=== PATIENT | male | born 1935 | race Caucasian/White ===

== ENCOUNTER 2016-12-03 09:03 | Inpatient (IN) | payer MEDICARE, BC ==
[2016-12-03] MEDS ORDERED: SODIUM CHLORIDE 0.9% 1,000 ML IV ONE (09:29)
[2016-12-03] MEDS ORDERED: ACETAMINOPHEN TAB 500 MG TAB PO STA (09:29)
--- NOTE | 2016-12-03 09:36 | ED ---
Fever HPI - General Source: patient, RN notes reviewed Mode of arrival: ambulatory Limitations: no limitations <Preston Morejon - Last Filed: 12/03/16 12:16> <Jl Sage - Last Filed: 12/03/16 12:41> - General Chief Complaint: Fever Stated Complaint: post op problem, male gu, vomiting Time Seen by Provider: 12/03/16 09:13 - History of Present Illness Initial Comments: 81-year-old male patient presents to emergency department today for complaints of fever and vomiting. Patient underwent urologic surgery on Tuesday, states a large stone was removed from his bladder, and part of his prostate was removed. Surgeon is Dr. Myers. Patient states he woke this morning and just felt chilled and shaky. They called Dr. Myers's office this morning who instructed them to bring a urine sample to his office. states when she arrived home patient was vomiting and seemed even more shaky. Patient denies any headache, dizziness, weakness, chest pain, back pain, shortness breath, abdominal pain, constipation, or diarrhea. Patient does have some hematuria, but was told that was to be expected with the surgery. Patient reports minimal urine output this morning. He denies any cough, congestion, nasal drainage, or sore throat. (Preston Morejon) - Related Data Home Medications Medication Instructions Recorded Confirmed Atenolol [Tenormin] 25 mg PO DAILY 12/03/16 12/03/16 Digoxin [Lanoxin] 125 mcg PO DAILY 12/03/16 12/03/16 Simvastatin [Zocor] 40 mg PO DAILY 12/03/16 12/03/16 metFORMIN HCL [Glucophage] 850 mg PO DAILY 12/03/16 12/03/16 Allergies Allergy/AdvReac Type Severity Reaction Status Date / Time No Known Allergies Allergy Verified 12/03/16 09:40 Review of Systems ROS Other: All systems not noted in ROS Statement are negative. <Preston Morejon - Last Filed: 12/03/16 12:16> ROS Other: All systems not noted in ROS Statement are negative. <Jl Sage - Last Filed: 12/03/16 12:41> ROS Statement: Those systems with pertinent positive or pertinent negative responses have been documented in the HPI. Past Medical History Past Medical History: Chest Pain / Angina, Diabetes Mellitus, Hyperlipidemia, Hypertension History of Any Multi-Drug Resistant Organisms: None Reported Past Surgical History: Hernia Repair, Prostate Surgery, Tonsillectomy Past Psychological History: No Psychological Hx Reported Smoking Status: Never smoker Past Alcohol Use History: None Reported Past Drug Use History: None Reported <Preston Morejon - Last Filed: 12/03/16 12:16> General Exam Limitations: no limitations General appearance: alert, in no apparent distress Head exam: Present: atraumatic, normocephalic, normal inspection Eye exam: Present: normal appearance, PERRL, EOMI. Absent: scleral icterus, conjunctival injection, periorbital swelling ENT exam: Present: normal exam, normal oropharynx, mucous membranes dry Neck exam: Present: normal inspection. Absent: tenderness, meningismus, lymphadenopathy Respiratory exam: Present: normal lung sounds bilaterally. Absent: respiratory distress, wheezes, rales, rhonchi, stridor Cardiovascular Exam: Present: normal rhythm, tachycardia, normal heart sounds. Absent: systolic murmur, diastolic murmur, rubs, gallop, clicks GI/Abdominal exam: Present: soft, normal bowel sounds. Absent: distended, tenderness, guarding, rebound, rigid Extremities exam: Present: normal inspection, full ROM, normal capillary refill. Absent: tenderness, pedal edema, joint swelling, calf tenderness Back exam: Present: normal inspection Neurological exam: Present: alert, oriented X3, CN II-XII intact Psychiatric exam: Present: normal affect, normal mood Skin exam: Present: warm, dry, intact, normal color. Absent: rash <Preston Morejon - Last Filed: 12/03/16 12:16> General appearance: alert, in no apparent distress Head exam: Present: atraumatic, normocephalic, normal inspection Eye exam: Present: normal appearance, PERRL, EOMI. Absent: scleral icterus, conjunctival injection, periorbital swelling ENT exam: Present: normal exam, mucous membranes moist Neck exam: Present: normal inspection. Absent: tenderness, meningismus, lymphadenopathy Respiratory exam: Present: normal lung sounds bilaterally. Absent: respiratory distress, wheezes, rales, rhonchi, stridor Cardiovascular Exam: Present: normal rhythm, tachycardia, normal heart sounds. Absent: systolic murmur, diastolic murmur, rubs, gallop, clicks GI/Abdominal exam: Present: soft, normal bowel sounds. Absent: distended, tenderness, guarding, rebound, rigid Extremities exam: Present: normal inspection, full ROM, normal capillary refill. Absent: tenderness, pedal edema, joint swelling, calf tenderness Back exam: Present: normal inspection Neurological exam: Present: alert, oriented X3, CN II-XII intact Psychiatric exam: Present: normal affect, normal mood Skin exam: Present: warm, dry, intact, normal color. Absent: rash <Jl Sage - Last Filed: 12/03/16 12:41> Course <Preston Morejon - Last Filed: 12/03/16 12:16> <Jl Sage - Last Filed: 12/03/16 12:41> Vital Signs 12/03/16 12/03/16 12/03/16 09:04 10:15 10:30 Temperature 102.8 F H Pulse Rate 117 H 98 92 Respiratory 18 20 18 Rate Blood Pressure 130/61 113/62 117/65 O2 Sat by Pulse 95 94 L 95 Oximetry 12/03/16 12/03/16 10:45 11:00 Temperature Pulse Rate 92 92 Respiratory 18 18 Rate Blood Pressure 116/66 114/67 O2 Sat by Pulse 92 L 98 Oximetry - Reevaluation(s) Reevaluation #1: 12/03/16 12:39 patient seen and evaluated by Dr. Huston here in the emergency room. We'll start IV antibiotics (Jl Sage) Medical Decision Making - Lab Data Result diagrams: 12/03/16 10:06 12/03/16 10:06 <Preston Morejon - Last Filed: 12/03/16 12:16> - Lab Data Result diagrams: 12/03/16 10:06 12/03/16 10:06 - Radiology Data Radiology results: report reviewed (Chest x-ray is negative for acute disease), image reviewed <Jl Sage - Last Filed: 12/03/16 12:41> - Medical Decision Making 81-year-old male patient presents to emergency department today for evaluation of fever. Patient is status post TURP with stone removal from bladder on Tuesday. Labs revealed a lactic acid of 3.1. Patient was started on broad spectrum antibiotics and given 1500 mL of normal saline. Dr. Myers was in to see patient. Patient be admitted for urinary tract infection and fever. (Preston Morejon) 81 male to the the ER for evaluation of fever, postop urinary tract infection, patient will be admitted for IV antibiotics, continue IV resuscitation fever symptom control. (Jl Sage) - Lab Data Lab Results 12/03/16 12/03/16 12/03/16 Range/Units 09:15 10:06 10:06 WBC 9.3 (3.8-10.6) k/uL RBC 4.57 (4.30-5.90) m/uL Hgb 13.8 (13.0-17.5) gm/dL Hct 41.3 (39.0-53.0) % MCV 90.3 (80.0-100.0) fL MCH 30.2 (25.0-35.0) pg MCHC 33.4 (31.0-37.0) g/dL RDW 13.3 (11.5-15.5) % Plt Count 226 (150-450) k/uL Neutrophils % 94 % Lymphocytes % 3 % Monocytes % 1 % Eosinophils % 1 % Basophils % 0 % Neutrophils # 8.7 H (1.3-7.7) k/uL Lymphocytes # 0.3 L (1.0-4.8) k/uL Monocytes # 0.1 (0-1.0) k/uL Eosinophils # 0.1 (0-0.7) k/uL Basophils # 0.0 (0-0.2) k/uL PT (9.0-12.0) sec INR (<1.1) APTT (22.0-30.0) sec Sodium 138 (137-145) mmol/L Potassium 4.4 (3.5-5.1) mmol/L Chloride 104 (98-107) mmol/L Carbon Dioxide 20 L (22-30) mmol/L Anion Gap 14 mmol/L BUN 13 (9-20) mg/dL Creatinine 0.90 (0.66-1.25) mg/dL Est GFR (MDRD) Af Amer >60 (>60 ml/min/1.73 sqM) Est GFR (MDRD) Non-Af >60 (>60 ml/min/1.73 sqM) Glucose 214 H (74-99) mg/dL Plasma Lactic Acid Selvin (0.7-2.0) mmol/L Calcium 9.9 (8.4-10.2) mg/dL Total Bilirubin 0.9 (0.2-1.3) mg/dL AST 37 (17-59) U/L ALT 54 (21-72) U/L Alkaline Phosphatase 68 (38-126) U/L Total Protein 6.8 (6.3-8.2) g/dL Albumin 4.1 (3.5-5.0) g/dL Urine Color Yellow Urine Appearance Cloudy (Clear) Urine pH 6.5 (5.0-8.0) Ur Specific [place] 1.011 (1.001-1.035) Urine Protein 1+ H (Negative) Urine Glucose (UA) 2+ H (Negative) Urine Ketones Negative (Negative) Urine Blood Large H (Negative) Urine Nitrite Negative (Negative) Urine Bilirubin Negative (Negative) Urine Urobilinogen <2.0 (<2.0) mg/dL Ur Leukocyte Esterase Moderate H (Negative) Urine RBC >182 H (0-5) /hpf Urine WBC 110 H (0-5) /hpf Urine Bacteria Few H (None) /hpf Urine Mucus Rare H (None) /hpf Influenza Type A RNA (Not Detectd) Influenza Type B (PCR) (Not Detectd) 12/03/16 12/03/16 12/03/16 Range/Units 10:06 10:06 10:06 WBC (3.8-10.6) k/uL RBC (4.30-5.90) m/uL Hgb (13.0-17.5) gm/dL Hct (39.0-53.0) % MCV (80.0-100.0) fL MCH (25.0-35.0) pg MCHC (31.0-37.0) g/dL RDW (11.5-15.5) % Plt Count (150-450) k/uL Neutrophils % % Lymphocytes % % Monocytes % % Eosinophils % % Basophils % % Neutrophils # (1.3-7.7) k/uL Lymphocytes # (1.0-4.8) k/uL Monocytes # (0-1.0) k/uL Eosinophils # (0-0.7) k/uL Basophils # (0-0.2) k/uL PT 11.0 (9.0-12.0) sec INR 1.1 (<1.1) APTT 21.2 L (22.0-30.0) sec Sodium (137-145) mmol/L Potassium (3.5-5.1) mmol/L Chloride (98-107) mmol/L Carbon Dioxide (22-30) mmol/L Anion Gap mmol/L BUN (9-20) mg/dL Creatinine (0.66-1.25) mg/dL Est GFR (MDRD) Af Amer (>60 ml/min/1.73 sqM) Est GFR (MDRD) Non-Af (>60 ml/min/1.73 sqM) Glucose (74-99) mg/dL Plasma Lactic Acid Selvin 3.1 H* (0.7-2.0) mmol/L Calcium (8.4-10.2) mg/dL Total Bilirubin (0.2-1.3) mg/dL AST (17-59) U/L ALT (21-72) U/L Alkaline Phosphatase (38-126) U/L Total Protein (6.3-8.2) g/dL Albumin (3.5-5.0) g/dL Urine Color Urine Appearance (Clear) Urine pH (5.0-8.0) Ur Specific [place] (1.001-1.035) Urine Protein (Negative) Urine Glucose (UA) (Negative) Urine Ketones (Negative) Urine Blood (Negative) Urine Nitrite (Negative) Urine Bilirubin (Negative) Urine Urobilinogen (<2.0) mg/dL Ur Leukocyte Esterase (Negative) Urine RBC (0-5) /hpf Urine WBC (0-5) /hpf Urine Bacteria (None) /hpf Urine Mucus (None) /hpf Influenza Type A RNA Not Detected (Not Detectd) Influenza Type B (PCR) Not Detected (Not Detectd) Disposition Decision to Admit Reason: Admit from EC Decision Date: 12/03/16 Decision Time: 12:12 <Preston Morejon - Last Filed: 12/03/16 12:16> <Jl Sage - Last Filed: 12/03/16 12:41> Clinical Impression: Urinary tract infection, Post-procedural fever Disposition: ADMITTED IP TO THIS HOSP Condition: Fair Referrals: Chucho Trejo MD [Primary Care Provider] - 1-2 days
[2016-12-03 10:10] LABS: Appearance,Urine Cloudy (Clear); Bacteria,Urine Few /hpf; Bilirubin,Urine Negative (Negative); Glucose,Urine (UA) 2+ (Negative); Ketones,Urine Negative (Negative); Leukocyte Esterase,Urine Moderate (Negative); Mucus,Urine Rare /hpf; Nitrite,Urine Negative (Negative); PH, Urine 6.5 (5.0-8.0); Particle Count 14830; Protein,Urine 1+ (Negative); RBC,Urine >182 /hpf (0-5); Specific Gravity,Urine 1.011 (1.001-1.035); UA Billing (MACRO vs. MICRO) MICRO; Urobilinogen,Urine <2.0 mg/dL (<2.0); WBC,Urine 110 /hpf (0-5)
[2016-12-03 10:33] LABS: Basophils % (A) 0 %; CH 30.6; Eosinophils # (A) 0.1 k/uL (0-0.7); Eosinophils % (A) 1 %; HCT 41.3 % (39.0-53.0); HDW 2.61; HGB 13.8 gm/dL (13.0-17.5); Luc # (Auto) 0.03; Luc % (Auto) 0; Lymphocytes # (A) 0.3 k/uL (1.0-4.8); Lymphocytes % (A) 3 %; MCH 30.2 pg (25.0-35.0); MCHC 33.4 g/dL (31.0-37.0); MCV 90.3 fL (80.0-100.0); Mean Platelet Volume 7.9; Monocytes # (A) 0.1 k/uL (0-1.0); Monocytes % (A) 1 %; Neutrophils # (A) 8.7 k/uL (1.3-7.7); Neutrophils % (A) 94 %; RBC 4.57 m/uL (4.30-5.90); RDW 13.3 % (11.5-15.5); WBC 9.3 k/uL (3.8-10.6); WBC (Perox) 9.47
[2016-12-03 10:57] LABS: ALT 54 U/L (21-72); AST 37 U/L (17-59); Alkaline Phosphatase 68 U/L (38-126); Anion Gap 14 mmol/L; Blood Urea Nitrogen 13 mg/dL (9-20); Calcium 9.9 mg/dL (8.4-10.2); Carbon Dioxide 20 mmol/L (22-30); Chloride 104 mmol/L (98-107); Glucose 214 mg/dL (74-99); Non-African American GFR(MDRD) >60 (>60 ml/min/1.73 sqM); Potassium 4.4 mmol/L (3.5-5.1); Sodium 138 mmol/L (137-145); Total Bilirubin 0.9 mg/dL (0.2-1.3); Total Protein 6.8 g/dL (6.3-8.2)
[2016-12-03 11:02] LABS: INR 1.1 (<1.1)
[2016-12-03 11:20] LABS: Partial Thromboplastin Time 21.2 sec (22.0-30.0)
[2016-12-03] MEDS ORDERED: SODIUM CHLORIDE 0.9% 500 ML IV ONE (11:44)
--- NOTE | 2016-12-03 11:59 | XR ---
EXAMINATION TYPE: XR chest 2V DATE OF EXAM: 12/03/2016 11:32 AM HISTORY: fever. REFERENCE: Previous study dated 12/02/2009. FINDINGS: The lungs are overinflated. There are chronic increased markings the lung bases. There is n o pneumonia or edema. Pleural spaces are clear. Heart size is normal. IMPRESSION: COPD.
--- NOTE | 2016-12-03 12:02 | P.GSHP ---
History of Present Illness H&P Date: 12/03/16 The patient is an 81-year-old gentleman who on 11/29/2016 underwent a transurethral resection of his prostate which was large as well as cystoscopy lithotripsy to a large bladder stone. Catheter remained in until yesterday and was removed. He developed fever and chills this morning came in the emergency room. He is having some difficulty with urination. He is having some blood. He is having some nausea. He'll be admitted for IV fluids IV hydration and antibiotics. His urine looks infected. I suspect he has a and infection. He was on perioperative antibiotics. - Review of Systems Comment: Noncontributory he has no chest pain or shortness of breath Past Medical History Past Medical History: Chest Pain / Angina, Diabetes Mellitus, Hyperlipidemia, Hypertension History of Any Multi-Drug Resistant Organisms: None Reported Past Surgical History: Hernia Repair, Prostate Surgery, Tonsillectomy Past Psychological History: No Psychological Hx Reported Smoking Status: Never smoker Past Alcohol Use History: None Reported Past Drug Use History: None Reported Medications and Allergies Home Medications Medication Instructions Recorded Confirmed Type Atenolol [Tenormin] 25 mg PO DAILY 12/03/16 12/03/16 History Digoxin [Lanoxin] 125 mcg PO DAILY 12/03/16 12/03/16 History Simvastatin [Zocor] 40 mg PO DAILY 12/03/16 12/03/16 History Tamsulosin [Flomax] 0.4 mg PO DIRECTED 12/03/16 12/03/16 History metFORMIN HCL [Glucophage] 850 mg PO DAILY 12/03/16 12/03/16 History Allergies Allergy/AdvReac Type Severity Reaction Status Date / Time No Known Allergies Allergy Verified 12/03/16 09:40 Surgical - Exam Vital Signs Temp Pulse Resp BP Pulse Ox 102.8 F H 117 H 18 130/61 95 12/03/16 09:04 12/03/16 09:04 12/03/16 09:04 12/03/16 09:04 12/03/16 09:04 - General well developed, well nourished - Eyes PERRL - ENT no hearing loss - Respiratory normal expansion, normal respiratory effort - Cardiovascular Rhythm: regular - Abdomen Abdomen: soft, non tender - Genitourinary normal penis with no external lesions, testicles present - Neurologic normal coordination, normal sensation - Psychiatric oriented to time, oriented to person, oriented to place, speech is normal, memory intact Results - Labs 12/03/16 10:06 12/03/16 10:06 Abnormal Lab Results - Last 24 Hours (Table) 12/03/16 12/03/16 12/03/16 Range/Units 09:15 10:06 10:06 Neutrophils # 8.7 H (1.3-7.7) k/uL Lymphocytes # 0.3 L (1.0-4.8) k/uL APTT (22.0-30.0) sec Carbon Dioxide 20 L (22-30) mmol/L Glucose 214 H (74-99) mg/dL Plasma Lactic Acid Eslvin (0.7-2.0) mmol/L Urine Protein 1+ H (Negative) Urine Glucose (UA) 2+ H (Negative) Urine Blood Large H (Negative) Ur Leukocyte Esterase Moderate H (Negative) Urine RBC >182 H (0-5) /hpf Urine WBC 110 H (0-5) /hpf Urine Bacteria Few H (None) /hpf Urine Mucus Rare H (None) /hpf 12/03/16 12/03/16 Range/Units 10:06 10:06 Neutrophils # (1.3-7.7) k/uL Lymphocytes # (1.0-4.8) k/uL APTT 21.2 L (22.0-30.0) sec Carbon Dioxide (22-30) mmol/L Glucose (74-99) mg/dL Plasma Lactic Acid Selvin 3.1 H* (0.7-2.0) mmol/L Urine Protein (Negative) Urine Glucose (UA) (Negative) Urine Blood (Negative) Ur Leukocyte Esterase (Negative) Urine RBC (0-5) /hpf Urine WBC (0-5) /hpf Urine Bacteria (None) /hpf Urine Mucus (None) /hpf Diabetes panel 12/03/16 Range/Units 10:06 Sodium 138 (137-145) mmol/L Potassium 4.4 (3.5-5.1) mmol/L Chloride 104 (98-107) mmol/L Carbon Dioxide 20 L (22-30) mmol/L BUN 13 (9-20) mg/dL Creatinine 0.90 (0.66-1.25) mg/dL Glucose 214 H (74-99) mg/dL Calcium 9.9 (8.4-10.2) mg/dL AST 37 (17-59) U/L ALT 54 (21-72) U/L Alkaline Phosphatase 68 (38-126) U/L Total Protein 6.8 (6.3-8.2) g/dL Albumin 4.1 (3.5-5.0) g/dL Calcium panel 12/03/16 Range/Units 10:06 Calcium 9.9 (8.4-10.2) mg/dL Albumin 4.1 (3.5-5.0) g/dL Pituitary panel 12/03/16 Range/Units 10:06 Sodium 138 (137-145) mmol/L Potassium 4.4 (3.5-5.1) mmol/L Chloride 104 (98-107) mmol/L Carbon Dioxide 20 L (22-30) mmol/L BUN 13 (9-20) mg/dL Creatinine 0.90 (0.66-1.25) mg/dL Glucose 214 H (74-99) mg/dL Calcium 9.9 (8.4-10.2) mg/dL Adrenal panel 12/03/16 Range/Units 10:06 Sodium 138 (137-145) mmol/L Potassium 4.4 (3.5-5.1) mmol/L Chloride 104 (98-107) mmol/L Carbon Dioxide 20 L (22-30) mmol/L BUN 13 (9-20) mg/dL Creatinine 0.90 (0.66-1.25) mg/dL Glucose 214 H (74-99) mg/dL Calcium 9.9 (8.4-10.2) mg/dL Total Bilirubin 0.9 (0.2-1.3) mg/dL AST 37 (17-59) U/L ALT 54 (21-72) U/L Alkaline Phosphatase 68 (38-126) U/L Total Protein 6.8 (6.3-8.2) g/dL Albumin 4.1 (3.5-5.0) g/dL Assessment and Plan Plan: Impression: Postoperative urinary tract infection from a TURP and a cystolithotripsy Recommendations the patient be admitted for IV hydration and IV antibiotics urine culture also assess how well he is emptying his bladder.
[2016-12-03] MEDS ORDERED: NALOXONE 0.4 MG/ML 1 ML VIAL IV PRN (12:08)
[2016-12-03] MEDS ORDERED: TAMSULOSIN 0.4 MG CAP.ER.24H PO SCH (12:15)
[2016-12-03] MEDS: SODIUM CHLORIDE 0.45% 1,000 ML IV SCH (16:05)
[2016-12-03 17:02] LABS: Glucose,Whole Blood 214 mg/dL (75-99)
[2016-12-03] MEDS: INSULIN LISPRO (humaLOG) 300 UNIT/3 ML VIAL SQ SCH ×2 (17:32→21:24)
[2016-12-03 19:23] LABS: Hemoglobin A1C 7.2 % (4.2-6.1)
[2016-12-03] MEDS: ACETAMINOPHEN TAB 325 MG TAB PO PRN (20:40)
[2016-12-03 21:22] LABS: Glucose,Whole Blood 189 mg/dL (75-99)
[2016-12-04] MEDS: ACETAMINOPHEN TAB 325 MG TAB PO PRN ×2 (03:34→13:34)
[2016-12-04 06:34] LABS: Glucose,Whole Blood 181 mg/dL (75-99)
[2016-12-04] MEDS: metFORMIN 850 MG TAB PO SCH (06:48)
[2016-12-04] MEDS: INSULIN LISPRO (humaLOG) 300 UNIT/3 ML VIAL SQ SCH ×4 (06:49→21:16)
--- NOTE | 2016-12-04 09:17 | P.PN ---
Progress Note - Text The patient was generally afebrile yesterday but had a temp of 102.5 last night. BP is stable. He denies a cough or SOB and says he has no specific pain. His urine is grossly clear. Preliminary blood cultures are growing a GNR. He is currently on ceftriaxone. Imp: Sepsis from UTI. Plan: Gentamicin will be added to ceftriaxone pending final blood and urine cultures.
[2016-12-04] MEDS: DIGOXIN 125 MCG TAB PO SCH (09:22)
[2016-12-04] MEDS: ATENOLOL 25 MG TAB PO SCH (09:23)
[2016-12-04] MEDS: ATORVASTATIN 20 MG TAB PO SCH (09:23)
[2016-12-04] MEDS: GENTAMICIN 120 MG in SODIUM CHLORIDE 0.9% 100 ML IV SCH ×2 (10:20→21:16)
[2016-12-04 11:12] LABS: Non-African American GFR(MDRD) >60 (>60 ml/min/1.73 sqM)
[2016-12-04 11:50] LABS: Glucose,Whole Blood 145 mg/dL (75-99)
[2016-12-04] MEDS: SODIUM CHLORIDE 0.45% 1,000 ML IV SCH (12:01)
[2016-12-04 17:17] LABS: Glucose,Whole Blood 154 mg/dL (75-99)
[2016-12-04 21:32] LABS: Glucose,Whole Blood 191 mg/dL (75-99)
[2016-12-05 07:30] LABS: Glucose,Whole Blood 136 mg/dL (75-99)
[2016-12-05] MEDS: DIGOXIN 125 MCG TAB PO SCH (08:18)
[2016-12-05] MEDS: metFORMIN 850 MG TAB PO SCH (08:18)
[2016-12-05] MEDS: ATENOLOL 25 MG TAB PO SCH (08:18)
[2016-12-05] MEDS: ATORVASTATIN 20 MG TAB PO SCH (08:18)
[2016-12-05] MEDS: INSULIN LISPRO (humaLOG) 300 UNIT/3 ML VIAL SQ SCH ×4 (08:19→21:16)
[2016-12-05] MEDS: SODIUM CHLORIDE 0.45% 1,000 ML IV SCH (08:19)
[2016-12-05 08:52] LABS: CH 30.1; CHCM 33.4; HCT 36.1 % (39.0-53.0); HDW 2.64; HGB 12.2 gm/dL (13.0-17.5); MCH 30.5 pg (25.0-35.0); MCHC 33.8 g/dL (31.0-37.0); MCV 90.5 fL (80.0-100.0); RBC 3.99 m/uL (4.30-5.90); RDW 13.3 % (11.5-15.5); WBC 5.2 k/uL (3.8-10.6)
--- NOTE | 2016-12-05 09:49 | P.PN ---
Progress Note - Text The patient is afebrile and normotensive. He says that he feels better than he did yesterday. He is tolerating a regular diet and is fully ambulatory. His urine is grossly clear. White blood count this morning is 5200. Blood and urine cultures are not yet final. Impression: Sepsis secondary to urinary tract infection Plan: The patient will remain on ceftriaxone and gentamicin until his blood and urine cultures have been finalized. If it is possible to be switched to an oral antibiotic this will be done and the patient may be able to be discharged later today. The patient will be discharged with a catheter in place as he had approximately 800 mL in his bladder when the catheter was inserted on 12/03.
[2016-12-05] MEDS: GENTAMICIN 120 MG in SODIUM CHLORIDE 0.9% 100 ML IV SCH ×2 (11:03→20:00)
[2016-12-05 12:05] LABS: Glucose,Whole Blood 125 mg/dL (75-99)
[2016-12-05 16:52] LABS: Glucose,Whole Blood 120 mg/dL (75-99)
[2016-12-05 21:14] LABS: Glucose,Whole Blood 129 mg/dL (75-99)
[2016-12-06] MEDS: SODIUM CHLORIDE 0.45% 1,000 ML IV SCH (04:28)
--- NOTE | 2016-12-06 07:36 | P.DS ---
Providers Date of admission: 12/03/16 12:09 Attending physician: Bart Myers Primary care physician: Chucho Trejo Hospital Course: Patient is an 81-year-old gentleman who underwent a transurethral resection of the prostate 11/29/2016. His catheter is removed on 12/02/2016. He went into retention and developed a urinary tract infection with sepsis and ended up in the emergency room on 12/03/2016. He was admitted for IV antibiotics and a Juárez catheter. He had been on preoperative and perioperative antibiotics but he grew a different bacteria, Pseudomonas and Klebsiella. He has defervesced nicely. He'll be discharged home today on oral Cipro which is appropriate for both bacteria. He will go home with the Juárez. He'll be seen in the office on and the catheter will be removed. Post hospital instructions have been given. Diet is regular and he will resume his home medications. Patient Condition at Discharge: Good Plan - Discharge Summary New Discharge Prescriptions: Ciprofloxacin HCl [Cipro] 500 mg PO Q12HR #20 tablet Discharge Medication List Atenolol [Tenormin] 25 mg PO DAILY 12/03/16 [History] Digoxin [Lanoxin] 125 mcg PO DAILY 12/03/16 [History] Simvastatin [Zocor] 40 mg PO DAILY 12/03/16 [History] metFORMIN HCL [Glucophage] 850 mg PO DAILY 12/03/16 [History] Ciprofloxacin HCl [Cipro] 500 mg PO Q12HR #20 tablet 12/06/16 [Rx] Follow up Appointment(s)/Referral(s): Chucho Trejo MD [Primary Care Provider] - 1-2 days Bart Myers MD [STAFF PHYSICIAN] - 12/09/16 Discharge Disposition: HOME SELF-CARE
[2016-12-06 07:38] LABS: Glucose,Whole Blood 173 mg/dL (75-99)
[2016-12-06 07:53] VITALS: BP 118/65; PULSE 61; RESP 16; TEMP 97.8
[2016-12-06] MEDS ORDERED: GENTAMICIN TROUGH DUE 1 EACH MISC MISCELLANE ONE (08:00)
[2016-12-06] MEDS: ATORVASTATIN 20 MG TAB PO SCH (08:42)
[2016-12-06] MEDS: ATENOLOL 25 MG TAB PO SCH (08:42)
[2016-12-06] MEDS: metFORMIN 850 MG TAB PO SCH (08:42)
[2016-12-06] MEDS: DIGOXIN 125 MCG TAB PO SCH (08:42)
[2016-12-06] MEDS: INSULIN LISPRO (humaLOG) 300 UNIT/3 ML VIAL SQ SCH (08:42)
[2016-12-06] MEDS: GENTAMICIN 120 MG in SODIUM CHLORIDE 0.9% 100 ML IV SCH (08:45)
[2016-12-06] MEDS ORDERED: GENTAMICIN PEAK DUE 1 EACH MISC MISCELLANE ONE (10:30)
== END 2016-12-06 10:40 | disposition home or self-care (01) | DRG 872 ==
LOC: EC 09:03 → 6SEL 12:09 → 4MS4W 12-04 12:33
PROVIDERS: ADMIT Urology; ATTEND Urology
DX: A41.9 Sepsis, unspecified organism (principal); N39.0 Urinary tract infection, site not specified; E11.9 Type 2 diabetes mellitus without complications; R31.9 Hematuria, unspecified; I10 Essential (primary) hypertension; E78.5 Hyperlipidemia, unspecified; B96.5 Pseudomonas (aeruginosa) (mallei) (pseudomallei) as the cause of diseases classified elsewhere; B96.1 Klebsiella pneumoniae [K. pneumoniae] as the cause of diseases classified elsewhere; Z79.84 Long term (current) use of oral hypoglycemic drugs; Z79.899 Other long term (current) drug therapy
CPT/HCPCS: 36415; 51798; 71020; 80053; 80170; 81001; 82565; 83036; 83605; 85025; 85027; 85610; 85730; 87040; 87077; 87086; 87186; 87502; 96361; 96365; 96366; 99285

== ENCOUNTER 2019-11-23 10:27 | Inpatient (IN) | payer MEDICARE, BC ==
--- NOTE | 2019-11-23 11:28 | ED ---
General Adult HPI - General Chief complaint: Neuro Symptoms/Deficit Stated complaint: left side numbness/high BP Time Seen by Provider: 11/23/19 10:38 Source: patient, RN notes reviewed, old records reviewed Mode of arrival: ambulatory Limitations: no limitations - History of Present Illness Initial comments: 84-year-old male presenting for evaluation of left-sided numbness. Patient's symptoms began at 2300 yesterday which was 12 hours prior to arrival. No associated weakness. No headache. Patient states he has sensation but has a numbness and tingling feeling on the entire left side of his body, left arm and leg, left face. No speech abnormalities. No chest pain or dyspnea. No abdominal pain. No nausea vomiting or diarrhea. - Related Data Home Medications Medication Instructions Recorded Confirmed Atenolol [Tenormin] 25 mg PO DAILY 12/03/16 06/14/18 Digoxin [Lanoxin] 125 mcg PO DAILY 12/03/16 06/14/18 Simvastatin [Zocor] 40 mg PO DAILY 12/03/16 06/14/18 metFORMIN HCL [Glucophage] 850 mg PO DAILY 12/03/16 06/14/18 Previous Rx's Medication Instructions Recorded Ciprofloxacin HCl [Cipro] 500 mg PO Q12HR #20 tablet 12/06/16 Allergies Allergy/AdvReac Type Severity Reaction Status Date / Time No Known Allergies Allergy Verified 11/23/19 10:36 Review of Systems ROS Statement: Those systems with pertinent positive or pertinent negative responses have been documented in the HPI. ROS Other: All systems not noted in ROS Statement are negative. Past Medical History Past Medical History: Chest Pain / Angina, Diabetes Mellitus, Hyperlipidemia, Hypertension, Prostate Disorder, Sleep Apnea/CPAP/BIPAP Additional Past Medical History / Comment(s): "IRREG HEARTBEAT", "CHEMICAL STRESS TEST PRIOR TO TURP", "HEARTBURN" OTC MEDS NEEDED. DOES'NT USE A CPAP MACHINE. History of Any Multi-Drug Resistant Organisms: None Reported Past Surgical History: Hernia Repair, Prostate Surgery, Tonsillectomy Additional Past Surgical History / Comment(s): 11-29-16 TURP,CYSTOCOPY,LITHOTRIPSY FOR BLADDER STONE. FLO INGUINAL HERNIA REPAIR, FLO CATARACTS. Past Psychological History: No Psychological Hx Reported Smoking Status: Never smoker Past Alcohol Use History: None Reported Past Drug Use History: None Reported - Past Family History Father Family Medical History: Cancer, Dementia, Prostate Disorder Additional Family Medical History / Comment(s): AGE 94 Mother Family Medical History: Dementia Additional Family Medical History / Comment(s): AGE 95 General Exam Limitations: no limitations General appearance: alert, in no apparent distress Head exam: Present: atraumatic, normocephalic Eye exam: Present: normal appearance, PERRL ENT exam: Present: normal exam Neck exam: Present: normal inspection. Absent: tenderness, meningismus Respiratory exam: Present: normal lung sounds bilaterally. Absent: respiratory distress, wheezes Cardiovascular Exam: Present: regular rate, normal rhythm GI/Abdominal exam: Present: soft. Absent: distended, tenderness, guarding Extremities exam: Present: normal inspection, normal capillary refill. Absent: pedal edema Neurological exam: Present: alert, oriented X3, CN II-XII intact, normal gait. Absent: motor sensory deficit (NIH 0) Psychiatric exam: Present: normal affect, normal mood Skin exam: Present: warm, dry, intact. Absent: cyanosis, diaphoretic Course Vital Signs 11/23/19 11/23/19 11/23/19 10:32 10:36 11:36 Temperature 98.3 F Pulse Rate 52 L 56 L Respiratory 18 18 18 Rate Blood Pressure 178/90 144/85 O2 Sat by Pulse 97 96 Oximetry - Reevaluation(s) Reevaluation #1: 11/23/19 13:08 Patient reevaluated, symptoms resolved, findings consistent with TIA. EKG Findings - EKG Comments: EKG Findings:: EKG: Sinus bradycardia, right bundle branch block, rate of 59, AL interval 192, QRS duration 154, QTC 437, no ST segment elevation. Medical Decision Making - Medical Decision Making 84-year-old male with left-sided numbness and tingling. No focal weakness. Symptoms concerning for TIA. Patient receives CT in the emergency department which is negative for intracranial hemorrhage or mass effect. His symptoms to resolve while in the emergency department. He is given a full dose aspirin currently on 81 mg aspirin daily. He has a normal CBC, normal CMP, EKG showing sinus rhythm. Case is discussed with Dr. Kim who will admit for further CVA and TIA workup. - Lab Data Result diagrams: 11/23/19 11:05 11/23/19 11:05 Lab Results 11/23/19 11/23/19 11/23/19 Range/Units 11:05 11:05 11:05 WBC 8.7 (3.8-10.6) k/uL RBC 5.02 (4.30-5.90) m/uL Hgb 15.1 (13.0-17.5) gm/dL Hct 45.8 (39.0-53.0) % MCV 91.2 (80.0-100.0) fL MCH 30.0 (25.0-35.0) pg MCHC 32.9 (31.0-37.0) g/dL RDW 13.0 (11.5-15.5) % Plt Count 219 (150-450) k/uL Neutrophils % 53 % Lymphocytes % 37 % Monocytes % 6 % Eosinophils % 2 % Basophils % 1 % Neutrophils # 4.6 (1.3-7.7) k/uL Lymphocytes # 3.2 (1.0-4.8) k/uL Monocytes # 0.5 (0-1.0) k/uL Eosinophils # 0.1 (0-0.7) k/uL Basophils # 0.1 (0-0.2) k/uL PT 10.3 (9.0-12.0) sec INR 1.0 (<1.2) APTT 23.3 (22.0-30.0) sec Sodium 138 (137-145) mmol/L Potassium 4.8 (3.5-5.1) mmol/L Chloride 105 (98-107) mmol/L Carbon Dioxide 18 L (22-30) mmol/L Anion Gap 15 mmol/L BUN 15 (9-20) mg/dL Creatinine 0.85 (0.66-1.25) mg/dL Est GFR (CKD-EPI)AfAm >90 (>60 ml/min/1.73 sqM) Est GFR (CKD-EPI)NonAf 81 (>60 ml/min/1.73 sqM) Glucose 134 H (74-99) mg/dL Calcium 9.7 (8.4-10.2) mg/dL Total Bilirubin 0.4 (0.2-1.3) mg/dL AST 43 (17-59) U/L ALT 55 H (4-49) U/L Alkaline Phosphatase 54 (38-126) U/L Troponin I (0.000-0.034) ng/mL Total Protein 7.8 (6.3-8.2) g/dL Albumin 4.8 (3.5-5.0) g/dL 11/23/19 Range/Units 11:05 WBC (3.8-10.6) k/uL RBC (4.30-5.90) m/uL Hgb (13.0-17.5) gm/dL Hct (39.0-53.0) % MCV (80.0-100.0) fL MCH (25.0-35.0) pg MCHC (31.0-37.0) g/dL RDW (11.5-15.5) % Plt Count (150-450) k/uL Neutrophils % % Lymphocytes % % Monocytes % % Eosinophils % % Basophils % % Neutrophils # (1.3-7.7) k/uL Lymphocytes # (1.0-4.8) k/uL Monocytes # (0-1.0) k/uL Eosinophils # (0-0.7) k/uL Basophils # (0-0.2) k/uL PT (9.0-12.0) sec INR (<1.2) APTT (22.0-30.0) sec Sodium (137-145) mmol/L Potassium (3.5-5.1) mmol/L Chloride (98-107) mmol/L Carbon Dioxide (22-30) mmol/L Anion Gap mmol/L BUN (9-20) mg/dL Creatinine (0.66-1.25) mg/dL Est GFR (CKD-EPI)AfAm (>60 ml/min/1.73 sqM) Est GFR (CKD-EPI)NonAf (>60 ml/min/1.73 sqM) Glucose (74-99) mg/dL Calcium (8.4-10.2) mg/dL Total Bilirubin (0.2-1.3) mg/dL AST (17-59) U/L ALT (4-49) U/L Alkaline Phosphatase (38-126) U/L Troponin I <0.012 (0.000-0.034) ng/mL Total Protein (6.3-8.2) g/dL Albumin (3.5-5.0) g/dL Disposition Clinical Impression: Transient cerebral ischemia Disposition: ADMITTED IP TO THIS HOSP Condition: Stable Referrals: Chucho Trejo MD [Primary Care Provider] - 1-2 days Decision to Admit Reason: Admit from EC Decision Date: 11/23/19 Decision Time: 13:09
[2019-11-23 12:01] LABS: Basophils # (A) 0.1 k/uL (0-0.2); Basophils % (A) 1 %; Eosinophils # (A) 0.1 k/uL (0-0.7); Eosinophils % (A) 2 %; HCT 45.8 % (39.0-53.0); HGB 15.1 gm/dL (13.0-17.5); Lymphocytes # (A) 3.2 k/uL (1.0-4.8); Lymphocytes % (A) 37 %; MCHC 32.9 g/dL (31.0-37.0); MCV 91.2 fL (80.0-100.0); Mean Platelet Volume 7.9; Monocytes # (A) 0.5 k/uL (0-1.0); Monocytes % (A) 6 %; Neutrophils # (A) 4.6 k/uL (1.3-7.7); Neutrophils % (A) 53 %; Platelet Count 219 k/uL (150-450); RBC 5.02 m/uL (4.30-5.90); WBC 8.7 k/uL (3.8-10.6)
--- NOTE | 2019-11-23 12:04 | CT ---
EXAMINATION TYPE: CT brain wo con DATE OF EXAM: 11/23/2019 HISTORY: Lt side numbness, elevated BP CT DLP: 1119.4 mGycm. Automated Exposure Control for Dose Reduction was Utilized. TECHNIQUE: CT scan of the head is performed without contrast. COMPARISON: None. FINDINGS: There is no acute intracranial hemorrhage or midline shift identified. There is diffuse v entricular and sulcal prominence consistent with diffuse age-related cerebral atrophy. There is low- attenuation in the periventricular white matter consistent with chronic small vessel ischemic change. Nasal septum deviated to right of midline. The globes are intact and the visualized sinuses are chery r. IMPRESSION: No acute intracranial hemorrhage or midline shift. There is mild diffuse age-related ce rebral atrophy and chronic small vessel ischemic change noted.
[2019-11-23] MEDS ORDERED: ASPIRIN 325 MG TAB PO STA (12:10)
[2019-11-23 12:13] LABS: ALT 55 U/L (4-49); AST 43 U/L (17-59); African American GFR (CKD) >90 (>60 ml/min/1.73 sqM); Albumin 4.8 g/dL (3.5-5.0); Alkaline Phosphatase 54 U/L (38-126); Anion Gap 15 mmol/L; Blood Urea Nitrogen 15 mg/dL (9-20); Calcium 9.7 mg/dL (8.4-10.2); Carbon Dioxide 18 mmol/L (22-30); Chloride 105 mmol/L (98-107); Glucose 134 mg/dL (74-99); Non-African American GFR(CKD) 81 (>60 ml/min/1.73 sqM); Potassium 4.8 mmol/L (3.5-5.1); Sodium 138 mmol/L (137-145); Total Bilirubin 0.4 mg/dL (0.2-1.3); Total Protein 7.8 g/dL (6.3-8.2)
[2019-11-23 12:15] LABS: Partial Thromboplastin Time 23.3 sec (22.0-30.0); Prothrombin Time 10.3 sec (9.0-12.0)
[2019-11-23] MEDS ORDERED: SODIUM CHLORIDE 0.9% 1,000 ML IV SCH (13:15)
--- NOTE | 2019-11-23 14:00 | US ---
EXAMINATION TYPE: US carotid duplex BILAT DATE OF EXAM: 11/23/2019 COMPARISON: NONE CLINICAL HISTORY: Stenosis. Left side numbness EXAM MEASUREMENTS: RIGHT: Peak Systolic Velocity (PSV) cm/sec ----- Right CCA: 83.3 ----- Right ICA: 72.4 ----- Right ECA: 106.9 ICA/CCA ratio: 0.9 RIGHT: End Diastole cm/sec ----- Right CCA: 15.5 ----- Right ICA: 24.1 ----- Right ECA: 11.1 LEFT: Peak Systolic Velocity (PSV) cm/sec ----- Left CCA: 86.4 ----- Left ICA: 67.1 ----- Left ECA: 137.8 ICA/CCA ratio: 0.8 LEFT: End Diastole cm/sec ----- Left CCA: 16.0 ----- Left ICA: 15.6 ----- Left ECA: 9.7 VERTEBRALS (direction of flow): Right Vertebral: Antegrade Left Vertebral: Antegrade Rhythm: Normal Rodriguez scale images show moderate to severe eccentric plaque at the carotid bulb level right greater th an left. Velocity measurements and ratios in both internal carotid arteries remain within normal limi ts. IMPRESSION: Moderate to severe atherosclerotic changes bilaterally without hemodynamically significa nt stenosis seen in either internal carotid artery. Criteria for Assigning % of Stenosis / Diameter reduction (Estimation based on the indirect measurements of the internal carotid artery velocities (ICA PSV). 1. Normal (no stenosis)=ICA PSV < 125 cm/s: ratio < 2.0: ICA EDV<40 cm/s. 2. Less than 50% stenosis=ICA PSV < 125 cm/s: ratio < 2.0: ICA EDV<40 cm/s. 3. 50 to 69% stenosis=ICA PSV of 125 to 230 cm/s: ration 2.0 ? 4.0: ICA EDV 40-100 cm/s. 4. Greater than 70% stenosis to near occlusion= ICA PSV > 230 cm/s: ratio > 4.0: ICA EDV > 100 cm/s. 5. Near occlusion= ICA PSV velocities may be low or undetectable: variable ratio and ICA EDV. 6. Total occlusion=unable to detect flow.
[2019-11-23] MEDS ORDERED: ACETAMINOPHEN TAB 325 MG TAB PO PRN (15:16)
[2019-11-23] MEDS ORDERED: NALOXONE 0.4 MG/ML 1 ML VIAL IV PRN (15:16)
--- NOTE | 2019-11-23 16:03 | P.CNNES ---
History of Present Illness Consult date: 11/23/19 Requesting physician: Pavel Diaz Reason for Consult: TIA History of Present Illness: Patient is a 84-year-old male admitted for new onset numbness and tingling of left side of the body. Patient's symptoms started yesterday at 11 PM, 12 hours prior to arrival to the ER. No associated weakness. No headache. He complained of numbness and tingling involving the entire left side of the body, face arm and leg. No associated speech abnormalities, visual disturbance, no focal weakness or balance issues. While walking he was feeling numbness of the left side but no weakness or gait imbalance. No chest pain or dyspnea. No abdominal pain, no nausea vomiting diarrhea. patient arrived to the hospital at 10:27 AM today. Patient states that prior to arrival to the ER, he did take 2 full adult aspirins. Patient states that he does take aspirin 81 mg every day for the last 4-5 years. Patient underwent a carotid Doppler, which revealed moderate to severe atherosclerotic changes bilaterally without hemodynamically significant stenosis in either internal carotid arteries. Antegrade flow in both vertebral arteries. EKG showed sinus bradycardia with right bundle branch block. Computed tomography scan of head showed no acute intracranial hemorrhage or midline shift. There is mild diffuse age-related cerebral atrophy and chronic small vessel ischemic changes noted. Patient's last hemoglobin A1c was 7.1 on 10/22/2019. AST is normal, ALT 55/49. Total cholesterol 154, LDL 64, HDL 37 and triglycerides 264 on 10/22/2019. When patient arrived to the ER, his blood pressure was 178/90. At home he check blood pressure was 193/87. Patient was given a full aspirin in the ER. patient states that at present his symptoms have mostly resolved, around 95%. Patient takes Zocor 40 mg, digoxin, metformin, glimepiride and atenolol. patient denies any previous history of strokes or TIA. Patient has history of hypertension, diabetes for the last 5 years. He has smoked 1 pack per day for 35 years, quit 25 years ago. Denies any alcohol use. Review of Systems As per HPI. All other review of systems completely unremarkable. Past Medical History Past Medical History: Chest Pain / Angina, Diabetes Mellitus, Hyperlipidemia, Hypertension, Prostate Disorder, Sleep Apnea/CPAP/BIPAP Additional Past Medical History / Comment(s): "IRREG HEARTBEAT", "CHEMICAL STRESS TEST PRIOR TO TURP", "HEARTBURN" OTC MEDS NEEDED. DOES'NT USE A CPAP MACHINE. History of Any Multi-Drug Resistant Organisms: None Reported Past Surgical History: Hernia Repair, Prostate Surgery, Tonsillectomy Additional Past Surgical History / Comment(s): 11-29-16 TURP,CYSTOCOPY,LITHOTRIPSY FOR BLADDER STONE. FLO INGUINAL HERNIA REPAIR, FLO CATARACTS. Past Psychological History: No Psychological Hx Reported Smoking Status: Never smoker Past Alcohol Use History: None Reported Past Drug Use History: None Reported - Past Family History Father Family Medical History: Cancer, Dementia, Prostate Disorder Additional Family Medical History / Comment(s): AGE 94 Mother Family Medical History: Dementia Additional Family Medical History / Comment(s): AGE 95 Medications and Allergies Home Medications Medication Instructions Recorded Confirmed Type Digoxin [Lanoxin] 125 mcg PO DAILY 12/03/16 11/23/19 History Simvastatin [Zocor] 40 mg PO DAILY 12/03/16 11/23/19 History Atenolol [Tenormin] 25 mg PO DAILY 11/23/19 11/23/19 History Glimepiride [Amaryl] 1 mg PO AC-BRKFST 11/23/19 11/23/19 History metFORMIN HCL [Glucophage] 850 mg PO BID 11/23/19 11/23/19 History Allergies Allergy/AdvReac Type Severity Reaction Status Date / Time No Known Allergies Allergy Verified 11/23/19 13:36 Physical Examination - Vital Signs Vital Signs: Vital Signs Temp Pulse Resp BP Pulse Ox 11/23/19 13:40 16 11/23/19 13:30 59 L 149/87 11/23/19 13:00 65 161/97 94 L 11/23/19 12:30 59 L 139/92 94 L 11/23/19 12:00 57 L 144/85 95 11/23/19 11:52 60 95 11/23/19 11:36 56 L 18 144/85 96 11/23/19 10:36 18 11/23/19 10:32 98.3 F 52 L 18 178/90 97 Intake and Output 11/23/19 11/23/19 11/23/19 06:59 14:59 22:59 Other: Weight 95.7 kg On examination patient is an elderly male, in no distress. Patient is alert and awake, oriented to time place and person. Speech and language functions recent and remote memory normal. On cranial nerve examination pupils are round and reacting to light, visual nagy are full on confrontation, extraocular muscles are intact with no nystagmus. Patient has very slight left facial asymmetry. Tongue protrudes the midline. Palatal elevation and sensation normal. Muscle strength testing there is no pronator drift and the strength is normal in arms and legs distally and proximally. Deep tendon reflexes are symmetric and plantars downgoing. Sensory touch is equal. No ataxia for [id number] testing. Tone and bulk of muscles normal. Rapid finger tapping normal. No carotid bruit or murmur, peripheral pulses present. Abdomen soft nontender. Results - Laboratory Findings CBC and BMP: 11/23/19 11:05 11/23/19 11:05 Abnormal Lab Findings: Abnormal Labs 11/23/19 11:05 Carbon Dioxide 18 L Glucose 134 H ALT 55 H Assessment and Plan Assessment: * 84-year-old male admitted with possible TIA versus CVA, with numbness of left side of the body. Symptoms are suggestive of possible right thalamic lacunar stroke. Symptoms have mostly resolved however. * Diabetes, with hemoglobin A1c 7.1. * Hyperlipidemia, well controlled * Hypertension * X tobacco use. Plan: * Patient had a possible TIA versus CVA. Symptoms are probably in the distribution of deep perforators in the right thalamus, probably due to small vessel disease. * Patient is undergoing MRI of the brain to rule out thalamic lacunar stroke. * Patient has been on aspirin 81 mg daily for the last 4-5 years. Would suggest switching to Plavix 75 mg daily, as he has failed aspirin regimen. * Continue Zocor 40 mg. Diabetes is well-controlled 7.1. * 2-D echo has been completed, results pending. * Dr. Martinez is covering neurology service over the weekend.
--- NOTE | 2019-11-23 16:12 | P.HPIM ---
History of Present Illness H&P Date: 11/23/19 Chief Complaint: Numbness 84-year-old male with PMH of hypertension, diabetes mellitus presented to the ED for left-sided numbness. Patient states he woke up in the middle of the night with left facial, left upper and left lower extremity numbness. Patient was sleeping on his left side and thought it was related to that. He went back to sleep. His symptoms persisted when he woke up this morning. Patient states that he "felt strange". This prompted him to come to the ED. He denies any slurred speech, confusion or difficulty swallowing. He denies any weakness of the lower extremities. He denies any headache, lower extremity edema, nausea or vomiting, fever or chills, cough, chest pain, shortness of breath, palpitations, changes in urination or bowel habits. No changes in appetite or weight. No issues with gait. He did check his blood pressure at home which showed SBP 193. In the ED, his vital signs have been stable except for elevated BP of 178/90. CBC was unremarkable. Coagulation panel was negative. CMP showed bicarbonate 18, glucose 134, ALT 55. Troponin was less than 0.012, EKG showing sinus bradycardia and right bundle branch block. CT brain was negative. Carotid duplex shows moderate to severe atherosclerotic changes bilaterally. Patient is admitted for TIA-like symptoms, rule out CVA, neurology consultation. Review of Systems Pertinent positives and negatives as discussed in HPI, a complete review of systems was performed and all other systems are negative. Past Medical History Past Medical History: Chest Pain / Angina, Diabetes Mellitus, Hyperlipidemia, Hypertension, Prostate Disorder, Sleep Apnea/CPAP/BIPAP Additional Past Medical History / Comment(s): "IRREG HEARTBEAT", "CHEMICAL STRESS TEST PRIOR TO TURP", "HEARTBURN" OTC MEDS NEEDED. DOES'NT USE A CPAP MACHINE. History of Any Multi-Drug Resistant Organisms: None Reported Past Surgical History: Hernia Repair, Prostate Surgery, Tonsillectomy Additional Past Surgical History / Comment(s): 11-29-16 TURP,CYSTOCOPY,LITHOTRIPSY FOR BLADDER STONE. FLO INGUINAL HERNIA REPAIR, FLO CATARACTS. Past Psychological History: No Psychological Hx Reported Smoking Status: Never smoker Past Alcohol Use History: None Reported Past Drug Use History: None Reported - Past Family History Father Family Medical History: Cancer, Dementia, Prostate Disorder Additional Family Medical History / Comment(s): AGE 94 Mother Family Medical History: Dementia Additional Family Medical History / Comment(s): AGE 95 Medications and Allergies Home Medications Medication Instructions Recorded Confirmed Type Digoxin [Lanoxin] 125 mcg PO DAILY 12/03/16 11/23/19 History Simvastatin [Zocor] 40 mg PO DAILY 12/03/16 11/23/19 History Atenolol [Tenormin] 25 mg PO DAILY 11/23/19 11/23/19 History Glimepiride [Amaryl] 1 mg PO AC-BRKFST 11/23/19 11/23/19 History metFORMIN HCL [Glucophage] 850 mg PO BID 11/23/19 11/23/19 History Allergies Allergy/AdvReac Type Severity Reaction Status Date / Time No Known Allergies Allergy Verified 11/23/19 13:36 Physical Exam Vitals: Vital Signs Temp Pulse Resp BP Pulse Ox 11/23/19 13:40 16 11/23/19 13:30 59 L 149/87 11/23/19 13:00 65 161/97 94 L 11/23/19 12:30 59 L 139/92 94 L 11/23/19 12:00 57 L 144/85 95 11/23/19 11:52 60 95 11/23/19 11:36 56 L 18 144/85 96 11/23/19 10:36 18 11/23/19 10:32 98.3 F 52 L 18 178/90 97 Intake and Output 11/23/19 11/23/19 11/23/19 06:59 14:59 22:59 Other: Weight 95.7 kg General: [non toxic], [no distress], [appears at stated age] Derm: [warm], [dry] Head: [atraumatic], [normocephalic], [symmetric] Eyes: [EOMI], [no lid lag], [anicteric sclera] Mouth: [no lip lesion], [mucus membranes moist] Cardiovascular: [S1S2 reg], [systolic murmur], [positive DP pulse bilateral], Lungs: [CTA bilateral], [no rhonchi, no rales] , [no accessory muscle use] Abdominal: [soft], [ nontender to palpation], [no guarding], [no appreciable organomegaly] Ext: [no gross muscle atrophy], [no edema], [no contractures] Neuro: [ CN II-XI grossly intact], [no focal neuro deficits] Psych: [Alert], [oriented], [appropriate affect] Results CBC & Chem 7: 11/23/19 11:05 11/23/19 11:05 Labs: Abnormal Lab Results - Last 24 Hours (Table) 11/23/19 Range/Units 11:05 Carbon Dioxide 18 L (22-30) mmol/L Glucose 134 H (74-99) mg/dL ALT 55 H (4-49) U/L Assessment and Plan Assessment: Left-sided numbness rule out CVA Carotid stenosis Paroxysmal A. fib Hypertension Diabetes mellitus There are concerns for CVA given patient's symptoms. CT brain was negative. C arotid duplex showed moderate to severe carotid stenosis. We will order MRI brain, echocardiogram, A1c, lipid panel. PT/OT/ST will be consulted along with neurology. Patient will be started on aspirin. He will be placed on advanced neurochecks along with telemetry monitoring. Swallow evaluation has been ordered. Vascular surgery will be consulted for carotid stenosis seen on duplex. His home medication of digoxin and atenolol will be resumed for atrial fibrillation. His current blood pressure is 144/85 which is acceptable. He should have permissive hypertension for the next 24 hours regardless. Insulin sliding scale , regular Accu-Cheks and hypoglycemic precautions ordered for hist ory of diabetes mellitus. Patient was placed on heparin subcutaneous for DVT prophylaxis. Patient is pending clinical improvement. Likely DC in 2 days. DVT prophylaxis: [Heparin] Discussed with: [Patient] Anticipated discharge: [2 days] Anticipated discharge place: [Home] A total of [45] minutes was spent on the care of this complex patient more than 50% of the time was spent in counseling and care coordination. Patient names his son Preston decision maker if he can't make decisions for himself. Patient will like to be full code. He is admitted for anticipated greater than 48 hour admission to rule out stroke and neurology consultation.
--- NOTE | 2019-11-23 16:37 | MR ---
EXAMINATION TYPE: MR brain wo con DATE OF EXAM: 11/23/2019 COMPARISON: CT brain from earlier today. HISTORY: Left side numbness, TIA vs CVA TECHNIQUE: Multiplanar, multisequence imaging of the brain and brainstem is performed without IV cont rast. FINDINGS: Diffusion weighted images demonstrate no evidence of a recent infarct or other diffusion abnormality. There is no worrisome extra-axial fluid collection. There is diffuse ventricular and sulcal prominenc e. Scattered foci of T2 hyperintensity are seen throughout the superficial, deep, and periventricular white matter. Lesions are nonspecific in appearance and distribution. Findings most likely on basis of product of chronic small vessel ischemic change. Midline structures demonstrate normal morphology. The craniocervical junction appears within normal limits. Normal vascular flow voids are present. The visualized sinuses are clear and the globes are i ntact. IMPRESSION: 1. No evidence of a recent infarct. 2. Mild diffuse cerebral atrophy and mild to moderate chronic small vessel ischemic change redemonstr ated.
[2019-11-23 17:02] LABS: Glucose,Whole Blood 108 mg/dL (75-99)
[2019-11-23] MEDS: INSULIN ASPART (NovoLOG) 100 UNIT/ML VIAL SQ SCH (17:29)
[2019-11-23 20:10] LABS: Glucose,Whole Blood 199 mg/dL (75-99)
[2019-11-23] MEDS: CLOPIDOGREL 75 MG TAB PO SCH (20:27)
[2019-11-23] MEDS: HEPARIN SODIUM,PORCINE 5,000 UNIT/ML 1 ML VIAL SQ SCH (20:30)
[2019-11-24 04:30] LABS: Cholesterol 162 mg/dL (<200); HDL Cholesterol 39 mg/dL (40-60); LDL Cholesterol,Calculated 58 mg/dL (0-99); Triglycerides 324 mg/dL (<150)
[2019-11-24 04:53] VITALS: RESP 18
[2019-11-24 06:19] LABS: Glucose,Whole Blood 140 mg/dL (75-99)
[2019-11-24] MEDS: INSULIN ASPART (NovoLOG) 100 UNIT/ML VIAL SQ SCH ×2 (06:38→12:02)
[2019-11-24] MEDS: HEPARIN SODIUM,PORCINE 5,000 UNIT/ML 1 ML VIAL SQ SCH (08:45)
[2019-11-24] MEDS: CLOPIDOGREL 75 MG TAB PO SCH (08:45)
[2019-11-24] MEDS ORDERED: DIGOXIN 125 MCG TAB PO SCH (09:00)
[2019-11-24] MEDS ORDERED: ATENOLOL 25 MG TAB PO SCH (09:00)
[2019-11-24] MEDS ORDERED: ASPIRIN 325 MG TAB PO SCH (09:00)
[2019-11-24] MEDS ORDERED: ATORVASTATIN 20 MG TAB PO SCH (09:00)
--- NOTE | 2019-11-24 10:27 | ECHOF ---
Referral Reason:Thrombus MEASUREMENTS -------- HEIGHT: 177.8 cm WEIGHT: 95.3 kg BP: 144/85 RVIDd: 3.2 cm (< 3.3) IVSd: 1.4 cm (0.6 - 1.1) LVIDd: 4.5 cm (3.9 - 5.3) LVPWd: 1.5 cm (0.6 - 1.1) IVSs: 1.8 cm LVIDs: 2.6 cm LVPWs: 1.8 cm LA Diam: 3.9 cm (2.7 - 3.8) LAESV Index (A-L): 21.92 ml/m Ao Diam: 3.0 cm (2.0 - 3.7) AV Cusp: 1.8 cm (1.5 - 2.6) MV EXCURSION: 9.718 mm (> 18.000) MV EF SLOPE: 43 mm/s (70 - 150) EPSS: 0.7 cm MV E Jett: 0.80 m/s MV DecT: 356 ms MV A Jett: 1.16 m/s MV E/A Ratio: 0.69 AV maxP.83 mmHg AV meanP.25 mmHg RAP: 5.00 mmHg RVSP: 29.84 mmHg FINDINGS -------- Sinus rhythm. This was a technically adequate study. The left ventricular size is normal. There is moderate concentric left ventricular hypertrophy. O verall left ventricular systolic function is normal with, an EF between 55 - 60 %. The right ventricle is normal in size. Normal LA size by volume 22+/-6 ml/m2. The right atrial size is normal. Interatrial and interventricular septum intact. There is mild to moderate aortic valve sclerosis. There is mild aortic stenosis present. Peak/jerilyn n gradient across the Aortic Valve is 23.83mmHg / 13.25mmHg. Mild mitral annular calcification present. Mild mitral regurgitation is present. Mild tricuspid regurgitation present. Right ventricular systolic pressure is normal at < 35 mmHg. Trace/mild (physiologic) pulmonic regurgitation. The aortic root size is normal. Normal inferior vena cava with normal inspiratory collapse consistent with estimated right atrial pre ssure of 5 mmHg. There is no pericardial effusion. CONCLUSIONS -------- 1. Sinus rhythm. 2. This was a technically adequate study. 3. The left ventricular size is normal. 4. There is moderate concentric left ventricular hypertrophy. 5. Overall left ventricular systolic function is normal with, an EF between 55 - 60 %. 6. Normal LA size by volume 22+/-6 ml/m2. 7. There is mild to moderate aortic valve sclerosis. 8. There is mild aortic stenosis present. 9. Peak/mean gradient across the Aortic Valve is 23.83mmHg / 13.25mmHg. 10. Mild mitral annular calcification present. 11. Mild mitral regurgitation is present. 12. Mild tricuspid regurgitation present. 13. Right ventricular systolic pressure is normal at < 35 mmHg. 14. Trace/mild (physiologic) pulmonic regurgitation. 15. Normal inferior vena cava with normal inspiratory collapse consistent with estimated right atrial pressure of 5 mmHg. 16. There is no pericardial effusion. STENOGRAPHIC COURT REPORTER: Priscilla Jackson RDCS
--- NOTE | 2019-11-24 10:51 | P.DS ---
Providers Date of admission: 11/23/19 13:06 Expected date of discharge: 11/24/19 Attending physician: Victorina Kim DO Consults: 11/23/19 13:06 Consult Physician Routine Consulting Provider: Meredith Mendoza Consult Reason/Comments: TIA Do you want consulting provider notified?: Yes 11/23/19 15:57 Consult Physician Routine Consulting Provider: vIa Juárez Consult Reason/Comments: carotid stenosis on CUS Do you want consulting provider notified?: Yes Primary care physician: [facility] Course: 84-year-old male with PMH of hypertension, diabetes mellitus presented to the ED for left-sided numbness. Patient states he woke up in the middle of the night with left facial, left upper and left lower extremity numbness. Patient was sleeping on his left side and thought it was related to that. He went back to sleep. His symptoms persisted when he woke up this morning. Patient states that he "felt strange". This prompted him to come to the ED. He denies any slurred speech, confusion or difficulty swallowing. He denies any weakness of the lower extremities. He denies any headache, lower extremity edema, nausea or vomiting, fever or chills, cough, chest pain, shortness of breath, palpitations, changes in urination or bowel habits. No changes in appetite or weight. No issues with gait. He did check his blood pressure at home which showed SBP 193. In the ED, his vital signs have been stable except for elevated BP of 178/90. CBC was unremarkable. Coagulation panel was negative. CMP showed bicarbonate 18, glucose 134, ALT 55. Troponin was less than 0.012, EKG showing sinus bradycardia and right bundle branch block. CT brain was negative. Carotid duplex shows moderate to severe atherosclerotic changes bilaterally. Patient is admitted for TIA-like symptoms, rule out CVA, neurology consultation. There was some concerns for CVA and ophthalmic stroke. MRI brain was ordered which was within normal limits. Echocardiogram showed EF 55-60% with moderate concentric LVH. Lipid panel showed triglyceride 324 and HDL 39. PT/OT/ST was consulted along with neurology. Neurology recommended changing aspirin to Plavix and adding Lipitor. Patient was placed on advanced neurochecks along with telemetry monitoring. Vascular surgery was consulted for carotid stenosis seen on carotid ultrasound. His home medication of digoxin and atenolol were resumed for atrial fibrillation. Patient was seen and examined. No acute events overnight. Patient reports complete resolution of his numbness. He denies any chest pain, shortness breath or palpitations. No nausea or vomiting. No fever or chills. No dizziness. No weakness. No slurred speech. No confusion. General: [non toxic], [no distress], [appears at stated age] Derm: [warm], [dry] Head: [atraumatic], [normocephalic], [symmetric] Eyes: [EOMI], [no lid lag], [anicteric sclera] Mouth: [no lip lesion], [mucus membranes moist] Cardiovascular: [S1S2 reg], [systolic murmur], [positive DP pulse bilateral], Lungs: [CTA bilateral], [no rhonchi, no rales] , [no accessory muscle use] Abdominal: [soft], [ nontender to palpation], [no guarding], [no appreciable organomegaly] Ext: [no gross muscle atrophy], [no edema], [no contractures] Neuro: [ CN II-XI grossly intact], [no focal neuro deficits] Psych: [Alert], [oriented], [appropriate affect] TIA Carotid stenosis Paroxysmal A. fib Hypertension Diabetes mellitus CT brain was negative. Carotid duplex showed moderate to severe carotid stenosis. MRI brain was negative. Echocardiogram showed EF 55-60% with moderate concentric LVH. Lipid panel showed elevated triglyceride and low HDL. Patient will be switched from aspirin to Plavix. Vascular surgery will be consulted for carotid stenosis seen on duplex. His home medication of digoxin and atenolol will be resumed for atrial fibrillation. His current blood pressure is 138/71 which is acceptable. Insulin sliding scale , regular Accu- Cheks and hypoglycemic precautions ordered for history of diabetes mellitus. Patient was placed on heparin subcutaneous for DVT prophylaxis. Patient is pending clinical improvement. Likely DC today after neurology clearance and vascular surgery evaluation. This complex discharge took about 35 minutes to complete Pertinent Studies: Brain CT, carotid duplex, echocardiogram, MRI brain Patient Condition at Discharge: Stable Plan - Discharge Summary Discharge Rx Participant: Yes New Discharge Prescriptions: New Clopidogrel [Plavix] 75 mg PO DAILY #90 tab Continue Simvastatin [Zocor] 40 mg PO DAILY Digoxin [Lanoxin] 125 mcg PO DAILY metFORMIN HCL [Glucophage] 850 mg PO BID Glimepiride [Amaryl] 1 mg PO AC-BRKT Atenolol [Tenormin] 25 mg PO DAILY Discharge Medication List Digoxin [Lanoxin] 125 mcg PO DAILY 12/03/16 [History] Simvastatin [Zocor] 40 mg PO DAILY 12/03/16 [History] Atenolol [Tenormin] 25 mg PO DAILY 11/23/19 [History] Glimepiride [Amaryl] 1 mg PO AC-BRKFST 11/23/19 [History] metFORMIN HCL [Glucophage] 850 mg PO BID 11/23/19 [History] Clopidogrel [Plavix] 75 mg PO DAILY #90 tab 11/24/19 [Rx] Follow up Appointment(s)/Referral(s): Chucho Trejo MD [Primary Care Provider] - 1-2 days Soni Salvador MD [STAFF PHYSICIAN] - 1 Week Papo Barba MD [STAFF PHYSICIAN] - 1 Week Activity/Diet/Wound Care/Special Instructions: Diet: Cardiac Follow-up with PCP within 3 days of discharge. Follow-up with neurology within 1 week of discharge. Follow-up with vascular surgery within 1 week of discharge. Take all medications as advised. Discharge Disposition: HOME SELF-CARE
[2019-11-24 11:53] LABS: Glucose,Whole Blood 171 mg/dL (75-99)
[2019-11-24 11:55] VITALS: BP 131/65; PULSE 50; TEMP 97.8
--- NOTE | 2019-11-24 15:10 | P.CON ---
Consult Note - . Consult date: 11/24/19 Assessment/Plan:: Patient is an 84-year-old male who was admitted yesterday with a chief complaint of left hemiparesis. The symptoms were first noted when he was awakened approximate 4:00 in the morning due to the need for voiding. He described his neurologic deficit as "a funny feeling". He was able to ambulate without difficulty. He returned to bed and his symptoms persisted. He thus sought medical attention. He indicated that by 11:00 or so in the morning all of the symptoms had resolved. He also noted that his blood pressure was elevated to above 190 mmHg systolic at the time of this event. The patient denies any previous similar symptoms. He denies any claudication type symptoms. He did undergo carotid duplex imaging as well as a computed tomography scan of his brain. Additionally an MRI of the brain was performed. Past medical history is significant for cardiac dysrhythmia, dyslipidemia, hypertension as well as diabetes. Social history is significant for the use of 1 pack of cigarettes daily for approximately 25 years however he stopped smoking 30 years prior. ALLERGIES: Patient reports NO KNOWN DRUG ALLERGIES. Surgical history: Significant for bilateral inguinal herniorrhaphy as well as transurethral resection of the prostate gland. Medications: Insulin, Plavix, atenolol, Lipitor, and Lanoxin. Medications are reviewed. Laboratory results are reviewed. Physical examination revealed the patient to be awake alert cooperative in no apparent distress. Vital signs are stable and patient is afebrile. Neck: Supple free of adenopathy or bruit. Heart: Regular without murmur. Lungs: Clear to auscultation bilaterally. Extremities: All pulses are intact bilaterally in both the upper and lower extremities with the exception of a nonpalpable dorsalis pedis pulse on the left. Neurologic: Cranial 2 through 12 appear to be grossly intact. Equal motor strength is noted in the upper and lower extremities. Review of carotid duplex study demonstrates no significant carotid stenosis of either internal carotid artery. MRI demonstrates no evidence of cerebrovascular accident. Impression: #1: Non hemodynamically severe carotid stenosis. #2: History of hypertension. #3: History of coronary artery disease. #4: History of hyperlipidemia #5: Remote history of tobacco use. Plan: #1: I agree with current medical therapy. #2: No indication of significant carotid disease and no surgical intervention is planned. Thank you very much for allowing me to participate the care of your patient. I trust this letter is useful to you. I'll be very happy to see the patient in the outpatient setting should that be necessary in the future.
== END 2019-11-24 16:05 | disposition home or self-care (01) | DRG 69 ==
LOC: EC 10:27 → 3SCARD 13:06
PROVIDERS: ADMIT Internal Medicine; ATTEND Internal Medicine
DX: G45.9 Transient cerebral ischemic attack, unspecified (principal); I65.23 Occlusion and stenosis of bilateral carotid arteries; E78.5 Hyperlipidemia, unspecified; E11.9 Type 2 diabetes mellitus without complications; G47.30 Sleep apnea, unspecified; R00.1 Bradycardia, unspecified; I45.10 Unspecified right bundle-branch block; R20.0 Anesthesia of skin; I25.10 Atherosclerotic heart disease of native coronary artery without angina pectoris; I11.9 Hypertensive heart disease without heart failure; Z79.899 Other long term (current) drug therapy; Z79.84 Long term (current) use of oral hypoglycemic drugs; Z87.442 Personal history of urinary calculi; Z98.890 Other specified postprocedural states; Z87.891 Personal history of nicotine dependence; Z87.438 Personal history of other diseases of male genital organs; Z98.42 Cataract extraction status, left eye; Z98.41 Cataract extraction status, right eye; Z80.9 Family history of malignant neoplasm, unspecified; Z84.2 Family history of other diseases of the genitourinary system; Z82.0 Family history of epilepsy and other diseases of the nervous system
CPT/HCPCS: 36415; 70450; 70551; 80053; 80061; 84484; 85025; 85610; 85730; 93005; 93306; 93880; 99285

== ENCOUNTER → 2020-06-23 | Outpatient (CLI) | payer MEDICARE, BC ==
--- NOTE | 2020-06-23 09:36 | US ---
EXAMINATION TYPE: US carotid duplex BILAT DATE OF EXAM: 06/23/2020 COMPARISON: 11/23/2019 CLINICAL HISTORY: 85-year-old male I65.2 OCCLUSION OF CAROTID ARTERY. TECHNIQUE: Carotid duplex ultrasound examination. Indirect Doppler criteria was utilized. FINDINGS: EXAM MEASUREMENTS: RIGHT: Peak Systolic Velocity (PSV) cm/sec ----- Right CCA: 66.0 ----- Right ICA: 82.0 ----- Right ECA: 124.0 ICA/CCA ratio: 1.24 RIGHT: End Diastole cm/sec ----- Right CCA: 16.0 ----- Right ICA: 21.6 ----- Right ECA: 19.5 LEFT: Peak Systolic Velocity (PSV) cm/sec ----- Left CCA: 85.5 ----- Left ICA: 75.8 ----- Left ECA: 93.6 ICA/CCA ratio: 0.88 LEFT: End Diastole cm/sec ----- Left CCA: 23.0 ----- Left ICA: 26.7 ----- Left ECA: 21.4 VERTEBRALS (direction of flow): Right Vertebral: Antegrade Left Vertebral: Antegrade Rhythm: Normal Moderate atherosclerotic changes , left greater than right, with no significant velocity increases. IMPRESSION: No hemodynamically significant internal carotid artery stenosis seen on either side. Criteria for Assigning % of Stenosis / Diameter reduction (Estimation based on the indirect measurements of the internal carotid artery velocities (ICA PSV). 1. Normal (no stenosis)=ICA PSV < 125 cm/s: ratio < 2.0: ICA EDV<40 cm/s. 2. Less than 50% stenosis=ICA PSV < 125 cm/s: ratio < 2.0: ICA EDV<40 cm/s. 3. 50 to 69% stenosis=ICA PSV of 125 to 230 cm/s: ration 2.0 ? 4.0: ICA EDV 40-100 cm/s. 4. Greater than 70% stenosis to near occlusion= ICA PSV > 230 cm/s: ratio > 4.0: ICA EDV > 100 cm/s. 5. Near occlusion= ICA PSV velocities may be low or undetectable: variable ratio and ICA EDV. 6. Total occlusion=unable to detect flow.
== END | disposition home or self-care (01) ==
LOC: RADUSWWP 08:37
PROVIDERS: ATTEND Internal Medicine
DX: I65.23 Occlusion and stenosis of bilateral carotid arteries (principal)
CPT/HCPCS: 93880

== ENCOUNTER → 2023-02-09 | Outpatient (CLI) | payer MEDICARE, BC ==
--- NOTE | 2023-02-09 07:57 | US ---
EXAMINATION TYPE: US carotid duplex BILAT DATE OF EXAM: 02/09/2023 COMPARISON: Carotid ultrasound 06/23/2020 CLINICAL INDICATION: Male, 87 years old with history of Z13.6 I65.29 I34.0; Weakness TECHNIQUE: Carotid duplex ultrasound examination. Indirect Doppler criteria was utilized. 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 IMPRESSION: Moderate bilateral calcified plaque primarily within the bilateral carotid bulbs and bilateral proxim al CCA. Less than 50% stenosis at the origin of the bilateral internal carotid arteries. Criteria for Assigning % of Stenosis / Diameter reduction (Estimation based on the indirect measurements of the internal carotid artery velocities (ICA PSV). 1. Normal (no stenosis)=ICA PSV < 125 cm/s: ratio < 2.0: ICA EDV<40 cm/s. 2. Less than 50% stenosis=ICA PSV < 125 cm/s: ratio < 2.0: ICA EDV<40 cm/s. 3. 50 to 69% stenosis=ICA PSV of 125 to 230 cm/s: ration 2.0 ? 4.0: ICA EDV 40-100 cm/s. 4. Greater than 70% stenosis to near occlusion= ICA PSV > 230 cm/s: ratio > 4.0: ICA EDV > 100 cm/s. 5. Near occlusion= ICA PSV velocities may be low or undetectable: variable ratio and ICA EDV. 6. Total occlusion=unable to detect flow.
--- NOTE | 2023-02-09 07:59 | US ---
EXAMINATION TYPE: US duplex aorta DATE OF EXAM: 02/09/2023 COMPARISON: NONE CLINICAL INDICATION: Male, 87 years old with history of Z13.6 I65.29 I34.0; AAA screening TECHNIQUE: Multiple sonographic images of the abdominal aorta are obtained. 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
--- NOTE | 2023-02-09 09:57 | CA ---
Transthoracic Echo Report Name: Casey Andrews Age: 87 Gender: M : 1935 Exam Date: 02/09/2023 07:41 Exam Location: [facility] Ht (in): 70 Wt (lb): 186 Ordering Physician: Mt Burgess MD Attending/Referring Phys: [employer]ist Li Lyons RDCS Procedure CPT: Indications: I34.0 Cardiac Hx: Technical Quality: Fair Contrast 1: Total Dose (mL): Contrast 2: Total Dose (mL): MEASUREMENTS (Male / Female) Normal Values 2D ECHO LV Diastolic Diameter PLAX 4.2 cm 4.2 - 5.9 / 3.9 - 5.3 cm LV Systolic Diameter PLAX 2.4 cm IVS Diastolic Thickness 1.4 cm 0.6 - 1.0 / 0.6 - 0.9 cm LVPW Diastolic Thickness 1.3 cm 0.6 - 1.0 / 0.6 - 0.9 cm LV Relative Wall Thickness 0.6 RV Internal Dim ED PLAX 4.2 cm LVOT Diameter 2.2 cm LA Volume 62.2 cm??? 18 - 58 / 22 - 52 cm??? DOPPLER AV Peak Velocity 390.9 cm/s AV Peak Gradient 61.1 mmHg AV Mean Velocity 275.6 cm/s AV Mean Gradient 34.1 mmHg AV Velocity Time Integral 89.8 cm LVOT Peak Velocity 114.2 cm/s LVOT Peak Gradient 5.2 mmHg LVOT Velocity Time Integral 24.7 cm LVOT Stroke Volume 91.9 cm??? LVOT Stroke Volume Index 45.4 ml/m??? LVOT Cardiac Index 2595.0 cm???/min???m??? AV Area Cont Eq vti 1.0 cm??? AV Area Cont Eq pk 1.1 cm??? MV Area PHT 2.3 cm??? Mitral E Point Velocity 76.1 cm/s Mitral A Point Velocity 118.7 cm/s Mitral E to A Ratio 0.6 MV Deceleration Time 327.3 ms MV E' Velocity 4.6 cm/s Mitral E to MV E' Ratio 16.5 TR Peak Velocity 273.4 cm/s TR Peak Gradient 29.9 mmHg Right Ventricular Systolic Press 34.9 mmHg FINDINGS Left Ventricle Moderately increased left ventricular wall thickness. Left ventricular cavity size normal. Normal left ventricular systolic function with no obvious regional wall motion abnormalities. Left ventricular ejection fraction is estimated at 55 %. Right Ventricle Moderate right ventricular dilatation. Right ventricular systolic pressure within normal limits. Right Atrium Normal right atrial size. Left Atrium Mildly increased left atrial volume. Mildly increased left atrial area. Mitral Valve Structurally normal mitral valve. Mild mitral annular calcification. Trace mitral regurgitation. Aortic Valve [id number] aortic stenosis with a peak gradient of 61 mmHg and a mean gradient of 34 mmHg. Tricuspid Valve Structurally normal tricuspid valve. [id number] tricuspid regurgitation. Pulmonic Valve Trace to mild pulmonic regurgitation. Pericardium Minimal pericardial effusion (normal variant). Aorta Normal size aortic root and proximal ascending aorta. CONCLUSIONS Normal LV systolic function Moderate aortic stenosis with a mean gradient of 34 mmHg Previewed by: Dr. Donnie Martinez MD (Electronically Signed) Final Date: 09 February 2023 09:56
== END | disposition home or self-care (01) ==
LOC: RADUSWWP 06:44
PROVIDERS: ATTEND Internal Medicine
DX: Z13.6 Encounter for screening for cardiovascular disorders (principal); I71.33 Infrarenal abdominal aortic aneurysm, ruptured; I65.23 Occlusion and stenosis of bilateral carotid arteries; I08.2 Rheumatic disorders of both aortic and tricuspid valves
CPT/HCPCS: 76706; 93306; 93880

== ENCOUNTER → 2023-12-30 | Outpatient (CLI) | payer MEDICARE, BC ==
[2023-12-30 09:55] LABS: Basophils % (A) 1 %; Eosinophils # (A) 0.1 k/uL (0-0.7); Eosinophils % (A) 2 %; HCT 39.9 % (39.0-53.0); HGB 12.5 gm/dL (13.0-17.5); Lymphocytes # (A) 1.4 k/uL (1.0-4.8); Lymphocytes % (A) 27 %; MCH 29.9 pg (25.0-35.0); MCHC 31.4 g/dL (31.0-37.0); MCV 95.4 fL (80.0-100.0); Mean Platelet Volume 10.1; Monocytes # (A) 0.3 k/uL (0-1.0); Monocytes % (A) 5 %; Neutrophils # (A) 3.3 k/uL (1.3-7.7); Neutrophils % (A) 63 %; Platelet Count 181 k/uL (150-450); RBC 4.18 m/uL (4.30-5.90); RDW 13.6 % (11.5-15.5); WBC 5.2 k/uL (3.8-10.6)
[2023-12-30 16:40] LABS: Hepatitis C IgG Antibody Nonreactive (Nonreactive)
[2023-12-30 16:54] LABS: ALT 14 U/L (10-49); AST 20 U/L (14-35); Albumin 4.6 g/dL (3.8-4.9); Albumin/Globulin Ratio 2.09 Ratio (1.60-3.17); Alkaline Phosphatase 63 U/L (41-126); BUN/Creat Ratio 20.22 Ratio (12.00-20.00); Blood Urea Nitrogen 18.2 mg/dL (9.0-27.0); Calcium 9.9 mg/dL (8.7-10.3); Carbon Dioxide 24.6 mmol/L (21.6-31.8); Chloride 106 mmol/L (96-109); Chol/HDL Ratio 1.85 Ratio; Globulin 2.2 g/dL (1.6-3.3); Glucose 143 mg/dL (70-110); LDL Cholesterol,Calculated 40.5 mg/dL (0.0-131.0); Potassium 4.5 mmol/L (3.5-5.5); Prostate Specific Antigen 0.52 ng/mL (0.000-6.500); Sodium 142 mmol/L (135-145); Total Bilirubin 0.3 mg/dL (0.3-1.2); Total Protein 6.8 g/dL (6.2-8.2); VLDL Calculation 16.42 mg/dL (5.00-40.00)
[2023-12-30 20:13] LABS: HIV 2 AB Non-Reactive (Non-Reactive); HIV AB P24 Non-Reactive (Non-Reactive); HIV P24 AG Non-Reactive (Non-Reactive)
[2024-01-02 10:31] LABS: Protein, Total 6.9 g/dL (6.2-8.2)
== END | disposition home or self-care (01) ==
LOC: LABWHC1 08:45
PROVIDERS: ATTEND Internal Medicine
DX: Z00.00 Encounter for general adult medical examination without abnormal findings (principal); E11.40 Type 2 diabetes mellitus with diabetic neuropathy, unspecified; R63.4 Abnormal weight loss
CPT/HCPCS: 36415; 80053; 80061; 82607; 82746; 83036; 84153; 84165; 84443; 85025; 86803; 87390

== ENCOUNTER → 2024-01-02 | Outpatient (CLI) | payer MEDICARE, BC | END | disposition home or self-care (01) | LOC: LABPRL 09:45 | PROVIDERS: ATTEND Internal Medicine | DX: R63.4 Abnormal weight loss (principal) ==

== ENCOUNTER 2024-01-11 00:46 | Inpatient (IN) | payer MEDICARE, BC ==
[2024-01-11 01:08] LABS: Basophils % (A) 1 %; Eosinophils # (A) 0.2 k/uL (0-0.7); Eosinophils % (A) 3 %; HCT 34.8 % (39.0-53.0); HGB 11.1 gm/dL (13.0-17.5); Lymphocytes % (A) 32 %; MCH 30.1 pg (25.0-35.0); MCHC 31.9 g/dL (31.0-37.0); MCV 94.3 fL (80.0-100.0); Mean Platelet Volume 8.3; Monocytes # (A) 0.4 k/uL (0-1.0); Monocytes % (A) 6 %; Neutrophils # (A) 3.4 k/uL (1.3-7.7); Neutrophils % (A) 55 %; Platelet Count 197 k/uL (150-450); RBC 3.69 m/uL (4.30-5.90); RDW 13.3 % (11.5-15.5); WBC 6.3 k/uL (3.8-10.6)
--- NOTE | 2024-01-11 01:16 | ED ---
Chest Pain HPI - General Chief Complaint: Chest Pain Stated Complaint: chest pain arm pain Time Seen by Provider: 01/11/24 01:00 Source: patient, RN notes reviewed, old records reviewed Mode of arrival: ambulatory Limitations: no limitations - History of Present Illness Initial Comments: This is an 88-year-old male to the ER for evaluation of chest pain today. Patient presents today for evaluation of chest pain in both his arms and chest anterior chest uneasiness and tightness. Patient has no prior history of heart attack he has history of diabetes high cholesterol high blood pressure. Patient's chest pain started at about 11 PM tonight and persisted prior to evaluation here in the emergency department with no shortness of breath and no swelling MD Complaint: chest pain -: hour(s) Onset: during rest, awoke with symptoms Pain Location: substernal, left chest Pain Radiation: RUE, LUE Severity: moderate Severity scale (1-10): 4 Quality: aching, heaviness Consistency: constant Improves With: nothing Worsens With: nothing Anginal Symptoms: sense of impending doom Other Symptoms: palpitations Treatments Prior to Arrival: none - Related Data Home Medications Medication Instructions Recorded Confirmed metFORMIN HCL [Glucophage] 850 mg PO BID-W/MEALS 11/23/19 01/16/24 Amitriptyline HCl [Elavil] 10 mg PO HS 01/11/24 01/16/24 Pregabalin [Lyrica] 25 mg PO HS 01/11/24 01/16/24 lisinopriL [Zestril] 10 mg PO DAILY 01/11/24 01/16/24 Clopidogrel [Plavix] 75 mg PO HS 01/16/24 01/16/24 Previous Rx's Medication Instructions Recorded Aspirin 81 mg PO DAILY #30 tab 01/12/24 Atorvastatin [Lipitor] 80 mg PO DAILY #30 tab 01/12/24 Metoprolol Tartrate [Lopressor] 25 mg PO BID #60 tab 01/12/24 Allergies Allergy/AdvReac Type Severity Reaction Status Date / Time No Known Allergies Allergy Verified 01/16/24 14:30 Review of Systems ROS Statement: Those systems with pertinent positive or pertinent negative responses have been documented in the HPI. ROS Other: All systems not noted in ROS Statement are negative. Past Medical History Past Medical History: Chest Pain / Angina, Diabetes Mellitus, Hyperlipidemia, Hypertension, Prostate Disorder, Sleep Apnea/CPAP/BIPAP Additional Past Medical History / Comment(s): "IRREG HEARTBEAT", "CHEMICAL STRESS TEST PRIOR TO TURP", "HEARTBURN" OTC MEDS NEEDED. DOES'NT USE A CPAP MACHINE. History of Any Multi-Drug Resistant Organisms: None Reported Past Surgical History: Hernia Repair, Prostate Surgery, Tonsillectomy Additional Past Surgical History / Comment(s): 11-29-16 TURP,CYSTOCOPY,LITHOTRIPSY FOR BLADDER STONE. FLO INGUINAL HERNIA REPAIR, FLO CATARACTS. Past Anesthesia/Blood Transfusion Reactions: No Reported Reaction Past Psychological History: No Psychological Hx Reported Past Alcohol Use History: None Reported Past Drug Use History: None Reported - Past Family History Father Family Medical History: Cancer, Dementia, Prostate Disorder Additional Family Medical History / Comment(s): AGE 94 Mother Family Medical History: Dementia Additional Family Medical History / Comment(s): AGE 95 General Exam Limitations: no limitations General appearance: alert, anxious, in distress Head exam: Present: atraumatic, normocephalic, normal inspection Eye exam: Present: normal appearance, PERRL, EOMI. Absent: scleral icterus, conjunctival injection, periorbital swelling ENT exam: Present: normal exam, mucous membranes moist Neck exam: Present: normal inspection. Absent: tenderness, meningismus, lympha denopathy Respiratory exam: Present: normal lung sounds bilaterally. Absent: respiratory distress, wheezes, rales, rhonchi, stridor Cardiovascular Exam: Present: regular rate, normal rhythm, normal heart sounds. Absent: systolic murmur, diastolic murmur, rubs, gallop, clicks GI/Abdominal exam: Present: soft, normal bowel sounds. Absent: distended, tenderness, guarding, rebound, rigid Extremities exam: Present: normal inspection, full ROM, normal capillary refill. Absent: tenderness, pedal edema, joint swelling, calf tenderness Back exam: Present: normal inspection Neurological exam: Present: alert, oriented X3, CN II-XII intact Psychiatric exam: Present: normal affect, normal mood Skin exam: Present: warm, dry, intact, normal color. Absent: rash Course Vital Signs 01/11/24 01/11/24 01/11/24 00:48 01:10 01:28 Temperature 98.4 F Pulse Rate 60 62 61 Pulse Rate [ Custodial Foreman ] Respiratory 18 20 19 Rate Blood Pressure 186/74 163/90 167/99 Blood Pressure [Right Arm] O2 Sat by Pulse 98 99 100 Oximetry 01/11/24 01/11/24 01/11/24 01:35 01:40 01:46 Temperature Pulse Rate Pulse Rate [ 58 L 57 L 60 Custodial Foreman ] Respiratory 17 16 19 Rate Blood Pressure Blood Pressure 170/95 174/90 136/93 [Right Arm] O2 Sat by Pulse 100 99 99 Oximetry - Reevaluation(s) Reevaluation #1: 01/11/24 01:58 Records reviewed STEMI is paged on evaluation of patient in the room with repeat EKG showing positive ST elevation [place] Reevaluation #2: 01/11/24 02:11 Patient informed of results and questions answered Reevaluation #3: 01/11/24 02:12 Patient chest pain is improved Reevaluation #4: Was pt. sent in by a medical professional or institution (, PA, VALLEZ FILTER OPERATOR, urgent care, hospital, or correction...) When possible be specific @ -no Did you speak to anyone other than the patient for history (EMS, parent, family, police, friend...)? What history was obtained from this source @ -no Did you review nursing and triage notes (agree or disagree)? Why? @ -agree Are old charts reviewed (outside hosp., previous admission, EMS record, old EKG, old radiological studies, urgent care reports/EKG's, correction records)? Report findings @ -yes Differential Diagnosis (chest pain, altered mental status, abdominal pain women, abdominal pain men, vaginal bleeding, weakness, fever, dyspnea, syncope, headache, dizziness, GI bleed, back pain, seizure, CVA, palpatations, mental health, musculoskeletal)? @ -prior EKG interpreted by me (3pts min.). @ -yes X-rays interpreted by me (1pt min.). @ -yes negative for acute disease CT interpreted by me (1pt min.). @ -no U/S interpreted by me (1pt. min.). @ -no What testing was considered but not performed or refused? (CT, X-rays, U/S, labs)? Why? @ -none What meds were considered but not given or refused? Why? @ -none Did you discuss the management of the patient with other professionals (professionals i.e. , PA, VALLEZ FILTER OPERATOR, lab, RT, psych nurse, social staff worker, rug dyer helper, teacher, chief scientific officer, briefcase sewer)? Give summary @ -no Was smoking cessation discussed for >3mins.? @ -no Was critical care preformed (if so, how long)? @ -yes31 Were there social determinants of health that impacted care today? How? (Homelessness, low income, unemployed, alcoholism, drug addiction, transportation, low edu. Level, literacy, decrease access to med. care, retirement, rehab)? @ -none Was there de-escalation of care discussed even if they declined (Discuss DNR or withdrawal of care, Hospice)? DNR status @ -no What co-morbidities impacted this encounter? (DM, HTN, Smoking, COPD, CAD, Can cer, CVA, ARF, Chemo, Hep., AIDS, mental health diagnosis, sleep apnea, morbid obesity)? @ -none Was patient admitted / discharged? Hospital course, mention meds given and route, prescriptions, significant lab abnormalities, going to OR and other pertinent info. @ - 88 male who was acute acute ST elevated [place] here in the emergency department, patient did present to the hospital with ST elevation [place] on EKG confirmed by repeat EKG and elevated troponin. Patient is in no distress but admitted for chest pain and cardiology to the catheterization lab Admitted Undiagnosed new problem with uncertain prognosis? @ -no Drug Therapy requiring intensive monitoring for toxicity (Heparin, Nitro, Insulin, Cardizem)? @ -no Were any procedures done? @ -no Diagnosis/symptom? @ -STEMI Acute, or Chronic, or Acute on Chronic? @ -Acute Uncomplicated (without systemic symptoms) or Complicated (systemic symptoms)? @ -Complicated Side effects of treatment? @ -no Exacerbation, Progression, or Severe Exacerbation? @ -exacerbation Poses a threat to life or bodily function? How? (Chest pain, [place], [place], pneumonia, PE, COPD, DKA, ARF, appy, cholecystitis, CVA, Diverticulitis, Homicidal, Suicidal, threat to staff... and all critical care pts) @ -yes with acute STEMI Reevaluation #5: Differential Chest Pain: Stable Angina, Unstable Angina, STEMI, NSTEMI Aortic Dissection, Pneumothorax, Musculoskeletal, Esophageal Spasm GERD, Cholecystitis, Pancreatitis, Zoster, this is not meant to be an all-inclusive list. - Consultations Consultation #1: Spoke with cardiology who will see this patient in the emergency department Chest Pain MDM - MDM 88 male who was acute acute ST elevated [place] here in the emergency department, patient did present to the hospital with ST elevation [place] on EKG confirmed by repeat EKG and elevated troponin. Patient is in no distress but admitted for chest pain and cardiology to the catheterization lab Critical Care Time Critical Care Time: Yes Total Critical Care Time: 31 Disposition Clinical Impression: ST elevation myocardial infarction (STEMI) Disposition: ADMITTED IP TO THIS HOSP Condition: Stable Is patient prescribed a controlled substance at d/c from ED?: No Time of Disposition: 01:15
[2024-01-11 01:20] LABS: ALT 17 U/L (4-49); AST 37 U/L (17-59); African American GFR (CKD) >90 (>60 ml/min/1.73 sqM); Albumin 4.3 g/dL (3.5-5.0); Alkaline Phosphatase 65 U/L (38-126); Anion Gap 12 mmol/L; Blood Urea Nitrogen 29 mg/dL (9-20); Calcium 9.6 mg/dL (8.4-10.2); Carbon Dioxide 21 mmol/L (22-30); Chloride 104 mmol/L (98-107); Glucose 121 mg/dL (74-99); Magnesium 1.9 mg/dL (1.6-2.3); Non-African American GFR(CKD) 79 (>60 ml/min/1.73 sqM); Potassium 4.1 mmol/L (3.5-5.1); Sodium 137 mmol/L (137-145); Total Bilirubin 0.4 mg/dL (0.2-1.3); Total Protein 6.7 g/dL (6.3-8.2)
[2024-01-11] MEDS: ASPIRIN 81 MG PO STA (01:20)
[2024-01-11] MEDS: HEPARIN SODIUM 1,000 UN/ML (10ML VL) IV ONE (01:21)
[2024-01-11] MEDS: HEPARIN SOD,PORK IN 0.45% NACL 25,000 UNIT in 0.45% NACL 1 250ML.BAG IV SCH (01:26)
[2024-01-11] MEDS ORDERED: MORPHINE SULFATE 4 MG/ML SYRINGE IV PRN (01:30)
[2024-01-11] MEDS: NITROGLYCERIN SL TABS 0.4 MG TAB SUBLINGUAL PRN (01:39)
[2024-01-11] MEDS ORDERED: fentaNYL (PF) 50 MCG/ML 2 ML AMP ONE (01:54)
[2024-01-11] MEDS ORDERED: HEPARIN SODIUM 1,000 UN/ML (10ML VL) ONE (01:54)
--- NOTE | 2024-01-11 01:59 | XR ---
EXAM: XR Chest, 1 View CLINICAL HISTORY: ITS.REASON XR Reason: Chest Pain TECHNIQUE: Frontal view of the chest. COMPARISON: XR Chest dated 12/03/16 FINDINGS: Lungs: Unremarkable. No consolidation. Pleural space: Unremarkable. No pneumothorax. Heart: Unremarkable. No cardiomegaly. Mediastinum: Unremarkable. Normal mediastinal contour. Bones/joints: Unremarkable. No acute fracture. IMPRESSION: No evidence of acute cardiopulmonary disease.
--- NOTE | 2024-01-11 02:01 | P.CRDCN ---
History of Present Illness History of present illness: HISTORY OF PRESENTING ILLNESS This is a pleasant 88-year-old with past medical history significant for hypertension, hyperlipidemia, aortic stenosis, diabetes mellitus type 2, BPH who presented secondary chest pain. patient follows in the office with Dr. Penn. Records not currently available. He states he had been feeling fairly well up until 11 PM tonight and then started having chest discomfort. Currently chest pain of 5 out of 10. Does have some associated shortness breath. He has been following for aortic stenosis and was told he likely will need a valve replacement however waiting to see if he gets symptomatic. Denies any lightheadedness or dizziness. previous echo from 02/09/2023 showed normal left ventricular EF 55% with moderate aortic stenosis with mean gradient of 34 mmHg. REVIEW OF SYSTEMS At the time of my exam: CONSTITUTIONAL: Denies fever or chills. CARDIOVASCULAR: +chest pain, shortness of breath, orthopnea, PND or palpitations. RESPIRATORY: Denies cough. GASTROINTESTINAL: Denies abdominal pain, diarrhea, constipation, nausea or vomiting. MUSCULOSKELETAL: Denies myalgias. NEUROLOGIC: Denies numbness, tingling or weakness. ENDOCRINE: Denies fatigue, weight change, polydipsia or polyurina. GENITOURINARY: Denies burning, hematuria or urgency with micturation. HEMATOLOGIC: Denies history of anemia or bleeding. PHYSICAL EXAMINATION Vital signs reviewed. CONSTITUTIONAL: No apparent distress. HEENT: Head is normocephalic. Pupils are equal, round. Sclerae anicteric. Mucous membranes of the mouth are moist. No JVD. No carotid bruit. CHEST EXAMINATION: Lungs are clear to auscultation. No chest wall tenderness is noted on palpation or with deep breathing. HEART EXAMINATION: Regular rate and rhythm. S1, S2 heard. +3/6 systolioc murmur, no gallops or rub. ABDOMEN: Soft, nontender. Positive bowel sounds. EXTREMITIES: 2+ peripheral pulses, no lower extremity edema and no calf tenderness. NEUROLOGIC EXAMINATION: Patient is awake, alert and oriented x3. ASSESSMENT STEMI Hypertension Hyperlipidemia Aortic stenosis, previously moderate 02/2023 diabetes mellitus type 2 questionable history of arrhythmia/atrial fibrillation, on home digoxin questionable history of prior TIA PLAN discussed risks and benefits of heart catheterization patient is agreeable. Check echo to evaluate left ventricular ejection fraction as well as degree of aortic stenosis. Obtain records from office. Aspirin and heparin and statin. Further recommendations to follow. Past Medical History Past Medical History: Chest Pain / Angina, Diabetes Mellitus, Hyperlipidemia, Hypertension, Prostate Disorder, Sleep Apnea/CPAP/BIPAP Additional Past Medical History / Comment(s): "IRREG HEARTBEAT", "CHEMICAL STRESS TEST PRIOR TO TURP", "HEARTBURN" OTC MEDS NEEDED. DOES'NT USE A CPAP MACHINE. History of Any Multi-Drug Resistant Organisms: None Reported Past Surgical History: Hernia Repair, Prostate Surgery, Tonsillectomy Additional Past Surgical History / Comment(s): 11-29-16 TURP,CYSTOCOPY,LITHOTRIPSY FOR BLADDER STONE. FLO INGUINAL HERNIA REPAIR, FLO CATARACTS. Past Anesthesia/Blood Transfusion Reactions: No Reported Reaction Past Psychological History: No Psychological Hx Reported Past Alcohol Use History: None Reported Past Drug Use History: None Reported - Past Family History Father Family Medical History: Cancer, Dementia, Prostate Disorder Additional Family Medical History / Comment(s): AGE 94 Mother Family Medical History: Dementia Additional Family Medical History / Comment(s): AGE 95 Medications and Allergies Home Medications Medication Instructions Recorded Confirmed Type Digoxin [Lanoxin] 125 mcg PO DAILY 12/03/16 11/23/19 History Simvastatin [Zocor] 40 mg PO DAILY 12/03/16 11/23/19 History Glimepiride [Amaryl] 1 mg PO [id number] 11/23/19 11/23/19 History atenoloL [Tenormin] 25 mg PO DAILY 11/23/19 11/23/19 History metFORMIN HCL [Glucophage] 850 mg PO BID 11/23/19 11/23/19 History Clopidogrel [Plavix] 75 mg PO DAILY #90 tab 11/24/19 Rx Allergies Allergy/AdvReac Type Severity Reaction Status Date / Time No Known Allergies Allergy Verified 01/11/24 00:51 Physical Exam Vitals: Vital Signs Temp Pulse Pulse Resp BP BP Pulse Ox 01/11/24 01:40 57 L 16 174/90 99 01/11/24 01:35 58 L 17 170/95 100 01/11/24 01:28 61 19 167/99 100 01/11/24 01:10 62 20 163/90 99 01/11/24 00:48 98.4 F 60 18 186/74 98 Intake and Output 01/10/24 01/10/24 01/11/24 14:59 22:59 06:59 Other: Weight 77.111 kg Results 01/11/24 00:53 01/11/24 00:53 Cardiac Enzymes 01/11/24 Range/Units 00:53 AST 37 (17-59) U/L CBC 01/11/24 Range/Units 00:53 WBC 6.3 (3.8-10.6) k/uL RBC 3.69 L (4.30-5.90) m/uL Hgb 11.1 L (13.0-17.5) gm/dL Hct 34.8 L (39.0-53.0) % Plt Count 197 (150-450) k/uL Comprehensive Metabolic Panel 01/11/24 Range/Units 00:53 Sodium 137 (137-145) mmol/L Potassium 4.1 (3.5-5.1) mmol/L Chloride 104 (98-107) mmol/L Carbon Dioxide 21 L (22-30) mmol/L BUN 29 H (9-20) mg/dL Creatinine 0.84 (0.66-1.25) mg/dL Glucose 121 H (74-99) mg/dL Calcium 9.6 (8.4-10.2) mg/dL AST 37 (17-59) U/L ALT 17 (4-49) U/L Alkaline Phosphatase 65 (38-126) U/L Total Protein 6.7 (6.3-8.2) g/dL Albumin 4.3 (3.5-5.0) g/dL Current Medications Generic Name Dose Route Start Last Admin Trade Name Freq PRN Reason Stop Dose Admin Aspirin 325 mg 01/12/24 09:00 Aspirin 325 Mg Tab PO DAILY [facility] Atorvastatin Calcium 80 mg 01/11/24 09:00 Atorvastatin 80 Mg Tab PO DAILY [facility] Heparin Sodium/Sodium Chloride 250 mls @ 9.253 mls/hr 01/11/24 01:15 01/11/24 01:26 25,000 unit/ Sodium Chloride IV 12 units/kg/hr .Q24H CAROL ANN 9.253 mls/hr Administration Protocol 12 UNITS/KG/HR Metoprolol Tartrate 25 mg 01/11/24 09:00 Metoprolol Tartrate 25 Mg Tab PO BID [facility] Morphine Sulfate 4 mg 01/11/24 01:30 Morphine Sulfate 4 Mg/Ml Syringe IV Q4HR PRN Chest Pain Nitroglycerin 0.4 mg 01/11/24 01:14 01/11/24 01:39 Nitroglycerin Sl Tabs 0.4 Mg Tab SUBLINGUAL 0.4 mg Q5M PRN Administration Chest Pain Intake and Output 01/10/24 01/10/24 01/11/24 14:59 22:59 06:59 Other: Weight 77.111 kg Patient Weight 01/11/24 06:59 Weight 77.111 kg 01/11/24 00:53 01/11/24 00:53
[2024-01-11] MEDS: fentaNYL (PF) 50 MCG/1 ML VIAL IVP ONE (02:05)
[2024-01-11] MEDS: MIDAZOLAM 2 MG/2 ML VIAL IVP ONE (02:05)
[2024-01-11] MEDS ORDERED: TICAGRELOR 90 MG TAB ONE (02:06)
[2024-01-11] MEDS: TICAGRELOR 90 MG TAB PO ONE (02:07)
[2024-01-11] MEDS: HEPARIN SODIUM 1,000 UN/ML (10ML VL) IVP ONE ×2 (02:11→02:26)
[2024-01-11] MEDS: NITROGLYCERIN 1000MCG/10ML SYRINGE INTRACORON ONE ×2 (02:12→02:17)
[2024-01-11 02:32] LABS: Prothrombin Time 10.8 sec (10.0-12.5)
[2024-01-11] MEDS: IOPAMIDOL-370 100ML BTL INTRATHECA ONE (02:38)
[2024-01-11] MEDS: SODIUM CHLORIDE 0.9% 1,000 ML IV ONE (02:38)
[2024-01-11] MEDS ORDERED: MAG HYDROX/AL HYDROX/SIMETH 30 ML CUP PO PRN (02:43)
[2024-01-11] MEDS ORDERED: RX INFO: IV CONTRAST WAS GIVEN 1 EACH MISC MISCELLANE PRN (02:43)
[2024-01-11] MEDS ORDERED: ATROPINE SULFATE 0.1 MG/ML 10ML SYRINGE IV PRN (02:43)
[2024-01-11] MEDS ORDERED: ZOLPIDEM 5 MG TAB PO PRN (02:43)
--- NOTE | 2024-01-11 02:43 | P.PRCINT ---
Percutaneous Coronary Int. - Percutaneous Coronary Intervention Percutaneous Coronary Intervention: PROCEDURES PERFORMED: Bilateral coronary angiography, ultrasound guided arterial access, PCI distal circumflex with a 2.25 x 12 mm Xience LUZMARIA INDICATION: STEMI CONSENT:I have discussed the risks, benefits and alternative therapies for the above-mentioned procedure and for both sedation/analgesia as well as necessary blood product administration, if indicated, as they pertain to this patient. The patient has indicated understanding and acceptance of the risks and procedures discussed. PROCEDURE: After the risks, benefits and alternatives of the above mentioned procedure explained in detail with the patient, informed consent was obtained. Patient was taken to the catheterization lab and prepped and draped in usual fashion. Ultrasound guidance was used to assess for arterial access. 1% lidocaine was used to anesthetize the right radial artery. A 6-Swedish sheath was placed in the right radial artery using modified Seldinger technique and ultrasound guidance. Left coronary angiography was performed with a 6-Swedish CLS 3.5 catheter and right coronary angiography was performed with a 6-Swedish AL 0.75 catheter in various views. EKG had ST elevations inferiorly as well as V4- V6 with concern of large RCA and therefore initial left pictures were taken and then changed over to her RCA imaging. The culprit lesion appeared to be a small caliber circumflex and therefore intervention was recommended on the circumflex. The decision was made to perform PCI of the circumflex. A 6-Swedish CLS 3.5 guide was used to engage the left main. A 0.014 BMW wire was placed in the OM 2 branch and a 0.014 whisper wire was placed in the distal circumflex. Predilation was performed initially with 2.5 x 12 mm balloon and only to 8 rut. Next a 2.25 x 12 mm Xience LUZMARIA was placed in the distal circumflex. Final angiograms were performed. Preintervention there was 99% stenosis with ALINE 1 flow and postintervention there was less than 10% stenosis and ALINE-3 flow. The right radial sheath was removed and a TR band was placed with hemostasis achieved. The patient tolerated the procedure well. Patient was transported back to the post catheterization holding area in stable condition. Conscious Sedation: Patient was monitored under the direct supervision of myself for conscious sedation using Versed and fentanyl for a total duration of 34 minutes HEMODYNAMICS: Aorta: 131/61 SELECTIVE CORONARY ARTERIOGRAPHY: LEFT MAIN: The left main is a large caliber vessel which bifurcates into the LAD and circumflex. There is no significant stenosis. LEFT ANTERIOR DESCENDING CORONARY ARTERY: LAD is a large caliber vessel which wraps around to the apex. There is proximal LAD 20-30% stenosis and otherwise mild luminal irregularities LEFT CIRCUMFLEX CORONARY ARTERY: Left circumflex is a moderate caliber vessel. the circumflex has mild luminal irregularities of the proximal and mid segment and gives off a very small caliber OM1 branch and a small caliber OM 2 branch. The distal circumflex has a 99% stenosis with what appears to be thrombus. RIGHT CORONARY ARTERY: The right coronary artery is a large caliber vessel which gives off a PDA and PLV branch and is the dominant vessel. There is mild 30% proximal and 30% mid RCA stenosis. PDA is small to moderate caliber with a mid PDA 40-50% stenosis.. FINAL IMPRESSION: 1. CAD as described above including proximal LAD 20-30%, distal circumflex 99%, RCA 30% and PEEP 40-50% stenosis 2. S/p PCI distal circumflex with a 2.25 x 12 mm Xience LUZMARIA 3. ST elevations II, III, aVF, V4-V6 not entirely explained by coronary anatomy PLAN: 1. Aggressive risk factor modification per most recent ACC/AHA guidelines. 2. Continue dual antiplatelets with aspirin and Brillinta for 12 months 3. Small caliber circumflex does not entirely account for EKG changes and may be more consistent with thromboembolism. Consider event monitor to rule out possible source of thromboembolism.
[2024-01-11] MEDS: SODIUM CHLORIDE 0.9% 1,000 ML in EMPTY BAG 1 BAG IV SCH (02:58)
[2024-01-11 02:59] LABS: Glucose,Whole Blood 112 mg/dL (70-110)
[2024-01-11 04:11] LABS: Mean Platelet Volume 8.5; Platelet Count 184 k/uL (150-450)
[2024-01-11] MEDS ORDERED: NALOXONE 0.4 MG/ML 1 ML VIAL IV PRN (04:29)
[2024-01-11 05:06] LABS: Partial Thromboplastin Time 24.5 sec (22.0-30.0)
[2024-01-11] MEDS: ACETAMINOPHEN TAB 325 MG TAB PO PRN (08:27)
[2024-01-11] MEDS: ATORVASTATIN 80 MG TAB PO SCH (08:27)
[2024-01-11] MEDS: METOPROLOL TARTRATE 25 MG TAB PO SCH (08:27)
[2024-01-11] MEDS: ASPIRIN 81 MG PO SCH (08:27)
[2024-01-11] MEDS: TICAGRELOR 90 MG TAB PO SCH (08:27)
[2024-01-11] MEDS ORDERED: MELATONIN 3 MG TABLET PO PRN (10:05)
[2024-01-11] MEDS ORDERED: ONDANSETRON 4 MG/2 ML VIAL IVP PRN (10:05)
[2024-01-11] MEDS ORDERED: bisacodyL 5 MG TABLET.DR PO PRN (10:05)
[2024-01-11] MEDS ORDERED: DEXTROSE 50% SYRINGE 50 ML IVP PRN ×2 (10:08)
--- NOTE | 2024-01-11 10:11 | P.HPIM ---
History of Present Illness H&P Date: 01/11/24 Patient is a 88-year-old male who Diabetes on metformin, hypertension, dyslipidemia coronary artery disease, and multiple other comorbid conditions who presented to the emergency department with chest pain. In the ER EKG was consistent with ST segment elevated myocardial infarction. He was taken to the Chief Cardiopulmonary Technologist and underwent PCI to the circumflex artery. He was then transferred to the ICU. Patient seen and examined at bedside. He had sudden onset chest pain that he describes as left-sided with some radiation into his arms. He initially thought it was from doing yard work for an hour during the day. It was not associated with any lightheadedness, dizziness, shortness of breath, nausea, diaphoresis. He states he has had some episodes like this before but not as severe. Currently he is having pain in both of his shoulders but his chest pain is completely resolved. He is feeling almost back to normal. He reports he follows with Dr. Penn in the outpatient setting. He is knows that he has a murmur and Dr. Penn had been encouraging him to get this evaluated with possible intervention. Dr. Penn had him monitoring for any increase in shortness of breath with the patient reports he has not had. He denies any recent cough, cold, fever, flu, nausea, vomiting. Vital signs reviewed General: nontoxic, no distress, appears at stated age Derm: warm, dry Eyes: EOMI, no lid lag, anicteric sclera, pupils equal round reactive to light ENT: Nose and ears atraumatic Cardiovascular: S1S2 reg, grade 4 systolic ejection murmur, no edema, chesrt wall non tender to palpation Lungs: clear to auscultation bilateral, no rhonchi, no rales, no wheeze, no accessory muscle use Abdominal: soft, nontender to palpation, no guarding Ext: no gross muscle atrophy, no contractures Neuro: CN II-XII grossly intact, No focal neuro deficits Psych: Alert, oriented, appropriate affect Assessment/Plan: ST-Segment elevated myocardial infarction status post PCI to the complex Hypertension Dyslipidemia Murmur -Continue with aspirin 81 mg daily, Brilinta 90 mg twice daily -Lipitor 80 mg daily -Metoprolol 25 mg twice daily -Lisinopril 10 mg daily -Patient was on Plavix at home Diabetes mellitus type 2 -Hold metformin -Sliding scale insulin, follow blood sugars, check A1c Imaging: -No acute process Data Review: Labs reviewed are CBC, coags, CMP, and troponin which are remarkable for BUN 29, glucose 121, and troponin 0.235 which elevated to 26.8 The patient is admitted with an anticipated greater than 2 midnight stay for evaluation of STEMI. Surrogate decision-maker: CODE STATUS: Full code but does not want prolonged mechanical ventilation DVT prophylaxis: Lovenox Anticipated discharge date: [address]: home This dictation was prepared using Snappli voice recognition software. Though every attempt is made to correct errors during dictation some may still exist. Past Medical History Past Medical History: Chest Pain / Angina, Diabetes Mellitus, Hyperlipidemia, Hypertension, Myocardial Infarction (ND), Prostate Disorder, Respiratory Disorder, Sleep Apnea/CPAP/BIPAP Additional Past Medical History / Comment(s): "IRREG HEARTBEAT", "CHEMICAL STRESS TEST PRIOR TO TURP", "HEARTBURN" OTC MEDS NEEDED. DOES'NT USE A CPAP MACHINE.; heart was "skipping a beat", carotid stenosis, TIA Last Myocardial Infarction Date:: 01/11/24 History of Any Multi-Drug Resistant Organisms: None Reported Past Surgical History: Heart Catheterization With Stent, Hernia Repair, Prostate Surgery, Tonsillectomy Additional Past Surgical History / Comment(s): 11-29-16 TURP,CYSTOCOPY,LITHOTRIPSY FOR BLADDER STONE. FLO INGUINAL HERNIA REPAIR, FLO CATARACTS. Past Anesthesia/Blood Transfusion Reactions: No Reported Reaction Date of Last Stent Placement:: 01/11/24 Past Psychological History: No Psychological Hx Reported Additional Psychological History / Comment(s): PT LIVES WITH HIS IAIN IN A SINGLE LEVEL HOME THAT HAS 4 STEP IN WHICH TO ENTER.NO PETS. PT IS INDEPENDANT. NO OUTSIDE SERVICES OR MEDICAL EQUIPMENT. PT SERVED IN THE [employer] WHEN YOUNGER AND RETIRED AFTER WORKING MANY YEARS A [employer]. Smoking Status: Former smoker Past Alcohol Use History: None Reported Past Drug Use History: None Reported - Past Family History Father Family Medical History: Cancer, Dementia, Prostate Disorder Additional Family Medical History / Comment(s): AGE 94 Mother Family Medical History: Dementia Additional Family Medical History / Comment(s): AGE 95 Medications and Allergies Home Medications Medication Instructions Recorded Confirmed Type Simvastatin [Zocor] 40 mg PO HS 12/03/16 01/11/24 History metFORMIN HCL [Glucophage] 850 mg PO BID-W/MEALS 11/23/19 01/11/24 History Clopidogrel [Plavix] 75 mg PO DAILY #90 tab 11/24/19 01/11/24 Rx Amitriptyline HCl [Elavil] 10 mg PO HS 01/11/24 01/11/24 History Digoxin [Lanoxin] 62.5 mcg PO DAILY 01/11/24 01/11/24 History Pregabalin [Lyrica] 25 mg PO HS 01/11/24 01/11/24 History atenoloL [Tenormin] 25 mg PO DAILY 01/11/24 01/11/24 History lisinopriL [Zestril] 10 mg PO DAILY 01/11/24 01/11/24 History Allergies Allergy/AdvReac Type Severity Reaction Status Date / Time No Known Allergies Allergy Verified 01/11/24 09:33 Physical Exam Osteopathic Statement: *. No significant issues noted on an osteopathic structural exam other than those noted in the History and Physical/Consult. Vitals: Vital Signs Temp Pulse Pulse Resp BP BP Pulse Ox 01/11/24 09:00 59 L 15 89/59 97 01/11/24 08:00 98.2 F 58 L 15 88/52 96 01/11/24 07:00 49 L 23 117/64 97 01/11/24 06:00 49 L 10 L 121/69 97 01/11/24 05:45 87 28 H 01/11/24 05:30 65 19 113/53 98 01/11/24 05:00 60 14 109/49 99 01/11/24 04:45 59 L 16 98 01/11/24 04:30 58 L 16 119/68 86 L 01/11/24 04:15 54 L 15 119/68 97 01/11/24 04:00 53 L 16 118/65 98 01/11/24 03:45 53 L 15 131/113 99 01/11/24 03:30 56 L 15 123/91 98 01/11/24 03:15 53 L 15 113/68 99 01/11/24 03:10 52 L 25 H 113/68 99 01/11/24 03:00 97.9 F 60 107/63 98 01/11/24 02:52 24 01/11/24 01:46 60 19 136/93 99 01/11/24 01:40 57 L 16 174/90 99 01/11/24 01:35 58 L 17 170/95 100 01/11/24 01:28 61 19 167/99 100 01/11/24 01:10 62 20 163/90 99 01/11/24 00:48 98.4 F 60 18 186/74 98 Intake and Output 01/10/24 01/11/24 01/11/24 22:59 06:59 14:59 Intake Total 608 231 Output Total 250 Balance 358 231 Intake: IV 300 Intake, IV Titration 308 231 Amount Sodium Chloride 0.9% 1, 308 231 000 ml In Empty Bag 1 bag @ 1 ML/KG/HR 77.111 mls/ hr IV .[id number] [facility] Rx#: [id number] Output: Urine 250 Other: Weight 77.111 kg Results CBC & Chem 7: 01/11/24 03:46 01/11/24 00:53 Labs: Abnormal Lab Results - Last 24 Hours (Table) 01/11/24 01/11/24 01/11/24 Range/Units 00:53 00:53 00:53 RBC 3.69 L (4.30-5.90) m/uL Hgb 11.1 L (13.0-17.5) gm/dL Hct 34.8 L (39.0-53.0) % Carbon Dioxide 21 L (22-30) mmol/L BUN 29 H (9-20) mg/dL Glucose 121 H (74-99) mg/dL POC Glucose (mg/dL) (70-110) mg/dL Troponin I 0.235 H* (0.000-0.034) ng/mL 01/11/24 01/11/24 Range/Units 02:57 03:46 RBC (4.30-5.90) m/uL Hgb (13.0-17.5) gm/dL Hct (39.0-53.0) % Carbon Dioxide (22-30) mmol/L BUN (9-20) mg/dL Glucose (74-99) mg/dL POC Glucose (mg/dL) 112 H (70-110) mg/dL Troponin I 26.800 H* (0.000-0.034) ng/mL Thrombosis Risk Factor Assmnt - Choose All That Apply Each Factor Represents 1 point: Medical pt on bed rest Each Risk Factor Represents 3 Points: Age 75 years or older Thrombosis Risk Factor Assessment Total Risk Factor Score: 4 Thrombosis Risk Factor Assessment Level: Moderate Risk
[2024-01-11 12:10] VITALS: BMI 23.7
[2024-01-11 12:35] LABS: Glucose,Whole Blood 209 mg/dL (70-110)
[2024-01-11] MEDS: INSULIN ASPART (NovoLOG) 100 UNIT/ML VIAL SQ SCH (13:05)
[2024-01-11 17:24] LABS: Glucose,Whole Blood 186 mg/dL (70-110)
--- NOTE | 2024-01-11 19:28 | CA ---
Transthoracic Echo Report Name: Casey Andrews Age: 88 Gender: M : 1935 Exam Date: 01/11/2024 10:12 Exam Location: [facility] Ht (in): 71 Wt (lb): 170 Ordering Physician: Victorina Kim DO Attending/Referring Phys: [id number], Julio Junior Graphic Designer Caren Christensen RDCS Procedure CPT: Indications: stemi Cardiac Hx: Technical Quality: Technically difficult study Contrast 1: Definity Total Dose (mL): 2 Contrast 2: Total Dose (mL): MEASUREMENTS (Male / Female) Normal Values 2D ECHO LV Diastolic Diameter PLAX 5.1 cm 4.2 - 5.9 / 3.9 - 5.3 cm LV Systolic Diameter PLAX 3.2 cm IVS Diastolic Thickness 1.6 cm 0.6 - 1.0 / 0.6 - 0.9 cm LVPW Diastolic Thickness 1.2 cm 0.6 - 1.0 / 0.6 - 0.9 cm LV Relative Wall Thickness 0.6 RV Internal Dim ED PLAX 1.6 cm LVOT Diameter 2.0 cm LA Systolic Diameter LX 5.7 cm 3.0 - 4.0 / 2.7 - 3.8 cm LV Diastolic Volume MOD BP 91.6 cm??? 67 - 155 / 56 - 104 cm??? LV Systolic Volume MOD BP 51.5 cm??? 22 - 58 / 19 - 49 cm??? LV Ejection Fraction MOD BP 43.8 % >= 55 % LV Cardiac Index MOD BP 1018.1 cm???/min???m??? LV Diastolic Volume MOD 4C 75.0 cm??? LV Systolic Volume MOD 4C 53.1 cm??? LV Ejection Fraction MOD 4C 29.1 % LV Cardiac Index MOD 4C 554.9 cm???/min???m??? LV Diastolic Length 4C 7.1 cm LV Systolic Length 4C 8.2 cm LV Diastolic Volume MOD 2C 78.7 cm??? LV Systolic Volume MOD 2C 44.4 cm??? LV Ejection Fraction MOD 2C 43.6 % LV Cardiac Index MOD 2C 871.2 cm???/min???m??? LV Diastolic Length 2C 9.2 cm LV Systolic Length 2C 8.8 cm M-MODE Aortic Root Diameter MM 2.6 cm LA Systolic Diameter MM 4.6 cm LA Ao Ratio MM 1.7 DOPPLER AV Peak Velocity 342.8 cm/s AV Peak Gradient 47.0 mmHg AV Mean Velocity 237.3 cm/s AV Mean Gradient 27.0 mmHg AV Velocity Time Integral 101.8 cm Mitral E Point Velocity 76.1 cm/s Mitral A Point Velocity 88.5 cm/s Mitral E to A Ratio 0.9 MV Deceleration Time 356.2 ms MV E' Velocity 5.7 cm/s Mitral E to MV E' Ratio 13.3 TR Peak Velocity 227.4 cm/s TR Peak Gradient 20.7 mmHg Right Ventricular Systolic Press 25.7 mmHg FINDINGS Left Ventricle Left ventricular ejection fraction is estimated at 35-40 %. [place] hypokinetic. Moderately increased septal wall thickness. Moderately decreased left ventricular ejection fraction. Right Ventricle Normal right ventricular size and function. Right ventricular systolic pressure within normal limits. Right Atrium Moderate right atrial dilatation. Left Atrium Severely increased left atrial diameter. Mitral Valve Structurally normal mitral valve. Mild mitral regurgitation. Aortic Valve Trileaflet aortic valve. Moderate aortic stenosis with a peak gradient of 47mmHg and a mean gradient of 27mmHg. No aortic regurgitation. Tricuspid Valve Structurally normal tricuspid valve. Mild tricuspid regurgitation. Pulmonic Valve Structurally normal pulmonic valve. Trace pulmonic regurgitation. Pericardium No pericardial or pleural effusion. Aorta Normal size aortic root and proximal ascending aorta. CONCLUSIONS Impaired LV function with EF between 35-40% and apical hypokinesia The aortic valve is calcified and thickened. Mean gradient at 27 mmHg was identified Previewed by: Dr. Donnie Martinez MD (Electronically Signed) Final Date: 11 Jan 2024 19:27
[2024-01-11 21:47] LABS: Glucose,Whole Blood 133 mg/dL (70-110)
[2024-01-11] MEDS: AMITRIPTYLINE HCL 10 MG TAB PO SCH (21:58)
[2024-01-11] MEDS: PREGABALIN 25 MG CAP PO SCH (22:20)
[2024-01-12 06:12] LABS: Glucose,Whole Blood 127 mg/dL (70-110)
[2024-01-12] MEDS: lisinopriL 10 MG TAB PO SCH (08:55)
[2024-01-12] MEDS: ENOXAPARIN 40 MG/0.4 ML SYRINGE SQ SCH (08:55)
[2024-01-12] MEDS ORDERED: ASPIRIN 325 MG TAB PO SCH (09:00)
[2024-01-12 09:53] VITALS: RESP 20
[2024-01-12 10:25] LABS: HCT 30.5 % (39.0-53.0); HGB 9.7 gm/dL (13.0-17.5); MCH 30.1 pg (25.0-35.0); MCHC 31.6 g/dL (31.0-37.0); MCV 95.1 fL (80.0-100.0); Mean Platelet Volume 9.4; Platelet Count 168 k/uL (150-450); RBC 3.21 m/uL (4.30-5.90); RDW 13.7 % (11.5-15.5); WBC 5.2 k/uL (3.8-10.6)
[2024-01-12 10:33] LABS: ALT 25 U/L (4-49); AST 108 U/L (17-59); African American GFR (CKD) >90 (>60 ml/min/1.73 sqM); Albumin 3.5 g/dL (3.5-5.0); Alkaline Phosphatase 55 U/L (38-126); Anion Gap 6 mmol/L; Blood Urea Nitrogen 15 mg/dL (9-20); Calcium 8.6 mg/dL (8.4-10.2); Carbon Dioxide 25 mmol/L (22-30); Chloride 107 mmol/L (98-107); Glucose 207 mg/dL (74-99); Non-African American GFR(CKD) 83 (>60 ml/min/1.73 sqM); Potassium 4.1 mmol/L (3.5-5.1); Sodium 138 mmol/L (137-145); Total Bilirubin 0.4 mg/dL (0.2-1.3); Total Protein 5.7 g/dL (6.3-8.2)
[2024-01-12 11:23] LABS: Glucose,Whole Blood 116 mg/dL (70-110)
[2024-01-12 12:10] VITALS: BP 103/60; PULSE 49; TEMP 97.9
--- NOTE | 2024-01-12 13:58 | P.PN ---
Subjective Progress Note Date: 01/12/24 HISTORY OF PRESENTING ILLNESS This is a pleasant 88-year-old with past medical history significant for hyp ertension, hyperlipidemia, aortic stenosis, diabetes mellitus type 2, BPH who presented secondary chest pain. patient follows in the office with Dr. Penn. Records not currently available. He states he had been feeling fairly well up until 11 PM tonight and then started having chest discomfort. Currently chest pain of 5 out of 10. Does have some associated shortness breath. He has been following for aortic stenosis and was told he likely will need a valve replacement however waiting to see if he gets symptomatic. Denies any lightheadedness or dizziness. previous echo from 02/09/2023 showed normal left ventricular EF 55% with moderate aortic stenosis with mean gradient of 34 mmHg. 01/11 Yesterday, patient underwent cardiac catheterization with Dr. Garcia which revealed proximal LAD at 20 to 30%, distal circumflex 99%, RCA 30% and PDA 40 to 50% stenosis status post PCI of the distal circumflex with LUZMARIA.. Plan is for aggressive risk factor modification and continue aspirin and Brilinta for 12 months. Echocardiogram revealed EF of 35 to 40% with apical hypokinesia. Aortic valve is calcified and thickened. Mean gradient 27 mmHg. Discussed results of the test with the patient and family members at the bedside. Patient has been under significant stress with his son diagnosed with kidney cancer and patient has recently lost 30 pounds diagnosed with diabetes. Picture seems to be most likely stress-induced cardiomyopathy. PHYSICAL EXAMINATION Vital signs reviewed. CONSTITUTIONAL: No apparent distress. HEENT: Head is normocephalic. Pupils are equal, round. Sclerae anicteric. Mucous membranes of the mouth are moist. No JVD. No carotid bruit. CHEST EXAMINATION: Lungs are clear to auscultation. No chest wall tenderness is noted on palpation or with deep breathing. HEART EXAMINATION: Regular rate and rhythm. S1, S2 heard. +3/6 systolioc murmur, no gallops or rub. ABDOMEN: Soft, nontender. Positive bowel sounds. EXTREMITIES: 2+ peripheral pulses, no lower extremity edema and no calf tenderness. NEUROLOGIC EXAMINATION: Patient is awake, alert and oriented x3. ASSESSMENT STEMI Stress-induced cardiomyopathy Hypertension Hyperlipidemia Aortic stenosis, previously moderate 02/2023 diabetes mellitus type 2 questionable history of arrhythmia/atrial fibrillation, on home digoxin questionable history of prior TIA PLAN Continue patient on current cardiac medications Patient is cleared from cardiology for discharge and may follow-up in the office with Dr. Penn in 1 to 2 weeks. Nurse practitioner note has been reviewed, I agree with documented findings and plan of care. Patient was seen and examined. Objective - Vital Signs Vital signs: Vital Signs Temp 97.9 F 01/12/24 11:34 Pulse 49 L 01/12/24 11:34 Resp 20 01/12/24 11:34 BP 103/60 01/12/24 11:34 Pulse Ox 99 01/12/24 11:34 FiO2 Intake & Output 01/11/24 01/12/24 01/12/24 18:59 06:59 18:59 Intake Total 616 356 Output Total 850 Balance -234 356 Weight 77.111 kg 77.5 kg Intake: Intake, IV Titration 616 Amount Sodium Chloride 0.9% 1, 616 000 ml In Empty Bag 1 bag @ 1 ML/KG/HR 77.111 mls/ hr IV .[id number] [facility] Rx#: [id number] Oral 356 Output: Urine 850 Other: Voiding Method Toilet Toilet # Voids 2 1 # Bowel Movements 1 - Labs CBC & Chem 7: 01/12/24 08:27 01/12/24 08:27 Labs: Abnormal Lab Results - Last 24 Hours (Table) 01/11/24 01/11/24 01/11/24 Range/Units 12:34 17:23 21:46 RBC (4.30-5.90) m/uL Hgb (13.0-17.5) gm/dL Hct (39.0-53.0) % Glucose (74-99) mg/dL POC Glucose (mg/dL) 209 H 186 H 133 H (70-110) mg/dL AST (17-59) U/L Total Protein (6.3-8.2) g/dL 01/12/24 01/12/24 01/12/24 Range/Units 06:10 08:27 08:27 RBC 3.21 L (4.30-5.90) m/uL Hgb 9.7 L (13.0-17.5) gm/dL Hct 30.5 L (39.0-53.0) % Glucose 207 H (74-99) mg/dL POC Glucose (mg/dL) 127 H (70-110) mg/dL AST 108 H (17-59) U/L Total Protein 5.7 L (6.3-8.2) g/dL 01/12/24 Range/Units 11:20 RBC (4.30-5.90) m/uL Hgb (13.0-17.5) gm/dL Hct (39.0-53.0) % Glucose (74-99) mg/dL POC Glucose (mg/dL) 116 H (70-110) mg/dL AST (17-59) U/L Total Protein (6.3-8.2) g/dL
--- NOTE | 2024-01-12 14:52 | P.DS ---
Providers Date of admission: 01/11/24 01:16 Expected date of discharge: 01/12/24 Attending physician: Carter Shaver MD Consults: 01/11/24 01:14 Consult Physician Urgent Consulting Provider: Valerio Salmon Consult Reason/Comments: stemi Do you want consulting provider notified?: Yes 01/11/24 02:43 Consult Physician Routine Consulting Provider: [facility] Consult Reason/Comments: Post Interventional Patient Do you want consulting provider notified?: Already Contacted Primary care physician: [facility] Hospital Course: Discharge Diagnosis: ST-Segment elevated myocardial infarction status post PCI to the left circumflex Ischemic cardiomyopathy with EF 35-40% Hypertension Dyslipidemia Moderate aortic stenosis Diabetes mellitus type 2 Hospital Course: Patient is a 88-year-old male who Diabetes on metformin, hypertension, dyslipidemia coronary artery disease, and multiple other comorbid conditions who presented to the emergency department with chest pain. In the ER EKG was consistent with ST segment elevated myocardial infarction. He was taken to the [facility] and underwent PCI to the circumflex artery. He was then transferred to the ICU. He did well postoperatively. His echo did come back with ejection fraction 35 to 40%, decreased movement of the apex, and moderate aortic stenosis. Blood pressures were well-controlled during his hospital stay. His blood sugar was slightly elevated however outpatient A1c from 12/30/2023 was 6. He was started on metoprolol and his atenolol was discontinued. He was tra nsitioned from Plavix to Brilinta.He was clearedby cardiology for discharge home. Patient and family are very concerned because he supposed be undergoing a workup for weight loss in the outpatient setting. They are scheduled to have CTs done in the outpatient setting which I have told him could continue and that they should call to get these scheduled. He was supposed to have a colonoscopy in March, I did discuss with him that this may need to be delayed due to his STEMI and need for blood thinners but depending on his weight loss and continued symptoms this also could be pursued if cardiology clears him. Follow-up: Dr. Penn in 1 week, Dr. Burgess in 1-3 days. Discussed with patinet may need to delay Colonoscopy depending on weight loss. Patient will however repeat CBC in 3 days. Case was discussed with patient's primary care physician Dr. Ferreira who is aware of the new STEMI and states patient has had significant weight loss and positive fecal occult blood. New Medications: Brillenta (plavix stopped). Atenolol transition to metoprolol. Simvastatin transition to Lipitor. Patient seen and examined at bedside. Denies any chest pain, shortness of breath, nausea, vomiting. Vital signs reviewed and stable. General: Nontoxic, no distress, appears at stated age Cardiovascular: S1S2 reg, grade 4 systolic ejection murmur, positive posterior tibial pulse bilateral, Lungs: CTA bilateral, no rhonchi, no rales, no accessory muscle use Abdominal: Soft, nontender to palpation, no guarding, no appreciable organomegaly Ext: No gross muscle atrophy, no edema b/l lower extremities, no contractures Neuro: CN II-XI grossly intact, no focal neuro deficits Psych: Alert, oriented, appropriate affect A total of minutes of time were spent preparing this complex discharge summary. Patient was discharged on. This dictation was prepared using [employer]OV[employer] voice recognition software. Though every attempt is made to correct errors during dictation some may still exist. Patient Condition at Discharge: Stable Plan - Discharge Summary New Discharge Prescriptions: New Aspirin 81 mg PO DAILY #30 tab Ticagrelor [Brilinta] 90 mg PO BID #60 tab Atorvastatin [Lipitor] 80 mg PO DAILY #30 tab Metoprolol Tartrate [Lopressor] 25 mg PO BID #60 tab Continue metFORMIN HCL [Glucophage] 850 mg PO BID-W/MEALS Pregabalin [Lyrica] 25 mg PO HS Amitriptyline HCl [Elavil] 10 mg PO HS lisinopriL [Zestril] 10 mg PO DAILY Discontinued Simvastatin [Zocor] 40 mg PO HS Clopidogrel [Plavix] 75 mg PO DAILY #90 tab atenoloL [Tenormin] 25 mg PO DAILY Digoxin [Lanoxin] 62.5 mcg PO DAILY Discharge Medication List metFORMIN HCL [Glucophage] 850 mg PO BID-W/MEALS 11/23/19 [History] Amitriptyline HCl [Elavil] 10 mg PO HS 01/11/24 [History] Pregabalin [Lyrica] 25 mg PO HS 01/11/24 [History] lisinopriL [Zestril] 10 mg PO DAILY 01/11/24 [History] Aspirin 81 mg PO DAILY #30 tab 01/12/24 [Rx] Atorvastatin [Lipitor] 80 mg PO DAILY #30 tab 01/12/24 [Rx] Metoprolol Tartrate [Lopressor] 25 mg PO BID #60 tab 01/12/24 [Rx] Ticagrelor [Brilinta] 90 mg PO BID #60 tab 01/12/24 [Rx] Follow up Appointment(s)/Referral(s): Lindsay Penn MD [STAFF PHYSICIAN] - 1 Week [facility] DO [Primary Care Provider] - 1-2 days Ambulatory/Diagnostic Orders: Complete Blood Count w/diff [LAB.AMB] Time Frame: 3 Days, Location: None Selected Patient Instructions/Handouts: Heart Catheterization (DC) Activity/Diet/Wound Care/Special Instructions: Activity: As tolerated Diet: Heart Healthy, consistent carb Special Instructions: Repeat blood work in 3 days
[2024-01-12 16:17] LABS: Chol/HDL Ratio 2.14 Ratio; LDL Cholesterol,Calculated 37.6 mg/dL (0.0-131.0); VLDL Calculation 16.76 mg/dL (5.00-40.00)
== END 2024-01-12 16:18 | disposition home or self-care (01) | DRG 322 ==
LOC: EC 00:46 → 2SICU 01:16 → 3SCARD 01-12 02:00
PROVIDERS: ADMIT Internal Medicine; ATTEND Internal Medicine
PROC: 027034Z Dilation of Coronary Artery, One Artery with Drug-eluting Intraluminal Device, Percutaneous Approach (ICD-10-PCS; principal; 2024-01-11 01:51)
PROC: B2111ZZ Fluoroscopy of Multiple Coronary Arteries using Low Osmolar Contrast (ICD-10-PCS; principal; 2024-01-11 01:51)
DX: I21.21 ST elevation (STEMI) myocardial infarction involving left circumflex coronary artery (principal); I51.81 Takotsubo syndrome; E11.9 Type 2 diabetes mellitus without complications; I35.0 Nonrheumatic aortic (valve) stenosis; I10 Essential (primary) hypertension; I65.29 Occlusion and stenosis of unspecified carotid artery; I48.91 Unspecified atrial fibrillation; I25.10 Atherosclerotic heart disease of native coronary artery without angina pectoris; I25.5 Ischemic cardiomyopathy; E78.5 Hyperlipidemia, unspecified; G47.30 Sleep apnea, unspecified; N40.0 Benign prostatic hyperplasia without lower urinary tract symptoms; Z79.02 Long term (current) use of antithrombotics/antiplatelets; Z79.84 Long term (current) use of oral hypoglycemic drugs; Z79.899 Other long term (current) drug therapy; Z85.528 Personal history of other malignant neoplasm of kidney; Z87.891 Personal history of nicotine dependence; Z71.3 Dietary counseling and surveillance
CPT/HCPCS: 36415; 71045; 76937; 80053; 80061; 83735; 84484; 85025; 85027; 85049; 85610; 85730; 93306; 93454; 96365; 99291

== ENCOUNTER → 2024-02-02 | Outpatient (CLI) | payer MEDICARE, BC ==
--- NOTE | 2024-02-03 09:17 | CA ---
Transthoracic Echo Report Name: Casey Andrews Age: 88 Gender: M : 1935 Exam Date: 02/02/2024 16:18 Exam Location: [place] [facility] Ht (in): 69 Wt (lb): 160 Ordering Physician: Gonzalez Penn MD Attending/Referring Phys: Gonzalez Penn MD Offset Duplicating Machine Operator Priscilla Jackson [facility] Procedure CPT: Indications: I25.119 ATHSCL HEART DISEASE OF [place] COR ART W U Cardiac Hx: Pericardial window Technical Quality: Fair Contrast 1: Total Dose (mL): Contrast 2: Total Dose (mL): MEASUREMENTS (Male / Female) Normal Values 2D ECHO LV Diastolic Diameter PLAX 4.2 cm 4.2 - 5.9 / 3.9 - 5.3 cm LV Systolic Diameter PLAX 2.5 cm IVS Diastolic Thickness 1.3 cm 0.6 - 1.0 / 0.6 - 0.9 cm LVPW Diastolic Thickness 1.2 cm 0.6 - 1.0 / 0.6 - 0.9 cm LV Relative Wall Thickness 0.6 RV Internal Dim ED PLAX 2.4 cm LVOT Diameter 2.1 cm LA Systolic Diameter LX 3.7 cm 3.0 - 4.0 / 2.7 - 3.8 cm LV Diastolic Volume MOD BP 114.7 cm??? 67 - 155 / 56 - 104 cm??? LV Systolic Volume MOD BP 68.2 cm??? 22 - 58 / 19 - 49 cm??? LV Ejection Fraction MOD BP 40.6 % >= 55 % LV Cardiac Index MOD BP 2098.1 cm???/min???m??? LV Diastolic Volume MOD 4C 131.3 cm??? LV Systolic Volume MOD 4C 70.5 cm??? LV Ejection Fraction MOD 4C 46.3 % LV Cardiac Index MOD 4C 2742.3 cm???/min???m??? LV Diastolic Length 4C 8.9 cm LV Systolic Length 4C 7.5 cm LV Diastolic Volume MOD 2C 93.1 cm??? LV Systolic Volume MOD 2C 61.6 cm??? LV Ejection Fraction MOD 2C 33.8 % LV Cardiac Index MOD 2C 1417.7 cm???/min???m??? LV Diastolic Length 2C 8.2 cm LV Systolic Length 2C 8.5 cm LA Volume 47.5 cm??? 18 - 58 / 22 - 52 cm??? LA Volume Index 25.2 cm???/m??? 16 - 28 cm???/m??? M-MODE Aortic Root Diameter MM 3.4 cm AV Cusp Separation MM 1.0 cm DOPPLER AV Peak Velocity 429.3 cm/s AV Peak Gradient 73.7 mmHg AV Mean Velocity 338.7 cm/s AV Mean Gradient 48.5 mmHg AV Velocity Time Integral 81.3 cm LVOT Peak Velocity 144.1 cm/s LVOT Peak Gradient 8.3 mmHg LVOT Velocity Time Integral 25.9 cm LVOT Stroke Volume 93.5 cm??? LVOT Stroke Volume Index 49.8 ml/m??? LVOT Cardiac Index 4218.8 cm???/min???m??? AV Area Cont Eq vti 1.2 cm??? AV Area Cont Eq pk 1.2 cm??? MV Area PHT 2.5 cm??? Mitral E Point Velocity 65.9 cm/s Mitral A Point Velocity 132.6 cm/s Mitral E to A Ratio 0.5 MV Deceleration Time 302.6 ms TR Peak Velocity 273.5 cm/s TR Peak Gradient 29.9 mmHg Right Ventricular Systolic Press 42.7 mmHg FINDINGS Left Ventricle Left ventricular ejection fraction is estimated at 40-45 %. Left ventricular cavity size normal. Mild concentric left ventricular hypertrophy. Inferobasal and apical posterior hypokinesia Right Ventricle Normal right ventricular size and function. Mild pulmonary hypertension. Right Atrium Normal right atrial size. No right atrial thrombus or mass seen. Left Atrium Normal left atrial size. No left atrial thrombus or mass present. Mitral Valve Structurally normal mitral valve. Mitral annular calcification. Aortic Valve Aortic valve sclerosis. [id number] aortic stenosis with a peak gradient of 74 mmHg and a mean gradient of 49 mmHg. No aortic regurgitation. Tricuspid Valve Structurally normal tricuspid valve. Mild tricuspid regurgitation. Pulmonic Valve Pulmonic valve not well visualized. Pericardium Trace pericardial or pleural effusion. Aorta Normal size aortic root and proximal ascending aorta. CONCLUSIONS LV size is normal there is hypokinesia involving inferobasal apical posterior areas. Ejection fraction is about 40-45%. There is moderate aortic stenosis. Mild mitral and tricuspid regurgitation trace pericardial effusion Previewed by: Dr. Lindsay Penn MD (Electronically Signed) Final Date: 03 Feb 2024 09:16
== END | disposition home or self-care (01) ==
LOC: RADECHMAIN 15:54
PROVIDERS: ATTEND Internal Medicine
DX: I35.0 Nonrheumatic aortic (valve) stenosis (principal); I34.0 Nonrheumatic mitral (valve) insufficiency; I25.119 Atherosclerotic heart disease of native coronary artery with unspecified angina pectoris; I31.39 Other pericardial effusion (noninflammatory); I36.1 Nonrheumatic tricuspid (valve) insufficiency
CPT/HCPCS: 93306

== ENCOUNTER → 2024-02-28 | Outpatient (CLI) | payer MEDICARE, BC ==
--- NOTE | 2024-02-28 16:00 | US ---
EXAMINATION TYPE: US carotid duplex BILAT DATE OF EXAM: 02/28/2024 COMPARISON: NONE CLINICAL INDICATION: Male, 88 years old with history of I65.29 OCCLUSION AND STENOSIS OF UNSPECIFIED CAROT; hx TIA. HTN. TECHNIQUE: Carotid duplex ultrasound examination. Indirect Doppler criteria was utilized. FINDINGS: EXAM MEASUREMENTS: RIGHT: Peak Systolic Velocity (PSV) cm/sec ----- Right CCA: 50.6 ----- Right ICA: 100.0 ----- Right ECA: 84.4 ICA/CCA ratio: 2.0 RIGHT: End Diastole cm/sec ----- Right CCA: 15.4 ----- Right ICA: 40.3 ----- Right ECA: 11.3 LEFT: Peak Systolic Velocity (PSV) cm/sec ----- Left CCA: 87.0 ----- Left ICA: 107.0 ----- Left ECA: 157.0 ICA/CCA ratio: 1.2 LEFT: End Diastole cm/sec ----- Left CCA: 28.8 ----- Left ICA: 39.0 ----- Left ECA: 9.6 VERTEBRALS (direction of flow): Right Vertebral: Antegrade Left Vertebral: Antegrade Rhythm: Normal PRODUCT ASSEMBLER NOTES: Bilateral wall thickening. Plaque seen in bilateral CCA's. Elevated left ECA ella ocity. IMPRESSION: Less than 50% stenosis of the bilateral carotid bifurcations. Criteria for Assigning % of Stenosis / Diameter reduction (Estimation based on the indirect measurements of the internal carotid artery velocities (ICA PSV). 1. Normal (no stenosis)=ICA PSV < 125 cm/s: ratio < 2.0: ICA EDV<40 cm/s. 2. Less than 50% stenosis=ICA PSV < 125 cm/s: ratio < 2.0: ICA EDV<40 cm/s. 3. 50 to 69% stenosis=ICA PSV of 125 to 230 cm/s: ration 2.0 ? 4.0: ICA EDV 40-100 cm/s. 4. Greater than 70% stenosis to near occlusion= ICA PSV > 230 cm/s: ratio > 4.0: ICA EDV > 100 cm/s. 5. Near occlusion= ICA PSV velocities may be low or undetectable: variable ratio and ICA EDV. 6. Total occlusion=unable to detect flow.
[2024-02-28 18:24] LABS: HCT 31.2 % (39.6-50.0); HGB 9.3 g/dL (13.0-17.0); MCH 25.7 pg (27.0-32.0); MCHC 29.8 g/dL (32.0-37.0); MCV 86.2 FL (80.0-97.0); NRBC Per 100 WBC 0 X 10*3/uL (0.00-0.01); Platelet Count 446 X 10*3/uL (140-440); RBC 3.62 X 10*6/uL (4.40-5.60); RDW 16.7 % (11.5-14.5); WBC 6.61 X 10*3/uL (4.50-10.00)
[2024-02-28 20:44] LABS: % Iron Saturation 8.6 (15.00-50.00)
[2024-02-28 20:48] LABS: Ferritin 52.6 ng/mL (22.0-322.0)
== END | disposition home or self-care (01) ==
LOC: RADUSWWP 14:56
PROVIDERS: ATTEND Internal Medicine
DX: I65.23 Occlusion and stenosis of bilateral carotid arteries (principal); I10 Essential (primary) hypertension; D50.9 Iron deficiency anemia, unspecified
CPT/HCPCS: 82607; 82728; 82746; 83036; 83540; 83550; 85027; 93880

== ENCOUNTER → 2024-03-30 | Outpatient (CLI) | payer MEDICARE, BC ==
[2024-03-30 18:42] LABS: HCT 33.3 % (39.6-50.0); HGB 9.7 g/dL (13.0-17.0); MCH 23.5 pg (27.0-32.0); MCHC 29.1 g/dL (32.0-37.0); MCV 80.6 FL (80.0-97.0); Mean Platelet Volume 9.9 FL (9.5-12.2); NRBC Per 100 WBC 0 X 10*3/uL (0.00-0.01); Platelet Count 446 X 10*3/uL (140-440); RBC 4.13 X 10*6/uL (4.40-5.60); RDW 18.1 % (11.5-14.5); WBC 6.14 X 10*3/uL (4.50-10.00)
[2024-03-30 20:11] LABS: % Iron Saturation 7.91 (15.00-50.00); Ferritin 33.4 ng/mL (22.0-322.0)
== END | disposition home or self-care (01) ==
LOC: LABWHC1 11:44
PROVIDERS: ATTEND Internal Medicine
DX: D50.9 Iron deficiency anemia, unspecified (principal)
CPT/HCPCS: 36415; 82728; 83540; 83550; 85027

== ENCOUNTER 2024-05-11 14:10 | Emergency (ER) | payer MEDICARE, BC ==
[2024-05-11 14:53] VITALS: PULSE 80; RESP 18; TEMP 97.8
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
[2024-05-11 16:02] LABS: Anisocytosis Slight; Basophils % (A) 0 %; Eosinophils # (A) 0.1 k/uL (0-0.7); Eosinophils % (A) 1 %; HCT 26.6 % (39.0-53.0); Hypochromasia Marked; Lymphocytes # (A) 0.9 k/uL (1.0-4.8); Lymphocytes % (A) 11 %; MCH 22.4 pg (25.0-35.0); MCHC 30.2 g/dL (31.0-37.0); MCV 74.1 fL (80.0-100.0); Mean Platelet Volume 7.5; Microcytosis Moderate; Monocytes # (A) 0.6 k/uL (0-1.0); Monocytes % (A) 7 %; Neutrophils # (A) 6.2 k/uL (1.3-7.7); Neutrophils % (A) 79 %; Platelet Count 445 k/uL (150-450); Poikilocytosis Slight; RBC 3.59 m/uL (4.30-5.90); RDW 17.4 % (11.5-15.5); WBC 7.9 k/uL (3.8-10.6)
[2024-05-11 16:20] LABS: ALT 19 U/L (4-49); AST 29 U/L (17-59); African American GFR (CKD) >90 (>60 ml/min/1.73 sqM); Alkaline Phosphatase 84 U/L (38-126); Anion Gap 10 mmol/L; Blood Urea Nitrogen 19 mg/dL (9-20); Calcium 9.5 mg/dL (8.4-10.2); Carbon Dioxide 25 mmol/L (22-30); Chloride 102 mmol/L (98-107); Glucose 130 mg/dL (74-99); Non-African American GFR(CKD) 81 (>60 ml/min/1.73 sqM); Potassium 4.4 mmol/L (3.5-5.1); Sodium 137 mmol/L (137-145); Total Bilirubin 0.5 mg/dL (0.2-1.3); Total Protein 6.6 g/dL (6.3-8.2)
[2024-05-11] MEDS: DIPH,PERTUS(ACELL)TETVAC-LF 0.5 ML VIAL IM ONE (17:46)
[2024-05-11 17:55] VITALS: BP 124/68
== END 2024-05-11 17:55 | disposition left against medical advice (07) ==
LOC: EC 14:10
CPT/HCPCS: 36415; 70450; 80053; 85025; 90471; 90715; 93005; 99285

== ENCOUNTER 2024-05-14 20:25 | Inpatient (IN) | payer MEDICARE, BC, OTHER ==
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
[2024-05-14 21:50] LABS: ALT 19 U/L (4-49); AST 25 U/L (17-59); African American GFR (CKD) 89 (>60 ml/min/1.73 sqM); Albumin 3.2 g/dL (3.5-5.0); Alkaline Phosphatase 78 U/L (38-126); Anion Gap 8 mmol/L; Blood Urea Nitrogen 17 mg/dL (9-20); Calcium 8.7 mg/dL (8.4-10.2); Carbon Dioxide 22 mmol/L (22-30); Chloride 104 mmol/L (98-107); Glucose 110 mg/dL (74-99); Non-African American GFR(CKD) 77 (>60 ml/min/1.73 sqM); Potassium 4.3 mmol/L (3.5-5.1); Sodium 134 mmol/L (137-145); Total Bilirubin 0.4 mg/dL (0.2-1.3); Total Protein 5.6 g/dL (6.3-8.2)
[2024-05-14 21:51] LABS: INR 1.1 (<1.2); Partial Thromboplastin Time 27.3 sec (22.0-30.0); Prothrombin Time 11.9 sec (10.0-12.5)
[2024-05-14 21:59] LABS: Anisocytosis Slight; Basophils % (A) 0 %; Eosinophils % (A) 0 %; HCT 22.2 % (39.0-53.0); Hypochromasia Marked; Lymphocytes # (A) 0.3 k/uL (1.0-4.8); Lymphocytes % (A) 7 %; MCH 22.2 pg (25.0-35.0); MCHC 30.6 g/dL (31.0-37.0); MCV 72.4 fL (80.0-100.0); Mean Platelet Volume 7.4; Microcytosis Moderate; Monocytes # (A) 0.4 k/uL (0-1.0); Monocytes % (A) 9 %; Neutrophils # (A) 3.8 k/uL (1.3-7.7); Neutrophils % (A) 82 %; Platelet Count 352 k/uL (150-450); Poikilocytosis Slight; RBC 3.07 m/uL (4.30-5.90); RDW 17.5 % (11.5-15.5); WBC 4.6 k/uL (3.8-10.6)
[2024-05-14 22:03] LABS: HGB 6.8 gm/dL (13.0-17.5)
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
[2024-05-15] MEDS: ACETAMINOPHEN TAB 325 MG TAB PO STA (00:53)
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
[2024-05-15] MEDS ORDERED: MORPHINE SULFATE 4 MG/ML SYRINGE IV PRN (04:50)
[2024-05-15] MEDS ORDERED: NALOXONE 0.4 MG/ML 1 ML VIAL IV PRN (04:50)
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
[2024-05-15 08:21] LABS: Appearance,Urine Clear (Clear); Bilirubin,Urine Negative (Negative); Blood,Urine Negative (Negative); Color,Urine Colorless; Glucose,Urine (UA) Negative (Negative); Ketones,Urine Negative (Negative); Leukocyte Esterase,Urine Negative (Negative); Nitrite,Urine Negative (Negative); Protein,Urine Negative (Negative); Specific Gravity,Urine 1.014 (1.001-1.035); Urobilinogen,Urine <2.0 mg/dL (<2.0)
[2024-05-15 09:05] LABS: Anisocytosis Slight; HCT 26.5 % (39.0-53.0); HGB 8.2 gm/dL (13.0-17.5); Hypochromasia Marked; MCH 23.3 pg (25.0-35.0); MCHC 31.1 g/dL (31.0-37.0); MCV 74.9 fL (80.0-100.0); Mean Platelet Volume 8.7; Microcytosis Moderate; Platelet Count 338 k/uL (150-450); Poikilocytosis Moderate; RBC 3.53 m/uL (4.30-5.90); RDW 17.5 % (11.5-15.5); Reticulocyte % 2.5 % (0.5-2.0)
[2024-05-15 09:45] LABS: African American GFR (CKD) 85 (>60 ml/min/1.73 sqM); Anion Gap 6 mmol/L; Blood Urea Nitrogen 19 mg/dL (9-20); Calcium 8.7 mg/dL (8.4-10.2); Carbon Dioxide 26 mmol/L (22-30); Chloride 103 mmol/L (98-107); Glucose 104 mg/dL (74-99); Non-African American GFR(CKD) 73 (>60 ml/min/1.73 sqM); Sodium 135 mmol/L (137-145)
[2024-05-15] MEDS: ACETAMINOPHEN TAB 325 MG TAB PO PRN (09:56)
[2024-05-15] MEDS ORDERED: DEXTROSE 50% SYRINGE 50 ML IVP PRN ×2 (10:07)
[2024-05-15] MEDS: PANTOPRAZOLE 40 MG/10 ML VIAL IVP SCH (10:54)
--- NOTE | 2024-05-15 11:18 | P.PN ---
Subjective Progress Note Date: 05/15/24 Hospital course: Patient is a very pleasant 89-year-old male with a past medical history of CAD status post recent stenting, chronic systolic heart failure with EF of 30 to 35%, hypertension, hyperlipidemia, pericarditis with pericardial effusion status post pericardial window, BPH, and type II miw-yaqklnp-tjtrwwqth diabetes mellitus. Patient presented to the emergency department with a chief complaint of fall. Patient reports was a mechanical fall tripping on his feet while walking with walker to the bathroom denying any dizziness or lightheadedness. Patient also reports having black tarry stools, states he is unsure if it is caused from blood thinners and he is bleeding or if it is from his iron supplements that he takes daily. Upon arrival to our facility, patient underwent evaluation in the emergency department. Vital signs upon arrival show blood pressure 121/78, heart rate 74, respiratory rate 19, temp 99.5 F, and SpO2 of 96% on room air. EKG was completed showing normal sinus rhythm at 78 bpm with a right bundle branch block. Chest x-ray completed showing artifact versus developing small pneumothorax in the lateral aspect of left hemithorax. CT head negative for acute process, revealing moderate age-related generalized brain volume loss and chronic small vessel ischemic changes. CT cervical spine negative for acute fracture or subluxation. CT chest showing moderate left pleural effusion with small amount of airspace opacities in the dependent portion of the visualized left lung. Labs were completed and reviewed. CBC s howing acute on chronic anemia with hemoglobin of 6.8. Coagulation profile normal findings. BMP showing hyponatremia with sodium of 134 lactic acid initially 2.8. Liver profile normal findings with exception of hypoalbuminemia with albumin of 3.2. Troponin 0.023. Patient admitted under services with consultation to general surgery and cardiology. Physical exam: Vital signs reviewed and stable. General: Nontoxic, no distress and appears stated age. Derm: Skin warm and dry, normal coloration for ethnicity. Head: Atraumatic, normocephalic and symmetric. Eyes: EOM's intact, no lid lag, and anicteric sclera Mouth: no lip lesions, mucus membranes moist Cardiovascular: regular rate and rhythm with normal S1S2, no murmur, positive posterior tibial pulses bilaterally, and cap refill < 2 seconds. Lungs: Respirations even, regular, and unlabored on room air. Lungs diminished, no rhonchi, rales, crackles or wheezes noted at this time. Abdominal: soft, nontender to palpation, no guarding, no appreciable organomegaly Ext: ROM intact. No gross muscle atrophy, 2+ pitting bilateral lower extremity edema, no contractures Neuro: Speech clear, face symmetrical and CN II-XII grossly intact with no noted focal neuro deficits Psych: Alert and oriented to person, place, time, and situation. Appropriate and pleasant affect. Assessment and Plan of Care: Acute on chronic microcytic anemia, unclear etiology CAD status post recent stenting Chronic systolic heart failure with EF of 35% Hypertension Hyperlipidemia -Patient does report black tarry stools and is on Plavix and Eliquis, but also states he is on iron supplements and was also told this could turn his stools dark in color so he is not sure what is causing his dark stools. -Hemoglobin stable status post transfusion 1 unit PRBCs currently 8.2. -Hold Eliquis and continue Plavix as patient is status post stent placement 01/11/24. -Cardiology consulted for recommendations regarding Plavix and Eliquis and concerns of possible GI bleed. -General Surgery consulted for evaluation and recommendations. -Patient to remain on continuous telemetry monitoring. -GI prophylaxis with Protonix 40 mg twice daily. -DVT prophylaxis with SCDs nicotine use -Continue close monitoring of hemoglobin levels and transfuse if/as indicated for hemoglobin less than 7. Lactic acidosis, resolved after IV fluid bolus and blood transfusion. Ftw-pbaofoc-qdkjyxfip diabetes mellitus -Hold metformin and place patient on glycemic protocol with NovoLog sliding sc mirtha CODE STATUS: Full Code DVT prophylaxis: SCDs Anticipated discharge date: Pending clinical course Anticipated discharge place: Home Patient was seen independently by Nurse Pracitioner. This document was prepared using [employer] dictation software. Please allow for errors in shook splicer, while rare they do occur. I reviewed the documentation as provided by the STEPHEN above, who is the original author of this note. I agree with the documented assessment and plan, with the following changes: none Objective - Vital Signs Vital signs: Vital Signs Temp 100.2 F H 05/15/24 08:00 Pulse 73 05/15/24 08:00 Resp 16 05/15/24 08:00 BP 107/64 05/15/24 08:00 Pulse Ox 94 L 05/15/24 08:00 FiO2 Intake & Output 0905/15/24 05/15/24 18:59 06:59 18:59 Intake Total 310 Output Total 450 Balance 310 -450 Weight 72.575 kg Intake: Blood Product 310 Rc As-1 Unit 310 [id number] Output: Urine 450 - Labs CBC & Chem 7: 05/18/24 04:07 05/18/24 04:07 Labs: Abnormal Lab Results - Last 24 Hours (Table) 05/14/24 05/14/24 05/14/24 Range/Units 21:28 21:28 21:28 RBC 3.07 L (4.30-5.90) m/uL Hgb 6.8 L* (13.0-17.5) gm/dL Hct 22.2 L (39.0-53.0) % MCV 72.4 L (80.0-100.0) fL MCH 22.2 L (25.0-35.0) pg MCHC 30.6 L (31.0-37.0) g/dL RDW 17.5 H (11.5-15.5) % Lymphocytes # 0.3 L (1.0-4.8) k/uL Sodium 134 L (137-145) mmol/L Glucose 110 H (74-99) mg/dL Plasma Lactic Acid Selvin 2.8 H* (0.7-2.0) mmol/L Total Protein 5.6 L (6.3-8.2) g/dL Albumin 3.2 L (3.5-5.0) g/dL Crossmatch 05/14/24 05/15/24 05/15/24 Range/Units 22:15 00:29 04:37 RBC (4.30-5.90) m/uL Hgb (13.0-17.5) gm/dL Hct (39.0-53.0) % MCV (80.0-100.0) fL MCH (25.0-35.0) pg MCHC (31.0-37.0) g/dL RDW (11.5-15.5) % Lymphocytes # (1.0-4.8) k/uL Sodium (137-145) mmol/L Glucose (74-99) mg/dL Plasma Lactic Acid Selvin 2.8 H* 2.3 H* (0.7-2.0) mmol/L Total Protein (6.3-8.2) g/dL Albumin (3.5-5.0) g/dL Crossmatch See Detail
[2024-05-15 11:45] LABS: Glucose,Whole Blood 130 mg/dL (70-110)
[2024-05-15] MEDS: INSULIN ASPART (NovoLOG) 100 UNIT/ML VIAL SQ SCH (11:45)
[2024-05-15] MEDS: AMIODARONE 200 MG TAB PO SCH (12:26)
[2024-05-15] MEDS: MIDODRINE 5 MG TAB PO SCH (13:25)
[2024-05-15 15:23] LABS: % Iron Saturation 5.36 (15.00-50.00)
[2024-05-15 15:26] LABS: Ferritin 21.4 ng/mL (22.0-322.0)
[2024-05-15 16:16] LABS: Anisocytosis Slight; HCT 25.7 % (39.0-53.0); HGB 7.6 gm/dL (13.0-17.5); Hypochromasia Marked; MCH 22.5 pg (25.0-35.0); MCHC 29.7 g/dL (31.0-37.0); MCV 75.8 fL (80.0-100.0); Mean Platelet Volume 7.1; Microcytosis Slight; Platelet Count 348 k/uL (150-450); Poikilocytosis Slight; RBC 3.39 m/uL (4.30-5.90); RDW 17.6 % (11.5-15.5); WBC 2.9 k/uL (3.8-10.6)
--- NOTE | 2024-05-15 16:51 | P.GSCN ---
History of Present Illness Consult date: 05/15/24 History of present illness: 89-year-old male presented to the emergency department after a fall. On his workup, patient is found to have anemia with hemoglobin of 6.9 and was transfused 1 unit packed red blood cells secondary to this with resulting hemoglobin above 8. He states that he has had blood transfusions in the past and also receives iron transfusions. He states he had a colonoscopy many years ago, however does not remember when this was. Denies any major concerning findings at that time. He is unsure of any blood in his stool. He does take anticoagulation. Review of Systems All systems: negative Past Medical History Past Medical History: Chest Pain / Angina, Diabetes Mellitus, Hyperlipidemia, Hypertension, Myocardial Infarction (OR), Prostate Disorder, Respiratory Disorder, Sleep Apnea/CPAP/BIPAP Additional Past Medical History / Comment(s): "IRREG HEARTBEAT", "CHEMICAL STRESS TEST PRIOR TO TURP", "HEARTBURN" OTC MEDS NEEDED. DOES'NT USE A CPAP MACHINE.; heart was "skipping a beat", carotid stenosis, TIA Last Myocardial Infarction Date:: 01/11/24 History of Any Multi-Drug Resistant Organisms: None Reported Past Surgical History: Heart Catheterization With Stent, Hernia Repair, Prostate Surgery, Tonsillectomy Additional Past Surgical History / Comment(s): 11-29-16 TURP,CYSTOCOPY,LITHOTRIPSY FOR BLADDER STONE. FLO INGUINAL HERNIA REPAIR, FLO CATARACTS. Past Anesthesia/Blood Transfusion Reactions: No Reported Reaction Date of Last Stent Placement:: 01/11/24 Past Psychological History: No Psychological Hx Reported Smoking Status: Never smoker Past Alcohol Use History: None Reported Past Drug Use History: None Reported - Past Family History Father Family Medical History: Cancer, Dementia, Prostate Disorder Additional Family Medical History / Comment(s): AGE 94 Mother Family Medical History: Dementia Additional Family Medical History / Comment(s): AGE 95 Medications and Allergies Home Medications Medication Instructions Recorded Confirmed Type metFORMIN HCL [Glucophage] 850 mg PO BID-W/MEALS 11/23/19 05/15/24 History Pregabalin [Lyrica] 25 mg PO W/SUPPER 01/11/24 05/15/24 History Atorvastatin [Lipitor] 80 mg PO DAILY #30 tab 01/12/24 05/15/24 Rx Clopidogrel [Plavix] 75 mg PO W/SUPPER 01/16/24 05/15/24 History Pantoprazole [Protonix] 40 mg PO DAILY #90 tab 01/26/24 05/15/24 Rx Amiodarone [Cordarone] 200 mg PO DAILY 05/15/24 05/15/24 History Apixaban [Eliquis] 1.25 mg PO BID-W/MEALS 05/15/24 05/15/24 History Midodrine HCl 7.5 mg PO TID 05/15/24 05/15/24 History Tamsulosin [Flomax] 0.4 mg PO HS 05/15/24 05/15/24 History Allergies Allergy/AdvReac Type Severity Reaction Status Date / Time No Known Allergies Allergy Verified 05/15/24 11:56 Surgical - Exam Osteopathic Statement: *. No significant issues noted on an osteopathic structural exam other than those noted in the History and Physical/Consult. Vital Signs Temp Pulse Resp BP Pulse Ox 99.5 F 74 19 121/78 96 05/14/24 20:36 05/14/24 20:36 05/14/24 20:36 05/14/24 20:36 05/14/24 20:36 - General no distress - Eyes normal ocular movement - ENT no hearing loss - Neck trachea midline - Abdomen Left, nontender, nondistended, no rebound, no guarding Results - Labs 05/15/24 15:36 05/15/24 08:54 Abnormal Lab Results - Last 24 Hours (Table) 05/14/24 05/14/24 05/14/24 Range/Units 21:28 21:28 21:28 RBC 3.07 L (4.30-5.90) m/uL Hgb 6.8 L* (13.0-17.5) gm/dL Hct 22.2 L (39.0-53.0) % MCV 72.4 L (80.0-100.0) fL MCH 22.2 L (25.0-35.0) pg MCHC 30.6 L (31.0-37.0) g/dL RDW 17.5 H (11.5-15.5) % Lymphocytes # 0.3 L (1.0-4.8) k/uL Retic Count (0.5-2.0) % Sodium 134 L (137-145) mmol/L Glucose 110 H (74-99) mg/dL POC Glucose (mg/dL) (70-110) mg/dL Plasma Lactic Acid Selvin 2.8 H* (0.7-2.0) mmol/L Iron (65-175) UG/DL % Saturation (15.00-50.00) Transferrin (204.0-354.0) mg/dL Ferritin (22.0-322.0) ng/mL Total Protein 5.6 L (6.3-8.2) g/dL Albumin 3.2 L (3.5-5.0) g/dL Crossmatch 05/14/24 05/14/24 05/15/24 Range/Units 21:28 22:15 00:29 RBC (4.30-5.90) m/uL Hgb (13.0-17.5) gm/dL Hct (39.0-53.0) % MCV (80.0-100.0) fL MCH (25.0-35.0) pg MCHC (31.0-37.0) g/dL RDW (11.5-15.5) % Lymphocytes # (1.0-4.8) k/uL Retic Count (0.5-2.0) % Sodium (137-145) mmol/L Glucose (74-99) mg/dL POC Glucose (mg/dL) (70-110) mg/dL Plasma Lactic Acid Selvin 2.8 H* (0.7-2.0) mmol/L Iron 15 L (65-175) UG/DL % Saturation 5.36 L (15.00-50.00) Transferrin 200.0 L (204.0-354.0) mg/dL Ferritin 21.4 L (22.0-322.0) ng/mL Total Protein (6.3-8.2) g/dL Albumin (3.5-5.0) g/dL Crossmatch See Detail 05/15/24 05/15/24 05/15/24 Range/Units 04:37 08:54 08:54 RBC 3.53 L (4.30-5.90) m/uL Hgb 8.2 L (13.0-17.5) gm/dL Hct 26.5 L (39.0-53.0) % MCV 74.9 L (80.0-100.0) fL MCH 23.3 L (25.0-35.0) pg MCHC (31.0-37.0) g/dL RDW 17.5 H (11.5-15.5) % Lymphocytes # (1.0-4.8) k/uL Retic Count 2.5 H (0.5-2.0) % Sodium 135 L (137-145) mmol/L Glucose 104 H (74-99) mg/dL POC Glucose (mg/dL) (70-110) mg/dL Plasma Lactic Acid Selvin 2.3 H* (0.7-2.0) mmol/L Iron (65-175) UG/DL % Saturation (15.00-50.00) Transferrin (204.0-354.0) mg/dL Ferritin (22.0-322.0) ng/mL Total Protein (6.3-8.2) g/dL Albumin (3.5-5.0) g/dL Crossmatch 05/15/24 Range/Units 11:43 RBC (4.30-5.90) m/uL Hgb (13.0-17.5) gm/dL Hct (39.0-53.0) % MCV (80.0-100.0) fL MCH (25.0-35.0) pg MCHC (31.0-37.0) g/dL RDW (11.5-15.5) % Lymphocytes # (1.0-4.8) k/uL Retic Count (0.5-2.0) % Sodium (137-145) mmol/L Glucose (74-99) mg/dL POC Glucose (mg/dL) 130 H (70-110) mg/dL Plasma Lactic Acid Selvin (0.7-2.0) mmol/L Iron (65-175) UG/DL % Saturation (15.00-50.00) Transferrin (204.0-354.0) mg/dL Ferritin (22.0-322.0) ng/mL Total Protein (6.3-8.2) g/dL Albumin (3.5-5.0) g/dL Crossmatch Diabetes panel 05/14/24 05/15/24 Range/Units 21:28 08:54 Sodium 134 L 135 L (137-145) mmol/L Potassium 4.3 4.0 (3.5-5.1) mmol/L Chloride 104 103 (98-107) mmol/L Carbon Dioxide 22 26 (22-30) mmol/L BUN 17 19 (9-20) mg/dL Creatinine 0.87 0.93 (0.66-1.25) mg/dL Glucose 110 H 104 H (74-99) mg/dL Calcium 8.7 8.7 (8.4-10.2) mg/dL AST 25 (17-59) U/L ALT 19 (4-49) U/L Alkaline Phosphatase 78 (38-126) U/L Total Protein 5.6 L (6.3-8.2) g/dL Albumin 3.2 L (3.5-5.0) g/dL Calcium panel 05/14/24 05/15/24 Range/Units 21:28 08:54 Calcium 8.7 8.7 (8.4-10.2) mg/dL Albumin 3.2 L (3.5-5.0) g/dL Pituitary panel 05/14/24 05/15/24 Range/Units 21:28 08:54 Sodium 134 L 135 L (137-145) mmol/L Potassium 4.3 4.0 (3.5-5.1) mmol/L Chloride 104 103 (98-107) mmol/L Carbon Dioxide 22 26 (22-30) mmol/L BUN 17 19 (9-20) mg/dL Creatinine 0.87 0.93 (0.66-1.25) mg/dL Glucose 110 H 104 H (74-99) mg/dL Calcium 8.7 8.7 (8.4-10.2) mg/dL Adrenal panel 05/14/24 05/15/24 Range/Units 21:28 08:54 Sodium 134 L 135 L (137-145) mmol/L Potassium 4.3 4.0 (3.5-5.1) mmol/L Chloride 104 103 (98-107) mmol/L Carbon Dioxide 22 26 (22-30) mmol/L BUN 17 19 (9-20) mg/dL Creatinine 0.87 0.93 (0.66-1.25) mg/dL Glucose 110 H 104 H (74-99) mg/dL Calcium 8.7 8.7 (8.4-10.2) mg/dL Total Bilirubin 0.4 (0.2-1.3) mg/dL AST 25 (17-59) U/L ALT 19 (4-49) U/L Alkaline Phosphatase 78 (38-126) U/L Total Protein 5.6 L (6.3-8.2) g/dL Albumin 3.2 L (3.5-5.0) g/dL Assessment and Plan Plan: 89-year-old male with anemia. He did require 1 unit of packed red blood cell transfusion. Currently, hemoglobin of 8.2. Continue to follow hemoglobin. Cur rently, no obvious active bleeding although patient did have concern of dark stool in the past. If stable, patient can have outpatient scopes as there is no evidence of active bleed. We will continue to follow and make recommendations based on the patient's clinical progress. He is currently on anticoagulation and will await cardiology evaluation.
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
[2024-05-15 17:04] LABS: Glucose,Whole Blood 186 mg/dL (70-110)
[2024-05-15] MEDS: PREGABALIN 25 MG CAP PO SCH (17:16)
[2024-05-15] MEDS: CLOPIDOGREL 75 MG TAB PO SCH (17:16)
[2024-05-15 21:33] LABS: Glucose,Whole Blood 126 mg/dL (70-110)
[2024-05-15] MEDS: TAMSULOSIN 0.4 MG CAP.ER.24H PO SCH (21:51)
[2024-05-15] MEDS: LIDOCAINE 2% URO-JET JELLY 5 ML KIT URETHRAL ONE (21:52)
[2024-05-15 22:37] LABS: Anisocytosis Slight; Basophils % (A) 1 %; Eosinophils % (A) 0 %; HCT 31.5 % (39.0-53.0); Hypochromasia Marked; Lymphocytes # (A) 0.6 k/uL (1.0-4.8); Lymphocytes % (A) 12 %; MCH 24.1 pg (25.0-35.0); MCHC 31.5 g/dL (31.0-37.0); MCV 76.4 fL (80.0-100.0); Mean Platelet Volume 7.2; Microcytosis Slight; Monocytes # (A) 0.4 k/uL (0-1.0); Monocytes % (A) 8 %; Neutrophils # (A) 3.5 k/uL (1.3-7.7); Neutrophils % (A) 75 %; Platelet Count 334 k/uL (150-450); Poikilocytosis Moderate; RBC 4.13 m/uL (4.30-5.90); RDW 18.4 % (11.5-15.5); WBC 4.7 k/uL (3.8-10.6)
[2024-05-15 22:44] LABS: HGB 9.9 gm/dL (13.0-17.5)
--- NOTE | 2024-05-15 23:00 | P.GSCN ---
History of Present Illness Consult date: 05/15/24 Reason for Consult: Urinary retention Requesting physician: Carter Shaver History of present illness: The patient is an 89 year-old gentleman who on 11/29/2016 underwent a transurethral resection of his prostate and cystolithotripsy to remove a large bladder stone. He developed meatal stenosis. He fell and presented to the ER for evaluation. He reports difficulty voiding and has been found to be in urinary retention. Attempts by the nursing staff to insert a Juárez catheter in the ER were unsuccessful. Bladder scan shows over 999 cc. Review of Systems - Genitourinary Reports as per HPI Past Medical History Past Medical History: Chest Pain / Angina, Diabetes Mellitus, Hyperlipidemia, Hypertension, Myocardial Infarction ([place]), Prostate Disorder, Respiratory Disorder, Sleep Apnea/CPAP/BIPAP Additional Past Medical History / Comment(s): "IRREG HEARTBEAT", "CHEMICAL STRESS TEST PRIOR TO TURP", "HEARTBURN" OTC MEDS NEEDED. DOES'NT USE A CPAP MACHINE.; heart was "skipping a beat", carotid stenosis, TIA Last Myocardial Infarction Date:: 01/11/24 History of Any Multi-Drug Resistant Organisms: None Reported Past Surgical History: Heart Catheterization With Stent, Hernia Repair, Prostate Surgery, Tonsillectomy Additional Past Surgical History / Comment(s): 11-29-16 TURP,CYSTOCOPY,LITHOTRIPSY FOR BLADDER STONE. FLO INGUINAL HERNIA REPAIR, FLO CATARACTS. Past Anesthesia/Blood Transfusion Reactions: No Reported Reaction Date of Last Stent Placement:: 01/11/24 Past Psychological History: No Psychological Hx Reported Smoking Status: Never smoker Past Alcohol Use History: None Reported Past Drug Use History: None Reported - Past Family History Father Family Medical History: Cancer, Dementia, Prostate Disorder Additional Family Medical History / Comment(s): AGE 94 Mother Family Medical History: Dementia Additional Family Medical History / Comment(s): AGE 95 Medications and Allergies Home Medications Medication Instructions Recorded Confirmed Type metFORMIN HCL [Glucophage] 850 mg PO BID-W/MEALS 11/23/19 05/15/24 History Pregabalin [Lyrica] 25 mg PO W/SUPPER 01/11/24 05/15/24 History Atorvastatin [Lipitor] 80 mg PO DAILY #30 tab 01/12/24 05/15/24 Rx Clopidogrel [Plavix] 75 mg PO W/SUPPER 01/16/24 05/15/24 History Pantoprazole [Protonix] 40 mg PO DAILY #90 tab 01/26/24 05/15/24 Rx Amiodarone [Cordarone] 200 mg PO DAILY 05/15/24 05/15/24 History Apixaban [Eliquis] 1.25 mg PO BID-W/MEALS 05/15/24 05/15/24 History Midodrine HCl 7.5 mg PO TID 05/15/24 05/15/24 History Tamsulosin [Flomax] 0.4 mg PO HS 05/15/24 05/15/24 History Allergies Allergy/AdvReac Type Severity Reaction Status Date / Time No Known Allergies Allergy Verified 05/15/24 11:56 Surgical - Exam Vital Signs Temp Pulse Resp BP Pulse Ox 99.5 F 74 19 121/78 96 05/14/24 20:36 05/14/24 20:36 05/14/24 20:36 05/14/24 20:36 05/14/24 20:36 - General well developed, well nourished, no distress - Respiratory normal respiratory effort - Abdomen Soft, suprapubic distention noted. - Genitourinary normal penis with no external lesions, testicles non-tender - Psychiatric oriented to time, oriented to person, oriented to place, speech is normal, memory intact Results - Labs 05/15/24 21:39 05/15/24 08:54 Abnormal Lab Results - Last 24 Hours (Table) 05/14/24 05/14/24 05/15/24 Range/Units 21:28 22:15 00:29 WBC (3.8-10.6) k/uL RBC (4.30-5.90) m/uL Hgb (13.0-17.5) gm/dL Hct (39.0-53.0) % MCV (80.0-100.0) fL MCH (25.0-35.0) pg MCHC (31.0-37.0) g/dL RDW (11.5-15.5) % Retic Count (0.5-2.0) % Sodium (137-145) mmol/L Glucose (74-99) mg/dL POC Glucose (mg/dL) (70-110) mg/dL Plasma Lactic Acid Selvin 2.8 H* (0.7-2.0) mmol/L Iron 15 L (65-175) UG/DL % Saturation 5.36 L (15.00-50.00) Transferrin 200.0 L (204.0-354.0) mg/dL Ferritin 21.4 L (22.0-322.0) ng/mL Crossmatch See Detail 05/15/24 05/15/24 05/15/24 Range/Units 04:37 08:54 08:54 WBC (3.8-10.6) k/uL RBC 3.53 L (4.30-5.90) m/uL Hgb 8.2 L (13.0-17.5) gm/dL Hct 26.5 L (39.0-53.0) % MCV 74.9 L (80.0-100.0) fL MCH 23.3 L (25.0-35.0) pg MCHC (31.0-37.0) g/dL RDW 17.5 H (11.5-15.5) % Retic Count 2.5 H (0.5-2.0) % Sodium 135 L (137-145) mmol/L Glucose 104 H (74-99) mg/dL POC Glucose (mg/dL) (70-110) mg/dL Plasma Lactic Acid Selvin 2.3 H* (0.7-2.0) mmol/L Iron (65-175) UG/DL % Saturation (15.00-50.00) Transferrin (204.0-354.0) mg/dL Ferritin (22.0-322.0) ng/mL Crossmatch 05/15/24 05/15/24 05/15/24 Range/Units 11:43 15:36 17:03 WBC 2.9 L (3.8-10.6) k/uL RBC 3.39 L (4.30-5.90) m/uL Hgb 7.6 L (13.0-17.5) gm/dL Hct 25.7 L (39.0-53.0) % MCV 75.8 L (80.0-100.0) fL MCH 22.5 L (25.0-35.0) pg MCHC 29.7 L (31.0-37.0) g/dL RDW 17.6 H (11.5-15.5) % Retic Count (0.5-2.0) % Sodium (137-145) mmol/L Glucose (74-99) mg/dL POC Glucose (mg/dL) 130 H 186 H (70-110) mg/dL Plasma Lactic Acid Selvin (0.7-2.0) mmol/L Iron (65-175) UG/DL % Saturation (15.00-50.00) Transferrin (204.0-354.0) mg/dL Ferritin (22.0-322.0) ng/mL Crossmatch 05/15/24 Range/Units 21:31 WBC (3.8-10.6) k/uL RBC (4.30-5.90) m/uL Hgb (13.0-17.5) gm/dL Hct (39.0-53.0) % MCV (80.0-100.0) fL MCH (25.0-35.0) pg MCHC (31.0-37.0) g/dL RDW (11.5-15.5) % Retic Count (0.5-2.0) % Sodium (137-145) mmol/L Glucose (74-99) mg/dL POC Glucose (mg/dL) 126 H (70-110) mg/dL Plasma Lactic Acid Selvin (0.7-2.0) mmol/L Iron (65-175) UG/DL % Saturation (15.00-50.00) Transferrin (204.0-354.0) mg/dL Ferritin (22.0-322.0) ng/mL Crossmatch Diabetes panel 05/15/24 Range/Units 08:54 Sodium 135 L (137-145) mmol/L Potassium 4.0 (3.5-5.1) mmol/L Chloride 103 (98-107) mmol/L Carbon Dioxide 26 (22-30) mmol/L BUN 19 (9-20) mg/dL Creatinine 0.93 (0.66-1.25) mg/dL Glucose 104 H (74-99) mg/dL Calcium 8.7 (8.4-10.2) mg/dL Calcium panel 05/15/24 Range/Units 08:54 Calcium 8.7 (8.4-10.2) mg/dL Pituitary panel 05/15/24 Range/Units 08:54 Sodium 135 L (137-145) mmol/L Potassium 4.0 (3.5-5.1) mmol/L Chloride 103 (98-107) mmol/L Carbon Dioxide 26 (22-30) mmol/L BUN 19 (9-20) mg/dL Creatinine 0.93 (0.66-1.25) mg/dL Glucose 104 H (74-99) mg/dL Calcium 8.7 (8.4-10.2) mg/dL Adrenal panel 05/15/24 Range/Units 08:54 Sodium 135 L (137-145) mmol/L Potassium 4.0 (3.5-5.1) mmol/L Chloride 103 (98-107) mmol/L Carbon Dioxide 26 (22-30) mmol/L BUN 19 (9-20) mg/dL Creatinine 0.93 (0.66-1.25) mg/dL Glucose 104 H (74-99) mg/dL Calcium 8.7 (8.4-10.2) mg/dL Assessment and Plan (1) Retention of urine, unspecified Current Visit: Yes Status: Acute Code(s): R33.9 - RETENTION OF URINE, UNSPECIFIED SNOMED Code(s): 309443151 (2) Other urethral stricture, male, meatal Current Visit: Yes Status: Acute Code(s): N35.811 - OTHER URETHRAL STRICTURE, MALE, MEATAL SNOMED Code(s): 54919703010135357 Plan: The penis was prepped and draped sterilely. 2% lidocaine gel was administered intraurethrally. Wirt sounds were then used to dilate the urethral meatus from 12 Argentine to 20 Argentine. It was then possible to advance a 16 [place] Juárez catheter into the bladder, with return of clear yellow urine. It would be my recommendation that the catheter remain in place for at least several days.
[2024-05-16 06:05] LABS: Glucose,Whole Blood 119 mg/dL (70-110)
--- NOTE | 2024-05-16 08:24 | P.PN ---
Subjective Progress Note Date: 05/16/24 Patient seen and examined at bedside. No acute events. States he had a large bowel movement yesterday. This was tested for occult blood and is noted to be positive. Objective - Vital Signs Vital signs: Vital Signs Temp 97.5 F L 05/16/24 06:42 Pulse 73 05/16/24 06:42 Resp 17 05/16/24 06:42 BP 129/67 05/16/24 06:42 Pulse Ox 93 L 05/16/24 06:42 FiO2 Intake & Output 05/15/24 05/16/24 05/16/24 18:59 06:59 18:59 Intake Total 0 310 Output Total 1300 0 Balance -1300 -1740 Weight 72.575 kg Intake: Blood Product 0 310 Rc As-1 Unit 0 310 [id number] Output: Urine 1300 0 Other: # Voids 1 # Bowel Movements 1 - Constitutional General appearance: Present: cooperative, no acute distress - Gastrointestinal Gastrointestinal Comment(s): Soft, nontender, nondistended, no rebound, no guarding - Labs CBC & Chem 7: 05/15/24 21:39 05/15/24 08:54 Labs: Abnormal Lab Results - Last 24 Hours (Table) 05/14/24 05/14/24 05/15/24 Range/Units 21:28 22:15 08:54 WBC (3.8-10.6) k/uL RBC 3.53 L (4.30-5.90) m/uL Hgb 8.2 L (13.0-17.5) gm/dL Hct 26.5 L (39.0-53.0) % MCV 74.9 L (80.0-100.0) fL MCH 23.3 L (25.0-35.0) pg MCHC (31.0-37.0) g/dL RDW 17.5 H (11.5-15.5) % Lymphocytes # (1.0-4.8) k/uL Retic Count 2.5 H (0.5-2.0) % Sodium (137-145) mmol/L Glucose (74-99) mg/dL POC Glucose (mg/dL) (70-110) mg/dL Iron 15 L (65-175) UG/DL % Saturation 5.36 L (15.00-50.00) Transferrin 200.0 L (204.0-354.0) mg/dL Ferritin 21.4 L (22.0-322.0) ng/mL Crossmatch See Detail 05/15/24 05/15/24 05/15/24 Range/Units 08:54 11:43 15:36 WBC 2.9 L (3.8-10.6) k/uL RBC 3.39 L (4.30-5.90) m/uL Hgb 7.6 L (13.0-17.5) gm/dL Hct 25.7 L (39.0-53.0) % MCV 75.8 L (80.0-100.0) fL MCH 22.5 L (25.0-35.0) pg MCHC 29.7 L (31.0-37.0) g/dL RDW 17.6 H (11.5-15.5) % Lymphocytes # (1.0-4.8) k/uL Retic Count (0.5-2.0) % Sodium 135 L (137-145) mmol/L Glucose 104 H (74-99) mg/dL POC Glucose (mg/dL) 130 H (70-110) mg/dL Iron (65-175) UG/DL % Saturation (15.00-50.00) Transferrin (204.0-354.0) mg/dL Ferritin (22.0-322.0) ng/mL Crossmatch 05/15/24 05/15/24 05/15/24 Range/Units 17:03 21:31 21:39 WBC (3.8-10.6) k/uL RBC 4.13 L (4.30-5.90) m/uL Hgb 9.9 L D (13.0-17.5) gm/dL Hct 31.5 L (39.0-53.0) % MCV 76.4 L (80.0-100.0) fL MCH 24.1 L (25.0-35.0) pg MCHC (31.0-37.0) g/dL RDW 18.4 H (11.5-15.5) % Lymphocytes # 0.6 L (1.0-4.8) k/uL Retic Count (0.5-2.0) % Sodium (137-145) mmol/L Glucose (74-99) mg/dL POC Glucose (mg/dL) 186 H 126 H (70-110) mg/dL Iron (65-175) UG/DL % Saturation (15.00-50.00) Transferrin (204.0-354.0) mg/dL Ferritin (22.0-322.0) ng/mL Crossmatch 05/16/24 Range/Units 06:03 WBC (3.8-10.6) k/uL RBC (4.30-5.90) m/uL Hgb (13.0-17.5) gm/dL Hct (39.0-53.0) % MCV (80.0-100.0) fL MCH (25.0-35.0) pg MCHC (31.0-37.0) g/dL RDW (11.5-15.5) % Lymphocytes # (1.0-4.8) k/uL Retic Count (0.5-2.0) % Sodium (137-145) mmol/L Glucose (74-99) mg/dL POC Glucose (mg/dL) 119 H (70-110) mg/dL Iron (65-175) UG/DL % Saturation (15.00-50.00) Transferrin (204.0-354.0) mg/dL Ferritin (22.0-322.0) ng/mL Crossmatch Assessment and Plan Plan: 89-year-old male with concern for anemia. Stool occult testing is noted to be positive. Patient is currently on anticoagulation with Plavix. There does not appear to be a gross bleed at this time. His hemoglobin has improved after packed red blood cell transfusion. At this point, with no active GI bleed and current usage of Plavix, I would recommend outpatient colonoscopy for anemia workup as he would require holding anticoagulation for 5 to 7 days prior to procedure based on cardiac risk stratification. Continue with medical management.
[2024-05-16] MEDS: ATORVASTATIN 80 MG TAB PO SCH (09:34)
--- NOTE | 2024-05-16 10:31 | P.CRDCN ---
History of Present Illness History of present illness: HISTORY OF PRESENT ILLNESS: This is a 89-year-old male with a past medical history significant for paroxysmal atrial fibrillation, moderate aortic stenosis, ischemic cardiomyopathy, CAD with previous stenting, pericardial effusion status post pericardial window, hypertension, hyperlipidemia, SVT, and diabetes. Patient follows in the office with Dr. Penn. We have been asked to see the patient in consultation for GI bleed on anticoagulation. Patient examined at the bedside. Patient presented to the hospital after sustaining a fall at home. Patient was found to be anemic with a hemoglobin of 6.8. He has received RBC transfusion. Repeat hemoglobin yesterday 9.9. Patient does report he has been having black stools for the past few months. However he states that he started taking iron tablets about 4 months ago and attributed these symptoms to his iron pills. He denies any chest pain or pressure. He denies any shortness of breath. DIAGNOSTICS: - EKG reveals sinus mechanism with right bundle branch block - Laboratory data: WBC 4.7. Hemoglobin 9.9. Platelet count 334. Sodium 135. Potassium 4.0. BUN 19. Creatinine 0.93. Troponin negative x 1. - Current home cardiac medications include midodrine 7.5 mg 3 times a day, Plavix 75 mg daily, Lipitor 80 mg daily, Eliquis 1.25 mg twice a day, amiodarone 200 mg daily - Most recent echocardiogram obtained in January 2024 revealed ejection fraction 40 to 45%, mild pulmonary hypertension, moderate to severe aortic stenosis, mild tricuspid regurgitation - Cardiac catheterization history: January 2024 revealing 30% LAD, 99% circumflex, 50% PDA, RCA 30%. Patient underwent stenting of the circumflex. REVIEW OF SYSTEMS: At the time of my exam: CONSTITUTIONAL: Denies fever or chills. HEENT: Denies blurred vision, vision changes, or eye pain. Denies hemoptysis CARDIOVASCULAR: Denies chest pain. Denies orthopnea. Denies PND. Denies palpitations RESPIRATORY: Denies shortness of breath. GASTROINTESTINAL: Denies abdominal pain. Denies nausea or vomiting. HEMATOLOGIC: Denies bleeding disorders. GENITOURINARY: Denies any blood in urine. SKIN: Denies pruitis. Denies rash. PHYSICAL EXAM: VITAL SIGNS: Reviewed. GENERAL: Well-developed in no acute distress. HEENT: Head is normocephalic. Pupils are equal, round. Sclerae anicteric. Mucous membranes of the mouth are moist. Neck supple. No JVD or thyromegaly LUNGS: Respirations even and unlabored. Lungs essentially clear to auscultation bilaterally. HEART: Regular rate and rhythm. S1 and S2 heard. Systolic murmur noted ABDOMEN: Soft. Nondistended. Nontender. EXTREMITIES: Normal range of motion. No clubbing or cyanosis. Peripheral pulses intact. No lower extremity edema NEUROLOGIC: Awake and alert. Oriented x 3. ASSESSMENT: Melena Acute on chronic anemia History of STEMI with stenting to the circumflex, January 2024 Paroxysmal atrial fibrillation, on Eliquis outpatient Moderate aortic stenosis History of ischemic cardiomyopathy History of pericardial effusion status post pericardial window Hypertension Hyperlipidemia History of SVT Diabetes PLAN: General Surgery following. No plans for inpatient endoscopy. Patient prescribed Plavix and Eliquis on an outpatient basis. Continue Plavix due to stenting in January 2024. Recommend Eliquis for anticoagulation secondary to atrial fibrillation for thromboembolic protection. However due to patient's an emia, may continue to hold at this time. If patient is unable to tolerate Eliquis on an outpatient basis, may consider Watchman device Further recommendations pending patient course. Nurse practitioner note has been reviewed by physician. Signing provider agrees with the documented findings, assessment, and plan of care documented by TRASH MAN as a scribe. Past Medical History Past Medical History: Chest Pain / Angina, Diabetes Mellitus, Hyperlipidemia, Hypertension, Myocardial Infarction (OK), Prostate Disorder, Respiratory Disorder, Sleep Apnea/CPAP/BIPAP Additional Past Medical History / Comment(s): "IRREG HEARTBEAT", "CHEMICAL STRESS TEST PRIOR TO TURP", "HEARTBURN" OTC MEDS NEEDED. DOES'NT USE A CPAP MACHINE.; heart was "skipping a beat", carotid stenosis, TIA Last Myocardial Infarction Date:: 01/11/24 History of Any Multi-Drug Resistant Organisms: None Reported Past Surgical History: Heart Catheterization With Stent, Hernia Repair, Prostate Surgery, Tonsillectomy Additional Past Surgical History / Comment(s): 11-29-16 TURP,CYSTOCOPY,LITHOTRIPSY FOR BLADDER STONE. FLO INGUINAL HERNIA REPAIR, FLO CATARACTS. Past Anesthesia/Blood Transfusion Reactions: No Reported Reaction Date of Last Stent Placement:: 01/11/24 Past Psychological History: No Psychological Hx Reported Additional Psychological History / Comment(s): PT LIVES WITH HIS IAIN IN A SINGLE LEVEL HOME THAT HAS 4 STEP IN WHICH TO ENTER.NO PETS. PT IS INDEPENDANT. NO OUTSIDE SERVICES OR MEDICAL EQUIPMENT. 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 Smoking Status: Former smoker Past Alcohol Use History: Occasional Past Drug Use History: None Reported - Past Family History Father Family Medical History: Cancer, Dementia, Prostate Disorder Additional Family Medical History / Comment(s): AGE 94 Mother Family Medical History: Dementia Additional Family Medical History / Comment(s): AGE 95 Medications and Allergies Home Medications Medication Instructions Recorded Confirmed Type metFORMIN HCL [Glucophage] 850 mg PO BID-W/MEALS 11/23/19 05/15/24 History Pregabalin [Lyrica] 25 mg PO W/SUPPER 01/11/24 05/15/24 History Atorvastatin [Lipitor] 80 mg PO DAILY #30 tab 01/12/24 05/15/24 Rx Clopidogrel [Plavix] 75 mg PO W/SUPPER 01/16/24 05/15/24 History Pantoprazole [Protonix] 40 mg PO DAILY #90 tab 01/26/24 05/15/24 Rx Amiodarone [Cordarone] 200 mg PO DAILY 05/15/24 05/15/24 History Apixaban [Eliquis] 1.25 mg PO BID-W/MEALS 05/15/24 05/15/24 History Midodrine HCl 7.5 mg PO TID 05/15/24 05/15/24 History Tamsulosin [Flomax] 0.4 mg PO HS 05/15/24 05/15/24 History Allergies Allergy/AdvReac Type Severity Reaction Status Date / Time No Known Allergies Allergy Verified 05/15/24 11:56 Physical Exam Vitals: Vital Signs Temp Pulse Pulse Resp BP BP Pulse Ox 05/16/24 06:42 97.5 F L 73 17 129/67 93 L 05/16/24 00:13 99.7 F H 63 17 125/72 99 05/15/24 22:52 65 18 133/72 96 05/15/24 20:50 98.8 F 67 18 152/82 05/15/24 19:45 99.1 F 64 18 157/84 05/15/24 18:08 98.8 F 61 17 137/79 95 05/15/24 17:48 99.1 F 63 18 138/74 96 05/15/24 17:30 99.4 F 64 17 143/68 97 05/15/24 16:18 98.4 F 67 17 125/64 95 05/15/24 12:13 64 17 102/55 96 05/15/24 10:59 99.1 F Intake and Output 05/15/24 05/16/24 05/16/24 22:59 06:59 14:59 Intake Total 310 Output Total 1850 550 Balance -1540 -550 Intake: Blood Product 310 Rc As-1 Unit 310 [id number] Output: Urine 1850 550 Other: Voiding Method Indwelling Catheter # Bowel Movements 1 Weight 72.575 kg Results 05/15/24 21:39 05/15/24 08:54 CBC 05/15/24 05/15/24 Range/Units 15:36 21:39 WBC 2.9 L 4.7 (3.8-10.6) k/uL RBC 3.39 L 4.13 L (4.30-5.90) m/uL Hgb 7.6 L 9.9 L D (13.0-17.5) gm/dL Hct 25.7 L 31.5 L (39.0-53.0) % Plt Count 348 334 (150-450) k/uL Current Medications Generic Name Dose Route Start Last Admin Trade Name Freq PRN Reason Stop Dose Admin Acetaminophen 650 mg 05/15/24 04:50 05/15/24 09:56 Acetaminophen Tab 325 Mg Tab PO 650 mg Q6HR PRN Administration Mild Pain or Fever > 100.5 Amiodarone HCl 200 mg 05/15/24 12:15 05/15/24 12:27 Amiodarone 200 Mg Tab PO 200 mg DAILY CAROL ANN Administration Atorvastatin Calcium 80 mg 05/16/24 09:00 05/16/24 09:34 Atorvastatin 80 Mg Tab PO 80 mg DAILY CAROL ANN Administration Clopidogrel Bisulfate 75 mg 05/15/24 17:30 05/15/24 17:16 Clopidogrel 75 Mg Tab PO 75 mg W/SUPPER CAROL ANN Administration Dextrose/Water 25 ml 05/15/24 10:07 Dextrose 50% Syringe 50 Ml IVP PER PROTOCOL PRN Hypoglycemia Protocol Dextrose/Water 50 ml 05/15/24 10:07 Dextrose 50% Syringe 50 Ml IVP PER PROTOCOL PRN Hypoglycemia Protocol Insulin Aspart 0 unit 05/15/24 12:30 05/16/24 06:14 Insulin Aspart (Novolog) 100 Unit/Ml Vial SQ Not Given ACHS CAROL ANN Protocol Midodrine 7.5 mg 05/15/24 12:30 05/16/24 06:42 Midodrine 5 Mg Tab PO 7.5 mg AC-TID CAROL ANN Administration Morphine Sulfate 4 mg 05/15/24 04:50 Morphine Sulfate 4 Mg/Ml Syringe IV Q4HR PRN Severe Pain (Scale 7 to 10) Naloxone HCl 0.2 mg 05/15/24 04:50 Naloxone 0.4 Mg/Ml 1 Ml Vial IV Q2M PRN Opioid Reversal Pantoprazole Sodium 40 mg 05/15/24 10:15 05/16/24 09:34 Pantoprazole 40 Mg/10 Ml Vial IVP 40 mg BID CAROL ANN Administration Pregabalin 25 mg 05/15/24 17:30 05/15/24 17:16 Pregabalin 25 Mg Cap PO 25 mg W/SUPPER CAROL ANN Administration Tamsulosin HCl 0.4 mg 05/15/24 21:00 05/15/24 21:51 Tamsulosin 0.4 Mg Cap.Er.24h PO 0.4 mg HS CAROL ANN Administration Intake and Output 05/15/24 05/16/24 05/16/24 22:59 06:59 14:59 Intake Total 310 Output Total 1850 550 Balance -1540 -550 Intake: Blood Product 310 Rc As-1 Unit 310 [id number] Output: Urine 1850 550 Other: Voiding Method Indwelling Catheter # Bowel Movements 1 Weight 72.575 kg 05/15/24 21:39 05/15/24 08:54
[2024-05-16 10:39] LABS: HCT 30.1 % (39.6-50.0); HGB 9.5 g/dL (13.0-17.0); MCH 24.2 pg (27.0-32.0); MCHC 31.6 g/dL (32.0-37.0); MCV 76.6 FL (80.0-97.0); Mean Platelet Volume 9.6 FL (9.5-12.2); NRBC Per 100 WBC 0 X 10*3/uL (0.00-0.01); Platelet Count 331 X 10*3/uL (140-440); RBC 3.93 X 10*6/uL (4.40-5.60); RDW 18.9 % (11.5-14.5); WBC 4.22 X 10*3/uL (4.50-10.00)
[2024-05-16 10:46] LABS: ALT 22 U/L (10-49); AST 31 U/L (14-35); Albumin 3.3 g/dL (3.8-4.9); Albumin/Globulin Ratio 1.38 Ratio (1.60-3.17); Alkaline Phosphatase 86 U/L (41-126); BUN/Creat Ratio 15.78 Ratio (12.00-20.00); Blood Urea Nitrogen 14.2 mg/dL (9.0-27.0); Calcium 8.6 mg/dL (8.7-10.3); Carbon Dioxide 21.6 mmol/L (21.6-31.8); Chloride 102 mmol/L (96-109); Globulin 2.4 g/dL (1.6-3.3); Glucose 113 mg/dL (70-110); Magnesium 1.7 mg/dL (1.5-2.4); Potassium 3.7 mmol/L (3.5-5.5); Sodium 137 mmol/L (135-145); Total Bilirubin 0.4 mg/dL (0.3-1.2); Total Protein 5.7 g/dL (6.2-8.2)
[2024-05-16 10:54] LABS: Glucose,Whole Blood 194 mg/dL (70-110)
--- NOTE | 2024-05-16 11:44 | P.PN ---
Subjective Progress Note Date: 05/16/24 Principal diagnosis: Urinary Retention The patient underwent urethral dilation with Juárez catheter insertion yesterday evening for urinary retention (greater than 1 L). The Juárez catheter is now draining clear yellow urine, and the patient is comfortable. Objective - Vital Signs Vital signs: Vital Signs Temp 97.5 F L 05/16/24 06:42 Pulse 73 05/16/24 06:42 Resp 17 05/16/24 06:42 BP 129/67 05/16/24 06:42 Pulse Ox 93 L 05/16/24 06:42 FiO2 Intake & Output 05/15/24 05/16/24 05/16/24 18:59 06:59 18:59 Intake Total 0 310 Output Total 1300 0 Balance -1300 -1740 Weight 72.575 kg Intake: Blood Product 0 310 Rc As-1 Unit 0 310 [id number] Output: Urine 1300 0 Other: # Voids 1 # Bowel Movements 1 - Constitutional General appearance: Present: average body habitus, cooperative, no acute distress - Gastrointestinal General gastrointestinal: Present: soft. Absent: distended, tenderness - Psychiatric Psychiatric: Present: A&O x's 3 - Labs CBC & Chem 7: 05/16/24 06:47 05/16/24 06:47 Labs: Abnormal Lab Results - Last 24 Hours (Table) 05/14/24 05/14/24 05/15/24 Range/Units 21:28 22:15 08:54 WBC (3.8-10.6) k/uL RBC 3.53 L (4.30-5.90) m/uL Hgb 8.2 L (13.0-17.5) gm/dL Hct 26.5 L (39.0-53.0) % MCV 74.9 L (80.0-100.0) fL MCH 23.3 L (25.0-35.0) pg MCHC (31.0-37.0) g/dL RDW 17.5 H (11.5-15.5) % Lymphocytes # (1.0-4.8) k/uL Retic Count 2.5 H (0.5-2.0) % Sodium (137-145) mmol/L Glucose (74-99) mg/dL POC Glucose (mg/dL) (70-110) mg/dL Iron 15 L (65-175) UG/DL % Saturation 5.36 L (15.00-50.00) Transferrin 200.0 L (204.0-354.0) mg/dL Ferritin 21.4 L (22.0-322.0) ng/mL Crossmatch See Detail 05/15/24 05/15/24 05/15/24 Range/Units 08:54 11:43 15:36 WBC 2.9 L (3.8-10.6) k/uL RBC 3.39 L (4.30-5.90) m/uL Hgb 7.6 L (13.0-17.5) gm/dL Hct 25.7 L (39.0-53.0) % MCV 75.8 L (80.0-100.0) fL MCH 22.5 L (25.0-35.0) pg MCHC 29.7 L (31.0-37.0) g/dL RDW 17.6 H (11.5-15.5) % Lymphocytes # (1.0-4.8) k/uL Retic Count (0.5-2.0) % Sodium 135 L (137-145) mmol/L Glucose 104 H (74-99) mg/dL POC Glucose (mg/dL) 130 H (70-110) mg/dL Iron (65-175) UG/DL % Saturation (15.00-50.00) Transferrin (204.0-354.0) mg/dL Ferritin (22.0-322.0) ng/mL Crossmatch 05/15/24 05/15/24 05/15/24 Range/Units 17:03 21:31 21:39 WBC (3.8-10.6) k/uL RBC 4.13 L (4.30-5.90) m/uL Hgb 9.9 L D (13.0-17.5) gm/dL Hct 31.5 L (39.0-53.0) % MCV 76.4 L (80.0-100.0) fL MCH 24.1 L (25.0-35.0) pg MCHC (31.0-37.0) g/dL RDW 18.4 H (11.5-15.5) % Lymphocytes # 0.6 L (1.0-4.8) k/uL Retic Count (0.5-2.0) % Sodium (137-145) mmol/L Glucose (74-99) mg/dL POC Glucose (mg/dL) 186 H 126 H (70-110) mg/dL Iron (65-175) UG/DL % Saturation (15.00-50.00) Transferrin (204.0-354.0) mg/dL Ferritin (22.0-322.0) ng/mL Crossmatch 05/16/24 Range/Units 06:03 WBC (3.8-10.6) k/uL RBC (4.30-5.90) m/uL Hgb (13.0-17.5) gm/dL Hct (39.0-53.0) % MCV (80.0-100.0) fL MCH (25.0-35.0) pg MCHC (31.0-37.0) g/dL RDW (11.5-15.5) % Lymphocytes # (1.0-4.8) k/uL Retic Count (0.5-2.0) % Sodium (137-145) mmol/L Glucose (74-99) mg/dL POC Glucose (mg/dL) 119 H (70-110) mg/dL Iron (65-175) UG/DL % Saturation (15.00-50.00) Transferrin (204.0-354.0) mg/dL Ferritin (22.0-322.0) ng/mL Crossmatch Assessment and Plan (1) Retention of urine, unspecified Current Visit: Yes Status: Acute Code(s): R33.9 - RETENTION OF URINE, UNSPECIFIED SNOMED Code(s): 867063787 (2) Other urethral stricture, male, meatal Current Visit: Yes Status: Acute Code(s): N35.811 - OTHER URETHRAL STRICTURE, MALE, MEATAL SNOMED Code(s): 26403562466468504 Plan: The catheter should remain in place for at least several days. The patient is currently being evaluated for a GI bleed. If the patient remains hospitalized f or several days, the catheter may be removed for a voiding trial. Conversely, if the patient is to be discharged home sooner than that, he should go home with the catheter and follow-up as an outpatient with Dr. Myers.
[2024-05-16 13:55] VITALS: BMI 22.9
--- NOTE | 2024-05-16 14:21 | P.PN ---
Subjective Progress Note Date: 05/16/24 Hospital course: Patient is a very pleasant 89-year-old male with a past medical history of CAD status post recent stenting, chronic systolic heart failure with EF of 30 to 35%, paroxysmal atrial fibrillation on anticoagulation with Eliquis, hypertension, hyperlipidemia, pericarditis with pericardial effusion status post pericardial window, BPH, and type II [id number] diabetes mellitus. Patient presented to the emergency department with a chief complaint of fall. Patient reported mechanical fall after tripping on his feet while walking with walker to the bathroom and denied any dizziness or lightheadedness. Patient also reports having black tarry stools, states he is unsure if it is caused from blood thinners causing him to bleed or if it is just black from his iron supplements that he takes daily. Upon arrival to our facility, patient underwent evaluation in the emergency department. Vital signs upon arrival show blood pressure 121/78, heart rate 74, respiratory rate 19, temp 99.5 F, and SpO2 of 96% on room air. EKG was completed showing normal sinus rhythm at 78 bpm with a right bundle branch block. Chest x-ray completed showing artifact versus developing small pneumothorax in the lateral aspect of left hemithorax. CT head negative for acute process, revealing moderate age-related generalized brain volume loss and chronic small vessel ischemic changes. CT cervical spine negative for acute fracture or subluxation. CT chest showing moderate left pleural effusion with small amount of airspace opacities in the dependent portion of the visualized left lung but showing no signs of pneumothorax. Labs were completed and reviewed. CBC showing acute on chronic anemia with hemoglobin of 6.8. Coagulation profile normal findings. BMP showing hyponatremia with sodium of 134 lactic acid initially 2.8. Liver profile normal findings with exception of hypoalbuminemia with albumin of 3.2. Troponin 0.023. Patient admitted under services with consultation to general surgery and cardiology. Physical exam: Patient seen and fully evaluated at bedside this morning. He reports continued generalized weakness otherwise denies any complaints. Patient does report having a large bowel movement last night and again this morning which she states again was black in color. A fecal occult was obtained yesterday evening and was positive. Vital signs reviewed and stable. General: Nontoxic, no distress and appears stated age. Derm: Skin warm and dry, normal coloration for ethnicity. Head: Atraumatic, normocephalic and symmetric. Eyes: EOM's intact, no lid lag, and anicteric sclera Mouth: no lip lesions, mucus membranes moist Cardiovascular: regular rate and rhythm with normal S1S2, systolic murmur, positive posterior tibial pulses bilaterally, and cap refill < 2 seconds. Lungs: Respirations even, regular, and unlabored on room air. Lungs diminished, no rhonchi, rales, crackles or wheezes noted at this time. Abdominal: soft, nontender to palpation, no guarding, no appreciable organomegaly Ext: ROM intact. No gross muscle atrophy, 1-2+ pitting bilateral lower extremity edema, no contractures Neuro: Speech clear, face symmetrical and CN II-XII grossly intact with no noted focal neuro deficits Psych: Alert and oriented to person, place, time, and situation. Appropriate and pleasant affect. Assessment and Plan of Care: Acute on chronic microcytic anemia, suspect upper GI bleed with reports of melena CAD status post recent stenting Chronic systolic heart failure with EF of 35% Paroxysmal Atrial Fib Hypertension Hyperlipidemia -Status post 2 units of PRBCs hemoglobin 9.5. -Iron profile showing iron 15, TIBC 280, iron percentage saturation cessation 5.36, transferrin 200.0, and ferritin 21.4. Discussed with heme-onc recommending holding off on transfusing iron at this time pending blood culture results. -Continue to hold Eliquis and continue Plavix as patient is status post stent placement 01/11/24. 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 -General Surgery consulted, no plans for acute surgical intervention at this time and recommending outpatient colonoscopy for anemia workup. -Patient to remain on continuous telemetry monitoring. -GI prophylaxis with Protonix 40 mg twice daily. -DVT prophylaxis with SCDs nicotine use. -Continue close monitoring of hemoglobin levels and transfuse if/as indicated for hemoglobin less than 7. Urinary retention History of BPH and meatal stenosis -Overnight patient was found to have urinary retention with bladder scan showing greater than 999 cc, nursing staff was unsuccessful at attempts to insert Juárez catheter and STAT consult placed to urology. -Urologist to bedside and dilated the urethral meatus and inserted Juárez catheter. -Urinalysis was negative for infection Lactic acidosis, resolved after IV fluid bolus and blood transfusion. Ayb-sgqcxya-czstkorsy diabetes mellitus -Hold metformin and place patient on glycemic protocol with NovoLog sliding scale Data and imaging reviewed: -Urinalysis is negative for infection. -Labs completed and reviewed. CBC showing cytopenia with WBC count of 4.22 and hemoglobin of 9.5. BMP showing elevated anion gap of 13.40. Glucose 113. Magnesium slightly low at 1.7. Liver profile unremarkable with the exception of hypoalbuminemia with albumin of 3.3. CODE STATUS: Full Code DVT prophylaxis: SCDs Anticipated discharge date: Pending clinical course Anticipated discharge place: Home Patient was seen independently by Nurse Pracitioner. This document was prepared using [employer] dictation software. Please allow for errors in compounding assistant, while rare they do occur. .I reviewed the documentation as provided by the STEPHEN above, who is the original author of this note. I agree with the documented assessment and plan, with the following changes: none Objective - Vital Signs Vital signs: Vital Signs Temp 97.5 F L 05/16/24 06:42 Pulse 73 05/16/24 06:42 Resp 17 05/16/24 06:42 BP 129/67 05/16/24 06:42 Pulse Ox 93 L 05/16/24 06:42 FiO2 Intake & Output 05/15/24 05/16/24 05/16/24 18:59 06:59 18:59 Intake Total 0 310 Output Total 1300 2050 Balance -1300 -1740 Weight 72.575 kg Intake: Blood Product 0 310 Rc As-1 Unit 0 310 [id number] Output: Urine 1300 2050 Other: Voiding Method Indwelling Catheter # Voids 1 # Bowel Movements 1 - Labs CBC & Chem 7: 05/18/24 04:07 05/18/24 04:07 Labs: Abnormal Lab Results - Last 24 Hours (Table) 05/14/24 05/14/24 05/15/24 Range/Units 21:28 22:15 08:54 WBC (3.8-10.6) k/uL RBC (4.30-5.90) m/uL Hgb (13.0-17.5) gm/dL Hct (39.0-53.0) % MCV (80.0-100.0) fL MCH (25.0-35.0) pg MCHC (31.0-37.0) g/dL RDW (11.5-15.5) % Lymphocytes # (1.0-4.8) k/uL Sodium 135 L (137-145) mmol/L Glucose 104 H (74-99) mg/dL POC Glucose (mg/dL) (70-110) mg/dL Iron 15 L (65-175) UG/DL % Saturation 5.36 L (15.00-50.00) Transferrin 200.0 L (204.0-354.0) mg/dL Ferritin 21.4 L (22.0-322.0) ng/mL Crossmatch See Detail 05/15/24 05/15/24 05/15/24 Range/Units 11:43 15:36 17:03 WBC 2.9 L (3.8-10.6) k/uL RBC 3.39 L (4.30-5.90) m/uL Hgb 7.6 L (13.0-17.5) gm/dL Hct 25.7 L (39.0-53.0) % MCV 75.8 L (80.0-100.0) fL MCH 22.5 L (25.0-35.0) pg MCHC 29.7 L (31.0-37.0) g/dL RDW 17.6 H (11.5-15.5) % Lymphocytes # (1.0-4.8) k/uL Sodium (137-145) mmol/L Glucose (74-99) mg/dL POC Glucose (mg/dL) 130 H 186 H (70-110) mg/dL Iron (65-175) UG/DL % Saturation (15.00-50.00) Transferrin (204.0-354.0) mg/dL Ferritin (22.0-322.0) ng/mL Crossmatch 05/15/24 05/15/24 05/16/24 Range/Units 21:31 21:39 06:03 WBC (3.8-10.6) k/uL RBC 4.13 L (4.30-5.90) m/uL Hgb 9.9 L D (13.0-17.5) gm/dL Hct 31.5 L (39.0-53.0) % MCV 76.4 L (80.0-100.0) fL MCH 24.1 L (25.0-35.0) pg MCHC (31.0-37.0) g/dL RDW 18.4 H (11.5-15.5) % Lymphocytes # 0.6 L (1.0-4.8) k/uL Sodium (137-145) mmol/L Glucose (74-99) mg/dL POC Glucose (mg/dL) 126 H 119 H (70-110) mg/dL Iron (65-175) UG/DL % Saturation (15.00-50.00) Transferrin (204.0-354.0) mg/dL Ferritin (22.0-322.0) ng/mL Crossmatch
[2024-05-16] MEDS: MAGNESIUM SULFATE-D5W PMX 1 GM in DEXTROSE/WATER 1 100ML.BAG IVPB SCH (15:04)
[2024-05-16 15:58] LABS: Anisocytosis Slight; HCT 29.2 % (39.0-53.0); HGB 8.9 gm/dL (13.0-17.5); Hypochromasia Marked; MCH 23.7 pg (25.0-35.0); MCHC 30.6 g/dL (31.0-37.0); MCV 77.4 fL (80.0-100.0); Mean Platelet Volume 8.5; Microcytosis Slight; Platelet Count 306 k/uL (150-450); Poikilocytosis Moderate; RBC 3.77 m/uL (4.30-5.90); RDW 18.4 % (11.5-15.5)
[2024-05-16 16:45] LABS: Glucose,Whole Blood 181 mg/dL (70-110)
[2024-05-16] MEDS: SODIUM FERRIC GLUCONAT-SUCROSE 125 MG in SODIUM CHLORIDE 0.9% 100 ML IVPB SCH (18:29)
[2024-05-16 20:41] LABS: Glucose,Whole Blood 131 mg/dL (70-110)
[2024-05-16 20:44] LABS: Anisocytosis Slight; HCT 29.9 % (39.0-53.0); HGB 9.1 gm/dL (13.0-17.5); Hypochromasia Marked; MCH 23.5 pg (25.0-35.0); MCHC 30.5 g/dL (31.0-37.0); MCV 77.1 fL (80.0-100.0); Microcytosis Slight; Platelet Count 309 k/uL (150-450); Poikilocytosis Slight; RBC 3.88 m/uL (4.30-5.90); RDW 18.5 % (11.5-15.5); WBC 2.8 k/uL (3.8-10.6)
[2024-05-17 02:07] LABS: Anisocytosis Slight; HCT 31.1 % (39.0-53.0); HGB 9.8 gm/dL (13.0-17.5); Hypochromasia Marked; MCHC 31.6 g/dL (31.0-37.0); MCV 76.2 fL (80.0-100.0); Mean Platelet Volume 7.1; Microcytosis Slight; Platelet Count 293 k/uL (150-450); Poikilocytosis Moderate; RBC 4.08 m/uL (4.30-5.90); RDW 18.5 % (11.5-15.5); WBC 3.3 k/uL (3.8-10.6)
[2024-05-17 05:52] LABS: Glucose,Whole Blood 123 mg/dL (70-110)
[2024-05-17 08:43] LABS: HCT 30.2 % (39.6-50.0); HGB 9.3 g/dL (13.0-17.0); MCH 23.8 pg (27.0-32.0); MCHC 30.8 g/dL (32.0-37.0); MCV 77.4 FL (80.0-97.0); Mean Platelet Volume 9.7 FL (9.5-12.2); NRBC Per 100 WBC 0 X 10*3/uL (0.00-0.01); Platelet Count 324 X 10*3/uL (140-440); RDW 19.2 % (11.5-14.5); WBC 3.28 X 10*3/uL (4.50-10.00)
[2024-05-17 09:30] LABS: ALT 35 U/L (10-49); AST 36 U/L (14-35); Albumin 3.2 g/dL (3.8-4.9); Alkaline Phosphatase 79 U/L (41-126); Blood Urea Nitrogen 9.6 mg/dL (9.0-27.0); Calcium 8.1 mg/dL (8.7-10.3); Carbon Dioxide 22.2 mmol/L (21.6-31.8); Chloride 107 mmol/L (96-109); Glucose 105 mg/dL (70-110); Sodium 139 mmol/L (135-145); Total Bilirubin 0.3 mg/dL (0.3-1.2); Total Protein 5.2 g/dL (6.2-8.2)
--- NOTE | 2024-05-17 10:00 | P.PN ---
Subjective HISTORY OF PRESENT ILLNESS: This is a 89-year-old male with a past medical history significant for paroxysmal atrial fibrillation, moderate aortic stenosis, ischemic cardiomyopathy, CAD with previous stenting, pericardial effusion status post pe ricardial window, hypertension, hyperlipidemia, SVT, and diabetes. Patient follows in the office with Dr. Penn. We have been asked to see the patient in consultation for GI bleed on anticoagulation. Patient examined at the bedside. Patient presented to the hospital after sustaining a fall at home. Patient was found to be anemic with a hemoglobin of 6.8. He has received RBC transfusion. Repeat hemoglobin yesterday 9.9. Patient does report he has been having black stools for the past few months. However he states that he started taking iron tablets about 4 months ago and attributed these symptoms to his iron pills. He denies any chest pain or pressure. He denies any shortness of breath. DIAGNOSTICS: - EKG reveals sinus mechanism with right bundle branch block - Laboratory data: WBC 4.7. Hemoglobin 9.9. Platelet count 334. Sodium 135. Potassium 4.0. BUN 19. Creatinine 0.93. Troponin negative x 1. - Current home cardiac medications include midodrine 7.5 mg 3 times a day, P lavix 75 mg daily, Lipitor 80 mg daily, Eliquis 1.25 mg twice a day, amiodarone 200 mg daily - Most recent echocardiogram obtained in January 2024 revealed ejection fraction 40 to 45%, mild pulmonary hypertension, moderate to severe aortic stenosis, mild tricuspid regurgitation - Cardiac catheterization history: January 2024 revealing 30% LAD, 99% circumflex, 50% PDA, RCA 30%. Patient underwent stenting of the circumflex. 05/17/2024 Patient examined this morning to bedside. Patient denies any chest pain or pressure. He denies any shortness of breath. Vital signs are stable. Hemoglobin 9.3 this morning. PHYSICAL EXAM: VITAL SIGNS: Reviewed. GENERAL: Well-developed in no acute distress. HEENT: Head is normocephalic. Pupils are equal, round. Sclerae anicteric. Mucous membranes of the mouth are moist. Neck supple. No JVD or thyromegaly LUNGS: Respirations even and unlabored. Lungs essentially clear to auscultation bilaterally. HEART: Regular rate and rhythm. S1 and S2 heard. Systolic murmur noted ABDOMEN: Soft. Nondistended. Nontender. EXTREMITIES: Normal range of motion. No clubbing or cyanosis. Peripheral pulses intact. No lower extremity edema NEUROLOGIC: Awake and alert. Oriented x 3. ASSESSMENT: Melena Acute on chronic anemia History of STEMI with stenting to the circumflex, January 2024 Paroxysmal atrial fibrillation, on Eliquis outpatient Moderate aortic stenosis History of ischemic cardiomyopathy History of pericardial effusion status post pericardial window Hypertension Hyperlipidemia History of SVT Diabetes PLAN: General Surgery following. No plans for inpatient endoscopy. Patient prescribed Plavix and Eliquis on an outpatient basis. Continue Plavix due to stenting in January 2024. Recommend Eliquis for anticoagulation secondary to atrial fibrillation for thromboembolic protection. However due to patient's anemia, may continue to hold at this time. If patient is unable to tolerate Eliquis on an outpatient basis, may consider Watchman device Stable for discharge from a cardiac standpoint Further recommendations pending patient course. Nurse practitioner note has been reviewed by physician. Signing provider agrees with the documented findings, assessment, and plan of care documented by PERSONAL HEALTH COACH as a scribe. Objective - Vital Signs Vital signs: Vital Signs Temp 98.1 F 05/17/24 01:01 Pulse 63 05/17/24 01:01 Resp 17 05/17/24 01:01 BP 117/71 05/17/24 01:01 Pulse Ox 90 L 05/17/24 01:01 FiO2 Intake & Output 05/16/24 05/17/24 05/17/24 18:59 06:59 18:59 Intake Total 450 Output Total 3000 2925 Balance -2550 -2925 Weight 72.575 kg Intake: Oral 450 Output: Urine 3000 2925 Other: Voiding Method Indwelling Catheter Indwelling Catheter # Bowel Movements 1 - Labs CBC & Chem 7: 05/17/24 05:23 05/17/24 05:23 Labs: Abnormal Lab Results - Last 24 Hours (Table) 05/16/24 05/16/24 05/16/24 Range/Units 06:47 06:47 10:52 WBC 4.22 L (4.50-10.00) X 10*3/uL RBC 3.93 L (4.40-5.60) X 10*6/uL Hgb 9.5 L (13.0-17.0) g/dL Hct 30.1 L (39.6-50.0) % MCV 76.6 L (80.0-97.0) FL MCH 24.2 L (27.0-32.0) pg MCHC 31.6 L (32.0-37.0) g/dL RDW 18.9 H (11.5-14.5) % Anion Gap 13.40 H (4.00-12.00) mmol/L Glucose 113 H (70-110) mg/dL POC Glucose (mg/dL) 194 H (70-110) mg/dL Calcium 8.6 L (8.7-10.3) mg/dL AST (14-35) U/L Total Protein 5.7 L (6.2-8.2) g/dL Albumin 3.3 L (3.8-4.9) g/dL Albumin/Globulin Ratio 1.38 L (1.60-3.17) Ratio 05/16/24 05/16/24 05/16/24 Range/Units 15:39 16:43 20:23 WBC 3.0 L 2.8 L (4.50-10.00) X 10*3/uL RBC 3.77 L 3.88 L (4.40-5.60) X 10*6/uL Hgb 8.9 L 9.1 L (13.0-17.0) g/dL Hct 29.2 L 29.9 L (39.6-50.0) % MCV 77.4 L 77.1 L (80.0-97.0) FL MCH 23.7 L 23.5 L (27.0-32.0) pg MCHC 30.6 L 30.5 L (32.0-37.0) g/dL RDW 18.4 H 18.5 H (11.5-14.5) % Anion Gap (4.00-12.00) mmol/L Glucose (70-110) mg/dL POC Glucose (mg/dL) 181 H (70-110) mg/dL Calcium (8.7-10.3) mg/dL AST (14-35) U/L Total Protein (6.2-8.2) g/dL Albumin (3.8-4.9) g/dL Albumin/Globulin Ratio (1.60-3.17) Ratio 05/16/24 05/17/24 05/17/24 Range/Units 20:38 01:37 05:23 WBC 3.3 L 3.28 L (4.50-10.00) X 10*3/uL RBC 4.08 L 3.90 L (4.40-5.60) X 10*6/uL Hgb 9.8 L 9.3 L (13.0-17.0) g/dL Hct 31.1 L 30.2 L (39.6-50.0) % MCV 76.2 L 77.4 L (80.0-97.0) FL MCH 24.0 L 23.8 L (27.0-32.0) pg MCHC 30.8 L (32.0-37.0) g/dL RDW 18.5 H 19.2 H (11.5-14.5) % Anion Gap (4.00-12.00) mmol/L Glucose (70-110) mg/dL POC Glucose (mg/dL) 131 H (70-110) mg/dL Calcium (8.7-10.3) mg/dL AST (14-35) U/L Total Protein (6.2-8.2) g/dL Albumin (3.8-4.9) g/dL Albumin/Globulin Ratio (1.60-3.17) Ratio 05/17/24 05/17/24 Range/Units 05:23 05:49 WBC (4.50-10.00) X 10*3/uL RBC (4.40-5.60) X 10*6/uL Hgb (13.0-17.0) g/dL Hct (39.6-50.0) % MCV (80.0-97.0) FL MCH (27.0-32.0) pg MCHC (32.0-37.0) g/dL RDW (11.5-14.5) % Anion Gap (4.00-12.00) mmol/L Glucose (70-110) mg/dL POC Glucose (mg/dL) 123 H (70-110) mg/dL Calcium 8.1 L (8.7-10.3) mg/dL AST 36 H (14-35) U/L Total Protein 5.2 L (6.2-8.2) g/dL Albumin 3.2 L (3.8-4.9) g/dL Albumin/Globulin Ratio (1.60-3.17) Ratio Microbiology - Last 24 Hours (Table) 05/15/24 10:06 Blood Culture - Preliminary Blood
[2024-05-17 11:57] LABS: Glucose,Whole Blood 180 mg/dL (70-110)
--- NOTE | 2024-05-17 16:14 | P.PN ---
Subjective Progress Note Date: 05/17/24 Hospital course: Patient is a very pleasant 89-year-old male with a past medical history of CAD status post recent stenting, chronic systolic heart failure with EF of 30 to 35%, paroxysmal atrial fibrillation on anticoagulation with Eliquis, hypertension, hyperlipidemia, pericarditis with pericardial effusion status post pericardial window, BPH, and type II [id number] diabetes mellitus. Patient presented to the emergency department with a chief complaint of fall. Patient reported mechanical fall after tripping on his feet while walking with walker to the bathroom and denied any dizziness or lightheadedness. Patient also reports having black tarry stools, states he is unsure if it is caused from blood thinners causing him to bleed or if it is just black from his iron supplements that he takes daily. Upon arrival to our facility, patient underwent evaluation in the emergency department. Vital signs upon arrival show blood pressure 121/78, heart rate 74, respiratory rate 19, temp 99.5 F, and SpO2 of 96% on room air. EKG was completed showing normal sinus rhythm at 78 bpm with a right bundle branch block. Chest x-ray completed showing artifact versus developing small pneumothorax in the lateral aspect of left hemithorax. CT head negative for acute process, revealing moderate age-related generalized brain volume loss and chronic small vessel ischemic changes. CT cervical spine negative for acute fracture or subluxation. CT chest showing moderate left pleural effusion with small amount of airspace opacities in the dependent portion of the visualized left lung but showing no signs of pneumothorax. Labs were completed and reviewed. CBC showing acute on chronic anemia with hemoglobin of 6.8. Coagulation profile normal findings. BMP showing hyponatremia with sodium of 134 lactic acid initially 2.8. Liver profile normal findings with exception of hypoalbuminemia with albumin of 3.2. Troponin 0.023. Patient admitted under services with consultation to general surgery and cardiology. Physical exam: Patient seen and fully evaluated at bedside this morning. He reports continued generalized weakness otherwise denies any complaints. He denies having any further episodes of black tarry stools. Denies headache, lightheadedness, dizziness, chest pain, palpitations, shortness of breath, or abdominal pain. Patient and at bedside reports that he will need to go to SNF at discharge. Vital signs reviewed and stable. General: Nontoxic, no distress and appears stated age. Derm: Skin warm and dry, normal coloration for ethnicity. Head: Atraumatic, normocephalic and symmetric. Eyes: EOM's intact, no lid lag, and anicteric sclera Mouth: no lip lesions, mucus membranes moist Cardiovascular: regular rate and rhythm with normal S1S2, systolic murmur, positive posterior tibial pulses bilaterally, and cap refill < 2 seconds. Lungs: Respirations even, regular, and unlabored on room air. Lungs diminished, no rhonchi, rales, crackles or wheezes noted at this time. Abdominal: soft, nontender to palpation, no guarding, no appreciable organomegaly Ext: ROM intact. No gross muscle atrophy, 1-2+ pitting bilateral lower extremity edema, no contractures Neuro: Speech clear, face symmetrical and CN II-XII grossly intact with no noted focal neuro deficits Psych: Alert and oriented to person, place, time, and situation. Appropriate and pleasant affect. Assessment and Plan of Care: Acute on chronic microcytic anemia, suspect upper GI bleed with reports of melena CAD status post recent stenting Chronic systolic heart failure with EF of 35% Paroxysmal Atrial Fib Hypertension Hyperlipidemia -Status post 2 units of PRBCs hemoglobin 9.3. -Iron profile showing iron 15, TIBC 280, iron percentage saturation cessation 5.36, transferrin 200.0, and ferritin 21.4. Patient receiving IV Ferrlecit. -Continue to hold Eliquis and continue Plavix as patient is status post stent placement 01/11/24. -Cardiology following and discussed plan of care with cardiac OPHTHALMOLOGY SURGICAL TECHNICIAN, in agreement to holding of Eliquis secondary to suspected GI bleed and recommending continuing Plavix. -General Surgery consulted, no plans for acute surgical intervention at this time and recommending outpatient colonoscopy for anemia workup. -Patient to remain on continuous telemetry monitoring. -GI prophylaxis with Protonix 40 mg twice daily. -DVT prophylaxis with SCDs nicotine use. -Continue close monitoring of hemoglobin levels and transfuse if/as indicated for hemoglobin less than 7. -May advance diet at this time. Urinary retention History of BPH and meatal stenosis -Overnight on 05/15/24 patient was found to have urinary retention with bladder scan showing greater than 999 cc, nursing staff was unsuccessful at attempts to insert Juárez catheter and STAT consult placed to urology. -Urologist Evaluated and performed Dilation of the urethral meatus and inserted Juárez catheter. -Urinalysis was negative for infection Lactic acidosis, resolved after IV fluid bolus and blood transfusion. Vcz-gjhvtyr-[id number] diabetes mellitus, Hold metformin and place patient on glycemic protocol with NovoLog sliding scale Data and imaging reviewed: -Vital signs reviewed.Blood pressure 108/62, heart rate 63, respiratory rate 17, temp 98.0F, SpO2 of 94% on room air. -Labs completed and reviewed. CBC showing WBC count of 3.28, hemoglobin of 9.3, platelet count of 324. BMP was unremarkable. Magnesium 2.0. Liver profile showing elevated AST of 36 and hypoalbuminemia with albumin of 3.2. CODE STATUS: Full Code DVT prophylaxis: SCDs Anticipated discharge date: Pending clinical course Anticipated discharge place: care home facility Patient was seen independently by Nurse Pracitioner. This document was prepared using [employer] dictation software. Please allow for errors in senior medical transcriptionist, while rare they do occur. .I reviewed the documentation as provided by the STEPHEN above, who is the original author of this note. I agree with the documented assessment and plan, with the following changes: none Objective - Vital Signs Vital signs: Vital Signs Temp 98.1 F 05/17/24 01:01 Pulse 63 05/17/24 01:01 Resp 17 05/17/24 01:01 BP 117/71 05/17/24 01:01 Pulse Ox 90 L 05/17/24 01:01 FiO2 Intake & Output 05/16/24 05/17/24 05/17/24 18:59 06:59 18:59 Intake Total 450 Output Total 3000 2925 Balance -2550 -2925 Weight 72.575 kg Intake: Oral 450 Output: Urine 3000 2925 Other: Voiding Method Indwelling Catheter Indwelling Catheter # Bowel Movements 1 - Labs CBC & Chem 7: 05/18/24 04:07 05/18/24 04:07 Labs: Abnormal Lab Results - Last 24 Hours (Table) 05/16/24 05/16/24 05/16/24 Range/Units 06:47 06:47 10:52 WBC 4.22 L (4.50-10.00) X 10*3/uL RBC 3.93 L (4.40-5.60) X 10*6/uL Hgb 9.5 L (13.0-17.0) g/dL Hct 30.1 L (39.6-50.0) % MCV 76.6 L (80.0-97.0) FL MCH 24.2 L (27.0-32.0) pg MCHC 31.6 L (32.0-37.0) g/dL RDW 18.9 H (11.5-14.5) % Anion Gap 13.40 H (4.00-12.00) mmol/L Glucose 113 H (70-110) mg/dL POC Glucose (mg/dL) 194 H (70-110) mg/dL Calcium 8.6 L (8.7-10.3) mg/dL Total Protein 5.7 L (6.2-8.2) g/dL Albumin 3.3 L (3.8-4.9) g/dL Albumin/Globulin Ratio 1.38 L (1.60-3.17) Ratio 05/16/24 05/16/24 05/16/24 Range/Units 15:39 16:43 20:23 WBC 3.0 L 2.8 L (4.50-10.00) X 10*3/uL RBC 3.77 L 3.88 L (4.40-5.60) X 10*6/uL Hgb 8.9 L 9.1 L (13.0-17.0) g/dL Hct 29.2 L 29.9 L (39.6-50.0) % MCV 77.4 L 77.1 L (80.0-97.0) FL MCH 23.7 L 23.5 L (27.0-32.0) pg MCHC 30.6 L 30.5 L (32.0-37.0) g/dL RDW 18.4 H 18.5 H (11.5-14.5) % Anion Gap (4.00-12.00) mmol/L Glucose (70-110) mg/dL POC Glucose (mg/dL) 181 H (70-110) mg/dL Calcium (8.7-10.3) mg/dL Total Protein (6.2-8.2) g/dL Albumin (3.8-4.9) g/dL Albumin/Globulin Ratio (1.60-3.17) Ratio 05/16/24 05/17/24 05/17/24 Range/Units 20:38 01:37 05:49 WBC 3.3 L (4.50-10.00) X 10*3/uL RBC 4.08 L (4.40-5.60) X 10*6/uL Hgb 9.8 L (13.0-17.0) g/dL Hct 31.1 L (39.6-50.0) % MCV 76.2 L (80.0-97.0) FL MCH 24.0 L (27.0-32.0) pg MCHC (32.0-37.0) g/dL RDW 18.5 H (11.5-14.5) % Anion Gap (4.00-12.00) mmol/L Glucose (70-110) mg/dL POC Glucose (mg/dL) 131 H 123 H (70-110) mg/dL Calcium (8.7-10.3) mg/dL Total Protein (6.2-8.2) g/dL Albumin (3.8-4.9) g/dL Albumin/Globulin Ratio (1.60-3.17) Ratio Microbiology - Last 24 Hours (Table) 05/15/24 10:06 Blood Culture - Preliminary Blood
--- NOTE | 2024-05-17 16:17 | P.PN ---
Subjective Progress Note Date: 05/17/24 No acute events. Reports feeling well, but experiencing generalized weakness. Surgery has seen pt and recommend outpt scopes. Hgb stable 9.3 today. No reported episodes of bleeding. Plan is for discharge to rehab Objective - Vital Signs Vital signs: Vital Signs Temp 98.0 F 05/17/24 07:11 Pulse 63 05/17/24 07:11 Resp 17 05/17/24 07:11 BP 108/62 05/17/24 07:11 Pulse Ox 94 L 05/17/24 07:11 FiO2 Intake & Output 05/16/24 05/17/24 05/17/24 18:59 06:59 18:59 Intake Total 450 Output Total 3000 2925 Balance -2550 -2925 Weight 72.575 kg Intake: Oral 450 Output: Urine 3000 2925 Other: Voiding Method Indwelling Catheter Indwelling Catheter Indwelling Catheter # Bowel Movements 1 - Constitutional General appearance: Present: average body habitus, no acute distress - EENT Eyes: Present: anicteric sclerae, EOMI ENT: Present: hearing grossly normal - Respiratory Details: breathing is even and unlabored - Cardiovascular Details: skin warm and dry - Integumentary Integumentary: Absent: cyanotic, jaundiced - Neurologic Neurologic: Present: CNII-XII intact - Musculoskeletal Musculoskeletal: Present: generalized weakness - Psychiatric Psychiatric: Present: A&O x's 3 - Labs CBC & Chem 7: 05/17/24 05:23 05/17/24 05:23 Labs: Abnormal Lab Results - Last 24 Hours (Table) 05/16/24 05/16/24 05/16/24 Range/Units 15:39 16:43 20:23 WBC 3.0 L 2.8 L (3.8-10.6) k/uL RBC 3.77 L 3.88 L (4.30-5.90) m/uL Hgb 8.9 L 9.1 L (13.0-17.5) gm/dL Hct 29.2 L 29.9 L (39.0-53.0) % MCV 77.4 L 77.1 L (80.0-100.0) fL MCH 23.7 L 23.5 L (25.0-35.0) pg MCHC 30.6 L 30.5 L (31.0-37.0) g/dL RDW 18.4 H 18.5 H (11.5-15.5) % POC Glucose (mg/dL) 181 H (70-110) mg/dL Calcium (8.7-10.3) mg/dL AST (14-35) U/L Total Protein (6.2-8.2) g/dL Albumin (3.8-4.9) g/dL 05/16/24 05/17/24 05/17/24 Range/Units 20:38 01:37 05:23 WBC 3.3 L 3.28 L (3.8-10.6) k/uL RBC 4.08 L 3.90 L (4.30-5.90) m/uL Hgb 9.8 L 9.3 L (13.0-17.5) gm/dL Hct 31.1 L 30.2 L (39.0-53.0) % MCV 76.2 L 77.4 L (80.0-100.0) fL MCH 24.0 L 23.8 L (25.0-35.0) pg MCHC 30.8 L (31.0-37.0) g/dL RDW 18.5 H 19.2 H (11.5-15.5) % POC Glucose (mg/dL) 131 H (70-110) mg/dL Calcium (8.7-10.3) mg/dL AST (14-35) U/L Total Protein (6.2-8.2) g/dL Albumin (3.8-4.9) g/dL 05/17/24 05/17/24 05/17/24 Range/Units 05:23 05:49 11:57 WBC (3.8-10.6) k/uL RBC (4.30-5.90) m/uL Hgb (13.0-17.5) gm/dL Hct (39.0-53.0) % MCV (80.0-100.0) fL MCH (25.0-35.0) pg MCHC (31.0-37.0) g/dL RDW (11.5-15.5) % POC Glucose (mg/dL) 123 H 180 H (70-110) mg/dL Calcium 8.1 L (8.7-10.3) mg/dL AST 36 H (14-35) U/L Total Protein 5.2 L (6.2-8.2) g/dL Albumin 3.2 L (3.8-4.9) g/dL Microbiology - Last 24 Hours (Table) 05/15/24 10:06 Blood Culture - Preliminary Blood Assessment and Plan (1) Fall Current Visit: Yes Status: Acute Priority: Medium Code(s): W19.XXXA - UNSPECIFIED FALL, INITIAL ENCOUNTER SNOMED Code(s): 1429251 (2) Anemia Current Visit: Yes Status: Acute Priority: Medium Code(s): D64.9 - ANEMIA, UNSPECIFIED SNOMED Code(s): 035994461 Plan: Fall: Presented emergency room with progressing fatigue, leg weakness and mechanical fall. Patient is reporting right knee pain, unknown if he struck his head but denies loss of consciousness. -CT head and cervical spine negative for acute intracranial process and fracture Fever: -T max 100.7 on admit. Recently treated for UTI, UA on admission negative for UTI -Chest imaging negative for pneumonia. Denies URI symptoms -Blood cultures negative thus far -Defer management to admitting team Microcytic anemia: -On admit hemoglobin was noted at 6.8, MCV 72.4, MCH 22.2. WBC 4.6, platelets 352,000. S/p 1 unit PRBCs. Repeat hemoglobin showed appropriate response with hemoglobin 8.2. -Upon review of EMR, iron studies on 05/01/2024 revealed iron saturation 4.0%, ferritin 12.7. Vitamin B12 and folate obtained in February 2024 which were normal at that time. SPEP obtained in December 2023 was negative. -Eliquis has been held, continues on plavix. -Surgery consulted, plan for outpt f/u for endoscopic evaluation -Iron studies consistent with iron deficiency. Parenteral iron ordered -Anemia likely related to acute GI blood loss due to use of Eliquis and plavix. Cardiology may need to consider discontinuing concurrent use of plavix and eliquis. Will defer this to cardiology team -Continue to monitor CBC. Transfuse for hgb < 7 or if symptomatic -Upcoming clinic f/u scheduled with Dr. Durham for further management of anemia
[2024-05-17 16:57] LABS: Glucose,Whole Blood 116 mg/dL (70-110)
[2024-05-17 20:16] LABS: Glucose,Whole Blood 155 mg/dL (70-110)
[2024-05-18 06:22] LABS: Glucose,Whole Blood 128 mg/dL (70-110)
[2024-05-18 08:34] LABS: BUN/Creat Ratio 12.89 Ratio (12.00-20.00); Blood Urea Nitrogen 11.6 mg/dL (9.0-27.0); Calcium 8.1 mg/dL (8.7-10.3); Carbon Dioxide 21.7 mmol/L (21.6-31.8); Chloride 108 mmol/L (96-109); Glucose 110 mg/dL (70-110); Potassium 4.1 mmol/L (3.5-5.5); Sodium 140 mmol/L (135-145)
[2024-05-18 08:40] LABS: HCT 29.1 % (39.6-50.0); HGB 8.9 g/dL (13.0-17.0); MCH 23.7 pg (27.0-32.0); MCHC 30.6 g/dL (32.0-37.0); MCV 77.6 FL (80.0-97.0); Mean Platelet Volume 10.4 FL (9.5-12.2); NRBC Per 100 WBC 0 X 10*3/uL (0.00-0.01); Platelet Count 312 X 10*3/uL (140-440); RBC 3.75 X 10*6/uL (4.40-5.60); RDW 19.5 % (11.5-14.5); WBC 3.35 X 10*3/uL (4.50-10.00)
--- NOTE | 2024-05-18 09:18 | P.PN ---
Subjective HISTORY OF PRESENT ILLNESS: This is a 89-year-old male with a past medical history significant for paroxysmal atrial fibrillation, moderate aortic stenosis, ischemic cardiomyopathy, CAD with previous stenting, pericardial effusion status post pe ricardial window, hypertension, hyperlipidemia, SVT, and diabetes. Patient follows in the office with Dr. Penn. We have been asked to see the patient in consultation for GI bleed on anticoagulation. Patient examined at the bedside. Patient presented to the hospital after sustaining a fall at home. Patient was found to be anemic with a hemoglobin of 6.8. He has received RBC transfusion. Repeat hemoglobin yesterday 9.9. Patient does report he has been having black stools for the past few months. However he states that he started taking iron tablets about 4 months ago and attributed these symptoms to his iron pills. He denies any chest pain or pressure. He denies any shortness of breath. DIAGNOSTICS: - EKG reveals sinus mechanism with right bundle branch block - Laboratory data: WBC 4.7. Hemoglobin 9.9. Platelet count 334. Sodium 135. Potassium 4.0. BUN 19. Creatinine 0.93. Troponin negative x 1. - Current home cardiac medications include midodrine 7.5 mg 3 times a day, P lavix 75 mg daily, Lipitor 80 mg daily, Eliquis 1.25 mg twice a day, amiodarone 200 mg daily - Most recent echocardiogram obtained in January 2024 revealed ejection fraction 40 to 45%, mild pulmonary hypertension, moderate to severe aortic stenosis, mild tricuspid regurgitation - Cardiac catheterization history: January 2024 revealing 30% LAD, 99% circumflex, 50% PDA, RCA 30%. Patient underwent stenting of the circumflex. 05/17/2024 Patient examined this morning to bedside. Patient denies any chest pain or pressure. He denies any shortness of breath. Vital signs are stable. Hemoglobin 9.3 this morning. 05/18/2024 Patient examined this morning to bedside. Patient denies any chest pain or pres sure. He denies any shortness of breath. Vital signs are stable. Hemoglobin 8.9 this morning. PHYSICAL EXAM: VITAL SIGNS: Reviewed. GENERAL: Well-developed in no acute distress. HEENT: Head is normocephalic. Pupils are equal, round. Sclerae anicteric. Mucous membranes of the mouth are moist. Neck supple. No JVD or thyromegaly LUNGS: Respirations even and unlabored. Lungs essentially clear to auscultation bilaterally. HEART: Regular rate and rhythm. S1 and S2 heard. Systolic murmur noted ABDOMEN: Soft. Nondistended. Nontender. EXTREMITIES: Normal range of motion. No clubbing or cyanosis. Peripheral pulses intact. No lower extremity edema NEUROLOGIC: Awake and alert. Oriented x 3. ASSESSMENT: Melena Acute on chronic anemia History of STEMI with stenting to the circumflex, January 2024 Paroxysmal atrial fibrillation, on Eliquis outpatient Moderate aortic stenosis History of ischemic cardiomyopathy History of pericardial effusion status post pericardial window Hypertension Hyperlipidemia History of SVT Diabetes PLAN: General Surgery following. No plans for inpatient endoscopy. Patient prescribed Plavix and Eliquis on an outpatient basis. Continue Plavix due to stenting in January 2024. Recommend Eliquis for anticoagulation secondary to atrial fibrillation for thromboembolic protection. However due to patient's anemia, may continue to hold at this time. If patient is unable to tolerate Eliquis on an outpatient basis, may consider Watchman device Stable for discharge from a cardiac standpoint We will sign off. Please reconsult if needed. Nurse practitioner note has been reviewed by physician. Signing provider agrees with the documented findings, assessment, and plan of care documented by PRODUCT INSPECTION COORDINATOR as a scribe. Objective - Vital Signs Vital signs: Vital Signs Temp 98.2 F 05/18/24 01:01 Pulse 77 05/18/24 01:01 Resp 16 05/18/24 01:01 BP 137/79 05/18/24 01:01 Pulse Ox 97 05/18/24 01:01 FiO2 Intake & Output 05/17/24 05/18/24 05/18/24 18:59 06:59 18:59 Output Total 800 2100 Balance -800 -2100 Output: Urine 800 2100 Other: Voiding Method Indwelling Catheter Indwelling Catheter - Labs CBC & Chem 7: 05/18/24 04:07 05/18/24 04:07 Labs: Abnormal Lab Results - Last 24 Hours (Table) 05/17/24 05/17/24 05/17/24 Range/Units 05:23 11:57 16:56 WBC (4.50-10.00) X 10*3/uL RBC (4.40-5.60) X 10*6/uL Hgb (13.0-17.0) g/dL Hct (39.6-50.0) % MCV (80.0-97.0) FL MCH (27.0-32.0) pg MCHC (32.0-37.0) g/dL RDW (11.5-14.5) % POC Glucose (mg/dL) 180 H 116 H (70-110) mg/dL Calcium 8.1 L (8.7-10.3) mg/dL AST 36 H (14-35) U/L Total Protein 5.2 L (6.2-8.2) g/dL Albumin 3.2 L (3.8-4.9) g/dL 05/17/24 05/18/24 05/18/24 Range/Units 20:14 04:07 04:07 WBC 3.35 L (4.50-10.00) X 10*3/uL RBC 3.75 L (4.40-5.60) X 10*6/uL Hgb 8.9 L (13.0-17.0) g/dL Hct 29.1 L (39.6-50.0) % MCV 77.6 L (80.0-97.0) FL MCH 23.7 L (27.0-32.0) pg MCHC 30.6 L (32.0-37.0) g/dL RDW 19.5 H (11.5-14.5) % POC Glucose (mg/dL) 155 H (70-110) mg/dL Calcium 8.1 L (8.7-10.3) mg/dL AST (14-35) U/L Total Protein (6.2-8.2) g/dL Albumin (3.8-4.9) g/dL 05/18/24 Range/Units 06:18 WBC (4.50-10.00) X 10*3/uL RBC (4.40-5.60) X 10*6/uL Hgb (13.0-17.0) g/dL Hct (39.6-50.0) % MCV (80.0-97.0) FL MCH (27.0-32.0) pg MCHC (32.0-37.0) g/dL RDW (11.5-14.5) % POC Glucose (mg/dL) 128 H (70-110) mg/dL Calcium (8.7-10.3) mg/dL AST (14-35) U/L Total Protein (6.2-8.2) g/dL Albumin (3.8-4.9) g/dL Microbiology - Last 24 Hours (Table) 05/15/24 10:06 Blood Culture - Preliminary Blood
[2024-05-18] MEDS: ZINC OXIDE PASTE (Z-GUARD) 1 APPLIC TOPICAL SCH (10:26)
[2024-05-18 11:59] LABS: Glucose,Whole Blood 153 mg/dL (70-110)
[2024-05-18 12:34] VITALS: BP 118/67; PULSE 56; RESP 18; TEMP 98.6
--- NOTE | 2024-05-18 13:48 | P.DS ---
Providers Date of admission: 05/15/24 05:01 Expected date of discharge: 05/18/24 Attending physician: Carter Shaver MD Consults: 05/15/24 04:58 Consult Physician Urgent Consulting Provider: Jean Hurst Consult Reason/Comments: anemia Do you want consulting provider notified?: Yes 05/15/24 10:05 Consult Physician Routine Consulting Provider: Stan Hooks Consult Reason/Comments: suspected upper GI bleed, pt reports dark black sto ols on anticoagulant Do you want consulting provider notified?: Yes 05/15/24 20:49 Consult Physician Stat Consulting Provider: Bart Myers Consult Reason/Comments: catheter Do you want consulting provider notified?: Already Contacted Primary care physician: [facility] Course: 89-year-old male with a past medical history of CAD status post recent stenting, chronic systolic heart failure with EF of 30 to 35%, paroxysmal atrial fibrillation on anticoagulation with Eliquis, hypertension, hyperlipidemia, pericarditis with pericardial effusion status post pericardial window, BPH, and type II [id number] diabetes mellitus. Patient presented to the emergency department with a chief complaint of fall. Patient reported mechanical fall after tripping on his feet while walking with walker to the bathroom and denied any dizziness or lightheadedness. Patient also reports having black tarry stools, states he is unsure if it is caused from blood thinners causing him to bleed or if it is just black from his iron supplements that he takes daily. Upon arrival to our facility, patient underwent evaluation in the emergency department. Vital signs upon arrival show blood pressure 121/78, heart rate 74, respiratory rate 19, temp 99.5 F, and SpO2 of 96% on room air. EKG was completed showing normal sinus rhythm at 78 bpm with a right bundle branch block. Chest x-ray completed showing artifact versus developing small pneumothorax in the lateral aspect of left hemithorax. CT head negative for acute process, revealing moderate age-related generalized brain volume loss and chronic small vessel ischemic changes. CT cervical spine negative for acute fracture or subluxation. CT chest showing moderate left pleural effusion with small amount of airspace opacities in the dependent portion of the visualized left lung but showing no signs of pneumothorax. Labs were completed and reviewed. CBC showing acute on chronic anemia with hemoglobin of 6.8. Coagulation profile normal findings. BMP showing hyponatremia with sodium of 134 lactic acid initially 2.8. Liver profile normal findings with exception of hypoalbuminemia with albumin of 3.2. Troponin 0.023. Patient admitted under services with consultation to general surgery and cardiology. He was found to have acute on chronic microcytic anemia, suspect upper GI bleed with reports of melena. Was given 2 units. Iron studies consistent with deficiency. Seen by surgery scopes advised, will be done outpatient. Seen by cardio who advised that it is ok to hold eliquis at this time. Resume AC outpatient if stable. If rebleeding then consider watchman. Will continue plavix however, as he has hx of CAD status post recent stenting. During the hospitalization he was found to have urinary retention with hx of BPH and meatal stenosis. Overnight on 05/15/24 patient was found to have urinary retention with bladder scan showing greater than 999 cc, nursing staff was unsuccessful at attempts to insert Juárez catheter and STAT consult placed to urology. Urologist Evaluated and performed Dilation of the urethral meatus and inserted Juárez catheter. Urinalysis was negative for infection. Will need outpatient follow up with urology. Patient was seen and examined on the day of discharge 05/18 Time for discharge 36 min Plan - Discharge Summary Discharge Rx Participant: No New Discharge Prescriptions: Continue metFORMIN HCL [Glucophage] 850 mg PO BID-W/MEALS Pregabalin [Lyrica] 25 mg PO W/SUPPER Pantoprazole [Protonix] 40 mg PO DAILY #90 tab Amiodarone [Cordarone] 200 mg PO DAILY Tamsulosin [Flomax] 0.4 mg PO HS Atorvastatin [Lipitor] 80 mg PO DAILY #30 tab Clopidogrel [Plavix] 75 mg PO W/SUPPER Midodrine HCl 7.5 mg PO TID Discontinued Apixaban [Eliquis] 1.25 mg PO BID-W/MEALS Discharge Medication List metFORMIN HCL [Glucophage] 850 mg PO BID-W/MEALS 11/23/19 [History] Pregabalin [Lyrica] 25 mg PO W/SUPPER 01/11/24 [History] Atorvastatin [Lipitor] 80 mg PO DAILY #30 tab 01/12/24 [Rx] Clopidogrel [Plavix] 75 mg PO W/SUPPER 01/16/24 [History] Pantoprazole [Protonix] 40 mg PO DAILY #90 tab 01/26/24 [Rx] Amiodarone [Cordarone] 200 mg PO DAILY 05/15/24 [History] Midodrine HCl 7.5 mg PO TID 05/15/24 [History] Tamsulosin [Flomax] 0.4 mg PO HS 05/15/24 [History] Follow up Appointment(s)/Referral(s): [facility] DO [Primary Care Provider] - 1-2 days [facility] [address], [NON-STAFF] - As Needed Stan Hooks DO [Doctor of Osteopathic Medicine] - 1 Week Rowdy Hermosillo MD [STAFF PHYSICIAN] - 1 Week
--- NOTE | 2024-05-18 16:13 | P.PN ---
Subjective patient seen and evaluated bedside. Patient will well denies pain no recent bloody bowel movement was. Objective - Vital Signs Vital signs: Vital Signs Temp 98.6 F 05/18/24 07:23 Pulse 56 L 05/18/24 07:23 Resp 18 05/18/24 07:23 BP 118/67 05/18/24 07:23 Pulse Ox 97 05/18/24 07:23 FiO2 Intake & Output 05/17/24 05/18/24 05/18/24 18:59 06:59 18:59 Output Total 800 2100 425 Balance -800 -2100 -425 Weight 72.575 kg Output: Urine 800 2100 425 Other: Voiding Method Indwelling Catheter Indwelling Catheter - Exam gen: nad cv: rrr pul: non labored breathing abd: soft, non tender to palpation, no guarding or rebound tenderness - Labs CBC & Chem 7: 05/18/24 04:07 05/18/24 04:07 Labs: Abnormal Lab Results - Last 24 Hours (Table) 05/17/24 05/17/24 05/18/24 Range/Units 16:56 20:14 04:07 WBC 3.35 L (4.50-10.00) X 10*3/uL RBC 3.75 L (4.40-5.60) X 10*6/uL Hgb 8.9 L (13.0-17.0) g/dL Hct 29.1 L (39.6-50.0) % MCV 77.6 L (80.0-97.0) FL MCH 23.7 L (27.0-32.0) pg MCHC 30.6 L (32.0-37.0) g/dL RDW 19.5 H (11.5-14.5) % POC Glucose (mg/dL) 116 H 155 H (70-110) mg/dL Calcium (8.7-10.3) mg/dL 05/18/24 05/18/24 05/18/24 Range/Units 04:07 06:18 11:57 WBC (4.50-10.00) X 10*3/uL RBC (4.40-5.60) X 10*6/uL Hgb (13.0-17.0) g/dL Hct (39.6-50.0) % MCV (80.0-97.0) FL MCH (27.0-32.0) pg MCHC (32.0-37.0) g/dL RDW (11.5-14.5) % POC Glucose (mg/dL) 128 H 153 H (70-110) mg/dL Calcium 8.1 L (8.7-10.3) mg/dL Microbiology - Last 24 Hours (Table) 05/15/24 10:06 Blood Culture - Preliminary Blood Assessment and Plan Assessment: 89-year-old male with resolved GI bleeding hemoglobin is stable Stable for discharge
== END 2024-05-18 16:33 | DRG 813 ==
LOC: EC 20:25 → 4SSUR 05-15 05:01
PROVIDERS: ADMIT Internal Medicine; ATTEND Internal Medicine
PROC: 30233N1 Transfusion of Nonautologous Red Blood Cells into Peripheral Vein, Percutaneous Approach (ICD-10-PCS; principal; 2024-05-15)
PROC: 0T7D7ZZ Dilation of Urethra, Via Natural or Artificial Opening (ICD-10-PCS; 2024-05-15)
DX: D68.32 Hemorrhagic disorder due to extrinsic circulating anticoagulants (principal); K92.1 Melena; D62 Acute posthemorrhagic anemia; E87.1 Hypo-osmolality and hyponatremia; E87.20 Acidosis, unspecified; I50.22 Chronic systolic (congestive) heart failure; J98.11 Atelectasis; I45.2 Bifascicular block; I47.10 Supraventricular tachycardia, unspecified; I27.20 Pulmonary hypertension, unspecified; E88.09 Other disorders of plasma-protein metabolism, not elsewhere classified; I11.0 Hypertensive heart disease with heart failure; E11.9 Type 2 diabetes mellitus without complications; I35.0 Nonrheumatic aortic (valve) stenosis; I48.0 Paroxysmal atrial fibrillation; I25.5 Ischemic cardiomyopathy; N35.811 Other urethral stricture, male, meatal; N40.1 Benign prostatic hyperplasia with lower urinary tract symptoms; R33.8 Other retention of urine; E78.5 Hyperlipidemia, unspecified; I25.10 Atherosclerotic heart disease of native coronary artery without angina pectoris; G47.30 Sleep apnea, unspecified; T45.525A Adverse effect of antithrombotic drugs, initial encounter; I25.2 Old myocardial infarction; Z95.5 Presence of coronary angioplasty implant and graft; Z79.84 Long term (current) use of oral hypoglycemic drugs; Z79.02 Long term (current) use of antithrombotics/antiplatelets; Z79.82 Long term (current) use of aspirin; Z79.01 Long term (current) use of anticoagulants; Z79.899 Other long term (current) drug therapy; Z86.73 Personal history of transient ischemic attack (TIA), and cerebral infarction without residual deficits; Z87.891 Personal history of nicotine dependence
CPT/HCPCS: 36415; 36430; 70450; 71046; 71250; 72125; 80048; 80053; 81003; 82272; 82728; 83540; 83550; 83605; 83735; 84484; 85025; 85027; 85045; 85610; 85730; 86850; 86900; 86901; 86920; 87040; 93005; 96374; 96376; 99285

== ENCOUNTER → 2024-06-27 | Outpatient (CLI) | payer MEDICARE, BC ==
[2024-06-27 13:03] VITALS: BP 113/69; PULSE 64; RESP 16; TEMP 97.8
[2024-06-27] MEDS: SODIUM CHLORIDE 0.9% 500 ML 500 ML in EMPTY BAG 1 BAG IV PRN (13:03)
== END ==
LOC: PROCWHC3 12:39
PROVIDERS: ATTEND Internal Medicine
DX: D50.9 Iron deficiency anemia, unspecified (principal)
CPT/HCPCS: 96365

== ENCOUNTER 2024-09-14 14:14 | Inpatient (IN) | payer MEDICARE, BC ==
[2024-09-14 15:16] LABS: Anisocytosis Slight; Basophils % (A) 0 %; Eosinophils # (A) 0.1 k/uL (0-0.7); Eosinophils % (A) 2 %; Hypochromasia Slight; Lymphocytes # (A) 1.2 k/uL (1.0-4.8); Lymphocytes % (A) 23 %; MCH 28.4 pg (25.0-35.0); MCHC 32.9 g/dL (31.0-37.0); MCV 86.3 fL (80.0-100.0); Mean Platelet Volume 7.7; Monocytes # (A) 0.4 k/uL (0-1.0); Monocytes % (A) 7 %; Neutrophils # (A) 3.5 k/uL (1.3-7.7); Neutrophils % (A) 66 %; Platelet Count 289 k/uL (150-450); Poikilocytosis Slight; RBC 2.14 m/uL (4.30-5.90); RDW 17.5 % (11.5-15.5); WBC 5.3 k/uL (3.8-10.6)
[2024-09-14 15:26] LABS: HGB 6.1 gm/dL (13.0-17.5)
[2024-09-14 15:27] LABS: HCT 18.5 % (39.0-53.0)
--- NOTE | 2024-09-14 15:49 | ED ---
Recheck HPI - General Source: patient, family, RN notes reviewed Mode of arrival: wheelchair Limitations: no limitations - History of Present Illness MD Complaint: abnormal lab <Luci Lewis - Last Filed: 09/14/24 17:49> - General Source: patient, family, RN notes reviewed Mode of arrival: wheelchair Limitations: no limitations - History of Present Illness MD Complaint: abnormal lab Onset/Timin -: days(s) <Jeremiah Mas - Last Filed: 09/14/24 23:50> - General Chief Complaint: Recheck/Abnormal Lab/Rx Stated Complaint: low hemoglobin - Dr. Burgess said to come in Time Seen by Provider: 09/14/24 14:41 - History of Present Illness Initial Comments: This is an 89-year-old male who presents to the emergency department for low hemoglobin. Patient has a history of iron deficiency anemia requiring frequent blood and iron transfusions. Most recent transfusion was about 6 weeks ago. He had blood work done this morning and they received a call saying that his hemoglobin was critically low and he needed to come to the emergency department. Patient does report some weakness over the last several days, which typically occurs when his levels get low. He is on iron tablets, which make his stool always look dark. Denies any blood in his stool. He is on Plavix and Xarelto for CAD and recently had a stent placed. Cardiology and hematology do not believe he has any active bleeding and he has thus been able to continue on these. (Luci Lewis) This is an 89-year-old male with history of DM, CAD and RI with catheterization presenting with low hemoglobin. Patient states he was sent by his primary care, Dr. Burgess following discovery of low hemoglobin. States he often requires transfusions attributed to iron deficient anemia. Endorses use of Plavix following placement of stent but denies known blood/melena in stool. Endorses use of iron supplements which he attributes to darkened stool and constipation. (Jeremiah Mas) - Related Data Home Medications Medication Instructions Recorded Confirmed metFORMIN HCL [Glucophage] 850 mg PO DAILY 11/23/19 06/27/24 Pregabalin [Lyrica] 25 mg PO W/SUPPER 01/11/24 06/27/24 Clopidogrel [Plavix] 75 mg PO W/SUPPER 01/16/24 06/27/24 Amiodarone [Cordarone] 200 mg PO DAILY 05/15/24 06/27/24 Midodrine HCl 7.5 mg PO TID 05/15/24 06/27/24 Tamsulosin [Flomax] 0.4 mg PO HS 05/15/24 06/27/24 Previous Rx's Medication Instructions Recorded Atorvastatin [Lipitor] 80 mg PO DAILY #30 tab 01/12/24 Pantoprazole [Protonix] 40 mg PO DAILY #90 tab 01/26/24 Ferrous Sulfate [Iron (65 MG 325 mg PO BID 60 Days #120 tab 05/18/24 Elemental)] Allergies Allergy/AdvReac Type Severity Reaction Status Date / Time No Known Allergies Allergy Verified 09/14/24 14:26 Review of Systems ROS Other: All systems not noted in ROS Statement are negative. <Luci Lewis - Last Filed: 09/14/24 17:49> ROS Other: All systems not noted in ROS Statement are negative. <Jeremiah Mas - Last Filed: 09/14/24 23:50> ROS Statement: Those systems with pertinent positive or pertinent negative responses have been documented in the HPI. Past Medical History Past Medical History: Chest Pain / Angina, Diabetes Mellitus, Hyperlipidemia, Hypertension, Myocardial Infarction (RI), Prostate Disorder, Respiratory Disorder, Sleep Apnea/CPAP/BIPAP Additional Past Medical History / Comment(s): "IRREG HEARTBEAT", "CHEMICAL STRESS TEST PRIOR TO TURP", "HEARTBURN" OTC MEDS NEEDED. DOES'NT USE A CPAP MACHINE.; heart was "skipping a beat", carotid stenosis, TIA Last Myocardial Infarction Date:: 01/11/24 History of Any Multi-Drug Resistant Organisms: None Reported Past Surgical History: Heart Catheterization With Stent, Hernia Repair, Prostate Surgery, Tonsillectomy Additional Past Surgical History / Comment(s): 11-29-16 TURP,CYSTOCOPY,LITHOTRIPSY FOR BLADDER STONE. FLO INGUINAL HERNIA REPAIR, FLO CATARACTS. Past Anesthesia/Blood Transfusion Reactions: No Reported Reaction Date of Last Stent Placement:: 01/11/24 Past Psychological History: No Psychological Hx Reported Smoking Status: Former smoker - Past Family History Father Family Medical History: Cancer, Dementia, Prostate Disorder Additional Family Medical History / Comment(s): AGE 94 Mother Family Medical History: Dementia Additional Family Medical History / Comment(s): AGE 95 <Luci Lewis - Last Filed: 09/14/24 17:49> General Exam Limitations: no limitations General appearance: alert, in no apparent distress Head exam: Present: atraumatic, normocephalic, normal inspection Respiratory exam: Present: normal lung sounds bilaterally. Absent: respiratory distress, wheezes, rales, rhonchi, stridor Cardiovascular Exam: Present: regular rate, normal rhythm, normal heart sounds. Absent: systolic murmur, diastolic murmur, rubs, gallop, clicks Neurological exam: Present: alert, oriented X3, CN II-XII intact Psychiatric exam: Present: normal affect, normal mood Skin exam: Present: warm, dry, intact, normal color. Absent: rash <Luci Lewis - Last Filed: 09/14/24 17:49> Limitations: no limitations General appearance: alert, in no apparent distress Head exam: Present: atraumatic, normocephalic, normal inspection Eye exam: Present: normal appearance, PERRL, EOMI. Absent: scleral icterus, con junctival injection, periorbital swelling ENT exam: Present: normal exam, mucous membranes moist Neck exam: Present: normal inspection. Absent: tenderness, meningismus, lymphadenopathy Respiratory exam: Present: normal lung sounds bilaterally. Absent: respiratory distress, wheezes, rales, rhonchi, stridor Cardiovascular Exam: Present: regular rate, normal rhythm, normal heart sounds. Absent: systolic murmur, diastolic murmur, rubs, gallop, clicks GI/Abdominal exam: Present: soft, normal bowel sounds. Absent: distended, tenderness, guarding, rebound, rigid Extremities exam: Present: normal inspection, full ROM, normal capillary refill. Absent: tenderness, pedal edema, joint swelling, calf tenderness Back exam: Present: normal inspection Neurological exam: Present: alert, oriented X3, CN II-XII intact Psychiatric exam: Present: normal affect, normal mood Skin exam: Present: warm, dry, intact, normal color. Absent: rash <Jeremiah Mas - Last Filed: 09/14/24 23:50> Course Vital Signs 09/14/24 09/14/24 09/14/24 14:26 16:09 18:48 Temperature 98.1 F 98.6 F 98.6 F Pulse Rate 85 69 65 Respiratory 18 16 16 Rate Blood Pressure 93/54 128/63 115/55 O2 Sat by Pulse 100 99 Oximetry 09/14/24 09/14/24 09/14/24 18:54 19:04 19:24 Temperature 99 F 98.7 F 98.9 F Pulse Rate 63 62 68 Respiratory 16 16 16 Rate Blood Pressure 109/57 106/51 113/55 O2 Sat by Pulse Oximetry 09/14/24 21:01 Temperature 98.9 F Pulse Rate 71 Respiratory 18 Rate Blood Pressure 116/61 O2 Sat by Pulse Oximetry Medical Decision Making - Lab Data Result diagrams: 09/14/24 15:07 09/14/24 15:07 <Luci Lewis - Last Filed: 09/14/24 17:49> - Lab Data Result diagrams: 09/14/24 21:24 09/14/24 15:07 <Jeremiah Mas - Last Filed: 09/14/24 23:50> - Medical Decision Making This is an 89-year-old male who presents to the emergency department for low hemoglobin. Was pt. sent in by a medical professional or institution? @ -PCP Did you speak to anyone other than the patient for history? @ -No Did you review nursing and triage notes? @ -Yes, and I agree, it is accurate with regards to the patient's symptoms. Were old charts reviewed? @ -No Differential Diagnosis? @ -Iron deficiency anemia, anemia of chronic disease, blood loss, this is not meant to be an all-inclusive list. EKG interpreted by me (3pts min.)? @ -EKG interpreted by me demonstrating the following: Sinus rhythm. Ventricular rate 71 bpm, IA interval 158 ms, QRS duration 167 ms, QTc 489 ms. X-rays interpreted by me (1pt min.)? @ -Not obtained CT interpreted by me (1pt min.)? @ -Not obtained U/S interpreted by me (1pt. min.)? @ -Not obtained What testing was considered but not performed? (CT, X-rays, U/S, labs)? Why? @ -None What meds were considered but not given? Why? @ -None Did you discuss the management of the patient with other professionals? @ -No Did you reconcile home meds? @ -No Was smoking cessation discussed for >3mins.? @ -No Was critical care preformed (if so, how long)? @ -No Were there social determinants of health that impacted care today? How? (Homelessness, low income, unemployed, alcoholism, drug addiction, transpo rtation, low edu. Level, literacy, decrease access to med. care, nursing home, rehab)? @ -No Was there de-escalation of care discussed even if they declined? (Discuss DNR or withdrawal of care, Hospice)? @ -No What co-morbidities impacted this encounter? (DM, HTN, Smoking, COPD, CAD, Cancer, CVA, Hep., AIDS, mental health diagnosis, sleep apnea, morbid obesity)? @ -Iron deficiency anemia Was patient admitted / discharged? @ -Lab work demonstrates a hemoglobin of 6.1 and was otherwise unremarkable. Patient transfused with 1 unit of PRBCs. Case signed to Jeremiah Mas PA-C, at shift completion pending transfusion. Undiagnosed new problem with uncertain prognosis? @ -None Drug Therapy requiring intensive monitoring for toxicity (Heparin, Nitro, Insulin, Cardizem)? @ -None Were any procedures done? @ -None (Luci Lewis) Was pt. sent in by a medical professional or institution (ANDRÉS Ramos, CONTINGENTS SUPERVISOR, urgent care, hospital, or fdc...) When possible be specific @ -Dr. Burgess, patient's PCP Did you speak to anyone other than the patient for history (EMS, parent, family, police, friend...)? What history was obtained from this source @ - assisted in providing HPI Did you review nursing and triage notes (agree or disagree)? Why? @ -I reviewed and agree with nursing and triage notes Were old charts reviewed (outside hosp., previous admission, EMS record, old EKG, old radiological studies, urgent care reports/EKG's, fdc records)? Report findings @ -No old charts were reviewed Differential Diagnosis (chest pain, altered mental status, abdominal pain women, abdominal pain men, vaginal bleeding, weakness, fever, dyspnea, syncope, headache, dizziness, GI bleed, back pain, seizure, CVA, palpatations, mental health, musculoskeletal)? @ -Differential Weakness: Hypoglycemia, shock, sepsis, hyponatremia, anemia, GI bleed, infection, RI, ETOH, adverse medicine reaction, overdose, stroke, this is not meant to be an all-inclusive list. EKG interpreted by me (3pts min.). @ -Sinus rhythm with QT prolongation. No ST changes or T wave inversion. Ventricular rate 71 bpm, IA interval 158 ms, QRS duration 167 ms, QTc 489 ms. X-rays interpreted by me (1pt min.). @ -None done CT interpreted by me (1pt min.). @ -None done U/S interpreted by me (1pt. min.). @ -None done What testing was considered but not performed or refused? (CT, X-rays, U/S, labs)? Why? @ -None What meds were considered but not given or refused? Why? @ -None Did you discuss the management of the patient with other professionals (professionals i.e. , PA, CONTINGENTS SUPERVISOR, lab, RT, psych nurse, social and political studies professor, nutter up, teacher, field artillery officer, case packer and sealer)? Give summary @ -Additional unit of packed red blood cells provided. Contacted [facility] physician who agreed to admit patient for observation and continued transfusions. Was smoking cessation discussed for >3mins.? @ -No Was critical care preformed (if so, how long)? @ -Yes 35 minutes Were there social determinants of health that impacted care today? How? (Homelessness, low income, unemployed, alcoholism, drug addiction, transportation, low edu. Level, literacy, decrease access to med. care, nursing home, rehab)? @ -No Was there de-escalation of care discussed even if they declined (Discuss DNR or withdrawal of care, Hospice)? DNR status @ -No What co-morbidities impacted this encounter? (DM, HTN, Smoking, COPD, CAD, Cancer, CVA, ARF, Chemo, Hep., AIDS, mental health diagnosis, sleep apnea, morbid obesity)? @ -None Was patient admitted / discharged? Hospital course, mention meds given and route, prescriptions, significant lab abnormalities, going to OR and other pertinent info. @ -Initial lab work shows critical hemoglobin of 6.1 with no iron deficiency noted (MCV 86.3). Hyperglycemia (180) noted. 1 unit of packed red blood cells provided with subsequent hemoglobin of 6.5, below expected correction. Additional unit of packed red blood cells provided. Contacted [facility] physician who agreed to admit patient for observation and continued transfusions. Discussed patient with Dr. Archer Undiagnosed new problem with uncertain prognosis? @ -Recalcitrant anemia Drug Therapy requiring intensive monitoring for toxicity (Heparin, Nitro, Insulin, Cardizem)? @ -No Were any procedures done? @ -No Diagnosis/symptom? @ -Anemia Acute, or Chronic, or Acute on Chronic? @ -Acute on chronic Uncomplicated (without systemic symptoms) or Complicated (systemic symptoms)? @ -Uncomplicated Side effects of treatment? @ -No Exacerbation, Progression, or Severe Exacerbation? @ -No Poses a threat to life or bodily function? How? (Chest pain, USA, RI, pneumonia, PE, COPD, DKA, ARF, appy, cholecystitis, CVA, Diverticulitis, Homicidal, Suicidal, threat to staff... and all critical care pts) @ -End organ damage due to insufficient oxygen perfusion (Jeremiah Mas) - Lab Data Lab Results 09/14/24 09/14/24 09/14/24 Range/Units 15:00 15:07 15:07 WBC 5.3 (3.8-10.6) k/uL RBC 2.14 L (4.30-5.90) m/uL Hgb 6.1 L* (13.0-17.5) gm/dL Hct 18.5 L* (39.0-53.0) % MCV 86.3 (80.0-100.0) fL MCH 28.4 (25.0-35.0) pg MCHC 32.9 (31.0-37.0) g/dL RDW 17.5 H (11.5-15.5) % Plt Count 289 (150-450) k/uL MPV 7.7 Neutrophils % 66 % Lymphocytes % 23 % Monocytes % 7 % Eosinophils % 2 % Basophils % 0 % Neutrophils # 3.5 (1.3-7.7) k/uL Lymphocytes # 1.2 (1.0-4.8) k/uL Monocytes # 0.4 (0-1.0) k/uL Eosinophils # 0.1 (0-0.7) k/uL Basophils # 0.0 (0-0.2) k/uL Hypochromasia Slight Poikilocytosis Slight Anisocytosis Slight PT (10.0-12.5) sec INR (<1.2) APTT (22.0-30.0) sec Sodium 137 (137-145) mmol/L Potassium 4.8 (3.5-5.1) mmol/L Chloride 107 (98-107) mmol/L Carbon Dioxide 20 L (22-30) mmol/L Anion Gap 10 mmol/L BUN 27 H (9-20) mg/dL Creatinine 0.88 (0.66-1.25) mg/dL Est GFR (CKD-EPI)AfAm 89 (>60 ml/min/1.73 sqM) Est GFR (CKD-EPI)NonAf 77 (>60 ml/min/1.73 sqM) Glucose 180 H (74-99) mg/dL Calcium 9.0 (8.4-10.2) mg/dL Total Bilirubin 0.3 (0.2-1.3) mg/dL AST 22 (17-59) U/L ALT 18 (4-49) U/L Alkaline Phosphatase 70 (38-126) U/L Total Protein 6.1 L (6.3-8.2) g/dL Albumin 3.4 L (3.5-5.0) g/dL Blood Type Blood Type Recheck AB Neg Bld Type Recheck Status Antibody Screen NEGATIVE Crossmatch See Detail Spec Expiration Date 09/17/2024 - 229909/14/24 09/14/24 09/14/24 Range/Units 17:19 17:19 21:24 WBC 4.8 (3.8-10.6) k/uL RBC 2.31 L (4.30-5.90) m/uL Hgb 6.5 L* (13.0-17.5) gm/dL Hct 20.4 L (39.0-53.0) % MCV 88.2 (80.0-100.0) fL MCH 28.0 (25.0-35.0) pg MCHC 31.7 (31.0-37.0) g/dL RDW 17.3 H (11.5-15.5) % Plt Count 262 (150-450) k/uL MPV 7.8 Neutrophils % 57 % Lymphocytes % 31 % Monocytes % 7 % Eosinophils % 2 % Basophils % 0 % Neutrophils # 2.8 (1.3-7.7) k/uL Lymphocytes # 1.5 (1.0-4.8) k/uL Monocytes # 0.3 (0-1.0) k/uL Eosinophils # 0.1 (0-0.7) k/uL Basophils # 0.0 (0-0.2) k/uL Hypochromasia Slight Poikilocytosis Slight Anisocytosis Slight PT 11.5 (10.0-12.5) sec INR 1.0 (<1.2) APTT 23.1 (22.0-30.0) sec Sodium (137-145) mmol/L Potassium (3.5-5.1) mmol/L Chloride (98-107) mmol/L Carbon Dioxide (22-30) mmol/L Anion Gap mmol/L BUN (9-20) mg/dL Creatinine (0.66-1.25) mg/dL Est GFR (CKD-EPI)AfAm (>60 ml/min/1.73 sqM) Est GFR (CKD-EPI)NonAf (>60 ml/min/1.73 sqM) Glucose (74-99) mg/dL Calcium (8.4-10.2) mg/dL Total Bilirubin (0.2-1.3) mg/dL AST (17-59) U/L ALT (4-49) U/L Alkaline Phosphatase (38-126) U/L Total Protein (6.3-8.2) g/dL Albumin (3.5-5.0) g/dL Blood Type AB Negative Blood Type Recheck AB Neg Bld Type Recheck Status No Antibody Screen NEGATIVE Crossmatch See Detail Spec Expiration Date 09/17/20242318 Disposition <Luci Lewis - Last Filed: 09/14/24 17:49> Is patient prescribed a controlled substance at d/c from ED?: No Time of Disposition: 23:36 Decision Date: 09/14/24 Decision Time: 23:37 <Jeremiah Mas - Last Filed: 09/14/24 23:50> Clinical Impression: Anemia Disposition: [facility] Condition: Stable Referrals: Mt Burgess DO [Primary Care Provider] - 1-2 days
[2024-09-14 15:58] LABS: ALT 18 U/L (4-49); AST 22 U/L (17-59); African American GFR (CKD) 89 (>60 ml/min/1.73 sqM); Albumin 3.4 g/dL (3.5-5.0); Alkaline Phosphatase 70 U/L (38-126); Anion Gap 10 mmol/L; Blood Urea Nitrogen 27 mg/dL (9-20); Carbon Dioxide 20 mmol/L (22-30); Chloride 107 mmol/L (98-107); Glucose 180 mg/dL (74-99); Non-African American GFR(CKD) 77 (>60 ml/min/1.73 sqM); Potassium 4.8 mmol/L (3.5-5.1); Sodium 137 mmol/L (137-145); Total Bilirubin 0.3 mg/dL (0.2-1.3); Total Protein 6.1 g/dL (6.3-8.2)
[2024-09-14] MEDS: ACETAMINOPHEN TAB 500 MG TAB PO STA (16:00)
[2024-09-14 18:00] LABS: Partial Thromboplastin Time 23.1 sec (22.0-30.0); Prothrombin Time 11.5 sec (10.0-12.5)
[2024-09-14 22:00] LABS: Anisocytosis Slight; Basophils % (A) 0 %; Eosinophils # (A) 0.1 k/uL (0-0.7); Eosinophils % (A) 2 %; HCT 20.4 % (39.0-53.0); Hypochromasia Slight; Lymphocytes # (A) 1.5 k/uL (1.0-4.8); Lymphocytes % (A) 31 %; MCHC 31.7 g/dL (31.0-37.0); MCV 88.2 fL (80.0-100.0); Mean Platelet Volume 7.8; Monocytes # (A) 0.3 k/uL (0-1.0); Monocytes % (A) 7 %; Neutrophils # (A) 2.8 k/uL (1.3-7.7); Neutrophils % (A) 57 %; Platelet Count 262 k/uL (150-450); Poikilocytosis Slight; RBC 2.31 m/uL (4.30-5.90); RDW 17.3 % (11.5-15.5); WBC 4.8 k/uL (3.8-10.6)
[2024-09-14 22:17] LABS: HGB 6.5 gm/dL (13.0-17.5)
[2024-09-14] MEDS ORDERED: NALOXONE 0.4 MG/ML 1 ML VIAL IV PRN (23:32)
--- NOTE | 2024-09-15 02:06 | P.HPIM ---
History of Present Illness H&P Date: 09/15/24 Chief Complaint: Low Hemoglobin Patient is a 89-year-old male with a PMH of CAD, systolic CHF with EF 30 to 35%(Echo January 2024), A-fib on Eliquis, type II DM, hypertension, hyperlipidemia who presented to the ED after instruction by his primary care doctor who told him he had a low hemoglobin. Patient states he has a history of iron deficiency anemia and takes iron tablets. He endorses dark bowel movements, but does not endorse any ami blood. He denies belly pain, dizziness, headaches. Patient denies any trauma or fall. He does endorse being on blood thinners including Eliquis and Plavix. Patient also does report some constipation and states that he often has to use a suppository. He was supposed to get a colonoscopy done, but the surgeons did not want to due to him being on blood thinners and cardiology did not want to stop his blood thinners. He denies any fevers, chills, nausea, vomiting, diarrhea. ED documentation reviewed. In the ED patient received 2 units of blood. Vitals on admission temperature 98.1, heart rate 85, respiratory rate 18, blood pressure 93/54, O2 saturation 100% on room air EKG independently interpreted as sinus rhythm with ventricular rate 71 and QTc of 489 ms Labs on admission show WBC 5.3, hemoglobin 6.1, platelets 289. PT 11.5, INR 1, PTT 23.1. Sodium 137, potassium 4.8, chloride 107, bicarb 20, BUN 27, creatinine 0.88, glucose 180. Review of systems: Pertinent positives and negatives as discussed in HPI, a complete review of systems was performed and all other systems are negative. Social history: Tobacco: Former Alcohol: None Recreational drugs: None Travel: None Sick contacts: None Physical examination: Vital signs reviewed General: nontoxic, no distress, appears at stated age Derm: warm, dry, intact Head: atraumatic, normocephalic, symmetric Eyes: anicteric sclera Mouth: no lip lesion, mucus membranes moist Cardiovascular: S1 S2 reg, no murmur Lungs: CTA bilateral, no rhonchi, no rales, no accessory muscle use Abdominal: soft, non-tender to palpation, nondistended Extremities: No cyanosis, clubbing, or pedal edema. Neuro: Alert, Oriented to person, time and place, Gross neurological examination did not reveal any focal deficits. Cranial nerves II to XII grossly intact. Bilateral upper and lower extremity muscle strength intact and sensation intact. Psych: well appearing, appropriate affect Assessment/Plan: Patient is a 89-year-old male with a PMH of CAD, systolic CHF with EF 30 to 35%, A-fib on Eliquis, type II DM, hypertension, hyperlipidemia who presented to the ED after instruction by his primary care doctor who told him he had a low hemoglobin. Patient was transfused 2 units of blood in the ER. He will be admitted under medicine service for further evaluation Active: Suspected GI bleed Hemoglobin on admission 6.1 then 6.5 Patient was transfused 2 units of blood in the ER Will hold Eliquis Consult general surgery check CBC q 6hr Chronic: Iron deficiency anemia Continue Feosol 325 mg PO to twice daily Diabetes mellitus with neuropathy Hold metformin Glucose checks per [facility] Insulin sliding scale Continue Lyrica 25 mg Hypoglycemia precautions A-fib Continue amiodarone 200 mg daily Hold Eliquis Continue Plavix 75 mg daily Hyperlipidemia History of CAD, [place] with stent placement(January 2024) Continue Plavix 75 mg Continue atorvastatin 80 mg p.o. at bedtime BPH Continue Flomax 0.4 mg p.o. at bedtime F: 0.9% normal saline at 75 mL/h E: Replete as needed N: Heart healthy diet A: As tolerated DVT prophylaxis: SCDs The patient is admitted with an anticipated more than 2 midnight stay for evaluation of suspected GI bleed CODE STATUS: Full code Discussed with: Patient Anticipated discharge place: Home I have seen and evaluated the patient today. I Discussed the case with the resident and agree with the resident's findings I edited the assessment and plan as necessary as documented in the resident's note. Past Medical History Past Medical History: Chest Pain / Angina, Diabetes Mellitus, Hyperlipidemia, Hypertension, Myocardial Infarction ([place]), Prostate Disorder, Respiratory Disorder, Sleep Apnea/CPAP/BIPAP Additional Past Medical History / Comment(s): "IRREG HEARTBEAT", "CHEMICAL STRESS TEST PRIOR TO TURP", "HEARTBURN" OTC MEDS NEEDED. DOES'NT USE A CPAP MACHINE.; heart was "skipping a beat", carotid stenosis, TIA Last Myocardial Infarction Date:: 01/11/24 History of Any Multi-Drug Resistant Organisms: None Reported Past Surgical History: Heart Catheterization With Stent, Hernia Repair, Prostate Surgery, Tonsillectomy Additional Past Surgical History / Comment(s): 11-29-16 TURP,CYSTOCOPY,LITHOTRIPSY FOR BLADDER STONE. FLO INGUINAL HERNIA REPAIR, FLO CATARACTS. Past Anesthesia/Blood Transfusion Reactions: No Reported Reaction Date of Last Stent Placement:: 01/11/24 Past Psychological History: No Psychological Hx Reported Smoking Status: Former smoker - Past Family History Father Family Medical History: Cancer, Dementia, Prostate Disorder Additional Family Medical History / Comment(s): AGE 94 Mother Family Medical History: Dementia Additional Family Medical History / Comment(s): AGE 95 Medications and Allergies Home Medications Medication Instructions Recorded Confirmed Type metFORMIN HCL [Glucophage] 850 mg PO DAILY 11/23/19 06/27/24 History Pregabalin [Lyrica] 25 mg PO W/SUPPER 01/11/24 06/27/24 History Atorvastatin [Lipitor] 80 mg PO DAILY #30 tab 01/12/24 06/27/24 Rx Clopidogrel [Plavix] 75 mg PO W/SUPPER 01/16/24 06/27/24 History Pantoprazole [Protonix] 40 mg PO DAILY #90 tab 01/26/24 06/27/24 Rx Amiodarone [Cordarone] 200 mg PO DAILY 05/15/24 06/27/24 History Midodrine HCl 7.5 mg PO TID 05/15/24 06/27/24 History Tamsulosin [Flomax] 0.4 mg PO HS 05/15/24 06/27/24 History Ferrous Sulfate [Iron (65 MG 325 mg PO BID 60 Days #120 tab 05/18/24 06/27/24 Rx Elemental)] Allergies Allergy/AdvReac Type Severity Reaction Status Date / Time No Known Allergies Allergy Verified 09/14/24 14:26 Physical Exam Vitals: Vital Signs Temp Pulse Resp BP Pulse Ox 09/14/24 21:01 98.9 F 71 18 116/61 09/14/24 19:24 98.9 F 68 16 113/55 09/14/24 19:04 98.7 F 62 16 106/51 09/14/24 18:54 99 F 63 16 109/57 09/14/24 18:48 98.6 F 65 16 115/55 09/14/24 16:09 98.6 F 69 16 128/63 99 09/14/24 14:26 98.1 F 85 18 93/54 100 Intake and Output 09/14/24 09/14/24 09/15/24 14:59 22:59 06:59 Intake Total 292 Balance 292 Intake: Blood Product 292 Rc Pheresis As-3 Unit 292 [id number] Other: Weight 77.111 kg Results CBC & Chem 7: 09/14/24 21:24 09/14/24 15:07 Labs: Abnormal Lab Results - Last 24 Hours (Table) 09/14/24 09/14/24 09/14/24 Range/Units 15:00 15:07 15:07 RBC 2.14 L (4.30-5.90) m/uL Hgb 6.1 L* (13.0-17.5) gm/dL Hct 18.5 L* (39.0-53.0) % RDW 17.5 H (11.5-15.5) % Carbon Dioxide 20 L (22-30) mmol/L BUN 27 H (9-20) mg/dL Glucose 180 H (74-99) mg/dL Total Protein 6.1 L (6.3-8.2) g/dL Albumin 3.4 L (3.5-5.0) g/dL Crossmatch See Detail 09/14/24 09/14/24 Range/Units 17:19 21:24 RBC 2.31 L (4.30-5.90) m/uL Hgb 6.5 L* (13.0-17.5) gm/dL Hct 20.4 L (39.0-53.0) % RDW 17.3 H (11.5-15.5) % Carbon Dioxide (22-30) mmol/L BUN (9-20) mg/dL Glucose (74-99) mg/dL Total Protein (6.3-8.2) g/dL Albumin (3.5-5.0) g/dL Crossmatch See Detail
[2024-09-15] MEDS ORDERED: DEXTROSE 50% SYRINGE 50 ML IVP PRN ×2 (03:58)
[2024-09-15 04:04] LABS: Anisocytosis Slight; Basophils % (A) 0 %; Eosinophils # (A) 0.1 k/uL (0-0.7); Eosinophils % (A) 2 %; HCT 22.5 % (39.0-53.0); HGB 7.7 gm/dL (13.0-17.5); Hypochromasia Slight; Lymphocytes # (A) 1.4 k/uL (1.0-4.8); Lymphocytes % (A) 25 %; MCH 29.6 pg (25.0-35.0); MCHC 34.1 g/dL (31.0-37.0); MCV 86.8 fL (80.0-100.0); Mean Platelet Volume 7.2; Monocytes # (A) 0.3 k/uL (0-1.0); Monocytes % (A) 6 %; Neutrophils # (A) 3.6 k/uL (1.3-7.7); Neutrophils % (A) 65 %; Platelet Count 249 k/uL (150-450); Poikilocytosis Slight; RBC 2.59 m/uL (4.30-5.90); RDW 16.8 % (11.5-15.5); WBC 5.5 k/uL (3.8-10.6)
[2024-09-15 06:20] LABS: Glucose,Whole Blood 162 mg/dL (70-110)
[2024-09-15] MEDS: INSULIN ASPART (NovoLOG) 100 UNIT/ML VIAL SQ SCH (07:00)
[2024-09-15] MEDS: SODIUM CHLORIDE 0.9% 1,000 ML IV SCH (07:01)
[2024-09-15 07:28] LABS: Anisocytosis Slight; Basophils % (A) 0 %; Eosinophils # (A) 0.1 k/uL (0-0.7); Eosinophils % (A) 2 %; HCT 23.4 % (39.0-53.0); HGB 7.6 gm/dL (13.0-17.5); Hypochromasia Slight; Lymphocytes % (A) 21 %; MCH 28.4 pg (25.0-35.0); MCHC 32.6 g/dL (31.0-37.0); MCV 87.3 fL (80.0-100.0); Mean Platelet Volume 7.8; Monocytes # (A) 0.3 k/uL (0-1.0); Monocytes % (A) 7 %; Neutrophils # (A) 3.5 k/uL (1.3-7.7); Neutrophils % (A) 69 %; Platelet Count 265 k/uL (150-450); Poikilocytosis Moderate; RBC 2.68 m/uL (4.30-5.90)
[2024-09-15] MEDS: MIDODRINE 5 MG TAB PO SCH (08:16)
[2024-09-15] MEDS: ATORVASTATIN 80 MG TAB PO SCH (08:17)
[2024-09-15] MEDS: PANTOPRAZOLE 40 MG/10 ML VIAL IVP SCH (08:18)
[2024-09-15] MEDS: FERROUS SULFATE 325 MG TAB PO SCH (08:18)
[2024-09-15] MEDS ORDERED: metFORMIN 850 MG TAB PO SCH (09:00)
[2024-09-15] MEDS: AMIODARONE 200 MG TAB PO SCH (09:01)
[2024-09-15] MEDS: PANTOPRAZOLE 40 MG TABLET PO SCH (09:27)
--- NOTE | 2024-09-15 10:27 | P.GSCN ---
History of Present Illness Consult date: 09/15/24 Reason for Consult: Anemia, GI bleed History of present illness: 89-year-old male comes to the hospital because of a low hemoglobin. Apparently he had blood work performed as an outpatient. Hemoglobin was 6.1. It is now 7.6. He has received 2 units of blood. He has had dark stools but the patient takes oral iron supplement. Patient says he was scheduled to have a colonoscopy however it was held because of a stent placement back in February or so. Was told not to stop his anticoagulation yet. Denies abdominal pain. Was hospitalized may for similar reasons. No endoscopy performed at the time. States his last colonoscopy was 10 years or more ago. Patient has had 50 to 60 pound weight loss but believes it is related to his cardiac issues and hospitalizations. Review of Systems The patient denies any acute changes in vision or hearing, no dysphagia or odynophagia, no chest pain or shortness of breath, no dysuria or hematuria, no headache, no runny nose, no rectal bleeding, no unexplained weight loss Past Medical History Past Medical History: Chest Pain / Angina, Diabetes Mellitus, Hyperlipidemia, Hypertension, Myocardial Infarction ([place]), Prostate Disorder, Respiratory Disorder, Sleep Apnea/CPAP/BIPAP Additional Past Medical History / Comment(s): "IRREG HEARTBEAT", "CHEMICAL STRESS TEST PRIOR TO TURP", "HEARTBURN" OTC MEDS NEEDED. DOES'NT USE A CPAP MACHINE.; heart was "skipping a beat", carotid stenosis, TIA, pericardial effusion possibly r/t heart cath with stent 01/2024 Last Myocardial Infarction Date:: 01/11/24 History of Any Multi-Drug Resistant Organisms: None Reported Past Surgical History: Heart Catheterization With Stent, Hernia Repair, Prostate Surgery, Tonsillectomy Additional Past Surgical History / Comment(s): 11-29-16 TURP,CYSTOCOPY,LITHOTRIPSY FOR BLADDER STONE. FLO INGUINAL HERNIA REPAIR, FLO CATARACTS. Pericardial window with pericardial effusion possibly r/t heart cath with stent 01/2024 Past Anesthesia/Blood Transfusion Reactions: No Reported Reaction Date of Last Stent Placement:: 01/11/24 Past Psychological History: No Psychological Hx Reported Additional Psychological History / Comment(s): PT LIVES WITH HIS IAIN IN A SINGLE LEVEL HOME THAT HAS 4 STEP IN WHICH TO ENTER.NO PETS. PT IS INDEPENDANT. NO OUTSIDE SERVICES OR MEDICAL EQUIPMENT. 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 Smoking Status: Former smoker Past Alcohol Use History: Occasional Past Drug Use History: None Reported - Past Family History Father Family Medical History: Cancer, Dementia, Prostate Disorder Additional Family Medical History / Comment(s): AGE 94 Mother Family Medical History: Dementia Additional Family Medical History / Comment(s): AGE 95 Medications and Allergies Home Medications Medication Instructions Recorded Confirmed Type metFORMIN HCL [Glucophage] 850 mg PO DAILY 11/23/19 06/27/24 History Pregabalin [Lyrica] 25 mg PO W/SUPPER 01/11/24 06/27/24 History Atorvastatin [Lipitor] 80 mg PO DAILY #30 tab 01/12/24 06/27/24 Rx Clopidogrel [Plavix] 75 mg PO W/SUPPER 01/16/24 06/27/24 History Pantoprazole [Protonix] 40 mg PO DAILY #90 tab 01/26/24 06/27/24 Rx Amiodarone [Cordarone] 200 mg PO DAILY 05/15/24 06/27/24 History Midodrine HCl 7.5 mg PO TID 05/15/24 06/27/24 History Tamsulosin [Flomax] 0.4 mg PO HS 05/15/24 06/27/24 History Ferrous Sulfate [Iron (65 MG 325 mg PO BID 60 Days #120 tab 05/18/24 06/27/24 Rx Elemental)] Allergies Allergy/AdvReac Type Severity Reaction Status Date / Time No Known Allergies Allergy Verified 09/14/24 14:26 Surgical - Exam Vital Signs Temp Pulse Resp BP Pulse Ox 98.1 F 85 18 93/54 100 09/14/24 14:26 09/14/24 14:26 09/14/24 14:26 09/14/24 14:26 09/14/24 14:26 Physical exam: General: Well-developed, well-nourished HEENT: Normocephalic, sclerae nonicteric Abdomen: Nontender, nondistended Extremities: No edema Neuro: Alert and oriented Results - Labs 09/15/24 06:54 09/14/24 15:07 Abnormal Lab Results - Last 24 Hours (Table) 09/14/24 09/14/2409/14/25 Range/Units 15:00 15:07 15:07 RBC 2.14 L (4.30-5.90) m/uL Hgb 6.1 L* (13.0-17.5) gm/dL Hct 18.5 L* (39.0-53.0) % RDW 17.5 H (11.5-15.5) % Carbon Dioxide 20 L (22-30) mmol/L BUN 27 H (9-20) mg/dL Glucose 180 H (74-99) mg/dL POC Glucose (mg/dL) (70-110) mg/dL Total Protein 6.1 L (6.3-8.2) g/dL Albumin 3.4 L (3.5-5.0) g/dL Crossmatch See Detail 09/14/24 09/14/24 09/15/24 Range/Units 17:19 21:24 03:55 RBC 2.31 L 2.59 L (4.30-5.90) m/uL Hgb 6.5 L* 7.7 L (13.0-17.5) gm/dL Hct 20.4 L 22.5 L (39.0-53.0) % RDW 17.3 H 16.8 H (11.5-15.5) % Carbon Dioxide (22-30) mmol/L BUN (9-20) mg/dL Glucose (74-99) mg/dL POC Glucose (mg/dL) (70-110) mg/dL Total Protein (6.3-8.2) g/dL Albumin (3.5-5.0) g/dL Crossmatch See Detail 09/15/24 09/15/24 Range/Units 06:14 06:54 RBC 2.68 L (4.30-5.90) m/uL Hgb 7.6 L (13.0-17.5) gm/dL Hct 23.4 L (39.0-53.0) % RDW 17.0 H (11.5-15.5) % Carbon Dioxide (22-30) mmol/L BUN (9-20) mg/dL Glucose (74-99) mg/dL POC Glucose (mg/dL) 162 H (70-110) mg/dL Total Protein (6.3-8.2) g/dL Albumin (3.5-5.0) g/dL Crossmatch Diabetes panel 09/14/24 Range/Units 15:07 Sodium 137 (137-145) mmol/L Potassium 4.8 (3.5-5.1) mmol/L Chloride 107 (98-107) mmol/L Carbon Dioxide 20 L (22-30) mmol/L BUN 27 H (9-20) mg/dL Creatinine 0.88 (0.66-1.25) mg/dL Glucose 180 H (74-99) mg/dL Calcium 9.0 (8.4-10.2) mg/dL AST 22 (17-59) U/L ALT 18 (4-49) U/L Alkaline Phosphatase 70 (38-126) U/L Total Protein 6.1 L (6.3-8.2) g/dL Albumin 3.4 L (3.5-5.0) g/dL Calcium panel 09/14/24 Range/Units 15:07 Calcium 9.0 (8.4-10.2) mg/dL Albumin 3.4 L (3.5-5.0) g/dL Pituitary panel 09/14/24 Range/Units 15:07 Sodium 137 (137-145) mmol/L Potassium 4.8 (3.5-5.1) mmol/L Chloride 107 (98-107) mmol/L Carbon Dioxide 20 L (22-30) mmol/L BUN 27 H (9-20) mg/dL Creatinine 0.88 (0.66-1.25) mg/dL Glucose 180 H (74-99) mg/dL Calcium 9.0 (8.4-10.2) mg/dL Adrenal panel 09/14/24 Range/Units 15:07 Sodium 137 (137-145) mmol/L Potassium 4.8 (3.5-5.1) mmol/L Chloride 107 (98-107) mmol/L Carbon Dioxide 20 L (22-30) mmol/L BUN 27 H (9-20) mg/dL Creatinine 0.88 (0.66-1.25) mg/dL Glucose 180 H (74-99) mg/dL Calcium 9.0 (8.4-10.2) mg/dL Total Bilirubin 0.3 (0.2-1.3) mg/dL AST 22 (17-59) U/L ALT 18 (4-49) U/L Alkaline Phosphatase 70 (38-126) U/L Total Protein 6.1 L (6.3-8.2) g/dL Albumin 3.4 L (3.5-5.0) g/dL Assessment and Plan (1) Anemia Narrative/Plan: 89-year-old male with anemia and possible GI bleed. Would recommend upper and lower endoscopy this hospital stay. Consider cardiology evaluation to discuss holding anticoagulation. Can tentatively schedule for Tuesday for EGD and colonoscopy if cleared by medicine and cardiology. May resume regular diet today. Follow hemoglobin. Continue antiacids. Current Visit: Yes Status: Acute Priority: Medium Code(s): D64.9 - ANEMIA, UNSPECIFIED SNOMED Code(s): 120158352
[2024-09-15 11:28] LABS: Anisocytosis Slight; Basophils % (A) 0 %; Eosinophils # (A) 0.1 k/uL (0-0.7); Eosinophils % (A) 1 %; HCT 23.7 % (39.0-53.0); HGB 7.6 gm/dL (13.0-17.5); Hypochromasia Moderate; Lymphocytes # (A) 1.1 k/uL (1.0-4.8); Lymphocytes % (A) 18 %; MCH 28.6 pg (25.0-35.0); MCV 89.3 fL (80.0-100.0); Mean Platelet Volume 8.6; Monocytes # (A) 0.3 k/uL (0-1.0); Monocytes % (A) 5 %; Neutrophils # (A) 4.4 k/uL (1.3-7.7); Neutrophils % (A) 74 %; Platelet Count 240 k/uL (150-450); Poikilocytosis Slight; RBC 2.65 m/uL (4.30-5.90); WBC 5.9 k/uL (3.8-10.6)
[2024-09-15 11:52] LABS: Glucose,Whole Blood 259 mg/dL (70-110)
[2024-09-15] MEDS ORDERED: ZINC OXIDE PASTE (Z-GUARD) 1 APPLIC TOPICAL PRN (11:52)
--- NOTE | 2024-09-15 14:57 | P.PN ---
Progress Note - Text Progress Note Date: 09/15/24 Hospitalist Interval Note Patient seen and examined at bedside. He reports dark bowel movements but no bright red blood. Denies any crampy abdominal pain. Received 2 units of blood in the ER. Vital signs reviewed General: Non toxic, no distress, appears at stated age Abdominal: Soft, nontender to palpation, no guarding, no appreciable organomegaly Ext: No gross muscle atrophy, no edema, no contractures Neuro: CN II-XI grossly intact, no focal neuro deficits Psych: Alert, oriented, appropriate affect Assessment/Plan: Symptomatic anemia, suspected GI bleed status post 2 units PRBCs. Hold Eliquis. Per nursing plans are for colonoscopy on Tuesday. Will consult cardiology given LUZMARIA in less than 1 year. Continue with iron supplement. Remainder of plan per H&P. Start Protonix IV BID, Repeat H and H in AM This is an update note for patient , for full note 09/15/24 see. H and P There is no charge associated with this note.
[2024-09-15 17:09] LABS: Glucose,Whole Blood 177 mg/dL (70-110)
[2024-09-15] MEDS ORDERED: CLOPIDOGREL 75 MG TAB PO SCH (17:30)
[2024-09-15] MEDS: PREGABALIN 25 MG CAP PO SCH (17:47)
[2024-09-15] MEDS: TAMSULOSIN 0.4 MG CAP.ER.24H PO SCH (20:29)
[2024-09-15 20:36] LABS: Glucose,Whole Blood 221 mg/dL (70-110)
[2024-09-16 05:08] LABS: Anisocytosis Slight; HCT 23.6 % (39.0-53.0); HGB 7.7 gm/dL (13.0-17.5); Hypochromasia Moderate; MCH 28.6 pg (25.0-35.0); MCHC 32.4 g/dL (31.0-37.0); MCV 88.4 fL (80.0-100.0); Mean Platelet Volume 8.5; Platelet Count 250 k/uL (150-450); Poikilocytosis Slight; RBC 2.67 m/uL (4.30-5.90); RDW 17.1 % (11.5-15.5); WBC 6.1 k/uL (3.8-10.6)
[2024-09-16 05:35] LABS: Glucose,Whole Blood 156 mg/dL (70-110)
[2024-09-16] MEDS: ASPIRIN 81 MG PO SCH (08:21)
--- NOTE | 2024-09-16 10:19 | P.PN ---
Subjective Progress Note Date: 09/16/24 Principal diagnosis: Anemia Patient feels well today. Hemoglobin stable at 7.7. No active bleeding. No abdominal pain. Cardiology agrees with holding anticoagulation for endoscopy. Objective - Vital Signs Vital signs: Vital Signs Temp 98.2 F 09/16/24 07:00 Pulse 57 L 09/16/24 07:00 Resp 17 09/16/24 07:00 BP 105/56 09/16/24 07:00 Pulse Ox 99 09/16/24 07:00 FiO2 Intake & Output 09/15/24 09/16/24 09/16/24 18:59 06:59 18:59 Weight 77.111 kg Other: Voiding Method Toilet Toilet Toilet # Voids 1 2 # Bowel Movements 1 - Exam Abdomen: Soft, nontender, nondistended - Labs CBC & Chem 7: 09/16/24 04:53 09/14/24 15:07 Labs: Abnormal Lab Results - Last 24 Hours (Table) 09/15/24 09/15/24 09/15/24 Range/Units 11:13 11:13 11:51 RBC 2.65 L (4.30-5.90) m/uL Hgb 7.6 L (13.0-17.5) gm/dL Hct 23.7 L (39.0-53.0) % RDW 17.0 H (11.5-15.5) % POC Glucose (mg/dL) 259 H (70-110) mg/dL Hemoglobin A1c 6.2 H (<=6.0) % 09/15/24 09/15/24 09/16/24 Range/Units 17:08 20:24 04:53 RBC 2.67 L (4.30-5.90) m/uL Hgb 7.7 L (13.0-17.5) gm/dL Hct 23.6 L (39.0-53.0) % RDW 17.1 H (11.5-15.5) % POC Glucose (mg/dL) 177 H 221 H (70-110) mg/dL Hemoglobin A1c (<=6.0) % 09/16/24 Range/Units 05:34 RBC (4.30-5.90) m/uL Hgb (13.0-17.5) gm/dL Hct (39.0-53.0) % RDW (11.5-15.5) % POC Glucose (mg/dL) 156 H (70-110) mg/dL Hemoglobin A1c (<=6.0) % Assessment and Plan (1) Anemia Narrative/Plan: Patient doing well today. Will proceed with upper and lower endoscopy tomorrow. Begin bowel prep today. Current Visit: Yes Status: Acute Priority: Medium Code(s): D64.9 - ANEMIA, UNSPECIFIED SNOMED Code(s): 382961818
[2024-09-16] MEDS: PEG 3350 (236 GM/BTL) + LYTES 4,000 ML BOTTLE PO ONE (11:15)
--- NOTE | 2024-09-16 11:33 | P.CRDCN ---
History of Present Illness Consult date: 09/16/24 Reason for Consult (text): Clearance for colonoscopy, patient on Plavix and Xarelto. History of present illness: This is an 89-year-old male patient of Dr. RONAK Penn with past medical history of paroxysmal atrial fibrillation, GI bleed requiring blood transfusions, CAD status post PCI in the setting of NSTEMI on 01/2024, ischemic cardiomyopathy with EF of 35%, moderate aortic stenosis, hypertension, hyperlipidemia, chronic iron deficiency followed by Dr. Durham. We have been asked to evaluate the patient for clearance for colonoscopy and patient is on Plavix and Xarelto. Yesterday, we did look at patient's medications and Xarelto was already placed on hold, we subsequently placed Plavix on hold and started him on baby aspirin. Patient was last seen in the office on 08/14/2024 and Watchman procedure has been discussed with the patient but he is hesitant due to his age. In January of last year following PCI, patient did develop moderate to large pericardial effusion with mild collapse of the LAD. He also had hospitalizations in May for anemia and outpatient GI workup was planned by general surgery. Patient now presents to the hospital due to low hemoglobin of 6.1. He has received transfusion of 2 units of packed RBCs with a hemoglobin today of 7.7. Patient states that he feels fine while he is laying in bed. He is eating and drinking okay. Patient has been seen by general surgery and is scheduled for EGD tomorrow. Blood pressure 105/56, heart rate 57, pulse ox 99% on room air. -EKG: Sinus rhythm with right bundle branch block -Laboratory studies: Hemoglobin 7.7, BUN 27 creatinine 0.88. Hemoglobin A1c 6.2. -Home cardiac medications: Amiodarone 200 mg daily, atorvastatin 80 mg daily, Plavix 75 mg with supper, Xarelto 10 mg daily, also on ferrous sulfate and midodrine. -Most recent echocardiogram obtained in January 2024 revealed ejection fraction 40 to 45%, mild pulmonary hypertension, moderate to severe aortic stenosis, mild tricuspid regurgitation -Cardiac catheterization history: January 2024 revealing 30% LAD, 99% circumflex, 50% PDA, RCA 30%. Patient underwent stenting of the circumflex. Review Of Systems: At the time of my exam: CONSTITUTIONAL: Denies fever or chills. Reports generalized weakness HEENT: Denies blurred vision, vision changes, or eye pain. Denies hemoptysis CARDIOVASCULAR: Denies chest pain. Denies orthopnea. Denies PND. Denies palpitations RESPIRATORY: Denies shortness of breath. GASTROINTESTINAL: Denies abdominal pain. Denies nausea or vomiting. HEMATOLOGIC: Denies bleeding disorders. GENITOURINARY: Denies any blood in urine. SKIN: Denies puritis. Denies rash. Physical examination: Gen: This is an 89-year-old male in no acute distress VS: reviewed HEENT: Head is atraumatic, normocephalic. Pupils equal, round. Sclerae is anicteric. NECK: Supple. No JVD. LUNGS: Clear to auscultation. No wheezes or rhonchi. No intercostal retractions. HEART: Regular rate and rhythm. Systolic murmur. ABDOMEN: Soft No tenderness. EXTREMITIES: No pedal edema. No calf tenderness. NEUROLOGICAL: Patient is awake, alert and oriented x3. Assessment: Acute on chronic GI bleed Acute on chronic blood loss anemia Paroxysmal atrial fibrillation currently in sinus rhythm CAD status post PCI 01/2024 Ischemic cardiomyopathy with EF of 35% Moderate aortic stenosis Hypertension Hyperlipidemia Plan: Resume patient's home cardiac medications Continue to hold Eliquis and Plavix Continue aspirin No need to repeat echocardiogram Patient is cleared by cardiology for colonoscopy scheduled for tomorrow. Further recommendations to follow based upon clinical course Thank you kindly for this consultation. Nurse practitioner note has been reviewed, I agree with documented findings and plan of care. Patient was seen and examined. Past Medical History Past Medical History: Chest Pain / Angina, Diabetes Mellitus, Hyperlipidemia, Hypertension, Myocardial Infarction ([place]), Prostate Disorder, Respiratory Disorder, Sleep Apnea/CPAP/BIPAP Additional Past Medical History / Comment(s): "IRREG HEARTBEAT", "CHEMICAL STRESS TEST PRIOR TO TURP", "HEARTBURN" OTC MEDS NEEDED. DOES'NT USE A CPAP MACHINE.; heart was "skipping a beat", carotid stenosis, TIA, pericardial effusion possibly r/t heart cath with stent 01/2024 Last Myocardial Infarction Date:: 01/11/24 History of Any Multi-Drug Resistant Organisms: None Reported Past Surgical History: Heart Catheterization With Stent, Hernia Repair, Prostate Surgery, Tonsillectomy Additional Past Surgical History / Comment(s): 3-27-17 TURP,CYSTOCOPY,LITHOTRIPSY FOR BLADDER STONE. FLO INGUINAL HERNIA REPAIR, FLO CATARACTS. Pericardial window with pericardial effusion possibly r/t heart cath with stent 01/2024 Past Anesthesia/Blood Transfusion Reactions: No Reported Reaction Date of Last Stent Placement:: 01/11/24 Past Psychological History: No Psychological Hx Reported Additional Psychological History / Comment(s): PT LIVES WITH HIS IAIN IN A SINGLE LEVEL HOME THAT HAS 4 STEP IN WHICH TO ENTER.NO PETS. PT IS INDEPENDANT. NO OUTSIDE SERVICES OR MEDICAL EQUIPMENT. 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 Smoking Status: Former smoker Past Alcohol Use History: Occasional Past Drug Use History: None Reported - Past Family History Father Family Medical History: Cancer, Dementia, Prostate Disorder Additional Family Medical History / Comment(s): AGE 94 Mother Family Medical History: Dementia Additional Family Medical History / Comment(s): AGE 95 Medications and Allergies Home Medications Medication Instructions Recorded Confirmed Type metFORMIN HCL [Glucophage] 850 mg PO DAILY 11/23/19 09/15/24 History Pregabalin [Lyrica] 25 mg PO HS 01/11/24 09/15/24 History Atorvastatin [Lipitor] 80 mg PO DAILY #30 tab 01/12/24 09/15/24 Rx Clopidogrel [Plavix] 75 mg PO W/SUPPER 01/16/24 09/15/24 History Pantoprazole [Protonix] 40 mg PO DAILY #90 tab 01/26/24 09/15/24 Rx Amiodarone [Cordarone] 200 mg PO DAILY 05/15/24 09/15/24 History Midodrine HCl 7.5 mg PO TID 05/15/24 09/15/24 History Tamsulosin [Flomax] 0.4 mg PO BID 05/15/24 09/15/24 History Ferrous Sulfate [Iron (65 MG 325 mg PO BID 60 Days #120 tab 05/18/24 09/15/24 Rx Elemental)] Rivaroxaban [Xarelto] 10 mg PO DAILY 09/15/24 09/15/24 History Allergies Allergy/AdvReac Type Severity Reaction Status Date / Time No Known Allergies Allergy Verified 09/14/24 14:26 Physical Exam Vitals: Vital Signs Temp Pulse Resp BP Pulse Ox 09/16/24 07:00 98.2 F 57 L 17 105/56 99 09/16/24 01:32 98.1 F 73 16 105/56 98 09/15/24 20:58 98.5 F 58 L 18 110/61 99 09/15/24 17:30 98.3 F 61 17 114/58 98 09/15/24 14:33 98.6 F 56 L 17 107/56 100 09/15/24 12:21 51 L 106/57 Intake and Output 09/15/24 09/16/24 09/16/24 22:59 06:59 14:59 Other: Voiding Method Toilet Toilet # Voids 2 2 # Bowel Movements 1 1 Results 09/16/24 04:53 09/14/24 15:07 CBC 09/15/24 09/16/24 Range/Units 11:13 04:53 WBC 5.9 6.1 (3.8-10.6) k/uL RBC 2.65 L 2.67 L (4.30-5.90) m/uL Hgb 7.6 L 7.7 L (13.0-17.5) gm/dL Hct 23.7 L 23.6 L (39.0-53.0) % Plt Count 240 250 (150-450) k/uL Current Medications Generic Name Dose Route Start Last Admin Trade Name Freq PRN Reason Stop Dose Admin Amiodarone HCl 200 mg 09/15/24 09:00 09/15/24 09:01 Amiodarone 200 Mg Tab PO 200 mg DAILY CAROL ANN Administration Aspirin 81 mg 09/16/24 09:00 Aspirin 81 Mg PO DAILY CAROL ANN Atorvastatin Calcium 80 mg 09/15/24 09:00 09/15/24 08:17 Atorvastatin 80 Mg Tab PO 80 mg DAILY CAROL ANN Administration Dextrose/Water 25 ml 09/15/24 03:58 Dextrose 50% Syringe 50 Ml IVP PER PROTOCOL PRN Hypoglycemia Protocol Dextrose/Water 50 ml 09/15/24 03:58 Dextrose 50% Syringe 50 Ml IVP PER PROTOCOL PRN Hypoglycemia Protocol Ferrous Sulfate 325 mg 09/15/24 09:00 09/15/24 20:29 Ferrous Sulfate 325 Mg Tab PO 325 mg BID CAROL ANN Administration Sodium Chloride 1,000 mls @ 75 mls/hr 09/15/24 04:00 09/16/24 05:44 Saline 0.9% IV 75 mls/hr .[id number] CAROL ANN Administration Insulin Aspart 0 unit 09/15/24 07:30 09/16/24 05:58 Insulin Aspart (Novolog) 100 Unit/Ml Vial SQ 3 unit ACHS CAROL ANN Administration Protocol Midodrine 7.5 mg 09/15/24 07:30 09/16/24 05:59 Midodrine 5 Mg Tab PO 7.5 mg AC-TID CAROL ANN Administration Naloxone HCl 0.2 mg 09/14/24 23:32 Naloxone 0.4 Mg/Ml 1 Ml Vial IV Q2M PRN Opioid Reversal Pantoprazole Sodium 40 mg 09/15/24 09:00 09/15/24 20:29 Pantoprazole 40 Mg/10 Ml Vial IVP 40 mg BID CAROL ANN Administration Petrolatum 1 applic 09/15/24 11:52 Zinc Oxide Paste (Z-Guard) 1 Applic TOPICAL Q2HR PRN Wound Healing Protocol Pregabalin 25 mg 09/15/24 17:30 09/15/24 17:47 Pregabalin 25 Mg Cap PO 25 mg W/SUPPER CAROL ANN Administration Tamsulosin HCl 0.4 mg 09/15/24 21:00 09/15/24 20:29 Tamsulosin 0.4 Mg Cap.Er.24h PO 0.4 mg HS CAROL ANN Administration Intake and Output 09/15/24 09/16/24 09/16/24 22:59 06:59 14:59 Other: Voiding Method Toilet Toilet # Voids 2 2 # Bowel Movements 1 1 09/16/24 04:53 09/14/24 15:07
[2024-09-16 12:04] LABS: Glucose,Whole Blood 180 mg/dL (70-110)
--- NOTE | 2024-09-16 12:33 | P.PN ---
Subjective Progress Note Date: 09/16/24 No new complaints. Still reports melenic stools. No lightheadedness, dizziness, chest pain, palps, presyncope. Able to ambulate himself to bathroom and back with no assistance. Gen: In NAD, non-toxic HEENT: normocephalic, atraumatic, hearing acuity is intant, mucous membranes moist CVS: perfusing all extremities well, no pitting edema, Respiratory: symmetric chest expansion, no accessory muscle use, GI: soft, NTTP, ND, : no suprapubic tenderness, no CVA tenderness MSK/Derm: no rashes, cyanosis Neuro: CN II-XII intact, no motor weakness, Psych: cooperative, euthymic mood, judgment and insight is intact Hospital course: Patient is a 89-year-old male with a PMH of CAD, systolic CHF with EF 30 to 35%(Echo January 2024), A-fib on Eliquis, type II DM, hypertension, hyperlipidemia who presented to the ED after instruction by his primary care doctor who told him he had a low hemoglobin. In the ED patient received 2 units of blood. Vitals on admission temperature 98.1, heart rate 85, respiratory rate 18, blood pressure 93/54, O2 saturation 100% on room air EKG independently interpreted as sinus rhythm with ventricular rate 71 and QTc of 489 ms Labs on admission show WBC 5.3, hemoglobin 6.1, platelets 289. PT 11.5, INR 1, PTT 23.1. Sodium 137, potassium 4.8, chloride 107, bicarb 20, BUN 27, creatinine 0.88, glucose 180. Assessment/Plan: Patient is a 89-year-old male with a PMH of CAD, systolic CHF with EF 30 to 35%, A-fib on Eliquis, type II DM, hypertension, hyperlipidemia who presented to the ED after instruction by his primary care doctor who told him he had a low hemoglobin. Patient was transfused 2 units of blood in the ER. He will be admitted under medicine service for further evaluation Active: Suspected GI bleed Hemoglobin on admission 6.1 then 6.5 Patient was transfused 2 units of blood in the ER, now hgb 7.7 Will hold Eliquis, plavix Consult general surgery check CBC q 6hr -PPI IV BID -maintain large bore IV access, active type/screen -EGD/[place] tomorrow AM. Chronic: Iron deficiency anemia Continue Feosol 325 mg PO to twice daily Diabetes mellitus with neuropathy Hold metformin Glucose checks per [facility] Insulin sliding scale Continue Lyrica 25 mg Hypoglycemia precautions A-fib Continue amiodarone 200 mg daily Hold Eliquis Continue Plavix 75 mg daily Hyperlipidemia History of CAD, [place] with stent placement(January 2024) Per cardiology consult, continue aspirin 81mg, hold plavix Continue atorvastatin 80 mg p.o. at bedtime BPH Continue Flomax 0.4 mg p.o. at bedtime F: 0.9% normal saline at 75 mL/h E: Replete as needed N: Heart healthy diet A: As tolerated DVT prophylaxis: SCDs The patient is admitted with an anticipated more than 2 midnight stay for evaluation of suspected GI bleed CODE STATUS: Full code Discussed with: Patient Anticipated discharge place: Home Objective - Vital Signs Vital signs: Vital Signs Temp 97.8 F 09/16/24 12:10 Pulse 62 09/16/24 12:10 Resp 17 09/16/24 12:10 BP 135/72 09/16/24 12:10 Pulse Ox 100 09/16/24 12:10 FiO2 Intake & Output 09/15/24 09/16/24 09/16/24 18:59 06:59 18:59 Weight 77.111 kg Other: Voiding Method Toilet Toilet Toilet # Voids 1 2 # Bowel Movements 1 - Labs CBC & Chem 7: 09/16/24 04:53 09/14/24 15:07 Labs: Abnormal Lab Results - Last 24 Hours (Table) 09/15/24 09/15/24 09/15/24 Range/Units 11:13 17:08 20:24 RBC (4.30-5.90) m/uL Hgb (13.0-17.5) gm/dL Hct (39.0-53.0) % RDW (11.5-15.5) % POC Glucose (mg/dL) 177 H 221 H (70-110) mg/dL Hemoglobin A1c 6.2 H (<=6.0) % 09/16/24 09/16/24 09/16/24 Range/Units 04:53 05:34 12:02 RBC 2.67 L (4.30-5.90) m/uL Hgb 7.7 L (13.0-17.5) gm/dL Hct 23.6 L (39.0-53.0) % RDW 17.1 H (11.5-15.5) % POC Glucose (mg/dL) 156 H 180 H (70-110) mg/dL Hemoglobin A1c (<=6.0) %
[2024-09-16] MEDS ORDERED: NA PHOS,M-B/NA PHOS,DI-BA 133 ML ENEMA RECTAL PRN (16:25)
[2024-09-16] MEDS: bisacodyL 10 MG SUPP RECTAL STA (16:59)
[2024-09-16 17:00] LABS: Glucose,Whole Blood 180 mg/dL (70-110)
[2024-09-16 20:47] LABS: Glucose,Whole Blood 155 mg/dL (70-110)
[2024-09-17 06:03] LABS: Glucose,Whole Blood 149 mg/dL (70-110)
[2024-09-17 09:04] LABS: BUN/Creat Ratio 11.89 Ratio (12.00-20.00); Blood Urea Nitrogen 10.7 mg/dL (9.0-27.0); Calcium 8.1 mg/dL (8.7-10.3); Carbon Dioxide 23.1 mmol/L (21.6-31.8); Chloride 110 mmol/L (96-109); Glucose 138 mg/dL (70-110); Magnesium 1.8 mg/dL (1.5-2.4); Potassium 3.9 mmol/L (3.5-5.5); Sodium 143 mmol/L (135-145)
[2024-09-17 09:37] LABS: Basophils # (A) 0.04 X 10*3/uL (0.00-0.10); Basophils % (A) 0.9 %; Eosinophils # (A) 0.17 X 10*3/uL (0.04-0.35); Eosinophils % (A) 3.8 %; HCT 22.3 % (39.6-50.0); Lymphocytes # (A) 0.99 X 10*3/uL (0.90-5.00); Lymphocytes % (A) 22.4 %; MCH 27.7 pg (27.0-32.0); MCHC 31.4 g/dL (32.0-37.0); MCV 88.1 FL (80.0-97.0); Mean Platelet Volume 9.7 FL (9.5-12.2); Monocytes # (A) 0.49 X 10*3/uL (0.20-1.00); Monocytes % (A) 11.1 %; NRBC Per 100 WBC 0 X 10*3/uL (0.00-0.01); Neutrophils # (A) 2.72 X 10*3/uL (1.80-7.70); Neutrophils % (A) 61.6 %; Platelet Count 249 X 10*3/uL (140-440); RBC 2.53 X 10*6/uL (4.40-5.60); WBC 4.42 X 10*3/uL (4.50-10.00)
[2024-09-17] MEDS: IV FLUID CONTINUATION 1,000 ML IV ONE (10:08)
[2024-09-17] MEDS ORDERED: PROPOFOL 10 MG/ML 20 ML VIAL IV ONE (10:17)
[2024-09-17] MEDS ORDERED: LIDOCAINE 1% INJ 10MG/ML (20 ML MDV) ONE (10:17)
--- NOTE | 2024-09-17 11:06 | P.PCN ---
Date of Procedure: 09/17/24 Procedure(s) Performed: PREOPERATIVE DIAGNOSIS: Anemia, GI bleed POSTOPERATIVE DIAGNOSIS: Mild gastritis, small hiatal hernia, mild distal esophagitis, normal colon poor prep PROCEDURE: 1. EGD with biopsy 2. Colonoscopy ANESTHESIA: MAC SURGEON: Walter Fowler M.D. SPECIMENS: Antrum, GE junction ENDOSCOPIC PROCEDURE: The patient was on the endoscopy table in the left decubitus position. The Olympus gastroscope was inserted into the oropharynx and passed under direct visualization to the region of the third portion of the duodenum. From that point the scope was slowly withdrawn inspecting all surfaces carefully. There were no neoplastic inflammatory or polypoid lesions throughout the duodenum. The pylorus was widely patent. The stomach was carefully inspected. There was mild gastritis present. Retroflexion revealed a small 1 cm hiatal hernia. At the GE junction there was mild noncircumferential inflammatory changes. Biopsies were taken. The remainder the esophagus appeared normal. This did not appear to be significant enough to explain anemia. The patient was kept on the endoscopy table in the left decubitus position. The Olympus colonoscope was inserted into the anus and passed under direct visualization to the base of the cecum. The appendiceal orifice was visualized. From that point the scope was slowly withdrawn inspecting all surfaces carefully. There were no neoplastic inflammatory or polypoid lesions throughout the cecum, ascending, transverse, descending, sigmoid and rectum. There was no diverticulosis noted. The patient's prep was somewhat poor throughout. There were areas where I could not evacuate all of the liquid stool present. No larger polyps or gross malignancies were visualized. Digital rectal examination was normal. The patient was taken to the recovery room in stable condition per anesthesia guidelines. RECOMMENDATIONS: No obvious source of anemia seen at this time. The patient's colon prep was poor however with irrigation I was able to visualize the majority of the mucosal surfaces sufficiently. I did discuss with the family after the procedure the results and we discussed the pros and cons of doing additional bowel prep and repeating his colonoscopy. Given the views I had on today's test I do not think it is worth putting him through more bowel prep and a second anesthesia at this time. If patient starts having bloody or maroon-colored stools would reconsider at that time. Recommend hematology evaluation. Co ntinue to follow hemoglobin. Discontinue anticoagulation unless still required per cariology.
--- NOTE | 2024-09-17 11:20 | P.PN ---
Subjective HISTORY OF PRESENT ILLNESS: This is an 89-year-old male patient of Dr. RONAK Penn with past medical history of paroxysmal atrial fibrillation, GI bleed requiring blood transfusions, CAD status post PCI in the setting of NSTEMI on 01/2024, ischemic cardiomyopathy with EF of 35%, moderate aortic stenosis, hypertension, hyperlipidemia, chronic iron deficiency followed by Dr. Durham. We have been asked to evaluate the patient for clearance for colonoscopy and patient is on Plavix and Xarelto. Yesterday, we did look at patient's medications and Xarelto was already placed on hold, we subsequently placed Plavix on hold and started him on baby aspirin. Patient was last seen in the office on 08/14/2024 and Watchman procedure has been discussed with the patient but he is hesitant due to his age. In January of last year following PCI, patient did develop moderate to large pericardial effusion with mild collapse of the LAD. He also had hospitalizations in May for anemia and outpatient GI workup was planned by general surgery. Patient now presents to the hospital due to low hemoglobin of 6.1. He has received transfusion of 2 units of packed RBCs with a hemoglobin today of 7.7. Patient states that he feels fine while he is laying in bed. He is eating and drinking okay. Patient has been seen by general surgery and is scheduled for EGD tomorrow. Blood pressure 105/56, heart rate 57, pulse ox 99% on room air. -EKG: Sinus rhythm with right bundle branch block -Laboratory studies: Hemoglobin 7.7, BUN 27 creatinine 0.88. Hemoglobin A1c 6.2. -Home cardiac medications: Amiodarone 200 mg daily, atorvastatin 80 mg daily, Plavix 75 mg with supper, Xarelto 10 mg daily, also on ferrous sulfate and midodrine. -Most recent echocardiogram obtained in January 2024 revealed ejection fraction 40 to 45%, mild pulmonary hypertension, moderate to severe aortic stenosis, mild tricuspid regurgitation -Cardiac catheterization history: January 2024 revealing 30% LAD, 99% circumflex, 50% PDA, RCA 30%. Patient underwent stenting of the circumflex. 09/17/2024 Patient examined this morning at the bedside. Patient currently denies any chest pain or pressure. He denies any shortness of breath. Hemoglobin today 7.0. He remains n.p.o. and is scheduled for endoscopy today with general surgery. PHYSICAL EXAM: VITAL SIGNS: Reviewed. GENERAL: Well-developed in no acute distress. NECK: Supple. No JVD or thyromegaly LUNGS: Respirations even and unlabored. Lungs essentially clear to auscultation bilaterally. HEART: Regular rate and rhythm. S1 and S2 heard. Systolic murmur noted EXTREMITIES: Normal range of motion. No clubbing or cyanosis. Peripheral pulses intact. No lower extremity edema ASSESSMENT: Acute on chronic GI bleed Acute on chronic blood loss anemia Paroxysmal atrial fibrillation currently in sinus rhythm CAD status post PCI of the circumflex, 01/2024 Ischemic cardiomyopathy with EF of 35% Moderate to severe aortic stenosis Hypertension Hyperlipidemia PLAN: Eliquis and Plavix have been placed on hold. Continue to monitor hemoglobin Patient scheduled for endoscopy today with general surgery Continue additional cardiac medications Further recommendations pending patient course Patient to follow-up postdischarge with Dr. Penn Nurse practitioner note has been reviewed by physician. Signing provider agrees with the documented findings, assessment, and plan of care documented by MARGIN TRIMMER as a scribe. Objective - Vital Signs Vital signs: Vital Signs Temp 98.0 F 09/17/24 07:00 Pulse 59 L 09/17/24 07:00 Resp 16 09/17/24 07:00 BP 114/61 09/17/24 07:00 Pulse Ox 97 09/17/24 07:00 FiO2 Intake & Output 09/16/24 09/17/24 09/17/24 18:59 06:59 18:59 Intake Total 360 200 Balance 360 200 Intake: IV 200 Oral 360 Other: Voiding Method Toilet Toilet Toilet # Voids 5 3 # Bowel Movements 1 2 - Labs CBC & Chem 7: 09/17/24 05:18 09/17/24 05:18 Labs: Abnormal Lab Results - Last 24 Hours (Table) 09/16/24 09/16/24 09/16/24 Range/Units 12:02 16:58 20:45 WBC (4.50-10.00) X 10*3/uL RBC (4.40-5.60) X 10*6/uL Hgb (13.0-17.0) g/dL Hct (39.6-50.0) % MCHC (32.0-37.0) g/dL RDW (11.5-14.5) % Chloride (96-109) mmol/L BUN/Creatinine Ratio (12.00-20.00) Ratio Glucose (70-110) mg/dL POC Glucose (mg/dL) 180 H 180 H 155 H (70-110) mg/dL Calcium (8.7-10.3) mg/dL 09/17/24 09/17/24 09/17/24 Range/Units 05:18 05:18 06:01 WBC 4.42 L (4.50-10.00) X 10*3/uL RBC 2.53 L (4.40-5.60) X 10*6/uL Hgb 7.0 L (13.0-17.0) g/dL Hct 22.3 L (39.6-50.0) % MCHC 31.4 L (32.0-37.0) g/dL RDW 17.0 H (11.5-14.5) % Chloride 110 H (96-109) mmol/L BUN/Creatinine Ratio 11.89 L (12.00-20.00) Ratio Glucose 138 H (70-110) mg/dL POC Glucose (mg/dL) 149 H (70-110) mg/dL Calcium 8.1 L (8.7-10.3) mg/dL
[2024-09-17 11:56] LABS: Glucose,Whole Blood 177 mg/dL (70-110)
--- NOTE | 2024-09-17 14:34 | P.PN ---
Subjective Progress Note Date: 09/17/24 No new complaints. EGD showed some gastritis and biopsy taken, Colonoscopy was negative for source of bleeding. Gen: In NAD, non-toxic HEENT: normocephalic, atraumatic, hearing acuity is intant, mucous membranes moist CVS: perfusing all extremities well, no pitting edema, Respiratory: symmetric chest expansion, no accessory muscle use, GI: soft, NTTP, ND, : no suprapubic tenderness, no CVA tenderness MSK/Derm: no rashes, cyanosis Neuro: CN II-XII intact, no motor weakness, Psych: cooperative, euthymic mood, judgment and insight is intact Hospital course: Patient is a 89-year-old male with a PMH of CAD, systolic CHF with EF 30 to 35%(Echo January 2024), A-fib on Eliquis, type II DM, hypertension, hyperlipidemia who presented to the ED after instruction by his primary care doctor who told him he had a low hemoglobin. In the ED patient received 2 units of blood. Vitals on admission temperature 98.1, heart rate 85, respiratory rate 18, blood pressure 93/54, O2 saturation 100% on room air EKG independently interpreted as sinus rhythm with ventricular rate 71 and QTc of 489 ms Labs on admission show WBC 5.3, hemoglobin 6.1, platelets 289. PT 11.5, INR 1, PTT 23.1. Sodium 137, potassium 4.8, chloride 107, bicarb 20, BUN 27, creatinine 0.88, glucose 180. Assessment/Plan: Patient is a 89-year-old male with a PMH of CAD, systolic CHF with EF 30 to 35%, A-fib on Eliquis, type II DM, hypertension, hyperlipidemia who presented to the ED after instruction by his primary care doctor who told him he had a low hemoglobin. Patient was transfused 2 units of blood in the ER. He will be admitted under medicine service for further evaluation Active: Suspected GI bleed Hemoglobin on admission 6.1 then 6.5 Patient was transfused 2 units of blood in the ER, now hgb 7.7 Will hold Eliquis, plavix Consult general surgery check CBC q 6hr -PPI IV BID -maintain large bore IV access, active type/screen -EGD/[place] tomorrow as above Chronic: Iron deficiency anemia Continue Feosol 325 mg PO to twice daily Diabetes mellitus with neuropathy Hold metformin Glucose checks per [facility] Insulin sliding scale Continue Lyrica 25 mg Hypoglycemia precautions A-fib Continue amiodarone 200 mg daily Hold Eliquis Continue Plavix 75 mg daily Hyperlipidemia History of CAD, [place] with stent placement(January 2024) Per cardiology consult, continue aspirin 81mg, hold plavix Continue atorvastatin 80 mg p.o. at bedtime BPH Continue Flomax 0.4 mg p.o. at bedtime F: 0.9% normal saline at 75 mL/h E: Replete as needed N: Heart healthy diet A: As tolerated DVT prophylaxis: SCDs The patient is admitted with an anticipated more than 2 midnight stay for ev aluation of suspected GI bleed CODE STATUS: Full code Discussed with: Patient Anticipated discharge place: Home Objective - Vital Signs Vital signs: Vital Signs Temp 97.5 F L 09/17/24 11:08 Pulse 68 09/17/24 13:08 Resp 16 09/17/24 07:00 BP 122/66 09/17/24 13:08 Pulse Ox 95 09/17/24 13:08 FiO2 Intake & Output 09/16/24 09/17/24 09/17/24 18:59 06:59 18:59 Intake Total 360 436 Balance 360 436 Intake: IV 200 Oral 360 236 Other: Voiding Method Toilet Toilet Toilet # Voids 5 3 1 # Bowel Movements 1 2 - Labs CBC & Chem 7: 09/17/24 05:18 09/17/24 05:18 Labs: Abnormal Lab Results - Last 24 Hours (Table) 09/16/24 09/16/24 09/17/24 Range/Units 16:58 20:45 05:18 WBC 4.42 L (4.50-10.00) X 10*3/uL RBC 2.53 L (4.40-5.60) X 10*6/uL Hgb 7.0 L (13.0-17.0) g/dL Hct 22.3 L (39.6-50.0) % MCHC 31.4 L (32.0-37.0) g/dL RDW 17.0 H (11.5-14.5) % Chloride (96-109) mmol/L BUN/Creatinine Ratio (12.00-20.00) Ratio Glucose (70-110) mg/dL POC Glucose (mg/dL) 180 H 155 H (70-110) mg/dL Calcium (8.7-10.3) mg/dL 09/17/24 09/17/24 09/17/24 Range/Units 05:18 06:01 11:55 WBC (4.50-10.00) X 10*3/uL RBC (4.40-5.60) X 10*6/uL Hgb (13.0-17.0) g/dL Hct (39.6-50.0) % MCHC (32.0-37.0) g/dL RDW (11.5-14.5) % Chloride 110 H (96-109) mmol/L BUN/Creatinine Ratio 11.89 L (12.00-20.00) Ratio Glucose 138 H (70-110) mg/dL POC Glucose (mg/dL) 149 H 177 H (70-110) mg/dL Calcium 8.1 L (8.7-10.3) mg/dL
[2024-09-17 15:26] LABS: Anisocytosis Slight; Basophils % (A) 0 %; Eosinophils # (A) 0.1 k/uL (0-0.7); Eosinophils % (A) 3 %; HCT 23.3 % (39.0-53.0); HGB 7.4 gm/dL (13.0-17.5); Hypochromasia Marked; Lymphocytes # (A) 0.9 k/uL (1.0-4.8); Lymphocytes % (A) 21 %; MCH 28.5 pg (25.0-35.0); MCHC 31.6 g/dL (31.0-37.0); MCV 90.2 fL (80.0-100.0); Mean Platelet Volume 7.4; Monocytes # (A) 0.3 k/uL (0-1.0); Monocytes % (A) 7 %; Neutrophils # (A) 2.8 k/uL (1.3-7.7); Neutrophils % (A) 66 %; Platelet Count 261 k/uL (150-450); Poikilocytosis Slight; RBC 2.58 m/uL (4.30-5.90); RDW 17.2 % (11.5-15.5); WBC 4.3 k/uL (3.8-10.6)
[2024-09-17 17:21] LABS: Glucose,Whole Blood 185 mg/dL (70-110)
[2024-09-17 20:19] LABS: Glucose,Whole Blood 175 mg/dL (70-110)
[2024-09-18 06:32] LABS: Glucose,Whole Blood 149 mg/dL (70-110)
[2024-09-18 07:44] VITALS: RESP 18; TEMP 97.8
[2024-09-18 09:14] LABS: Blood Urea Nitrogen 12.7 mg/dL (9.0-27.0); Glucose 128 mg/dL (70-110); Magnesium 1.9 mg/dL (1.5-2.4)
[2024-09-18 09:15] LABS: Calcium 8.4 mg/dL (8.7-10.3); Carbon Dioxide 24.7 mmol/L (21.6-31.8); Chloride 110 mmol/L (96-109); Potassium 4.5 mmol/L (3.5-5.5); Sodium 143 mmol/L (135-145)
--- NOTE | 2024-09-18 09:57 | P.PN ---
Subjective HISTORY OF PRESENT ILLNESS: This is an 89-year-old male patient of Dr. RONAK Penn with past medical history of paroxysmal atrial fibrillation, GI bleed requiring blood transfusions, CAD status post PCI in the setting of NSTEMI on 01/2024, ischemic cardiomyopathy with EF of 35%, moderate aortic stenosis, hypertension, hyperlipidemia, chronic iron deficiency followed by Dr. Durham. We have been asked to evaluate the patient for clearance for colonoscopy and patient is on Plavix and Xarelto. Yesterday, we did look at patient's medications and Xarelto was already placed on hold, we subsequently placed Plavix on hold and started him on baby aspirin. Patient was last seen in the office on 08/14/2024 and Watchman procedure has been discussed with the patient but he is hesitant due to his age. In January of last year following PCI, patient did develop moderate to large pericardial effusion with mild collapse of the LAD. He also had hospitalizations in May for anemia and outpatient GI workup was planned by general surgery. Patient now presents to the hospital due to low hemoglobin of 6.1. He has received transfusion of 2 units of packed RBCs with a hemoglobin today of 7.7. Patient states that he feels fine while he is laying in bed. He is eating and drinking okay. Patient has been seen by general surgery and is scheduled for EGD tomorrow. Blood pressure 105/56, heart rate 57, pulse ox 99% on room air. -EKG: Sinus rhythm with right bundle branch block -Laboratory studies: Hemoglobin 7.7, BUN 27 creatinine 0.88. Hemoglobin A1c 6.2. -Home cardiac medications: Amiodarone 200 mg daily, atorvastatin 80 mg daily, Plavix 75 mg with supper, Xarelto 10 mg daily, also on ferrous sulfate and midodrine. -Most recent echocardiogram obtained in January 2024 revealed ejection fraction 40 to 45%, mild pulmonary hypertension, moderate to severe aortic stenosis, mild tricuspid regurgitation -Cardiac catheterization history: January 2024 revealing 30% LAD, 99% circumflex, 50% PDA, RCA 30%. Patient underwent stenting of the circumflex. 09/17/2024 Patient examined this morning at the bedside. Patient currently denies any chest pain or pressure. He denies any shortness of breath. Hemoglobin today 7.0. He remains n.p.o. and is scheduled for endoscopy today with general surgery. 09/18/2024 Patient examined this morning at the bedside. Patient currently denies any chest pain or pressure. He denies any shortness of breath. Hemoglobin yesterday 7.4. Patient underwent endoscopy yesterday with Dr. Thomas revealing mild gastritis, small hiatal hernia, mild distal esophagitis, and normal colon although poor prep. Vital signs are stable. Blood pressures soft in the 90s. Patient reports he feels weak and has not been out of bed much. PHYSICAL EXAM: VITAL SIGNS: Reviewed. GENERAL: Well-developed in no acute distress. NECK: Supple. No JVD or thyromegaly LUNGS: Respirations even and unlabored. Lungs essentially clear to auscultation bilaterally. HEART: Regular rate and rhythm. S1 and S2 heard. Systolic murmur noted EXTREMITIES: Normal range of motion. No clubbing or cyanosis. Peripheral pulses intact. No lower extremity edema ASSESSMENT: Acute on chronic GI bleed, status post endoscopy revealing mild gastritis, small hiatal hernia, mild distal esophagitis, and normal colon although poor bowel prep Acute on chronic blood loss anemia Paroxysmal atrial fibrillation currently in sinus rhythm CAD status post PCI of the circumflex, 01/2024 Ischemic cardiomyopathy with EF of 35% Moderate to severe aortic stenosis Hypertension Hyperlipidemia PLAN: Continue to hold Xarelto and Plavix at discharge Continue aspirin 81 mg daily Continue additional cardiac medications Increase activity as tolerated Patient is stable for discharge from a cardiac standpoint Patient to follow-up postdischarge with Dr. Penn Nurse practitioner note has been reviewed by physician. Signing provider agrees with the documented findings, assessment, and plan of care documented by COPPER MINER as a scribe. Objective - Vital Signs Vital signs: Vital Signs Temp 97.8 F 09/18/24 07:00 Pulse 71 09/18/24 08:23 Resp 18 09/18/24 07:00 BP 93/50 09/18/24 07:00 Pulse Ox 99 09/18/24 08:23 FiO2 Intake & Output 09/17/24 09/18/24 09/18/24 18:59 06:59 18:59 Intake Total 672 360 118 Balance 672 360 118 Intake: IV 200 Oral 472 360 118 Other: Voiding Method Toilet Toilet # Voids 1 2 # Bowel Movements 0 - Labs CBC & Chem 7: 09/17/24 15:08 09/18/24 05:15 Labs: Abnormal Lab Results - Last 24 Hours (Table) 09/17/24 09/17/24 09/17/24 Range/Units 11:55 15:08 17:19 RBC 2.58 L (4.30-5.90) m/uL Hgb 7.4 L (13.0-17.5) gm/dL Hct 23.3 L (39.0-53.0) % RDW 17.2 H (11.5-15.5) % Lymphocytes # 0.9 L (1.0-4.8) k/uL Chloride (96-109) mmol/L Glucose (70-110) mg/dL POC Glucose (mg/dL) 177 H 185 H (70-110) mg/dL Calcium (8.7-10.3) mg/dL 09/17/24 09/18/24 09/18/24 Range/Units 20:17 05:15 06:31 RBC (4.30-5.90) m/uL Hgb (13.0-17.5) gm/dL Hct (39.0-53.0) % RDW (11.5-15.5) % Lymphocytes # (1.0-4.8) k/uL Chloride 110 H (96-109) mmol/L Glucose 128 H (70-110) mg/dL POC Glucose (mg/dL) 175 H 149 H (70-110) mg/dL Calcium 8.4 L (8.7-10.3) mg/dL
[2024-09-18 10:41] LABS: Basophils # (A) 0.02 X 10*3/uL (0.00-0.10); Basophils % (A) 0.3 %; Eosinophils # (A) 0.21 X 10*3/uL (0.04-0.35); Eosinophils % (A) 3.4 %; HCT 23.8 % (39.6-50.0); Lymphocytes # (A) 1.14 X 10*3/uL (0.90-5.00); Lymphocytes % (A) 18.5 %; MCH 27.1 pg (27.0-32.0); MCHC 29.4 g/dL (32.0-37.0); MCV 92.2 FL (80.0-97.0); Mean Platelet Volume 10.2 FL (9.5-12.2); Monocytes # (A) 0.61 X 10*3/uL (0.20-1.00); Monocytes % (A) 9.9 %; NRBC Per 100 WBC 0 X 10*3/uL (0.00-0.01); Neutrophils # (A) 4.15 X 10*3/uL (1.80-7.70); Neutrophils % (A) 67.6 %; Platelet Count 271 X 10*3/uL (140-440); RBC 2.58 X 10*6/uL (4.40-5.60); RDW 17.4 % (11.5-14.5); WBC 6.15 X 10*3/uL (4.50-10.00)
[2024-09-18 12:03] LABS: Glucose,Whole Blood 263 mg/dL (70-110)
[2024-09-18 12:33] VITALS: BP 105/61; PULSE 56
--- NOTE | 2024-09-18 14:49 | P.DS ---
Providers Date of admission: 09/17/24 09:05 Expected date of discharge: 09/18/24 Attending physician: Mich Jimenes MD Consults: 09/15/24 00:56 Consult Physician Urgent Consulting Provider: Walter Fowler Consult Reason/Comments: GI bleed Do you want consulting provider notified?: Yes, Notify in am 09/15/24 10:57 Consult Physician Routine Consulting Provider: Von Garcia Consult Reason/Comments: Clearance for colonoscopy, patient on Plavix and Xarelto Do you want consulting provider notified?: Yes Primary care physician: [facility] Hospital Course: Suspected GI bleed Iron deficiency anemia Diabetes mellitus with neuropathy A-fib Hyperlipidemia History of CAD, [place] with stent placement(January 2024) BPH Gen: In NAD, non-toxic HEENT: normocephalic, atraumatic, hearing acuity is intant, mucous membranes moist CVS: perfusing all extremities well, no pitting edema, Respiratory: symmetric chest expansion, no accessory muscle use, GI: soft, NTTP, ND, : no suprapubic tenderness, no CVA tenderness MSK/Derm: no rashes, cyanosis Neuro: CN II-XII intact, no motor weakness, Psych: cooperative, euthymic mood, judgment and insight is intact Hospital course: Patient is a 89-year-old male with a PMH of CAD, systolic CHF with EF 30 to 35%(Echo January 2024), A-fib on Eliquis, type II DM, hypertension, hyperlipidemia who presented to the ED after instruction by his primary care doctor who told him he had a low hemoglobin. In the ED patient received 2 units of blood. Vitals on admission temperature 98.1, heart rate 85, respiratory rate 18, blood pressure 93/54, O2 saturation 100% on room air EKG independently interpreted as sinus rhythm with ventricular rate 71 and QTc of 489 ms Labs on admission show WBC 5.3, hemoglobin 6.1, platelets 289. PT 11.5, INR 1, PTT 23.1. Sodium 137, potassium 4.8, chloride 107, bicarb 20, BUN 27, creatinine 0.88, glucose 180. Patient was admitted and seen by general surgery who proceeded with EGD: Colonoscopy. Patient did not have any active signs of bleeding, but did demonstrate some gastritis and his fundus of the gastrum. Treated with a PPI. Patient ultimately required 2 units of packed red blood cells during admission, continue to have melenic stools but no further drop warranting further transfusions. Patient does have a history of iron deficiency anemia and takes twice daily oral iron, which we we will continue. He was discharged today in stable condition, recommended that he follow-up with PCP regarding his biopsy results taken during EGD, as well as obtain referral for hematology for iron transfusions. He was given a prescription to check his blood work again in 3 days after discharge. Cardiology also evaluated this patient given recent stent placement, Plavix and Xarelto were discontinued and patient was instructed to continue aspirin 81 mg daily antiplatelet monotherapy. He should follow-up with cardiology. I spent 42 minutes coordinating this discharge Patient Condition at Discharge: Good Plan - Discharge Summary Discharge Rx Participant: No New Discharge Prescriptions: New Aspirin 81 mg PO DAILY #30 tab Continue metFORMIN HCL [Glucophage] 850 mg PO DAILY Pregabalin [Lyrica] 25 mg PO HS Amiodarone [Cordarone] 200 mg PO DAILY Tamsulosin [Flomax] 0.4 mg PO BID Ferrous Sulfate [Iron (65 MG Elemental)] 325 mg PO BID 60 Days #120 tab Atorvastatin [Lipitor] 80 mg PO DAILY #30 tab Midodrine HCl 7.5 mg PO TID Changed Pantoprazole [Protonix] 40 mg PO BID #60 tab Discontinued Clopidogrel [Plavix] 75 mg PO W/SUPPER Rivaroxaban [Xarelto] 10 mg PO DAILY Discharge Medication List metFORMIN HCL [Glucophage] 850 mg PO DAILY 11/23/19 [History] Pregabalin [Lyrica] 25 mg PO HS 01/11/24 [History] Atorvastatin [Lipitor] 80 mg PO DAILY #30 tab 01/12/24 [Rx] Amiodarone [Cordarone] 200 mg PO DAILY 05/15/24 [History] Midodrine HCl 7.5 mg PO TID 05/15/24 [History] Tamsulosin [Flomax] 0.4 mg PO BID 05/15/24 [History] Ferrous Sulfate [Iron (65 MG Elemental)] 325 mg PO BID 60 Days #120 tab 05/18/24 [Rx] Aspirin 81 mg PO DAILY #30 tab 09/18/24 [Rx] Pantoprazole [Protonix] 40 mg PO BID #60 tab 09/18/24 [Rx] Follow up Appointment(s)/Referral(s): [facility]ess DO [Primary Care Provider] - 1-2 days Ambulatory/Diagnostic Orders: Complete Blood Count w/diff [LAB.AMB] Time Frame: 3 Days, Location: None Selected Discharge Disposition: HOME SELF-CARE
--- NOTE | 2024-09-18 14:55 | P.PN ---
Subjective Progress Note Date: 09/18/24 SURGICAL PROGRESS NOTE CHIEF COMPLAINT: Anemia HISTORY OF PRESENT ILLNESS: Patient is status post EGD and colonoscopy with results reporting mild gastritis, small hiatal hernia, mild distal esophagitis and normal colon with poor prep. Patient denies any abdominal pain. He is tolerating diet. Hemoglobin 7.0. Patient's Plavix and Xarelto have been discontinued. Patient evaluated by cardiology service. PHYSICAL EXAM: VITAL SIGNS: Reviewed. GENERAL: Well-developed in no acute distress. ABDOMEN: Soft. Nondistended. Nontender. NEUROLOGIC: Alert and oriented. Cranial nerves II through XII grossly intact. ASSESSMENT: 1. Anemia status post EGD and colonoscopy with results showing gastritis, small hiatal hernia esophagitis normal colon with poor bowel prep PLAN: -Recommend continuing Protonix -Recommend to continue hold anticoagulation -Agree with repeating CBC outpatient in 3 days -Medicine service discharging patient today. Physician [place] note has been reviewed by physician. Signing provider agrees with the documented findings, assessment, and plan of care. Objective - Vital Signs Vital signs: Vital Signs Temp 97.8 F 09/18/24 07:00 Pulse 56 L 09/18/24 12:32 Resp 18 09/18/24 07:00 BP 105/61 09/18/24 12:32 Pulse Ox 98 09/18/24 12:32 FiO2 Intake & Output 09/17/24 09/18/24 09/18/24 18:59 06:59 18:59 Intake Total 672 360 118 Balance 672 360 118 Intake: IV 200 Oral 472 360 118 Other: Voiding Method Toilet Toilet # Voids 1 2 # Bowel Movements 0 - Labs CBC & Chem 7: 09/18/24 05:15 09/18/24 05:15 Labs: Abnormal Lab Results - Last 24 Hours (Table) 09/17/24 09/17/24 09/17/24 Range/Units 15:08 17:19 20:17 RBC 2.58 L (4.30-5.90) m/uL Hgb 7.4 L (13.0-17.5) gm/dL Hct 23.3 L (39.0-53.0) % MCHC (32.0-37.0) g/dL RDW 17.2 H (11.5-15.5) % Lymphocytes # 0.9 L (1.0-4.8) k/uL Chloride (96-109) mmol/L Glucose (70-110) mg/dL POC Glucose (mg/dL) 185 H 175 H (70-110) mg/dL Calcium (8.7-10.3) mg/dL 09/18/24 09/18/24 09/18/24 Range/Units 05:15 05:15 06:31 RBC 2.58 L (4.30-5.90) m/uL Hgb 7.0 L (13.0-17.5) gm/dL Hct 23.8 L (39.0-53.0) % MCHC 29.4 L (32.0-37.0) g/dL RDW 17.4 H (11.5-15.5) % Lymphocytes # (1.0-4.8) k/uL Chloride 110 H (96-109) mmol/L Glucose 128 H (70-110) mg/dL POC Glucose (mg/dL) 149 H (70-110) mg/dL Calcium 8.4 L (8.7-10.3) mg/dL 09/18/24 Range/Units 12:01 RBC (4.30-5.90) m/uL Hgb (13.0-17.5) gm/dL Hct (39.0-53.0) % MCHC (32.0-37.0) g/dL RDW (11.5-15.5) % Lymphocytes # (1.0-4.8) k/uL Chloride (96-109) mmol/L Glucose (70-110) mg/dL POC Glucose (mg/dL) 263 H (70-110) mg/dL Calcium (8.7-10.3) mg/dL
== END 2024-09-18 13:31 | disposition home or self-care (01) | DRG 378 ==
LOC: EC 14:14 → 6NMEDSUR 09-15 01:31 → OBSVTOIN 09-17 09:05
PROVIDERS: ADMIT Internal Medicine; ATTEND Internal Medicine
PROC: 30233N1 Transfusion of Nonautologous Red Blood Cells into Peripheral Vein, Percutaneous Approach (ICD-10-PCS; 2024-09-14)
PROC: 0DB48ZX Excision of Esophagogastric Junction, Via Natural or Artificial Opening Endoscopic, Diagnostic (ICD-10-PCS; principal; 2024-09-17 07:30)
PROC: 0DJD8ZZ Inspection of Lower Intestinal Tract, Via Natural or Artificial Opening Endoscopic (ICD-10-PCS; 2024-09-17 07:30)
DX: K29.71 Gastritis, unspecified, with bleeding (principal); D62 Acute posthemorrhagic anemia; I50.22 Chronic systolic (congestive) heart failure; K20.91 Esophagitis, unspecified with bleeding; I27.20 Pulmonary hypertension, unspecified; I11.0 Hypertensive heart disease with heart failure; D50.9 Iron deficiency anemia, unspecified; E11.40 Type 2 diabetes mellitus with diabetic neuropathy, unspecified; I35.0 Nonrheumatic aortic (valve) stenosis; I48.0 Paroxysmal atrial fibrillation; K44.9 Diaphragmatic hernia without obstruction or gangrene; E78.5 Hyperlipidemia, unspecified; I25.10 Atherosclerotic heart disease of native coronary artery without angina pectoris; I25.5 Ischemic cardiomyopathy; I45.10 Unspecified right bundle-branch block; N40.0 Benign prostatic hyperplasia without lower urinary tract symptoms; I25.2 Old myocardial infarction; Z95.5 Presence of coronary angioplasty implant and graft; Z79.82 Long term (current) use of aspirin; Z79.84 Long term (current) use of oral hypoglycemic drugs; Z79.01 Long term (current) use of anticoagulants; Z79.02 Long term (current) use of antithrombotics/antiplatelets; Z79.899 Other long term (current) drug therapy; Z86.73 Personal history of transient ischemic attack (TIA), and cerebral infarction without residual deficits; Z87.891 Personal history of nicotine dependence
CPT/HCPCS: 36415; 36430; 43239; 45378; 80048; 80053; 83036; 83735; 85025; 85027; 85610; 85730; 86850; 86900; 86901; 86920; 88305; 93005; 99291

== ENCOUNTER 2024-09-28 11:44 | Emergency (ER) | payer MEDICARE, BC ==
[2024-09-28 12:26] VITALS: RESP 18
--- NOTE | 2024-09-28 12:50 | ED ---
Abdominal Pain HPI - General Chief Complaint: Abdominal Pain Stated Complaint: Constipation Time Seen by Provider: 09/28/24 12:27 Source: patient, family, RN notes reviewed, old records reviewed Mode of arrival: ambulatory Limitations: no limitations - History of Present Illness Initial Comments: 89-year-old male presenting for evaluation of suspected constipation, abdominal discomfort. Patient states that approximately 12 days ago he had a colonoscopy which he reports was unremarkable. He states he has not had a bowel movement since the colonoscopy. He reports a mild right lower quadrant abdominal discomfort. No fever. No vomiting. He states he has been eating normally. - Related Data Home Medications Medication Instructions Recorded Confirmed metFORMIN HCL [Glucophage] 850 mg PO DAILY 11/23/19 09/15/24 Pregabalin [Lyrica] 25 mg PO HS 01/11/24 09/15/24 Amiodarone [Cordarone] 200 mg PO DAILY 05/15/24 09/15/24 Midodrine HCl 7.5 mg PO TID 05/15/24 09/15/24 Tamsulosin [Flomax] 0.4 mg PO BID 05/15/24 09/15/24 Previous Rx's Medication Instructions Recorded Atorvastatin [Lipitor] 80 mg PO DAILY #30 tab 01/12/24 Ferrous Sulfate [Iron (65 MG 325 mg PO BID 60 Days #120 tab 05/18/24 Elemental)] Aspirin 81 mg PO DAILY #30 tab 09/18/24 Pantoprazole [Protonix] 40 mg PO BID #60 tab 09/18/24 Cephalexin [Keflex] 500 mg PO Q12HR #20 cap 09/28/24 Allergies Allergy/AdvReac Type Severity Reaction Status Date / Time No Known Allergies Allergy Verified 09/28/24 12:20 Review of Systems ROS Statement: Those systems with pertinent positive or pertinent negative responses have been documented in the HPI. ROS Other: All systems not noted in ROS Statement are negative. Past Medical History Past Medical History: Chest Pain / Angina, Diabetes Mellitus, Hyperlipidemia, Hypertension, Myocardial Infarction (CT), Prostate Disorder, Respiratory Disorder, Sleep Apnea/CPAP/BIPAP Additional Past Medical History / Comment(s): "IRREG HEARTBEAT", "CHEMICAL STRESS TEST PRIOR TO TURP", "HEARTBURN" OTC MEDS NEEDED. DOES'NT USE A CPAP MACHINE.; heart was "skipping a beat", carotid stenosis, TIA, pericardial effusion possibly r/t heart cath with stent 01/2024 Last Myocardial Infarction Date:: 01/11/24 History of Any Multi-Drug Resistant Organisms: None Reported Past Surgical History: Heart Catheterization With Stent, Hernia Repair, Prostate Surgery, Tonsillectomy Additional Past Surgical History / Comment(s): 11-29-16 TURP,CYSTOCOPY,LITHOTRIPSY FOR BLADDER STONE. FLO INGUINAL HERNIA REPAIR, FLO CATARACTS. Pericardial window with pericardial effusion possibly r/t heart cath with stent 01/2024 Past Anesthesia/Blood Transfusion Reactions: No Reported Reaction Date of Last Stent Placement:: 01/11/24 Past Psychological History: No Psychological Hx Reported Smoking Status: Former smoker Past Alcohol Use History: Occasional Past Drug Use History: None Reported - Past Family History Father Family Medical History: Cancer, Dementia, Prostate Disorder Additional Family Medical History / Comment(s): AGE 94 Mother Family Medical History: Dementia Additional Family Medical History / Comment(s): AGE 95 General Exam Limitations: no limitations Course Vital Signs 09/28/24 12:21 Temperature 98.2 F Pulse Rate 82 Respiratory 18 Rate Blood Pressure 110/61 O2 Sat by Pulse 100 Oximetry Medical Decision Making - Medical Decision Making Was pt. sent in by a medical professional or institution (, PA, TELEGRAPH LINEMAN, urgent care, hospital, or custodial...) When possible be specific @ -No Did you speak to anyone other than the patient for history (EMS, parent, family, police, friend...)? What history was obtained from this source @ -No Did you review nursing and triage notes (agree or disagree)? Why? @ -I reviewed and agree with nursing and triage notes Were old charts reviewed (outside hosp., previous admission, EMS record, old EKG , old radiological studies, urgent care reports/EKG's, custodial records)? Report findings @ -No old charts were reviewed Differential Abdominal Pain Men: Appendicitis, cholecystitis, diverticulosis, ischemic bowel, pancreatitis, hepatitis, UTI, gastroenteritis, AAA, incarcerated hernia, bowel obstruction, constipation, inflammatory bowel, hepatitis, peptic ulcer disease, splenic infarction, perforated viscus, testicular torsion, this is not meant to be an all-inclusive list EKG interpreted by me (3pts min.). @ -As above X-rays interpreted by me (1pt min.). @ -[KUB: Multiple air-fluid levels moderate colonic distention CT interpreted by me (1pt min.). @ -CT showing moderate stool burden and fecal stasis with largely distended bladder and air-fluid level within the bladder. U/S interpreted by me (1pt. min.). @ -[None done What testing was considered but not performed or refused? (CT, X-rays, U/S, labs)? Why? @ -None What meds were considered but not given or refused? Why? @ -None Did you discuss the management of the patient with other professionals (professionals i.e. , PA, TELEGRAPH LINEMAN, lab, RT, psych nurse, drug abuse social worker, lapel padder, teacher, unemployment insurance hearing officer, comp field case manager)? Give summary @ -No Was smoking cessation discussed for >3mins.? @ -No Was critical care preformed (if so, how long)? @ -No Were there social determinants of health that impacted care today? How? (Homele ssness, low income, unemployed, alcoholism, drug addiction, transportation, low edu. Level, literacy, decrease access to med. care, fpc, rehab)? @ -No Was there de-escalation of care discussed even if they declined (Discuss DNR or withdrawal of care, Hospice)? DNR status @ -No What co-morbidities impacted this encounter? (DM, HTN, Smoking, COPD, CAD, Cancer, CVA, ARF, Chemo, Hep., AIDS, mental health diagnosis, sleep apnea, morbid obesity)? @ -Urinary retention, recent colonoscopy Was patient admitted / discharged? Hospital course, mention meds given and route, prescriptions, significant lab abnormalities, going to OR and other pertinent info. @89-year-old male with lower abdominal pain, reported constipation no bowel movement over the past 12 days. Recent colonoscopy. Patient is mildly distended with very minimal tenderness. Afebrile with stable vitals. Initial x-ray does reveal multiple air-fluid levels. CT is obtained which shows fecal stasis and distended urinary bladder. Urinary catheter is placed and drains approximately 1400 cc of urine. Patient given an opportunity to have a bowel movement. He is informed that this urinary retention may require a permanent or semipermanent catheter. He does have follow-up with urology already planned. He is currently on stool softeners. Patient stable for discharge with return parameters discussed. Will monitor for further urinary retention and further constipation. Given the urinary air-fluid level and leukocytosis with moderate bacteria on urinalysis, urine culture is obtained and the patient is started on antibiotics. Undiagnosed new problem with uncertain prognosis? @ -No Drug Therapy requiring intensive monitoring for toxicity (Heparin, Nitro, Insulin, Cardizem)? @ -No Were any procedures done? @ -No Diagnosis/symptom? @ -[Urinary retention, constipation, UTI Acute, or Chronic, or Acute on Chronic? @ -Acute on chronic Uncomplicated (without systemic symptoms) or Complicated (systemic symptoms)? @ -[default Side effects of treatment? @ -No Exacerbation, Progression, or Severe Exacerbation? @ -No Poses a threat to life or bodily function? How? (Chest pain, USA, CT, pneumonia, PE, COPD, DKA, ARF, appy, cholecystitis, CVA, Diverticulitis, Homicidal, Suicidal, threat to staff... and all critical care pts) @ -No - Lab Data Result diagrams: 09/28/24 13:14 09/28/24 13:14 Lab Results 09/28/24 09/28/24 09/28/24 Range/Units 13:14 13:14 13:14 WBC 4.5 (3.8-10.6) k/uL RBC 3.06 L (4.30-5.90) m/uL Hgb 8.6 L (13.0-17.5) gm/dL Hct 27.4 L (39.0-53.0) % MCV 89.6 (80.0-100.0) fL MCH 28.1 (25.0-35.0) pg MCHC 31.4 (31.0-37.0) g/dL RDW 16.8 H (11.5-15.5) % Plt Count 266 (150-450) k/uL MPV 7.2 Neutrophils % 68 % Lymphocytes % 22 % Monocytes % 5 % Eosinophils % 3 % Basophils % 0 % Neutrophils # 3.0 (1.3-7.7) k/uL Lymphocytes # 1.0 (1.0-4.8) k/uL Monocytes # 0.2 (0-1.0) k/uL Eosinophils # 0.1 (0-0.7) k/uL Basophils # 0.0 (0-0.2) k/uL Hypochromasia Marked Poikilocytosis Slight Anisocytosis Slight PT 11.6 (10.0-12.5) sec INR 1.1 (<1.2) APTT 24.2 (22.0-30.0) sec Sodium 138 (137-145) mmol/L Potassium 4.4 (3.5-5.1) mmol/L Chloride 101 (98-107) mmol/L Carbon Dioxide 25 (22-30) mmol/L Anion Gap 12 mmol/L BUN 22 H (9-20) mg/dL Creatinine 1.01 (0.66-1.25) mg/dL Est GFR (CKD-EPI)AfAm 77 (>60 ml/min/1.73 sqM) Est GFR (CKD-EPI)NonAf 66 (>60 ml/min/1.73 sqM) Glucose 95 (74-99) mg/dL Plasma Lactic Acid Selvin (0.7-2.0) mmol/L Calcium 9.2 (8.4-10.2) mg/dL Total Bilirubin 0.5 (0.2-1.3) mg/dL AST 19 (17-59) U/L ALT 16 (4-49) U/L Alkaline Phosphatase 99 (38-126) U/L Total Protein 6.4 (6.3-8.2) g/dL Albumin 3.8 (3.5-5.0) g/dL Urine Color Urine Appearance (Clear) Urine pH (5.0-8.0) Ur Specific Pettus (1.001-1.035) Urine Protein (Negative) Urine Glucose (UA) (Negative) Urine Ketones (Negative) Urine Blood (Negative) Urine Nitrite (Negative) Urine Bilirubin (Negative) Urine Urobilinogen (<2.0) mg/dL Ur Leukocyte Esterase (Negative) Urine RBC (0-5) /hpf Urine WBC (0-5) /hpf Urine Bacteria (None) /hpf 09/28/24 09/28/24 Range/Units 13:14 14:33 WBC (3.8-10.6) k/uL RBC (4.30-5.90) m/uL Hgb (13.0-17.5) gm/dL Hct (39.0-53.0) % MCV (80.0-100.0) fL MCH (25.0-35.0) pg MCHC (31.0-37.0) g/dL RDW (11.5-15.5) % Plt Count (150-450) k/uL MPV Neutrophils % % Lymphocytes % % Monocytes % % Eosinophils % % Basophils % % Neutrophils # (1.3-7.7) k/uL Lymphocytes # (1.0-4.8) k/uL Monocytes # (0-1.0) k/uL Eosinophils # (0-0.7) k/uL Basophils # (0-0.2) k/uL Hypochromasia Poikilocytosis Anisocytosis PT (10.0-12.5) sec INR (<1.2) APTT (22.0-30.0) sec Sodium (137-145) mmol/L Potassium (3.5-5.1) mmol/L Chloride (98-107) mmol/L Carbon Dioxide (22-30) mmol/L Anion Gap mmol/L BUN (9-20) mg/dL Creatinine (0.66-1.25) mg/dL Est GFR (CKD-EPI)AfAm (>60 ml/min/1.73 sqM) Est GFR (CKD-EPI)NonAf (>60 ml/min/1.73 sqM) Glucose (74-99) mg/dL Plasma Lactic Acid Selvin 2.9 H* (0.7-2.0) mmol/L Calcium (8.4-10.2) mg/dL Total Bilirubin (0.2-1.3) mg/dL AST (17-59) U/L ALT (4-49) U/L Alkaline Phosphatase (38-126) U/L Total Protein (6.3-8.2) g/dL Albumin (3.5-5.0) g/dL Urine Color Colorless Urine Appearance Clear (Clear) Urine pH 6.0 (5.0-8.0) Ur Specific Pettus 1.004 (1.001-1.035) Urine Protein Negative (Negative) Urine Glucose (UA) Negative (Negative) Urine Ketones Negative (Negative) Urine Blood Negative (Negative) Urine Nitrite Negative (Negative) Urine Bilirubin Negative (Negative) Urine Urobilinogen <2.0 (<2.0) mg/dL Ur Leukocyte Esterase Moderate H (Negative) Urine RBC 1 (0-5) /hpf Urine WBC 22 H (0-5) /hpf Urine Bacteria Moderate H (None) /hpf Disposition Clinical Impression: Urinary tract infection, Retention of urine, unspecified, Abdominal pain, Constipation Disposition: HOME SELF-CARE Condition: Fair Instructions (If sedation given, give patient instructions): Constipation (ED), Urinary Retention in Men (ED) Prescriptions: Cephalexin [Keflex] 500 mg PO Q12HR #20 cap Is patient prescribed a controlled substance at d/c from ED?: No Referrals: Mt Burgess DO [Primary Care Provider] - 1-2 days Bart Myers MD [STAFF PHYSICIAN] - 1-2 days Time of Disposition: 15:40
--- NOTE | 2024-09-28 13:02 | XR ---
EXAMINATION TYPE: XR KUB DATE OF EXAM: 09/28/2024 12:56 PM CLINICAL HISTORY: Constipation. TECHNIQUE: Two Upright KUB images of the abdomen are obtained. COMPARISON: None. FINDINGS: Scattered gas is seen in non-distended small bowel loops. Gas and fecal material is seen in non-distended colon. At least moderate diffuse colonic fecal prominence. A few air-fluid levels whic h is nonspecific finding. Lung bases are clear. No free air is seen. Osseous structures are demineral ized IMPRESSION: Overall nonspecific but favored nonobstructive bowel gas pattern. Moderate to severe diffuse colonic fecal stasis or constipation is present. [facility], , 09/28/2024 1:00 PM
[2024-09-28 13:31] LABS: Anisocytosis Slight; Basophils % (A) 0 %; Eosinophils # (A) 0.1 k/uL (0-0.7); Eosinophils % (A) 3 %; HCT 27.4 % (39.0-53.0); HGB 8.6 gm/dL (13.0-17.5); Hypochromasia Marked; Lymphocytes % (A) 22 %; MCH 28.1 pg (25.0-35.0); MCHC 31.4 g/dL (31.0-37.0); MCV 89.6 fL (80.0-100.0); Mean Platelet Volume 7.2; Monocytes # (A) 0.2 k/uL (0-1.0); Monocytes % (A) 5 %; Neutrophils % (A) 68 %; Platelet Count 266 k/uL (150-450); Poikilocytosis Slight; RBC 3.06 m/uL (4.30-5.90); RDW 16.8 % (11.5-15.5); WBC 4.5 k/uL (3.8-10.6)
[2024-09-28 13:42] LABS: ALT 16 U/L (4-49); AST 19 U/L (17-59); African American GFR (CKD) 77 (>60 ml/min/1.73 sqM); Albumin 3.8 g/dL (3.5-5.0); Alkaline Phosphatase 99 U/L (38-126); Anion Gap 12 mmol/L; Blood Urea Nitrogen 22 mg/dL (9-20); Calcium 9.2 mg/dL (8.4-10.2); Carbon Dioxide 25 mmol/L (22-30); Chloride 101 mmol/L (98-107); Glucose 95 mg/dL (74-99); Non-African American GFR(CKD) 66 (>60 ml/min/1.73 sqM); Potassium 4.4 mmol/L (3.5-5.1); Sodium 138 mmol/L (137-145); Total Bilirubin 0.5 mg/dL (0.2-1.3); Total Protein 6.4 g/dL (6.3-8.2)
[2024-09-28 13:44] LABS: INR 1.1 (<1.2); Partial Thromboplastin Time 24.2 sec (22.0-30.0); Prothrombin Time 11.6 sec (10.0-12.5)
[2024-09-28] MEDS: SODIUM CHLORIDE 0.9% 500 ML 500 ML IV ONE (14:01)
--- NOTE | 2024-09-28 14:12 | CT ---
EXAMINATION TYPE: CT abdomen pelvis wo con CT DLP: 552.8 mGycm, Automated exposure control for dose reduction was used. DATE OF EXAM: 09/28/2024 1:58 PM COMPARISON: KUB radiograph 09/28/2024, renal ultrasound 08/19/2016 CLINICAL INDICATION:Male, 89 years old with history of pain; RLQ pain TECHNIQUE: Standard CT of the abdomen and pelvis without IV or oral contrast. Lack of IV or oral co ntrast limits evaluation of solid and hollow organ viscera. Coronal and sagittal reformats were perfo rmed. FINDINGS: LOWER CHEST: Tiny bibasilar pleural calcifications. Correlate for prior asbestosis exposure. Dense ao rtic valvular calcifications. Coronary artery calcifications. Trace pericardial effusion. Elevation o f the left hemidiaphragm. Partial visualization of right gynecomastia. ABDOMEN LIVER: Unremarkable noncontrast appearance GALLBLADDER AND BILE DUCTS: Unremarkable noncontrast appearance PANCREAS: Unremarkable noncontrast appearance SPLEEN: Unremarkable noncontrast appearance ADRENAL GLANDS: Thickening of the bilateral adrenal glands likely related to adrenal hyperplasia. KIDNEYS AND URETERS: No evidence of hydronephrosis. No right renal calculi. Few punctate nodule at th e left renal calculi. Left renal superior pole cyst with largest measuring up to 10.5 cm. PELVIS BLADDER: Distended urinary bladder with air-fluid level. No wall thickening identified. REPRODUCTIVE: Coarse calcifications of the prostate gland are identified. ABDOMEN & PELVIS STOMACH AND BOWEL: Small hiatal hernia, duodenum is unremarkable. No evidence of bowel obstruction. M oderate amount of stool is present within the colon. Mildly prominent gas-filled redundant sigmoid co kelley. The appendix is within normal limits. PERITONEUM: No evidence of pneumoperitoneum or free fluid. VASCULATURE: Mild atherosclerotic calcifications are present throughout the abdominal aorta and its b ranches. Infrarenal fusiform abdominal aortic aneurysm measuring 3.4 cm. Pelvic phleboliths. MUSCULOSKELETAL: No acute osseous abnormalities. 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 Multiple level degenerative changes of the visualized spine. 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 LYMPH NODES: No gross evidence for lymphadenopathy. SOFT TISSUE/ABDOMINAL WALL: Fat filled left inguinal hernia. IMPRESSION: 1. Moderate colonic stool burden without evidence for obstruction. Appendix is within normal limits. 2. Distended urinary bladder with air-fluid level. Correlate for recent history of instrumentation ve rsus cystitis. 3. Infrarenal abdominal aortic aneurysm measuring 3.4 cm. 4. Nonobstructive punctate left renal calculi. [facility], , 09/28/2024 2:10 PM
[2024-09-28 14:45] LABS: Appearance,Urine Clear (Clear); Bacteria,Urine Moderate /hpf; Bilirubin,Urine Negative (Negative); Blood,Urine Negative (Negative); Color,Urine Colorless; Glucose,Urine (UA) Negative (Negative); Ketones,Urine Negative (Negative); Leukocyte Esterase,Urine Moderate (Negative); Nitrite,Urine Negative (Negative); Protein,Urine Negative (Negative); RBC,Urine 1 /hpf (0-5); Specific Gravity,Urine 1.004 (1.001-1.035); Urobilinogen,Urine <2.0 mg/dL (<2.0); WBC,Urine 22 /hpf (0-5)
[2024-09-28] MEDS: NA PHOS,M-B/NA PHOS,DI-BA 133 ML ENEMA RECTAL STA (16:12)
[2024-09-28 17:13] VITALS: BP 114/74; PULSE 80; TEMP 98.1
== END 2024-09-28 17:13 | disposition home or self-care (01) ==
LOC: EC 11:44
DX: R10.31 Right lower quadrant pain (principal); N39.0 Urinary tract infection, site not specified; R33.9 Retention of urine, unspecified; K59.00 Constipation, unspecified; Z87.891 Personal history of nicotine dependence
CPT/HCPCS: 36415; 51701; 74018; 74176; 80053; 81001; 83605; 85025; 85610; 85730; 87086; 99284

== ENCOUNTER 2024-12-10 11:19 | Day surgery (SDC) | payer MEDICARE, BC ==
[2024-12-10 11:53] VITALS: TEMP 97.3
[2024-12-10] MEDS: IV FLUID CONTINUATION 1,000 ML IV ONE (11:53)
[2024-12-10] MEDS: LACTATED RINGERS 1,000 ML BAG IV STA (12:02)
[2024-12-10] MEDS ORDERED: PROPOFOL 10 MG/ML 20 ML VIAL IV ONE (12:17)
[2024-12-10 12:51] VITALS: BP 130/64; PULSE 63; RESP 16
[2024-12-10 13:21] LABS: Anisocytosis Slight; Basophils % (A) 1 %; Eosinophils # (A) 0.1 k/uL (0-0.7); Eosinophils % (A) 1 %; HCT 28.9 % (39.0-53.0); HGB 8.6 gm/dL (13.0-17.5); Hypochromasia Marked; Lymphocytes # (A) 1.1 k/uL (1.0-4.8); Lymphocytes % (A) 18 %; MCH 24.2 pg (25.0-35.0); MCHC 29.8 g/dL (31.0-37.0); MCV 81.3 fL (80.0-100.0); Monocytes # (A) 0.4 k/uL (0-1.0); Monocytes % (A) 7 %; Neutrophils # (A) 4.2 k/uL (1.3-7.7); Neutrophils % (A) 70 %; Platelet Count 309 k/uL (150-450); Poikilocytosis Slight; RBC 3.55 m/uL (4.30-5.90); RDW 16.9 % (11.5-15.5); WBC 5.9 k/uL (3.8-10.6)
[2024-12-10 13:54] LABS: Ovalocytes Present; RBC Fragments Present
[2024-12-10 18:54] LABS: Reticulocyte % 1.66 % (0.10-1.80)
--- NOTE | 2024-12-11 07:18 | PCN ---
PROCEDURE NOTE PROCEDURE: Bone marrow aspirate and biopsy. DESCRIPTION OF PROCEDURE: After obtaining consent from the patient, the procedure was performed in the endoscopy suite under general anesthesia performed by Anesthesia team. The patient was put on the left lateral decubitus position. The right posterior iliac crest was localized. Skin was prepped with ChloraPrep. All sterile procedures were followed. 2 mL of 2% xylocaine was used for local anesthetic. A Jamshidi needle was inserted, 20 mL aspirate was obtained and about 1.5 cm core biopsy was obtained without any difficulties. Pressure applied afterwards. There was negligible blood loss. The patient tolerated the procedure very well without any immediate complications. MMODL / IJN: [id number] /
== END 2024-12-10 13:05 | disposition home or self-care (01) ==
LOC: OR 11:19
PROVIDERS: ATTEND Internal Medicine Hematology & Oncology
DX: D50.0 Iron deficiency anemia secondary to blood loss (chronic) (principal); I25.10 Atherosclerotic heart disease of native coronary artery without angina pectoris; I48.91 Unspecified atrial fibrillation; I42.9 Cardiomyopathy, unspecified; I67.9 Cerebrovascular disease, unspecified; I10 Essential (primary) hypertension; E78.5 Hyperlipidemia, unspecified; E11.9 Type 2 diabetes mellitus without complications; N40.0 Benign prostatic hyperplasia without lower urinary tract symptoms; Z79.84 Long term (current) use of oral hypoglycemic drugs; Z79.02 Long term (current) use of antithrombotics/antiplatelets; Z79.82 Long term (current) use of aspirin; Z79.899 Other long term (current) drug therapy
CPT/HCPCS: 85025; 85045; 38222; J2704

== ENCOUNTER → 2024-12-31 | Outpatient (CLI) | payer MEDICARE, BC ==
[2024-12-31 14:56] LABS: African American GFR (CKD) 72 (>60 ml/min/1.73 sqM); Blood Urea Nitrogen 20 mg/dL (9-20); Non-African American GFR(CKD) 62 (>60 ml/min/1.73 sqM)
--- NOTE | 2024-12-31 18:13 | CT ---
EXAMINATION TYPE: CT ChestAbdPelvis w con CT DLP: 1042 mGycm, Automated exposure control for dose reduction was used. DATE OF EXAM: 12/31/2024 4:31 PM COMPARISON: CT abdomen pelvis 09/28/2024, CT chest 05/15/2024, CTA chest 01/16/2024 CLINICAL INDICATION:Male, 89 years old with history of C85.90 NON-HODGKIN LYMPHOMA, UNSPECIFIED, UNSP ECIF; PHH, R/O non-hodgkin lymphoma, low Hb Technique: Multiple axial images of the chest, abdomen, and pelvis were obtained following the intrav enous administration of 100 mL Isovue-300. Oral contrast was administered. Two-dimensional coronal an d sagittal reconstructions were obtained. Findings: CHEST: LUNGS/ PLEURA: Mild biapical pleural-parenchymal scarring. Mild centrilobular and paraseptal emphysem atous changes. No pleural effusion, pneumothorax, or focal consolidation. Peripheral right upper lobe calcified granuloma. No new or enlarging pulmonary nodules. Elevation of the left hemidiaphragm. AIRWAY: Patent and unremarkable.. HEART: Size within normal limits.Moderate to severe aortic valvular calcifications.. No pericardial e ffusion. Moderate coronary artery calcifications present. MEDIASTINUM: No evidence of adenopathy. VASCULATURE: No aortic aneurysm. Atherosclerotic calcification of the aorta and its branches. Dilate d main pulmonary artery measuring up to 3.7 cm which can be seen with pulmonary arterial hypertension . MUSCULOSKELETAL: No acute osseous abnormalities. No aggressive osseous lesion. DISH of the thoracic s pine. SOFT TISSUES/LYMPH NODES: Unremarkable. LOWER NECK: No significant findings. ABDOMEN: ABDOMEN LIVER: Unremarkable GALLBLADDER AND BILE DUCTS: Unremarkable. PANCREAS: Unremarkable. SPLEEN: Unremarkable. ADRENAL GLANDS: Unremarkable. KIDNEYS AND URETERS: No evidence of hydronephrosis or renal calculus. The kidneys enhance symmetrical ly. Several left renal cysts with largest in the upper pole measuring up to 11 cm. These all appear s imple. No polyp recommended. Contrast is demonstrated within both collecting systems on the delayed p hase. PELVIS BLADDER: Distended urinary bladder with air-fluid level again. No wall thickening identified. No surr ounding fat stranding. REPRODUCTIVE: Mildly prominent prostate gland. ABDOMEN & PELVIS STOMACH AND BOWEL: Small hiatal hernia, duodenum is unremarkable. The appendix is within normal limit s. Pneumatosis is identified within the ascending colon. Moderate to large amount of stool present th roughout the colon. Enteric contrast reaches the ascending colon. No focal bowel wall thickening or s urrounding inflammatory changes. No evidence of bowel obstruction. PERITONEUM: No evidence of pneumoperitoneum or free fluid. VASCULATURE: Mild to moderate atherosclerotic calcifications are present throughout the abdominal aor ta and its branches. Stable infrarenal fusiform abdominal aortic aneurysm measuring 3.4 cm. Pelvic p hleboliths. MUSCULOSKELETAL: No acute osseous abnormalities. 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 Multiple level degenerative changes of the visualized spine. 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 No aggressive osseous lesion. LYMPH NODES: No evidence for lymphadenopathy. SOFT TISSUE/ABDOMINAL WALL: Fat filled left inguinal hernia. IMPRESSION: 1. No evidence for lymphadenopathy within the chest, abdomen or pelvis. 2. Moderate to severe colonic stool burden with pneumatosis within the ascending colon. No wall thick ening or surrounding inflammatory changes. This probably represents benign pneumatosis from a variety of etiologies however ischemia is not excluded. Clinical correlation with lactate levels recommended . 3. Stable fusiform abdominal aortic aneurysm measuring up to 3.4 cm. 4. Distended urinary bladder with air-fluid level redemonstrated. Correlate for recent history of ins trumentation versus cystitis. 5. Mild emphysematous changes. [facility], , 12/31/2024 6:10 PM
== END | disposition home or self-care (01) ==
LOC: RADCTMAIN 14:10
PROVIDERS: ATTEND Internal Medicine Hematology & Oncology
DX: C85.90 Non-Hodgkin lymphoma, unspecified, unspecified site (principal); D50.0 Iron deficiency anemia secondary to blood loss (chronic); J43.8 Other emphysema; E11.9 Type 2 diabetes mellitus without complications; I10 Essential (primary) hypertension; K63.89 Other specified diseases of intestine; I71.40 Abdominal aortic aneurysm, without rupture, unspecified; N32.89 Other specified disorders of bladder
CPT/HCPCS: 82565; 84520; 71260; 74177; 36415; Q9967

== ENCOUNTER 2025-04-01 20:13 | Inpatient (IN) | payer MEDICARE, BC ==
[2025-04-01 20:20] LABS: Glucose,Whole Blood 248 mg/dL (70-110)
--- NOTE | 2025-04-01 20:22 | ED ---
Syncope HPI - General Chief Complaint: Syncope Stated Complaint: Syncope Time Seen by Provider: 04/01/25 20:18 Source: patient, EMS, RN notes reviewed, old records reviewed Mode of arrival: EMS Limitations: no limitations - History of Present Illness Initial Comments: This is an 81-year-old male who presents by EMS for syncopal event. Patient has known issues with anemia and is severely low hemoglobin today. Patient has no chest pain or headache no abdominal pain, some shortness of breath and weakness MD Complaint: loss of consciousness, felt faint, almost passed out Prodromal Symptoms: lightheaded -: second(s) Witnessed: yes - by bystander, yes - by EMS Injuries Sustained Associated with Event: None Current Symptoms: lightheaded Treatments Prior to Arrival: none - Related Data Home Medications Medication Instructions Recorded Confirmed metFORMIN HCL [Glucophage] 850 mg PO DAILY 11/23/19 12/26/24 Pregabalin [Lyrica] 25 mg PO HS 01/11/24 12/26/24 Amiodarone [Cordarone] 200 mg PO DAILY 05/15/24 12/26/24 Midodrine HCl 7.5 mg PO TID 05/15/24 12/26/24 Tamsulosin [Flomax] 0.4 mg PO BID 05/15/24 12/26/24 Ferrous Sulfate [Iron (65 MG 325 mg PO DAILY 12/06/24 12/26/24 Elemental)] Previous Rx's Medication Instructions Recorded Atorvastatin [Lipitor] 80 mg PO DAILY #30 tab 01/12/24 Aspirin 81 mg PO DAILY #30 tab 09/18/24 Pantoprazole [Protonix] 40 mg PO BID #60 tab 09/18/24 Allergies Allergy/AdvReac Type Severity Reaction Status Date / Time No Known Allergies Allergy Verified 04/01/25 20:18 Review of Systems ROS Statement: Those systems with pertinent positive or pertinent negative responses have been documented in the HPI. ROS Other: All systems not noted in ROS Statement are negative. Past Medical History Past Medical History: Chest Pain / Angina, CVA/TIA, Diabetes Mellitus, GERD/Reflux, Hearing Disorder / Deafness, Hyperlipidemia, Hypertension, Myocardial Infarction (MA), Prostate Disorder, Respiratory Disorder, Sleep Apnea/CPAP/BIPAP Additional Past Medical History / Comment(s): "IRREG HEARTBEAT", "CHEMICAL STRESS TEST PRIOR TO TURP", NO CPAP MACHINE; carotid stenosis, TIA, pericardial effusion possibly r/t heart cath with stent 01/2024, wears hearing aids. Last Myocardial Infarction Date:: 01/11/24 History of Any Multi-Drug Resistant Organisms: None Reported Past Surgical History: Heart Catheterization With Stent, Hernia Repair, Prostate Surgery, Tonsillectomy Additional Past Surgical History / Comment(s): 2017 TURP, CYSTOSCOPY, LITHOTRIPSY FOR BLADDER STONE. FLO INGUINAL HERNIA REPAIR, FLO CATARACTS. Pericardial window with pericardial effusion possibly r/t heart cath with stent 01/2024 Past Anesthesia/Blood Transfusion Reactions: No Reported Reaction Date of Last Stent Placement:: 01/11/24 Past Psychological History: No Psychological Hx Reported Smoking Status: Former smoker - Past Family History Father Family Medical History: Cancer, Dementia, Prostate Disorder Additional Family Medical History / Comment(s): AGE 94 Mother Family Medical History: Dementia Additional Family Medical History / Comment(s): AGE 95 General Exam General appearance: alert, in no apparent distress Head exam: Present: atraumatic, normocephalic, normal inspection Eye exam: Present: normal appearance, PERRL, EOMI. Absent: scleral icterus, conjunctival injection, periorbital swelling ENT exam: Present: normal exam, mucous membranes moist Neck exam: Present: normal inspection. Absent: tenderness, meningismus, lymphadenopathy Respiratory exam: Present: normal lung sounds bilaterally. Absent: respiratory distress, wheezes, rales, rhonchi, stridor Cardiovascular Exam: Present: regular rate, normal rhythm, normal heart sounds. Absent: systolic murmur, diastolic murmur, rubs, gallop, clicks GI/Abdominal exam: Present: soft, normal bowel sounds. Absent: distended, tenderness, guarding, rebound, rigid Extremities exam: Present: normal inspection, full ROM, normal capillary refill. Absent: tenderness, pedal edema, joint swelling, calf tenderness Back exam: Present: normal inspection Neurological exam: Present: alert, oriented X3, CN II-XII intact Psychiatric exam: Present: normal affect, normal mood Skin exam: Present: warm, dry, intact, normal color. Absent: rash Course Vital Signs 04/01/25 20:14 Temperature 98.1 F Pulse Rate 62 Respiratory 18 Rate Blood Pressure 134/57 O2 Sat by Pulse 98 Oximetry - Reevaluation(s) Reevaluation #1: 04/01/25 22:03 Medical records reviewed Reevaluation #2: 04/01/25 22:03 Patient still feeling weak and dizzy Reevaluation #3: 04/01/25 22:03 Patient informed of results and questions answered Reevaluation #4: Was pt. sent in by a medical professional or institution (ANDRÉS Ramos, CALCULATING MACHINE MECHANIC, urgent care, hospital, or longterm...) When possible be specific @ -no Did you speak to anyone other than the patient for history (EMS, parent, family, police, friend...)? What history was obtained from this source @ -no Did you review nursing and triage notes (agree or disagree)? Why? @ -agree Are old charts reviewed (outside hosp., previous admission, EMS record, old EKG, old radiological studies, urgent care reports/EKG's, longterm records)? Report findings @ -yes Differential Diagnosis (chest pain, altered mental status, abdominal pain women, abdominal pain men, vaginal bleeding, weakness, fever, dyspnea, syncope, headache, dizziness, GI bleed, back pain, seizure, CVA, palpatations, mental health, musculoskeletal)? @ -prior EKG interpreted by me (3pts min.). @ -yes X-rays interpreted by me (1pt min.). @ -yes negative for acute disease CT interpreted by me (1pt min.). @ -no U/S interpreted by me (1pt. min.). @ -no What testing was considered but not performed or refused? (CT, X-rays, U/S, labs)? Why? @ -none What meds were considered but not given or refused? Why? @ -none Did you discuss the management of the patient with other professionals (p rofessionalsadia i.e. ANDRÉS Ramos, CALCULATING MACHINE MECHANIC, lab, RT, psych nurse, social media coordinator, office technician, teacher, life science technical officer, rn field case manager)? Give summary @ -no Was smoking cessation discussed for >3mins.? @ -no Was critical care preformed (if so, how long)? @ -no Were there social determinants of health that impacted care today? How? (Homelessness, low income, unemployed, alcoholism, drug addiction, transportation, low edu. Level, literacy, decrease access to med. care, senior care, rehab)? @ -none Was there de-escalation of care discussed even if they declined (Discuss DNR or withdrawal of care, Hospice)? DNR status @ -no What co-morbidities impacted this encounter? (DM, HTN, Smoking, COPD, CAD, Cancer, CVA, ARF, Chemo, Hep., AIDS, mental health diagnosis, sleep apnea, morbid obesity)? @ -none Was patient admitted / discharged? Hospital course, mention meds given and route, prescriptions, significant lab abnormalities, going to OR and other pertinent info. @ - Undiagnosed new problem with uncertain prognosis? @ -no Drug Therapy requiring intensive monitoring for toxicity (Heparin, Nitro, Insulin, Cardizem)? @ -no Were any procedures done? @ -no Diagnosis/symptom? @ - Acute, or Chronic, or Acute on Chronic? @ -Acute Uncomplicated (without systemic symptoms) or Complicated (systemic symptoms)? @ -Complicated Side effects of treatment? @ -no Exacerbation, Progression, or Severe Exacerbation? @ -exacerbation Poses a threat to life or bodily function? How? (Chest pain, USA, MA, pneumonia, PE, COPD, DKA, ARF, appy, cholecystitis, CVA, Diverticulitis, Homicidal, Suicidal, threat to staff... and all critical care pts) @ -yes Reevaluation #5: Differential Weakness: Hypoglycemia, shock, sepsis, hyponatremia, anemia, infection, MA, ETOH, adverse medicine reaction, overdose, stroke, this is not meant to be an all-inclusive list. Differential Syncope: Valvular disease, hypertrophic cardiomyopathy, pulmonary embolism, tamponade, tachycardia, bradycardia, MA, hypovolemia, hemorrhage, dissection, anemia, intracranial hemorrhage, seizure, hypoglycemia, carbon monoxide poisoning, this is not meant to be an all-inclusive list. - Consultations Consultation #1: Spoke with galo who agrees to admit this patient EKG Findings - EKG Comments: EKG Findings:: EKG is sinus 65 [address] 207 QRS 167 QTc 502 - EKG Results: EKG: interpreted by YA Medical Decision Making - Medical Decision Making 89 male to be admitted for acute on chronic anemia with low iron studies, patient admitted for transfusion - Lab Data Result diagrams: 04/01/25 20:19 04/01/25 20:19 Lab Results 04/01/25 04/01/25 04/01/25 Range/Units 20:19 20:19 20:19 WBC 4.72 (4.50-10.00) 10*3/uL RBC 2.78 L (4.40-5.60) 10*6/uL Hgb 6.7 L* (13.0-17.0) g/dL Hct 22.3 L (39.6-50.0) % MCV 80.2 (80.0-97.0) fL MCH 24.1 L (27.0-32.0) pg MCHC 30.0 L (32.0-37.0) g/dL Plt Count 320 (140-440) 10*3/uL MPV 10.0 (9.5-12.2) fL Immature Gran % (Auto) 0.2 % Neutrophils % 56.8 % Lymphocytes % 27.8 % Monocytes % 11.9 % Eosinophils % 2.5 % Basophils % 0.8 % Immature Gran # 0.01 (0.00-0.04) 10*3/uL Neutrophils # 2.68 (1.80-7.70) 10*3/uL Lymphocytes # 1.31 (0.90-5.00) 10*3/uL Monocytes # 0.56 (0.20-1.00) 10*3/uL Eosinophils # 0.12 (0.04-0.35) 10*3/uL Basophils # 0.04 (0.00-0.10) 10*3/uL PT 11.6 (10.0-12.5) sec INR 1.1 (<1.2) APTT 24.0 (22.0-30.0) sec Sodium 138 (137-145) mmol/L Potassium 4.5 (3.5-5.1) mmol/L Chloride 107 (98-107) mmol/L Carbon Dioxide 21 L (22-30) mmol/L Anion Gap 10 mmol/L BUN 18 (9-20) mg/dL Creatinine 1.32 H (0.66-1.25) mg/dL Est GFR (CKD-EPI)AfAm 56 (>60 ml/min/1.73 sqM) Est GFR (CKD-EPI)NonAf 48 (>60 ml/min/1.73 sqM) Glucose 192 H (74-99) mg/dL POC Glucose (mg/dL) (70-110) mg/dL POC Glu Fishing Boat Captain ID Plasma Lactic Acid Selvin (0.7-2.0) mmol/L Calcium 8.8 (8.4-10.2) mg/dL Phosphorus 3.9 (2.5-4.5) mg/dL Magnesium 2.0 (1.6-2.3) mg/dL Total Bilirubin 0.3 (0.2-1.3) mg/dL AST 21 (17-59) U/L ALT 15 (4-49) U/L Alkaline Phosphatase 67 (38-126) U/L Troponin I (0.000-0.034) ng/mL NT-Pro-B Natriuret Pep 1120 pg/mL Total Protein 6.2 L (6.3-8.2) g/dL Albumin 4.0 (3.5-5.0) g/dL 04/01/25 04/01/25 04/01/25 Range/Units 20:19 20:19 20:19 WBC (4.50-10.00) 10*3/uL RBC (4.40-5.60) 10*6/uL Hgb (13.0-17.0) g/dL Hct (39.6-50.0) % MCV (80.0-97.0) fL MCH (27.0-32.0) pg MCHC (32.0-37.0) g/dL Plt Count (140-440) 10*3/uL MPV (9.5-12.2) fL Immature Gran % (Auto) % Neutrophils % % Lymphocytes % % Monocytes % % Eosinophils % % Basophils % % Immature Gran # (0.00-0.04) 10*3/uL Neutrophils # (1.80-7.70) 10*3/uL Lymphocytes # (0.90-5.00) 10*3/uL Monocytes # (0.20-1.00) 10*3/uL Eosinophils # (0.04-0.35) 10*3/uL Basophils # (0.00-0.10) 10*3/uL PT (10.0-12.5) sec INR (<1.2) APTT (22.0-30.0) sec Sodium (137-145) mmol/L Potassium (3.5-5.1) mmol/L Chloride (98-107) mmol/L Carbon Dioxide (22-30) mmol/L Anion Gap mmol/L BUN (9-20) mg/dL Creatinine (0.66-1.25) mg/dL Est GFR (CKD-EPI)AfAm (>60 ml/min/1.73 sqM) Est GFR (CKD-EPI)NonAf (>60 ml/min/1.73 sqM) Glucose (74-99) mg/dL POC Glucose (mg/dL) 248 H (70-110) mg/dL POC Glu Fishing Boat Captain ID Achatz Zoila Plasma Lactic Acid Selvin 2.1 H* (0.7-2.0) mmol/L Calcium (8.4-10.2) mg/dL Phosphorus (2.5-4.5) mg/dL Magnesium (1.6-2.3) mg/dL Total Bilirubin (0.2-1.3) mg/dL AST (17-59) U/L ALT (4-49) U/L Alkaline Phosphatase (38-126) U/L Troponin I 0.015 (0.000-0.034) ng/mL NT-Pro-B Natriuret Pep pg/mL Total Protein (6.3-8.2) g/dL Albumin (3.5-5.0) g/dL Critical Care Time Critical Care Time: Yes Total Critical Care Time: 31 Disposition Clinical Impression: Anemia, Near syncope Disposition: ADMITTED IP TO THIS HOSP Condition: Fair Is patient prescribed a controlled substance at d/c from ED?: No Referrals: Mt Burgess DO [Primary Care Provider] - 1-2 days Time of Disposition: 22:00
[2025-04-01] MEDS: SODIUM CHLORIDE 0.9% 1,000 ML IV ONE (20:30)
[2025-04-01 20:44] LABS: Basophils # (A) 0.04 10*3/uL (0.00-0.10); Basophils % (A) 0.8 %; Eosinophils # (A) 0.12 10*3/uL (0.04-0.35); Eosinophils % (A) 2.5 %; HCT 22.3 % (39.6-50.0); Lymphocytes # (A) 1.31 10*3/uL (0.90-5.00); Lymphocytes % (A) 27.8 %; MCH 24.1 pg (27.0-32.0); MCHC 30.0 g/dL (32.0-37.0); MCV 80.2 fL (80.0-97.0); Monocytes # (A) 0.56 10*3/uL (0.20-1.00); Monocytes % (A) 11.9 %; Neutrophils # (A) 2.68 10*3/uL (1.80-7.70); Neutrophils % (A) 56.8 %; Platelet Count 320 10*3/uL (140-440); RBC 2.78 10*6/uL (4.40-5.60); RDW 19.0 % (11.5-14.5); WBC 4.72 10*3/uL (4.50-10.00)
[2025-04-01 20:51] LABS: HGB 6.7 g/dL (13.0-17.0)
[2025-04-01 20:59] LABS: ALT 15 U/L (4-49); AST 21 U/L (17-59); African American GFR (CKD) 56 (>60 ml/min/1.73 sqM); Albumin 4.0 g/dL (3.5-5.0); Alkaline Phosphatase 67 U/L (38-126); Anion Gap 10 mmol/L; Blood Urea Nitrogen 18 mg/dL (9-20); Calcium 8.8 mg/dL (8.4-10.2); Carbon Dioxide 21 mmol/L (22-30); Chloride 107 mmol/L (98-107); Glucose 192 mg/dL (74-99); Magnesium 2.0 mg/dL (1.6-2.3); Non-African American GFR(CKD) 48 (>60 ml/min/1.73 sqM); Potassium 4.5 mmol/L (3.5-5.1); Sodium 138 mmol/L (137-145); Total Protein 6.2 g/dL (6.3-8.2)
[2025-04-01 21:08] LABS: NT-Pro-B-Type Natriuretic Pept 1120 pg/mL
[2025-04-01 21:36] LABS: INR 1.1 (<1.2); Partial Thromboplastin Time 24.0 sec (22.0-30.0); Prothrombin Time 11.6 sec (10.0-12.5)
[2025-04-01] MEDS ORDERED: ONDANSETRON 4 MG/2 ML VIAL IVP PRN (22:01)
[2025-04-01] MEDS ORDERED: NALOXONE 0.4 MG/ML 1 ML VIAL IV PRN (22:01)
[2025-04-02] MEDS: SODIUM CHLORIDE 0.9% 1,000 ML IV SCH
[2025-04-02] MEDS: SODIUM FERRIC GLUCONAT-SUCROSE 125 MG in SODIUM CHLORIDE 0.9% 100 ML IVPB ONE
--- NOTE | 2025-04-02 00:50 | P.HPIM ---
History of Present Illness H&P Date: 04/01/25 Patient is a 89-year-old male with a PMH of iron deficiency anemia and takes iron tablets, CAD status post PCI to the left circumflex artery, hypertension, moderate aortic stenosis, diabetes, dyslipidemia, BPH Patient was told to go to the ED by his primary care physician on account of his low hemoglobin of 6.4 based on labs drawn this morning. Per , on their way to the hospital, patient passed out in the car and his hands and feet were flaying, she denies any rolling of eyes. She stated that patient passed out for less than 6 minutes and was a bit confused when he regained consciousness as a result she called 911. He denies any abdominal pain, chest pain, shortness of breath. Patient reported that lately he has to take suppositories to aid bowel movement he denies any blood in his stool. 6 months ago patient was admitted at this facility for about 3 days and was managed for suspected GI bleed and iron deficiency anemia during his admission and endoscopy and colonoscopy was done which did not suggest any active signs of bleeding, but showed mild gastritis, small hiatal hernia, mild distal esophagitis. EKG reviewed by me showed sinus rhythm, right bundle branch block. Lab evaluation: Hgb6.7, HCT22.3, MCH24.1, MCHC30.0, PT11.6, INR1.1, APTT24.0, EYZ860, Cr1.32, [id number], plasma lactic acid vein2.1, total protein6.2, JI55pdl, BP134/57mmHg, HS10iis, O2 Sat98% on 2 L O2 via nasal canula. ED documentation reviewed and case discussed with ED provider. Review of systems: Pertinent positives and negatives as discussed in HPI, a complete review of systems was performed and all other systems are negative. Physical examination: Vital signs reviewed General: non toxic, no distress, appears at stated age, normal weight, pale+, mild pitin edema on left lower extremity up to mid fontaine. Derm: no unusual rashes/lesions, warm Head: atraumatic, normocephalic, symmetric Eyes: EOMI, anicteric sclera, pupils equal round reactive to light ENT: Nose and ears atraumatic Neck: No cervical lymphadenopathy, trachea midline, supple Mouth: no lip lesion, mucus membranes moist Cardiovascular: S1S2 reg, systolic murmur, Lungs: CTA bilateral, no rhonchi, no rales, no accessory muscle use Abdominal: soft, nontender to palpation, no guarding Ext: muscle strength 5 out of 5 in all 4 extremities grossly, no gross muscle atrophy Neuro: CN II-XI grossly intact, no gross focal neuro deficits Psych: Alert, oriented to person, place, and time Assessment/Plan: Patient is an 89-year-old man with a PMH of iron deficiency anemia, CAD SP post PCI to the left circumflex artery, hypertension, moderate aortic stenosis, dyslipidemia, BPH who presented to the ED after an episode of syncope. 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 *Patient has been recently diagnosed with non-Hodgkin lymphoma as evidenced on bone marrow biopsy and is yet to commence treatment. -Transfuse 1 unit of packed RBC -IV Ferrlecit 125mg -Consult to Heme-onc (done) -For possible discharge tomorrow morning, pending transfusion of packed RBC #Cardiac s/p catetherization to left circumflex artery, moderate aortic stenosis *syncope less likely due to cardiac dysfunction, patient had an echocardiography done a few weeks ago, unable to retrieve results as it was done at an outpatient facility. -Aspirin 81mg -Cardiac telemetry -Doppler US of bilateral lower extremity #Primary hypertension #Diabetes -Continue home meds DVT prophylaxis: SCDs The patient is admitted with an anticipated less than than 2 midnight stay for evaluation of syncope CODE STATUS: Full Discussed with: Patient Anticipated discharge place: Home Rochelle Rey MD PGY-1 FM Dictation was produced using [employer] dictation software. please excuse any grammatical, word or spelling errors. I have seen and evaluated the patient today. Discussed with the resident and agree with the residents finding and plan as documented in the resident's note. Changes highlighted in blue font. Past Medical History Past Medical History: Chest Pain / Angina, CVA/TIA, Diabetes Mellitus, GERD/Reflux, Hearing Disorder / Deafness, Hyperlipidemia, Hypertension, Myocardial Infarction (DC), Prostate Disorder, Respiratory Disorder, Sleep Apnea/CPAP/BIPAP Additional Past Medical History / Comment(s): "IRREG HEARTBEAT", "CHEMICAL STRESS TEST PRIOR TO TURP", NO CPAP MACHINE; carotid stenosis, TIA, pericardial effusion possibly r/t heart cath with stent 01/2024, wears hearing aids. Last Myocardial Infarction Date:: 01/11/24 History of Any Multi-Drug Resistant Organisms: None Reported Past Surgical History: Heart Catheterization With Stent, Hernia Repair, Prostate Surgery, Tonsillectomy Additional Past Surgical History / Comment(s): 2017 TURP, CYSTOSCOPY, LITHOTRIPSY FOR BLADDER STONE. FLO INGUINAL HERNIA REPAIR, FLO CATARACTS. Pericardial window with pericardial effusion possibly r/t heart cath with stent 01/2024 Past Anesthesia/Blood Transfusion Reactions: No Reported Reaction Date of Last Stent Placement:: 01/11/24 Past Psychological History: No Psychological Hx Reported Smoking Status: Former smoker - Past Family History Father Family Medical History: Cancer, Dementia, Prostate Disorder Additional Family Medical History / Comment(s): AGE 94 Mother Family Medical History: Dementia Additional Family Medical History / Comment(s): AGE 95 Medications and Allergies Home Medications Medication Instructions Recorded Confirmed Type metFORMIN HCL [Glucophage] 850 mg PO DAILY 11/23/19 12/26/24 History Pregabalin [Lyrica] 25 mg PO HS 01/11/24 12/26/24 History Atorvastatin [Lipitor] 80 mg PO DAILY #30 tab 01/12/24 12/26/24 Rx Amiodarone [Cordarone] 200 mg PO DAILY 05/15/24 12/26/24 History Midodrine HCl 7.5 mg PO TID 05/15/24 12/26/24 History Tamsulosin [Flomax] 0.4 mg PO BID 05/15/24 12/26/24 History Aspirin 81 mg PO DAILY #30 tab 09/18/24 12/26/24 Rx Pantoprazole [Protonix] 40 mg PO BID #60 tab 09/18/24 12/26/24 Rx Ferrous Sulfate [Iron (65 MG 325 mg PO DAILY 12/06/24 12/26/24 History Elemental)] Allergies Allergy/AdvReac Type Severity Reaction Status Date / Time No Known Allergies Allergy Verified 04/01/25 20:18 Physical Exam Vitals: Vital Signs Temp Pulse Resp BP Pulse Ox 04/01/25 22:36 64 16 134/57 98 04/01/25 20:14 98.1 F 62 18 134/57 98 Intake and Output 04/01/25 04/01/25 04/02/25 14:59 22:59 06:59 Other: Weight 79.379 kg Results CBC & Chem 7: 04/01/25 20:19 04/02/25 00:23 Labs: Abnormal Lab Results - Last 24 Hours (Table) 04/01/25 04/01/25 04/01/25 Range/Units 20:19 20:19 20:19 RBC 2.78 L (4.40-5.60) 10*6/uL Hgb 6.7 L* (13.0-17.0) g/dL Hct 22.3 L (39.6-50.0) % MCH 24.1 L (27.0-32.0) pg MCHC 30.0 L (32.0-37.0) g/dL Carbon Dioxide 21 L (22-30) mmol/L Creatinine 1.32 H (0.66-1.25) mg/dL Glucose 192 H (74-99) mg/dL POC Glucose (mg/dL) (70-110) mg/dL Plasma Lactic Acid Selvin 2.1 H* (0.7-2.0) mmol/L Total Protein 6.2 L (6.3-8.2) g/dL 04/01/25 Range/Units 20:19 RBC (4.40-5.60) 10*6/uL Hgb (13.0-17.0) g/dL Hct (39.6-50.0) % MCH (27.0-32.0) pg MCHC (32.0-37.0) g/dL Carbon Dioxide (22-30) mmol/L Creatinine (0.66-1.25) mg/dL Glucose (74-99) mg/dL POC Glucose (mg/dL) 248 H (70-110) mg/dL Plasma Lactic Acid Selvin (0.7-2.0) mmol/L Total Protein (6.3-8.2) g/dL
[2025-04-02 01:31] LABS: ALT 14 U/L (4-49); AST 19 U/L (17-59); African American GFR (CKD) 64 (>60 ml/min/1.73 sqM); Albumin 3.3 g/dL (3.5-5.0); Albumin/Globulin Ratio 1.5; Alkaline Phosphatase 68 U/L (38-126); Anion Gap 5 mmol/L; Blood Urea Nitrogen 17 mg/dL (9-20); Calcium 8.5 mg/dL (8.4-10.2); Carbon Dioxide 24 mmol/L (22-30); Chloride 109 mmol/L (98-107); Globulin 2.2 g/dL; Glucose 122 mg/dL (74-99); Non-African American GFR(CKD) 55 (>60 ml/min/1.73 sqM); Potassium 4.5 mmol/L (3.5-5.1); Sodium 138 mmol/L (137-145); Total Protein 5.5 g/dL (6.3-8.2)
[2025-04-02 02:41] LABS: Ferritin 9.5 ng/mL (22.0-322.0); Total Iron Binding Capacity 332.0 UG/DL (228-460)
[2025-04-02 03:11] LABS: Iron 106.0 UG/DL (65-175); Vitamin B12 1779.0 pg/mL (200.0-944.0)
--- NOTE | 2025-04-02 03:47 | US ---
EXAM: US Duplex Bilateral Lower Extremities Veins CLINICAL HISTORY: Syncope TECHNIQUE: Real-time duplex ultrasound scan of the bilateral lower extremity veins integrating B-mode two-dimensional vascular structure, Doppler spectral analysis, color flow Doppler imaging and compression. COMPARISON: No relevant prior studies available. FINDINGS: Right deep veins: Unremarkable. No Deep vein thrombosis in the right common femoral, femoral, proximal deep femoral or popliteal veins. The veins demonstrate normal color flow, are normally compressible, with normal phasic flow and/or augmentation response. Right superficial veins: Unremarkable. No thrombus in the visualized right great saphenous vein. Left deep veins: Unremarkable. No Deep vein thrombosis in the left common femoral, femoral, proximal deep femoral or popliteal veins. The veins demonstrate normal color flow, are normally compressible, with normal phasic flow and/or augmentation response. Left superficial veins: Unremarkable. No thrombus in the visualized left great saphenous vein. Soft tissues: No acute findings. No popliteal cyst. IMPRESSION: No deep vein thrombosis of either lower extremity.
[2025-04-02 05:29] LABS: Bacteria,Urine Rare /hpf; Bilirubin,Urine Negative (Negative); Blood,Urine Negative (Negative); Calcium Oxalate Crystals,Urine Rare /hpf; Color,Urine Colorless; Glucose,Urine (UA) Negative (Negative); Ketones,Urine Negative (Negative); Leukocyte Esterase,Urine Small (Negative); Mucus,Urine Rare /hpf; Nitrite,Urine Negative (Negative); PH, Urine 6.5 (5.0-8.0); Protein,Urine Negative (Negative); RBC,Urine 1 /hpf (0-5); Specific Gravity,Urine 1.011 (1.001-1.035); Urobilinogen,Urine <2.0 mg/dL (<2.0); WBC,Urine 10 /hpf (0-5)
[2025-04-02 08:50] LABS: HCT 23.6 % (39.6-50.0); HGB 7.3 g/dL (13.0-17.0); MCH 25.2 pg (27.0-32.0); MCHC 30.9 g/dL (32.0-37.0); MCV 81.4 fL (80.0-97.0); Platelet Count 280 10*3/uL (140-440); RBC 2.90 10*6/uL (4.40-5.60); RDW 18.6 % (11.5-14.5); WBC 6.03 10*3/uL (4.50-10.00)
[2025-04-02] MEDS: ATORVASTATIN 80 MG TAB PO SCH (10:37)
[2025-04-02] MEDS: AMIODARONE 200 MG TAB PO SCH (10:37)
[2025-04-02] MEDS: ASPIRIN 81 MG PO SCH (10:38)
[2025-04-02] MEDS: PANTOPRAZOLE 40 MG TABLET PO SCH ×2 (10:38→10:43)
[2025-04-02] MEDS: metFORMIN 850 MG TAB PO SCH ×2 (10:39→10:43)
[2025-04-02] MEDS: MIDODRINE 5 MG TAB PO SCH (10:41)
[2025-04-02] MEDS: TAMSULOSIN 0.4 MG CAP.ER.24H PO SCH ×2 (10:43→17:13)
[2025-04-02] MEDS: FERROUS SULFATE 325 MG TAB PO SCH ×2 (10:43→17:13)
[2025-04-02] MEDS: SODIUM FERRIC GLUCONAT-SUCROSE 125 MG in SODIUM CHLORIDE 0.9% 100 ML IVPB SCH (12:18)
[2025-04-02 13:36] LABS: HCT 23.5 % (39.6-50.0); HGB 7.0 g/dL (13.0-17.0); MCH 24.6 pg (27.0-32.0); MCHC 29.8 g/dL (32.0-37.0); MCV 82.5 fL (80.0-97.0); Platelet Count 282 10*3/uL (140-440); RBC 2.85 10*6/uL (4.40-5.60); RDW 18.8 % (11.5-14.5); WBC 6.11 10*3/uL (4.50-10.00)
[2025-04-02] MEDS ORDERED: ACETAMINOPHEN TAB 325 MG TAB PO PRN (14:10)
[2025-04-02] MEDS: HYDROcodone/APAP 5-325MG 1 EACH TAB PO PRN (14:47)
--- NOTE | 2025-04-02 14:53 | P.CONS ---
History of Present Illness - Reason for Consult Consult date: 04/02/25 - History of Present Illness Patient is an 89-year-old female with a significant medical history of AR and cardiac stents, currently on aspirin, iron deficiency anemia and outpatient treatment, and low-grade B-cell marginal zone lymphoma. Patient was told to go to the ED by his primary care physician on account of his low hemoglobin of 6.4 based on labs drawn the previous morning. Patient was initially seen by hematology in May 2024 for he was found to have iron deficiency anemia and has since been receiving outpatient IV iron supplementation. During his last hospitalization in September patient returned for anemia underwent EGD and colonoscopy with findings of no active bleeding, but did demonstrate some gas tritis and fundus of gastrum. He received 2 units of blood during that admission. Xarelto and Plavix were discontinued at that time. He was started on PPI. He was also found to have low-grade B-cell marginal zone lymphoma, staging CT with findings of no adenopathy or malignancy. Lymphoma is being monitored outpatient and not requiring treatment at this time. Today, according to his at bedside, on their way to the hospital, patient passed out in the car. She stated that patient loss of consciousness for less than 6 minutes and was a bit confused when he regained consciousness as a result she called 911. He denies any abdominal pain, chest pain, shortness of breath. Patient reported that lately he has to take suppositories to aid bowel movement he denies any blood in his stool. He does note dark stools that he feels can be attributed to his iron supplementation. He does have appointment for outpatient IV iron supplementation tomorrow. On admission hemoglobin 6.7, MCV 80.2, MCH 24.1, platelets 320. Iron panel completed iron 106, TIBC 332, percent saturation 31.9, transferrin 237, ferritin 9.5. S/p 1 unit PRBCs. Review of Systems Constitutional: Reports as per HPI Past Medical History Past Medical History: Chest Pain / Angina, CVA/TIA, Diabetes Mellitus, GERD/Reflux, Hearing Disorder / Deafness, Hyperlipidemia, Hypertension, Myocardial Infarction ([place]), Prostate Disorder, Respiratory Disorder, Sleep Apnea/CPAP/BIPAP Additional Past Medical History / Comment(s): "IRREG HEARTBEAT", "CHEMICAL STRESS TEST PRIOR TO TURP", NO CPAP MACHINE; carotid stenosis, TIA, pericardial effusion possibly r/t heart cath with stent 01/2024, wears hearing aids. Last Myocardial Infarction Date:: 01/11/24 History of Any Multi-Drug Resistant Organisms: None Reported Past Surgical History: Heart Catheterization With Stent, Hernia Repair, Prostate Surgery, Tonsillectomy Additional Past Surgical History / Comment(s): 2017 TURP, CYSTOSCOPY, LITHOTRIPSY FOR BLADDER STONE. FLO INGUINAL HERNIA REPAIR, FLO CATARACTS. Pericardial window with pericardial effusion possibly r/t heart cath with stent 01/2024 Past Anesthesia/Blood Transfusion Reactions: No Reported Reaction Date of Last Stent Placement:: 01/11/24 Past Psychological History: No Psychological Hx Reported Smoking Status: Former smoker - Past Family History Father Family Medical History: Cancer, Dementia, Prostate Disorder Additional Family Medical History / Comment(s): AGE 94 Mother Family Medical History: Dementia Additional Family Medical History / Comment(s): AGE 95 Medications and Allergies Home Medications Medication Instructions Recorded Confirmed Type metFORMIN HCL [Glucophage] 850 mg PO BID-W/MEALS 11/23/19 04/02/25 History Pregabalin [Lyrica] 25 mg PO HS 01/11/24 04/02/25 History Atorvastatin [Lipitor] 80 mg PO DAILY #30 tab 01/12/24 04/02/25 Rx Amiodarone [Cordarone] 200 mg PO DAILY 05/15/24 04/02/25 History Midodrine HCl 7.5 mg PO TID-W/MEALS 05/15/24 04/02/25 History Tamsulosin [Flomax] 0.4 mg PO BID-W/MEALS 05/15/24 04/02/25 History Aspirin 81 mg PO DAILY #30 tab 09/18/24 04/02/25 Rx Ferrous Sulfate [Iron (65 MG 325 mg PO BID-W/MEALS 12/06/24 04/02/25 History Elemental)] Pantoprazole [Protonix] 40 mg PO DAILY 04/02/25 04/02/25 History Ferrous Sulfate [Feosol] 325 mg PO DAILY #30 tab 04/04/25 Rx Pantoprazole [Protonix] 40 mg PO DAILY #30 tab 04/04/25 Rx Allergies Allergy/AdvReac Type Severity Reaction Status Date / Time No Known Allergies Allergy Verified 04/02/25 09:33 Physical Exam Vitals: Vital Signs Temp Pulse Resp BP Pulse Ox 04/02/25 10:40 55 L 18 125/66 96 04/02/25 10:16 55 L 18 125/66 96 04/02/25 07:21 60 18 113/60 96 04/02/25 07:00 54 L 18 131/63 97 04/02/25 05:31 54 L 16 133/69 97 04/02/25 03:40 98.6 F 54 L 16 132/68 96 04/02/25 01:58 98.4 F 54 L 18 124/61 97 04/02/25 01:38 98.6 F 55 L 16 116/60 98 04/02/25 01:28 98.2 F 55 L 16 117/63 98 04/01/25 22:36 64 16 134/57 98 04/01/25 20:14 98.1 F 62 18 134/57 98 Intake and Output 04/01/25 04/02/25 04/02/25 22:59 06:59 14:59 Intake Total 283 Balance 283 Intake: Blood Product 283 Rc Pheresis As-3 Unit 283 [id number] Other: Weight 79.379 kg General: Well-appearing, nontoxic, no acute distress. Head: Normocephalic, atraumatic Eyes: PERRLA, EOMI ENT: Airway patent Cardio: Normal S1-S2 sounds, systolic murmur appreciated best in aortic area Chest: Nonlabored breathing no wheezing, crackles, or rhonchi noted Skin: No visual rash, normal skin tone Neuro: Alert and oriented 3 Musculoskeletal: No gross abnormalities Results CBC & Chem 7: 04/04/25 06:24 04/04/25 06:24 Labs: Abnormal Lab Results - Last 24 Hours (Table) 04/01/25 04/01/25 04/01/25 Range/Units 00:00 20:14 20:19 RBC 2.78 L (4.40-5.60) 10*6/uL Hgb 6.7 L* (13.0-17.0) g/dL Hct 22.3 L (39.6-50.0) % MCH 24.1 L (27.0-32.0) pg MCHC 30.0 L (32.0-37.0) g/dL RDW (11.5-14.5) % Chloride (98-107) mmol/L Carbon Dioxide (22-30) mmol/L Creatinine (0.66-1.25) mg/dL Glucose (74-99) mg/dL POC Glucose (mg/dL) (70-110) mg/dL Plasma Lactic Acid Selvin (0.7-2.0) mmol/L Ferritin 9.5 L (22.0-322.0) ng/mL Total Protein (6.3-8.2) g/dL Albumin (3.5-5.0) g/dL Vitamin B12 1779.0 H (200.0-944.0) pg/mL Ur Leukocyte Esterase (Negative) Urine WBC (0-5) /hpf Calcium Oxalate Crystal (None) /hpf Urine Bacteria (None) /hpf Urine Mucus (None) /hpf Crossmatch See Detail 04/01/25 04/01/25 04/01/25 Range/Units 20:19 20:19 20:19 RBC (4.40-5.60) 10*6/uL Hgb (13.0-17.0) g/dL Hct (39.6-50.0) % MCH (27.0-32.0) pg MCHC (32.0-37.0) g/dL RDW (11.5-14.5) % Chloride (98-107) mmol/L Carbon Dioxide 21 L (22-30) mmol/L Creatinine 1.32 H (0.66-1.25) mg/dL Glucose 192 H (74-99) mg/dL POC Glucose (mg/dL) 248 H (70-110) mg/dL Plasma Lactic Acid Selvin 2.1 H* (0.7-2.0) mmol/L Ferritin (22.0-322.0) ng/mL Total Protein 6.2 L (6.3-8.2) g/dL Albumin (3.5-5.0) g/dL Vitamin B12 (200.0-944.0) pg/mL Ur Leukocyte Esterase (Negative) Urine WBC (0-5) /hpf Calcium Oxalate Crystal (None) /hpf Urine Bacteria (None) /hpf Urine Mucus (None) /hpf Crossmatch 04/02/25 04/02/25 04/02/25 Range/Units 00:23 04:30 08:30 RBC 2.90 L (4.40-5.60) 10*6/uL Hgb 7.3 L (13.0-17.0) g/dL Hct 23.6 L (39.6-50.0) % MCH 25.2 L (27.0-32.0) pg MCHC 30.9 L (32.0-37.0) g/dL RDW 18.6 H (11.5-14.5) % Chloride 109 H (98-107) mmol/L Carbon Dioxide (22-30) mmol/L Creatinine (0.66-1.25) mg/dL Glucose 122 H (74-99) mg/dL POC Glucose (mg/dL) (70-110) mg/dL Plasma Lactic Acid Selvin (0.7-2.0) mmol/L Ferritin (22.0-322.0) ng/mL Total Protein 5.5 L (6.3-8.2) g/dL Albumin 3.3 L (3.5-5.0) g/dL Vitamin B12 (200.0-944.0) pg/mL Ur Leukocyte Esterase Small H (Negative) Urine WBC 10 H (0-5) /hpf Calcium Oxalate Crystal Rare H (None) /hpf Urine Bacteria Rare H (None) /hpf Urine Mucus Rare H (None) /hpf Crossmatch Assessment and Plan Plan: #Iron deficiency anemia #B cell marginal zone lymphoma, low-grade Initial hemoglobin 6.7 Status post 1 unit pRBC, with only partial appropriate response Iron panel reviewed Lymphoma not likely contributing to DASHA Patient receiving outpatient IV iron supplementation Will reschedule office appointment for iron supplementation Begin IV Ferrlecit daily Suspecting recurrent AVMs contributing to chronic anemia, recommend EGD, GI consulted Maintain hemoglobin >7.0 g/dL, replete with pRBC as needed Monitor CBC Pavel Serrato MD Internal Medicine Resident, PGY2 Hematology oncology service Patient seen with resident and agree with assessment and plan as outlined above. Josh Maddox MD
--- NOTE | 2025-04-02 15:32 | P.CONS ---
History of Present Illness - Reason for Consult Consult date: 04/02/25 Hematology requesting repeat upper endoscopy Requesting physician: Fletcher Clifton - Chief Complaint Syncope - History of Present Illness This a pleasant 89-year-old male with a past medical history including chronic anemia, CVA/TIA, diabetes mellitus, GERD, hearing loss, hyperlipidemia, hypertension, coronary artery disease with VA, prostate disorder and sleep apnea who had presented to the emergency department yesterday evening with complaints of syncopal event. Apparently patient had a syncopal event has some shortness of breath and weakness. He was concerned his hemoglobin was low as he has history of anemia and currently takes iron. Patient follows with hematology and has had workup for his anemia including bone marrow biopsy in December of this year. He has also had workup with upper endoscopy and colonoscopy by Dr. Thomas on 09/17/2024 with upper endoscopy with findings of mild gastritis, small hiatal hernia and mild distal esophagitis. Colonoscopy with normal colon. On presentation he had a hemoglobin of 6.7. He was given 1 unit of blood. He had iron studies appears prior to blood transfusion iron was normal at 106 TIBC C3 32 saturation 31 ferritin 9.5 vitamin B12 1779. Patient denies being on any anticoagulation, is on aspirin 81 mg daily. No NSAID use. Review of Systems REVIEW OF SYSTEMS: CARDIOPULMONARY: No chest pain or shortness of breath. Gastrointestinal: No abdominal pain. No nausea or vomiting. No hematemesis, coffee-ground emesis. No rectal bleeding, or melena. GENITOURINARY: No dysuria or hematuria. MUSCULOSKELETAL: Reports normal range of motion., Joint pain. SKIN: No rashes. No jaundice. ENDOCRINE: No chills, fevers. No excessive weight gain or loss. No polydipsia or polyuria. PSYCHIATRIC: Unremarkable. NEUROLOGY: Dizziness, syncopal event and passing out. ENT: Vision unremarkable. CONSTITUTIONAL: No recent weight loss. No fever, chills, night sweats. Past Medical History Past Medical History: Chest Pain / Angina, CVA/TIA, Diabetes Mellitus, GERD/Reflux, Hearing Disorder / Deafness, Hyperlipidemia, Hypertension, Myocardial Infarction ([place]), Prostate Disorder, Respiratory Disorder, Sleep Apnea/CPAP/BIPAP Additional Past Medical History / Comment(s): "IRREG HEARTBEAT", "CHEMICAL STRESS TEST PRIOR TO TURP", NO CPAP MACHINE; carotid stenosis, TIA, pericardial effusion possibly r/t heart cath with stent 01/2024, wears hearing aids. Last Myocardial Infarction Date:: 01/11/24 History of Any Multi-Drug Resistant Organisms: None Reported Past Surgical History: Heart Catheterization With Stent, Hernia Repair, Prostate Surgery, Tonsillectomy Additional Past Surgical History / Comment(s): 2017 TURP, CYSTOSCOPY, LITHOTRIPSY FOR BLADDER STONE. FLO INGUINAL HERNIA REPAIR, FLO CATARACTS. Pericardial window with pericardial effusion possibly r/t heart cath with stent 01/2024 Past Anesthesia/Blood Transfusion Reactions: No Reported Reaction Date of Last Stent Placement:: 01/11/24 Past Psychological History: No Psychological Hx Reported Smoking Status: Former smoker - Past Family History Father Family Medical History: Cancer, Dementia, Prostate Disorder Additional Family Medical History / Comment(s): AGE 94 Mother Family Medical History: Dementia Additional Family Medical History / Comment(s): AGE 95 Medications and Allergies Home Medications Medication Instructions Recorded Confirmed Type metFORMIN HCL [Glucophage] 850 mg PO BID-W/MEALS 11/23/19 04/02/25 History Pregabalin [Lyrica] 25 mg PO HS 01/11/24 04/02/25 History Atorvastatin [Lipitor] 80 mg PO DAILY #30 tab 01/12/24 04/02/25 Rx Amiodarone [Cordarone] 200 mg PO DAILY 05/15/24 04/02/25 History Midodrine HCl 7.5 mg PO TID-W/MEALS 05/15/24 04/02/25 History Tamsulosin [Flomax] 0.4 mg PO BID-W/MEALS 05/15/24 04/02/25 History Aspirin 81 mg PO DAILY #30 tab 09/18/24 04/02/25 Rx Ferrous Sulfate [Iron (65 MG 325 mg PO BID-W/MEALS 12/06/24 04/02/25 History Elemental)] Pantoprazole [Protonix] 40 mg PO DAILY 04/02/25 04/02/25 History Sulfamethox-Tmp 800-160Mg [Bactrim 1 tab PO BID-W/MEALS 04/02/25 04/02/25 History DS 800-160 mg] Allergies Allergy/AdvReac Type Severity Reaction Status Date / Time No Known Allergies Allergy Verified 04/02/25 09:33 Physical Exam Vitals: Vital Signs Temp Pulse Resp BP Pulse Ox 04/02/25 10:40 55 L 18 125/66 96 04/02/25 10:16 55 L 18 125/66 96 04/02/25 07:21 60 18 113/60 96 04/02/25 07:00 54 L 18 131/63 97 04/02/25 05:31 54 L 16 133/69 97 04/02/25 03:40 98.6 F 54 L 16 132/68 96 04/02/25 01:58 98.4 F 54 L 18 124/61 97 04/02/25 01:38 98.6 F 55 L 16 116/60 98 04/02/25 01:28 98.2 F 55 L 16 117/63 98 04/01/25 22:36 64 16 134/57 98 04/01/25 20:14 98.1 F 62 18 134/57 98 Intake and Output 04/01/25 04/02/25 04/02/25 22:59 06:59 14:59 Intake Total 283 Balance 283 Intake: Blood Product 283 Rc Pheresis As-3 Unit 283 [id number] Other: Weight 79.379 kg General appearance: The patient is alert, oriented, appears in no acute distress. HET: Head is normocephalic and atraumatic. Conjunctiva pink. Sclera anicteric. Neck: Supple without lymphadenopathy. Trachea midline. Heart: Regular. Lungs: Equal expansion, normal respiratory effort. Abdomen: Soft, nontender, nondistended. Skin: No rashes. No jaundice. Extremities: Normal skin color and turgor. No pedal edema. Neurological: No focal deficits. Alert and oriented x3. Results CBC & Chem 7: 04/02/25 12:40 04/02/25 00:23 Labs: Abnormal Lab Results - Last 24 Hours (Table) 04/01/25 04/01/25 04/01/25 Range/Units 00:00 20:14 20:19 RBC 2.78 L (4.40-5.60) 10*6/uL Hgb 6.7 L* (13.0-17.0) g/dL Hct 22.3 L (39.6-50.0) % MCH 24.1 L (27.0-32.0) pg MCHC 30.0 L (32.0-37.0) g/dL RDW (11.5-14.5) % Chloride (98-107) mmol/L Carbon Dioxide (22-30) mmol/L Creatinine (0.66-1.25) mg/dL Glucose (74-99) mg/dL POC Glucose (mg/dL) (70-110) mg/dL Plasma Lactic Acid Selvin (0.7-2.0) mmol/L Ferritin 9.5 L (22.0-322.0) ng/mL Total Protein (6.3-8.2) g/dL Albumin (3.5-5.0) g/dL Vitamin B12 1779.0 H (200.0-944.0) pg/mL Ur Leukocyte Esterase (Negative) Urine WBC (0-5) /hpf Calcium Oxalate Crystal (None) /hpf Urine Bacteria (None) /hpf Urine Mucus (None) /hpf Crossmatch See Detail 04/01/25 04/01/25 04/01/25 Range/Units 20:19 20:19 20:19 RBC (4.40-5.60) 10*6/uL Hgb (13.0-17.0) g/dL Hct (39.6-50.0) % MCH (27.0-32.0) pg MCHC (32.0-37.0) g/dL RDW (11.5-14.5) % Chloride (98-107) mmol/L Carbon Dioxide 21 L (22-30) mmol/L Creatinine 1.32 H (0.66-1.25) mg/dL Glucose 192 H (74-99) mg/dL POC Glucose (mg/dL) 248 H (70-110) mg/dL Plasma Lactic Acid Selvin 2.1 H* (0.7-2.0) mmol/L Ferritin (22.0-322.0) ng/mL Total Protein 6.2 L (6.3-8.2) g/dL Albumin (3.5-5.0) g/dL Vitamin B12 (200.0-944.0) pg/mL Ur Leukocyte Esterase (Negative) Urine WBC (0-5) /hpf Calcium Oxalate Crystal (None) /hpf Urine Bacteria (None) /hpf Urine Mucus (None) /hpf Crossmatch 07/29/25 07/29/25 07/29/25 Range/Units 00:23 04:30 08:30 RBC 2.90 L (4.40-5.60) 10*6/uL Hgb 7.3 L (13.0-17.0) g/dL Hct 23.6 L (39.6-50.0) % MCH 25.2 L (27.0-32.0) pg MCHC 30.9 L (32.0-37.0) g/dL RDW 18.6 H (11.5-14.5) % Chloride 109 H (98-107) mmol/L Carbon Dioxide (22-30) mmol/L Creatinine (0.66-1.25) mg/dL Glucose 122 H (74-99) mg/dL POC Glucose (mg/dL) (70-110) mg/dL Plasma Lactic Acid Selvin (0.7-2.0) mmol/L Ferritin (22.0-322.0) ng/mL Total Protein 5.5 L (6.3-8.2) g/dL Albumin 3.3 L (3.5-5.0) g/dL Vitamin B12 (200.0-944.0) pg/mL Ur Leukocyte Esterase Small H (Negative) Urine WBC 10 H (0-5) /hpf Calcium Oxalate Crystal Rare H (None) /hpf Urine Bacteria Rare H (None) /hpf Urine Mucus Rare H (None) /hpf Crossmatch Assessment and Plan (1) Chronic anemia Narrative/Plan: 89-year-old male with history of chronic iron deficiency anemia who is on oral iron supplementation presented with likely symptomatic anemia with a syncopal e vent. He has had extensive workup with hematology and even undergone bone marrow biopsy in December of this year. He has also had workup for possible GI bleed and underwent EGD and colonoscopy 09/17/[address] Fowler evidence of GI bleed. Patient without reports of any blood in his stool. Hematology is requesting a repeat upper endoscopy to again rule out source as GI bleed as cause of anemia. Current Visit: Yes Status: Acute Code(s): D64.9 - ANEMIA, UNSPECIFIED SNOMED Code(s): 252865643 (2) Syncope and collapse Current Visit: Yes Status: Acute Code(s): R55 - SYNCOPE AND COLLAPSE SNOMED Code(s): 196240129 Plan: 1. Continue symptomatic and supportive care 2. Patient may have regular diet, n.p.o. after midnight 3. CBC, transfuse for hemoglobin less than 7 4. Continue parenteral iron as ordered 5. Recommended upper endoscopy with possible small bowel capsule endoscopy tomorrow however patient and would like to be discharged and come in as an outpatient. This can be scheduled as an outpatient this 04/05/2025. Discussed with the primary medical team. Can transfuse 1 unit RBC prior to discharge. Thank you for this consultation, patient is cleared from gastroenterology for discharge posttransfusion. Dr. Arianna Minor I agree with the dictator's note, documented as a scribe by Britt Singh.
--- NOTE | 2025-04-02 18:11 | P.PN ---
Subjective Progress Note Date: 04/02/25 Hospital course: Patient is a very pleasant 89-year-old male with a past medical history of chronic iron deficiency anemia undergoes outpatient iron transfusions, recently diagnosed non-Hodgkin's B-cell lymphoma, CAD with previous [place] followed by stenting, hypertension, hyperlipidemia, CVA/TIA, BPH, hard of hearing with bilateral hearing aids in place, and obstructive sleep apnea. He presented to the emergency department on 04/01/2025 secondary to symptomatic anemia resulting in syncopal episode. Upon arrival to our facility, patient underwent evaluation in the emergency department. Vital signs upon arrival show blood pressure 134/57, heart rate 62,, temp 98.1 F, and SpO2 of 90% on 2 L. EKG was completed showing normal sinus rhythm at 65 bpm with a right bundle branch block. Left lower extremity Doppler negative for DVT. Labs completed and reviewed. CBC showing microcytic anemia with hemoglobin of 6.7, MCV of 80.2, MCH of 24.1, and MCHC of 30.0. Coagulation profile normal findings. BMP showing hypocarbia with bicarb of 21 and acute kidney injury with BUN of 18, creatinine of 1.32, and GFR of 48. Blood glucose was elevated at 192. Magnesium 2.0. Lactic acid was 2.1. Calcium 8.8. Liver profile unremarkable. Troponin 0.015 and proBNP was 1120. Transfused with 1 unit PRBCs and admitted under our services with consultation to hematology/oncology and gastroenterology. Physical exam: Vital signs reviewed and stable. General: Nontoxic, no distress and appears stated age. Derm: Skin warm and dry, normal coloration for ethnicity. Head: Atraumatic, normocephalic and symmetric. Eyes: EOM's intact, no lid lag, and anicteric sclera Mouth: no lip lesions, mucus membranes moist Cardiovascular: regular rate and rhythm with normal S1S2, grade 4 systolic murmur, positive posterior tibial pulses bilaterally, and cap refill < 2 seconds. Lungs: Respirations even, regular, and unlabored on room air. Lungs CTA bilaterally, no rhonchi, no rales, no wheezing, and no accessory muscle usage. Abdominal: soft distended, bowel sounds x 4, nontender to palpation, no guarding, no appreciable organomegaly Ext: Movement and sensation intact. No gross muscle atrophy, 1+ bilateral lower extremity pitting edema slightly worse on left, no contractures Neuro: Speech clear, face symmetrical and CN II-XII grossly intact with no noted focal neuro deficits Psych: Alert and oriented to person, place, time, and situation. Appropriate and pleasant affect. Assessment and Plan of Care: Symptomatic anemia Syncopal episode, likely secondary to above Chronic iron deficiency anemia Recently diagnosed non-Hodgkin B-cell lymphoma -Hematology/oncology following, discussed plan of care with Dr. Varsha price chiquising continued close monitoring of CBC and requested consult to plastering supervisor for EGD. -Consult placed to gastroenterology and discussed plan of care and oncology's recommendations with gastroenterology ENGINE HOSTLER. Patient to undergo EGD tomorrow. -Continue gentle IV fluid hydration. -Continue Ferrlecit 125 mg IVPB daily. -Status posttransfusion 1 unit PRBCs hemoglobin currently 7.3. Continue to trend every 6 hours and transfuse as needed for hemoglobin less than 7. -Continuous telemetry monitoring. -Protonix 40 mg daily. -Diet per recommendations of gastroenterology team. CAD status post stenting Hypertension Hyperlipidemia History of CVA/TIA Continue daily medication regimen with amiodarone 200 mg daily, atorvastatin 80 mg daily, and midodrine 7.5 mg 3 times daily with meals. Hold aspirin for pending EGD. BPH Continue Flomax 0.4 mg twice daily. Data and imaging reviewed: Morning labs reviewed. CBC showing continued microcytic anemia status posttransfusion 1 unit PRBCs with hemoglobin of 7.3, hematocrit of 23.6, MCV of 81.4, MCH of 25.2, and MCHC of 30.9 with RDW of 18.6. Platelet count stable at 280. BMP showing mild hyperchloremia with chloride of 109. Renal function stable with BUN of 17, creatinine 1.17, GFR 55. Blood glucose 1. Liver profile unremarkable. Urinalysis negative for infection. Vital signs reviewed. Blood pressure 125/66, heart rate 55, respiratory rate 18, and SpO2 of 96% on room air. CODE STATUS: Full code DVT prophylaxis: YARY vyas and SCDs Discussed with: Patient, patient's family at bedside, oncologist, and gastroenterology ENGINE HOSTLER Anticipated discharge date: Pending clinical course and completion of EGD tomorrow Anticipated discharge place: Home Patient was seen independently by Nurse Pracitioner. This document was prepared using [employer] dictation software. Please allow for errors in griddle attendant, while rare they do occur. Fletcher Clifton NP rendered care for this patient independently, reviewed the findings and plan as documented in the note above and agree with plan. I did not physically speak with or examine the patient on this date. Objective - Vital Signs Vital signs: Vital Signs Temp 98.6 F 04/02/25 03:40 Pulse 60 04/02/25 07:21 Resp 18 04/02/25 07:21 BP 113/60 04/02/25 07:21 Pulse Ox 96 04/02/25 07:21 FiO2 Intake & Output 04/01/25 04/02/25 04/02/25 18:59 06:59 18:59 Intake Total 283 Balance 283 Weight 79.379 kg Intake: Blood Product 283 Rc Pheresis As-3 Unit 283 [id number] - Labs CBC & Chem 7: 04/02/25 12:40 04/02/25 00:23 Labs: Abnormal Lab Results - Last 24 Hours (Table) 04/01/25 04/01/25 04/01/25 Range/Units 00:00 20:14 20:19 RBC 2.78 L (4.40-5.60) 10*6/uL Hgb 6.7 L* (13.0-17.0) g/dL Hct 22.3 L (39.6-50.0) % MCH 24.1 L (27.0-32.0) pg MCHC 30.0 L (32.0-37.0) g/dL RDW (11.5-14.5) % Chloride (98-107) mmol/L Carbon Dioxide (22-30) mmol/L Creatinine (0.66-1.25) mg/dL Glucose (74-99) mg/dL POC Glucose (mg/dL) (70-110) mg/dL Plasma Lactic Acid Selvin (0.7-2.0) mmol/L Ferritin 9.5 L (22.0-322.0) ng/mL Total Protein (6.3-8.2) g/dL Albumin (3.5-5.0) g/dL Vitamin B12 1779.0 H (200.0-944.0) pg/mL Ur Leukocyte Esterase (Negative) Urine WBC (0-5) /hpf Calcium Oxalate Crystal (None) /hpf Urine Bacteria (None) /hpf Urine Mucus (None) /hpf Crossmatch See Detail 04/01/25 04/01/25 04/01/25 Range/Units 20:19 20:19 20:19 RBC (4.40-5.60) 10*6/uL Hgb (13.0-17.0) g/dL Hct (39.6-50.0) % MCH (27.0-32.0) pg MCHC (32.0-37.0) g/dL RDW (11.5-14.5) % Chloride (98-107) mmol/L Carbon Dioxide 21 L (22-30) mmol/L Creatinine 1.32 H (0.66-1.25) mg/dL Glucose 192 H (74-99) mg/dL POC Glucose (mg/dL) 248 H (70-110) mg/dL Plasma Lactic Acid Selvin 2.1 H* (0.7-2.0) mmol/L Ferritin (22.0-322.0) ng/mL Total Protein 6.2 L (6.3-8.2) g/dL Albumin (3.5-5.0) g/dL Vitamin B12 (200.0-944.0) pg/mL Ur Leukocyte Esterase (Negative) Urine WBC (0-5) /hpf Calcium Oxalate Crystal (None) /hpf Urine Bacteria (None) /hpf Urine Mucus (None) /hpf Crossmatch 04/02/25 04/02/25 04/02/25 Range/Units 00:23 04:30 08:30 RBC 2.90 L (4.40-5.60) 10*6/uL Hgb 7.3 L (13.0-17.0) g/dL Hct 23.6 L (39.6-50.0) % MCH 25.2 L (27.0-32.0) pg MCHC 30.9 L (32.0-37.0) g/dL RDW 18.6 H (11.5-14.5) % Chloride 109 H (98-107) mmol/L Carbon Dioxide (22-30) mmol/L Creatinine (0.66-1.25) mg/dL Glucose 122 H (74-99) mg/dL POC Glucose (mg/dL) (70-110) mg/dL Plasma Lactic Acid Selvin (0.7-2.0) mmol/L Ferritin (22.0-322.0) ng/mL Total Protein 5.5 L (6.3-8.2) g/dL Albumin 3.3 L (3.5-5.0) g/dL Vitamin B12 (200.0-944.0) pg/mL Ur Leukocyte Esterase Small H (Negative) Urine WBC 10 H (0-5) /hpf Calcium Oxalate Crystal Rare H (None) /hpf Urine Bacteria Rare H (None) /hpf Urine Mucus Rare H (None) /hpf Crossmatch
[2025-04-02 19:43] LABS: Glucose,Whole Blood 147 mg/dL (70-110)
[2025-04-02] MEDS: PREGABALIN 25 MG CAP PO SCH (21:05)
[2025-04-02 23:48] LABS: HCT 24.9 % (39.6-50.0); HGB 7.6 g/dL (13.0-17.0); MCH 25.4 pg (27.0-32.0); MCHC 30.5 g/dL (32.0-37.0); MCV 83.3 fL (80.0-97.0); Platelet Count 263 10*3/uL (140-440); RBC 2.99 10*6/uL (4.40-5.60); RDW 18.4 % (11.5-14.5); WBC 5.97 10*3/uL (4.50-10.00)
[2025-04-03 07:09] LABS: Glucose,Whole Blood 95 mg/dL (70-110)
[2025-04-03 07:57] LABS: HCT 26.6 % (39.6-50.0); HGB 7.9 g/dL (13.0-17.0); MCH 24.5 pg (27.0-32.0); MCHC 29.7 g/dL (32.0-37.0); MCV 82.6 FL (80.0-97.0); NRBC Per 100 WBC 0 X 10*3/uL (0.00-0.01); Platelet Count 285 X 10*3/uL (140-440); RBC 3.22 X 10*6/uL (4.40-5.60); RDW 18.4 % (11.5-14.5); WBC 6.26 X 10*3/uL (4.50-10.00)
[2025-04-03 10:52] LABS: ALT 14 U/L (10-49); AST 16 U/L (14-35); Albumin 3.6 g/dL (3.8-4.9); Albumin/Globulin Ratio 2.00 Ratio (1.60-3.17); Alkaline Phosphatase 76 U/L (41-126); Anion Gap 8.90 mmol/L (4.00-12.00); BUN/Creat Ratio 11.36 Ratio (12.00-20.00); Blood Urea Nitrogen 12.5 mg/dL (9.0-27.0); Calcium 8.4 mg/dL (8.7-10.3); Carbon Dioxide 21.1 mmol/L (21.6-31.8); Chloride 108 mmol/L (96-109); Globulin 1.8 g/dL (1.6-3.3); Glucose 83 mg/dL (70-110); Magnesium 1.9 mg/dL (1.5-2.4); Potassium 4.4 mmol/L (3.5-5.5); Sodium 138 mmol/L (135-145); Total Protein 5.4 g/dL (6.2-8.2)
[2025-04-03 12:17] LABS: Glucose,Whole Blood 106 mg/dL (70-110)
[2025-04-03] MEDS: IV FLUID CONTINUATION 500 ML IV ONE (15:17)
[2025-04-03] MEDS ORDERED: LIDOCAINE 1% INJ 10MG/ML (20 ML MDV) ONE (15:18)
[2025-04-03] MEDS ORDERED: PROPOFOL 10 MG/ML 20 ML VIAL IV ONE (15:18)
--- NOTE | 2025-04-03 15:41 | P.PCN ---
Date of Procedure: 04/03/25 Procedure(s) Performed: BRIEF HISTORY: Patient is a 89-year-old, pleasant, white male admitted to hospital for severe symptomatic anemia and a hemoglobin of 6.7 g/dL requiring a unit of PRBC transfusion. He denies any GI bleed.. An upper endoscopy as well as colonoscopy by Dr. Bragg in September 2024 which was unremarkable. He is scheduled for an upper endoscopy today and if negative consider a small bowel capsule endoscopy tomorrow PROCEDURE PERFORMED: Esophagogastroduodenoscopy with cautery. PREOPERATIVE DIAGNOSIS: Severe symptomatic iron deficiency anemia. IV sedation per anesthesia. PROCEDURE: After informed consent was obtained, the patient was brought into the endoscopy unit. IV conscious sedation was administered by Anesthesia under continuous monitoring. Initially the Olympus GIF-140 video endoscope was inserted into the mouth. Esophagus intubated without any difficulty. It was gr adually advanced into the stomach and duodenum and carefully examined. The bulb and the second part of the duodenum appeared normal. The scope at this time was withdrawn to the stomach, adequately insufflated with air, and upon careful examination, mucosa of the antrum, body, cardia and the fundus appeared normal. The scope was then withdrawn into the esophagus. The GE junction was located at 39 cm from the incisors. The esophagus appeared normal. There were no erosions or ulcerations seen and the patient tolerated the procedure well. IMPRESSION: 1. 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 2. Small hiatal hernia . RECOMMENDATIONS: The findings of this examination were discussed with the patient as well as his family. He was advised to continue with iron supplements daily. Monitor CBC periodically. If he has recurrent iron deficiency anemia we will consider small bowel capsule endoscopy in the near future. Advance to regular diet.
--- NOTE | 2025-04-03 16:44 | P.PN ---
Subjective Progress Note Date: 04/03/25 Hospital course: Patient is a very pleasant 89-year-old male with a past medical history of chronic iron deficiency anemia undergoes outpatient iron transfusions, recently diagnosed non-Hodgkin's B-cell lymphoma, CAD with previous [place] followed by stenting, hypertension, hyperlipidemia, CVA/TIA, BPH, hard of hearing with bilateral hearing aids in place, and obstructive sleep apnea. He presented to the emergency department on 04/01/2025 secondary to symptomatic anemia resulting in syncopal episode. Upon arrival to our facility, patient underwent evaluation in the emergency department. Vital signs upon arrival show blood pressure 134/57, heart rate 62,, temp 98.1 F, and SpO2 of 90% on 2 L. EKG was completed showing normal sinus rhythm at 65 bpm with a right bundle branch block. Left lower extremity Doppler negative for DVT. Labs completed and reviewed. CBC showing microcytic anemia with hemoglobin of 6.7, MCV of 80.2, MCH of 24.1, and MCHC of 30.0. Coagulation profile normal findings. BMP showing hypocarbia with bicarb of 21 and acute kidney injury with BUN of 18, creatinine of 1.32, and GFR of 48. Blood glucose was elevated at 192. Magnesium 2.0. Lactic acid was 2.1. Calcium 8.8. Liver profile unremarkable. Troponin 0.015 and proBNP was 1120. Transfused with 1 unit PRBCs and admitted under our services with consultation to hematology/oncology and gastroenterology. Physical exam: Vital signs reviewed and stable. General: Nontoxic, no distress and appears stated age. Derm: Skin warm and dry, normal coloration for ethnicity. Head: Atraumatic, normocephalic and symmetric. Eyes: EOM's intact, no lid lag, and anicteric sclera Mouth: no lip lesions, mucus membranes moist Cardiovascular: regular rate and rhythm with normal S1S2, grade 4 systolic murmur, positive posterior tibial pulses bilaterally, and cap refill < 2 seconds. Lungs: Respirations even, regular, and unlabored on room air. Lungs CTA bilaterally, no rhonchi, no rales, no wheezing, and no accessory muscle usage. Abdominal: soft distended, bowel sounds x 4, nontender to palpation, no guarding, no appreciable organomegaly Ext: Movement and sensation intact. No gross muscle atrophy, 1+ bilateral lower extremity pitting edema slightly worse on left, no contractures Neuro: Speech clear, face symmetrical and CN II-XII grossly intact with no noted focal neuro deficits Psych: Alert and oriented to person, place, time, and situation. Appropriate and pleasant affect. Assessment and Plan of Care: Symptomatic anemia Syncopal episode, likely secondary to above Chronic iron deficiency anemia Recently diagnosed non-Hodgkin B-cell lymphoma -Hematology/oncology following, discussed plan of care with Dr. Varsha siming continued close monitoring of CBC and requested consult to breakfast attendant for EGD. -Consult placed to gastroenterology and discussed plan of care with gastroenterology MACHINERY ENGINEER. Patient to undergo EGD later today. -Continue gentle IV fluid hydration. -Continue Ferrlecit 125 mg IVPB daily. -Status post transfusion of 2 units PRBCs hemoglobin currently 7.9. Continue to trend every 6 hours and transfuse as needed for hemoglobin less than 7. -Continuous telemetry monitoring. -Protonix 40 mg daily. -Diet per recommendations of gastroenterology team after completion of EGD. CAD status post stenting Hypertension Hyperlipidemia History of CVA/TIA Continue daily medication regimen with amiodarone 200 mg daily, atorvastatin 80 mg daily, and midodrine 7.5 mg 3 times daily with meals. Hold aspirin for pending EGD. BPH Continue Flomax 0.4 mg twice daily. Data and imaging reviewed: Morning labs reviewed. CBC showing continued microcytic anemia status posttransfusion 2 units PRBCs with hemoglobin of 7.9, hematocrit of 26.6, MCV of 82.6, MCH of 24.5, and MCHC of 29.7 with RDW of 18.4. Platelet count stable at 285. BMP unremarkable with exception of slightly low bicarb of 21.1. Blood glucose 83. Magnesium 1.9. Liver profile unremarkable with exception of low total protein of 5.4 and albumin of 3.6. Vital signs reviewed. Blood pressure 128/53, heart rate 71, respiratory rate 16, temp 98.1 F, and SpO2 100% on room air. CODE STATUS: Full code DVT prophylaxis: YARY vyas and SCDs Discussed with: Patient, patient's family at bedside, oncologist, and gastroenterology MACHINERY ENGINEER Anticipated discharge date: Pending clinical course and completion of EGD later today Anticipated discharge place: Home Patient was seen independently by Nurse Pracitioner. This document was prepared using [employer] dictation software. Please allow for errors in display mechanic, while rare they do occur. Fletcher Clifton MACHINERY ENGINEER rendered care for this patient independently, reviewed the findings and plan as documented in the note above and agree with plan. I did not physically speak with or examine the patient on this date. Objective - Vital Signs Vital signs: Vital Signs Temp 98.1 F 04/03/25 06:56 Pulse 71 04/03/25 06:56 Resp 16 04/03/25 06:56 BP 128/53 04/03/25 06:56 Pulse Ox 100 04/03/25 06:56 FiO2 Intake & Output 04/02/25 04/03/25 04/03/25 18:59 06:59 18:59 Intake Total 0 310 Balance 0 310 Weight 79.379 kg Intake: Blood Product 0 310 Rc As-1 Unit 0 310 [id number] Other: # Voids 2 - Labs CBC & Chem 7: 04/03/25 05:10 04/03/25 05:10 Labs: Abnormal Lab Results - Last 24 Hours (Table) 04/01/25 04/02/25 04/02/25 Range/Units 20:14 12:40 19:38 RBC 2.85 L (4.40-5.60) 10*6/uL Hgb 7.0 L (13.0-17.0) g/dL Hct 23.5 L (39.6-50.0) % MCH 24.6 L (27.0-32.0) pg MCHC 29.8 L (32.0-37.0) g/dL RDW 18.8 H (11.5-14.5) % POC Glucose (mg/dL) 147 H (70-110) mg/dL Crossmatch See Detail 04/02/25 04/03/25 Range/Units 23:41 05:10 RBC 2.99 L 3.22 L (4.40-5.60) 10*6/uL Hgb 7.6 L 7.9 L (13.0-17.0) g/dL Hct 24.9 L 26.6 L (39.6-50.0) % MCH 25.4 L 24.5 L (27.0-32.0) pg MCHC 30.5 L 29.7 L (32.0-37.0) g/dL RDW 18.4 H 18.4 H (11.5-14.5) % POC Glucose (mg/dL) (70-110) mg/dL Crossmatch
[2025-04-03 16:54] LABS: Glucose,Whole Blood 151 mg/dL (70-110)
[2025-04-03 20:18] LABS: Glucose,Whole Blood 219 mg/dL (70-110)
[2025-04-04 07:20] LABS: Glucose,Whole Blood 124 mg/dL (70-110)
[2025-04-04 08:11] LABS: HCT 27.4 % (39.6-50.0); HGB 8.3 g/dL (13.0-17.0); MCH 25.2 pg (27.0-32.0); MCHC 30.3 g/dL (32.0-37.0); MCV 83.3 FL (80.0-97.0); NRBC Per 100 WBC 0 X 10*3/uL (0.00-0.01); Platelet Count 285 X 10*3/uL (140-440); RBC 3.29 X 10*6/uL (4.40-5.60); RDW 19.5 % (11.5-14.5); WBC 8.09 X 10*3/uL (4.50-10.00)
[2025-04-04 11:23] LABS: Anion Gap 10.30 mmol/L (4.00-12.00); BUN/Creat Ratio 10.80 Ratio (12.00-20.00); Blood Urea Nitrogen 10.8 mg/dL (9.0-27.0); Calcium 8.3 mg/dL (8.7-10.3); Carbon Dioxide 19.7 mmol/L (21.6-31.8); Chloride 107 mmol/L (96-109); Glucose 122 mg/dL (70-110); Potassium 4.2 mmol/L (3.5-5.5); Sodium 137 mmol/L (135-145)
[2025-04-04 12:43] LABS: Glucose,Whole Blood 161 mg/dL (70-110)
--- NOTE | 2025-04-04 12:46 | P.DS ---
Providers Date of admission: 04/03/25 16:51 Attending physician: Mich Jimenes MD Consults: 04/01/25 22:01 Consult Physician Routine Consulting Provider: Damian Durham Consult Reason/Comments: known Do you want consulting provider notified?: Yes 04/02/25 10:15 Consult Physician Stat Consulting Provider: Catrina Minor Consult Reason/Comments: Hem oncology requesting repear upper Endo Do you want consulting provider notified?: Yes Primary care physician: [facility] Hospital Course: Discharge Diagnosis: nonBleeding angiectasia in the duodenal bulb and second part of the duodenum status post cautery 04/03/2025 Symptomatic anemia secondary to above Syncopal episode secondary to above Chronic iron deficiency anemia Recently diagnosed non-Hodgkin B-cell lymphoma CAD status post stenting Hypertension Hyperlipidemia History of CVA/TIA BPH Small hiatal hernia Hospital Course: Patient is a very pleasant 89-year-old male with a past medical history of chronic iron deficiency anemia undergoes outpatient iron transfusions, recently diagnosed non-Hodgkin's B-cell lymphoma, CAD with previous [place] followed by stenting, hypertension, hyperlipidemia, CVA/TIA, BPH, hard of hearing with bilateral hearing aids in place, and obstructive sleep apnea. He presented to the emergency department on 04/01/2025 secondary to symptomatic anemia resulting in syncopal episode. Upon arrival to our facility, patient underwent evaluation in the emergency department. Vital signs upon arrival show blood pressure 134/57, heart rate 62,, temp 98.1 F, and SpO2 of 90% on 2 L. EKG was completed showing normal sinus rhythm at 65 bpm with a right bundle branch block. Left lower extremity Doppler negative for DVT. Labs completed and reviewed. CBC showing microcytic anemia with hemoglobin of 6.7, MCV of 80.2, MCH of 24.1, and MCHC of 30.0. Coagulation profile normal findings. BMP showing hypocarbia with bicarb of 21 and acute kidney injury with BUN of 18, creatinine of 1.32, and GFR of 48. Blood glucose was elevated at 192. Magnesium 2.0. Lactic acid was 2.1. Calcium 8.8. Liver profile unremarkable. Troponin 0.015 and proBNP was 1120. Transfused with 1 unit PRBCs and admitted under our services with consultation to hematology/oncology and gastroenterology. Patient received IV iron, required 2 units of PRBC. EGD showed nonBleeding angiectasia in the duodenal bulb and second part of the duodenum status post cautery 04/03/202504/04: Patient seen examined at bedside, feeling well, no active complaints, tolerating regular diet. His hemoglobin this morning 8.3, creatinine 1.0, normal sodium and potassium. Patient is optimized for discharge, will be discharged on Protonix 40, ferrous sulfate 325 daily, follow-up with gastroenterology and PCP. Patient seen and examined at bedside. Vital signs reviewed and stable. General: Nontoxic, no distress and appears stated age. Derm: Skin warm and dry, normal coloration for ethnicity. Head: Atraumatic, normocephalic and symmetric. Eyes: EOM's intact, no lid lag, and anicteric sclera Mouth: no lip lesions, mucus membranes moist Cardiovascular: regular rate and rhythm with normal S1S2, grade 4 systolic murmur, positive posterior tibial pulses bilaterally, and cap refill < 2 seconds. Lungs: Respirations even, regular, and unlabored on room air. Lungs CTA bilaterally, no rhonchi, no rales, no wheezing, and no accessory muscle usage. Abdominal: soft distended, bowel sounds x 4, nontender to palpation, no guarding, no appreciable organomegaly Ext: Movement and sensation intact. No gross muscle atrophy, 1+ bilateral lower extremity pitting edema slightly worse on left, no contractures Neuro: Speech clear, face symmetrical and CN II-XII grossly intact with no noted focal neuro deficits Psych: Alert and oriented to person, place, time, and situation. Appropriate and pleasant affect. A total of 40 minutes of time were spent preparing this complex discharge summary. Patient Condition at Discharge: Fair Plan - Discharge Summary Discharge Rx Participant: Yes New Discharge Prescriptions: New Pantoprazole [Protonix] 40 mg PO DAILY #30 tab Ferrous Sulfate [Feosol] 325 mg PO DAILY #30 tab Continue metFORMIN HCL [Glucophage] 850 mg PO BID-W/MEALS Pregabalin [Lyrica] 25 mg PO HS Amiodarone [Cordarone] 200 mg PO DAILY Tamsulosin [Flomax] 0.4 mg PO BID-W/MEALS Ferrous Sulfate [Iron (65 MG Elemental)] 325 mg PO BID-W/MEALS Atorvastatin [Lipitor] 80 mg PO DAILY #30 tab Midodrine HCl 7.5 mg PO TID-W/MEALS Aspirin 81 mg PO DAILY #30 tab Pantoprazole [Protonix] 40 mg PO DAILY Discontinued Sulfamethox-Tmp 800-160Mg [Bactrim DS 800-160 mg] 1 tab PO BID-W/MEALS Discharge Medication List metFORMIN HCL [Glucophage] 850 mg PO BID-W/MEALS 11/23/19 [History] Pregabalin [Lyrica] 25 mg PO HS 01/11/24 [History] Atorvastatin [Lipitor] 80 mg PO DAILY #30 tab 01/12/24 [Rx] Amiodarone [Cordarone] 200 mg PO DAILY 05/15/24 [History] Midodrine HCl 7.5 mg PO TID-W/MEALS 05/15/24 [History] Tamsulosin [Flomax] 0.4 mg PO BID-W/MEALS 05/15/24 [History] Aspirin 81 mg PO DAILY #30 tab 09/18/24 [Rx] Ferrous Sulfate [Iron (65 MG Elemental)] 325 mg PO BID-W/MEALS 12/06/24 [History] Pantoprazole [Protonix] 40 mg PO DAILY 04/02/25 [History] Ferrous Sulfate [Feosol] 325 mg PO DAILY #30 tab 04/04/25 [Rx] Pantoprazole [Protonix] 40 mg PO DAILY #30 tab 04/04/25 [Rx] Follow up Appointment(s)/Referral(s): [facility] DO [Primary Care Provider] - 1-2 days Catrina Minor MD [STAFF PHYSICIAN] - 1 Week Patient Instructions/Handouts: Iron Rich Diet (DC) Activity/Diet/Wound Care/Special Instructions: Please, follow-up with your primary care physician, stomach doctor. Take iron supplement, avoid NSAIDs such as Aleve, ibuprofen Discharge Disposition: HOME SELF-CARE
--- NOTE | 2025-04-04 12:53 | P.PN ---
Subjective Progress Note Date: 04/04/25 Principal diagnosis: Anemia, GI bleed This a pleasant 89-year-old male with a past medical history including chronic anemia, CVA/TIA, diabetes mellitus, GERD, hearing loss, hyperlipidemia, hypertension, coronary artery disease with ND, prostate disorder and sleep apnea who had presented to the emergency department yesterday evening with complaints of syncopal event. Apparently patient had a syncopal event has some shortness of breath and weakness. He was concerned his hemoglobin was low as he has history of anemia and currently takes iron. Patient follows with hematology and has had workup for his anemia including bone marrow biopsy in December of this year. He has also had workup with upper endoscopy and colonoscopy by Dr. Thomas on 09/17/2024 with upper endoscopy with findings of mild gastritis, small hiatal hernia and mild distal esophagitis. Colonoscopy with normal colon. On presentation he had a hemoglobin of 6.7. He was given 1 unit of blood. He had iron studies appears prior to blood transfusion iron was normal at 106 TIBC C3 32 saturation 31 ferritin 9.5 vitamin B12 1779. Patient denies being on any anticoagulation, is on aspirin 81 mg daily. No NSAID use. 04/04/2025 Patient seen and examined today as a follow-up. 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 He has had no further bleeding. Hemoglobin stable at 8.3. He denies any abdominal pain nausea or vomiting. Tolerating regular diet. Objective - Vital Signs Vital signs: Vital Signs Temp 98.5 F 04/04/25 07:35 Pulse 59 L 04/04/25 07:35 Resp 18 04/04/25 07:35 BP 121/60 04/04/25 07:35 Pulse Ox 95 04/04/25 07:35 FiO2 Intake & Output 04/03/25 04/04/25 04/04/25 18:59 06:59 18:59 Intake Total 2680 Output Total 1 Balance 2679 Intake: IV 100 Oral 2580 Output: Urine/Stool Mix 1 Other: Voiding Method Toilet # Voids 6 3 - Exam General appearance: The patient is alert, oriented, appears in no acute distress. HET: Head is normocephalic and atraumatic. Conjunctiva pink. Sclera anicteric. Neck: Supple without lymphadenopathy. Abdomen: Soft, nontender, nondistended. Extremities: Normal skin color and turgor. No pedal edema Skin: No rashes, no jaundice Neurological: No focal deficits. Alert and oriented. - Labs CBC & Chem 7: 04/04/25 06:24 04/04/25 06:24 Labs: Abnormal Lab Results - Last 24 Hours (Table) 04/03/25 04/03/25 04/04/25 Range/Units 16:52 20:17 06:24 RBC 3.29 L (4.40-5.60) X 10*6/uL Hgb 8.3 L (13.0-17.0) g/dL Hct 27.4 L (39.6-50.0) % MCH 25.2 L (27.0-32.0) pg MCHC 30.3 L (32.0-37.0) g/dL RDW 19.5 H (11.5-14.5) % POC Glucose (mg/dL) 151 H 219 H (70-110) mg/dL 04/04/25 Range/Units 07:11 RBC (4.40-5.60) X 10*6/uL Hgb (13.0-17.0) g/dL Hct (39.6-50.0) % MCH (27.0-32.0) pg MCHC (32.0-37.0) g/dL RDW (11.5-14.5) % POC Glucose (mg/dL) 124 H (70-110) mg/dL Assessment and Plan (1) Chronic anemia Narrative/Plan: 89-year-old male with history of chronic iron deficiency anemia who is on oral iron supplementation presented with likely symptomatic anemia with a syncopal event. He has had extensive workup with hematology and even undergone bone marrow biopsy in December of this year. He has also had workup for possible GI bleed and underwent EGD and colonoscopy 09/17/[address] Fowler evidence of GI bleed. Patient without reports of any blood in his stool. Hematology is requesting a repeat upper endoscopy to again rule out source as GI bleed as cause of anemia. 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 Current Visit: Yes Status: Acute Code(s): D64.9 - ANEMIA, UNSPECIFIED SNOMED Code(s): 780388216 (2) Syncope and collapse Current Visit: Yes Status: Acute Code(s): R55 - SYNCOPE AND COLLAPSE SNOMED Code(s): 620419685 Plan: 1. Continue symptomatic and supportive care 2. Pa diet as tolerated 3. Continue iron as ordered 4. Patient is status post upper endoscopy without any active bleeding. 5. Can do outpatient small bowel capsule endoscopy if patient continues with iron deficiency anemia Thank you for this consultation, patient is cleared from gastroenterology for discharge. We will sign off at this time. Dr. Arianna Minor I agree with the dictator's note, documented as a scribe by Britt Singh.
[2025-04-04 13:00] VITALS: BP 114/49; PULSE 55; RESP 17; TEMP 98.2
== END 2025-04-04 14:00 | disposition home or self-care (01) | DRG 811 ==
LOC: EC 20:13 → 5NMEDONC 22:02 → OBSVTOIN 04-03 16:51
PROVIDERS: ADMIT Internal Medicine; ATTEND Internal Medicine
PROC: 30233N1 Transfusion of Nonautologous Red Blood Cells into Peripheral Vein, Percutaneous Approach (ICD-10-PCS; 2025-04-01)
PROC: 6A550Z0 Pheresis of Erythrocytes, Single (ICD-10-PCS; 2025-04-02)
PROC: 0W3P8ZZ Control Bleeding in Gastrointestinal Tract, Via Natural or Artificial Opening Endoscopic (ICD-10-PCS; principal; 2025-04-03 08:05)
DX: D62 Acute posthemorrhagic anemia (principal); K55.21 Angiodysplasia of colon with hemorrhage; C85.10 Unspecified B-cell lymphoma, unspecified site; E11.65 Type 2 diabetes mellitus with hyperglycemia; I10 Essential (primary) hypertension; I35.0 Nonrheumatic aortic (valve) stenosis; N17.9 Acute kidney failure, unspecified; I25.10 Atherosclerotic heart disease of native coronary artery without angina pectoris; I99.8 Other disorder of circulatory system; K44.9 Diaphragmatic hernia without obstruction or gangrene; E78.5 Hyperlipidemia, unspecified; E87.8 Other disorders of electrolyte and fluid balance, not elsewhere classified; N40.0 Benign prostatic hyperplasia without lower urinary tract symptoms; H91.93 Unspecified hearing loss, bilateral; Z79.84 Long term (current) use of oral hypoglycemic drugs; Z79.82 Long term (current) use of aspirin; I25.2 Old myocardial infarction; Z86.73 Personal history of transient ischemic attack (TIA), and cerebral infarction without residual deficits; Z97.4 Presence of external hearing-aid; Z95.5 Presence of coronary angioplasty implant and graft; Z87.891 Personal history of nicotine dependence; Z79.899 Other long term (current) drug therapy
CPT/HCPCS: 36415; 36430; 43270; 80048; 80053; 81001; 82607; 82728; 82747; 83540; 83550; 83605; 83735; 83880; 83921; 84100; 84484; 85025; 85027; 85610; 85730; 86850; 86900; 86901; 86920; 93005; 93970; 96365; 96366; 99291